=== PATIENT | female | born 1985 | race Caucasian/White ===

== ENCOUNTER → 2018-01-06 09:36 | Outpatient (CLI) | payer MEDICARE, MEDICAID, SELFPAY ==
--- NOTE | 2018-01-06 09:42 | DI.REPORT_ITS ---
SYMPTOM/DIAGNOSIS: WRIST PAIN, LEFT M25.532 LEFT WRIST: No fracture or dislocation is seen. The bones appear normally mineralized. The carpal alignment is normal. There are no visible degenerative changes. IMPRESSION: Negative left wrist.
== END ==
PROVIDERS: PCP Nurse Practitioner Family; Visit Provider Student in an Organized Health Care Education/Training Program
DX: M25.532 Pain in left wrist (principal)
CPT/HCPCS: 73110

== ENCOUNTER 2018-02-01 15:00 | Outpatient (RCR) | payer MEDICARE, MEDICAID, SELFPAY ==
--- NOTE | 2018-01-25 11:46 | IE_ITS ---
Date: January 25, 2018 Referring provider: Mona Honeycutt NP M.D. Diagnosis: continued wrist pain P.T. Diagnosis: difficulty grasping, difficulty manipulating objects with the left hand SUBJECTIVE: History of Present Illness: The patient describes herself as a disabled female due to a learning disability. 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 She has an old wrist injury that occurred when she was 12 or 13 yrs. of age, where she had sprained her wrist while playing basketball. It did heal, but always felt slightly weaker on the left side. Recently, she injured her wrist, this time at work. It was 2 to 3 weeks ago, and really cannot describes the actual incident, she just remembers washing dishes and suddenly getting a stabbing pain through the left wrist. Now, the wrist is always painful, particularly through the thumb side of her left hand and over the entire wrist both front and back. She will occasionally have the left hand fall asleep. This is progressively worsening instead of getting better. She has been utilizing a splint for about 2 weeks, now. Pain Rating: Currently 8/10 Prior Level of Function: Unrestricted. Current Level of Function: Limited use of the left hand. She is currently not lifting anything. She is having some difficulty negotiating even kitchen utensils with the left hand. Previous Treatment: N/A Social: She lives alone in [facility]. Comorbidities: Diabetes, hypertension and a learning disability. Medications: These were reviewed. You can observe her EMR for a full list. Quality of Life: __x__ Good Standardized Measures: DASH score: __33%__ OBJECTIVE: Posture: In standing, the patient demonstrates morbid obesity. She has a moderate forward head position and scapular protraction bilaterally. She holds the wrist and elbow in an anatomic position. Gait: Unremarkable. No evidence of any severe antalgia or ataxia. Palpation: She is very tender to palpation through the area of the carpal tunnel with deep Tinel. She states she gets a tingling sensation. She is also tender over the dorsal surface of the wrist. Mildly tender through the thenar eminence of the left palm. No tenderness over the lateral or medial epicondyles of the humerus. ROM: Cervical spine extension 75% of normal motion (painfree), cervical flexion 75% of normal motion (painfree), cervical rotation 75% of normal bilaterally (painfree), shoulder flexion 180 on the right (painfree); 160 on the left (mild pain), functional external rotation with hand behind head is unlimited bilaterally, functional internal rotation with hand behind back is able to reach a thumb position of T7 with the right; left back pocket with the left, shoulder extension 50 right; 25 left, elbow ROM 0 extension bilaterally (painfree) and 140 flexion bilaterally (painfree), wrist extension 80 on the right (painfree); 75 left (end range pain), writ flexion 70 right (painfree); 65 left (end range pain), radial and ulnar deviation WNL bilaterally. No significant amount of pain, only light tenderness on the left side. 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 Neuro: Sensation is intact to light touch throughout the UE dermatomes. Motor control appears intact throughout associated myotomes. The patient demonstrates appropriate proprioception and kinestatic awareness. Special Tests: 5# arm curl test, 15 repetitions in 30 seconds on the right; 0 repetitions in 30 seconds on the left, mainly due to pain. 3# shoulder flexion test at 90 of shoulder flexion, patient holds 3# weight on the right x22 seconds and 5 seconds through the left. Median nerve tension testing is mildly (+) on the left; (-) on the right. Ulnar nerve tension testing (-) bilaterally. Prayers and Phalens sign mildly (+) left; (-) right. Treatment: IE: 87681 x1 Patient Education: I.E. and assessment of functional mobility as well as training in a formal exercise program. The patient demonstrates verbal acknowledgement and technique demonstration. Direct treatment time: 45 minutes Total treatment time: 45 minutes ASSESSMENT: Patient is a 32-year-old female with a history of mild wrist pain that suddenly became exacerbated. She is referred for PT services with the diagnosis of exacerbated left wrist pain. 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 Presentation: Stable Evolving Decision-Making: Moderate complexity 33 % Disability based on DASH ____ Patient requires skilled PT intervention to remediate the above functional limitations to return to: __x__ Premorbid level of function Prognosis: __x__ Good As evidence suggests improvement of functional mobility with compliancy to a detailed HEP tailored to her diagnosis and follow through with P.T. intervention. G-Codes (fill in modifier after appropriate code): Patient's primary functional limitation is in the category of: __X__ Mobility - walking and moving around : [id number] (justified by her inability to perform any light remedial tasks requiring any weight to be lifted by the left UE) Goal is to return to premorbid level of function. Projected goal: __X__ Mobility - walking and moving around: [id number] STG: __2__ weeks. 1) patient independent with a HEP both verbally and with ideal technique demonstration LTG: __6__ weeks. 1) patient able to perform 15 repetitions on the left side with a 5# arm curl test 2) patient unlimited in her ability to work without restrictions PLAN: Patient to be seen 2x per week, for 6 weeks, adjusting frequency of visits per patient symptoms and response to treatment. Treatment to include: Manual therapy - [id number]: enhancing muscle extensibility and improving joint arthrokinematics Therapeutic exercise - 37583 - providing tactile cues, verbal education and advanced movement correctives for establishing muscle symmetry and improved stability and motor control through the shoulder girdle and left UE. Ultrasound (03788) and estim (35210) are available for pain modulation if necessary. The patient may be fitted with a customized orthotic splint for rest of the wrist in a 10 position of extension in order to increase patency through the carpal tunnel. She will be monitored for compliancy to her HEP, and her status will be updated accordingly. POC may be modified as symptoms dictate. Thank you for this referral. Please do not hesitate to contact me with any questions or concerns regarding this patient's plan of care. Please sign, date and return to our clinic with your approval.................... Mona Honeycutt NP
--- NOTE | 2018-01-28 15:11 | NT_ITS ---
NON TREATMENT NOTE: 01/28/18 Patient called in to cancel today's appointment
--- NOTE | 2018-02-01 15:42 | PTTR_ITS ---
DATE: 02/01/18 SUBJECTIVE: Pt reports that she experiences pain in the wrist almost all of the time. She states that the splint is not helping. OBJECTIVE: Manual therapy: ([id number]). Pt received stretching of the wrist into flexion and extension. Pt then received stretching to the carpal tunnel region. Pt received STM throughout the palmar aspect and the forearm flexor musculature. Pt received traction to the wrist as well as A/P mobilization. Pt then had a splint fabricated for her after her session. * X Ultrasound - (x 8 mins) - [id number]: 3mhz, 50% duty cycle, 1.0w/cm2 to the carpal tunnel region. Direct treatment time: 25 Total treatment time: 25
== END 2018-02-04 23:59 | disposition home or self-care (01) ==
LOC: PT 15:00
PROVIDERS: PCP Nurse Practitioner Family; Referring Provider Nurse Practitioner Family; Visit Provider Nurse Practitioner Family
DX: M25.532 Pain in left wrist (principal); M24.832 Other specific joint derangements of left wrist, not elsewhere classified; R29.898 Other symptoms and signs involving the musculoskeletal system; E66.8 Other obesity
CPT/HCPCS: 97035; 97140; 97162

== ENCOUNTER → 2018-02-16 13:18 | Outpatient (BNVA) | payer MEDICARE, MEDICAID, SELFPAY | PROVIDERS: PCP Nurse Practitioner Family; Referring Provider Nurse Practitioner Family; Visit Provider Surgery | DX: K52.9 Noninfective gastroenteritis and colitis, unspecified (principal) | CPT/HCPCS: 99202 ==

== ENCOUNTER 2018-02-22 09:10 | Outpatient (CLI) | payer MEDICARE, MEDICAID, SELFPAY ==
[2018-02-22 10:21] LABS: HGB 11.4 g/dL (12.0-15.5); Mean Corp. HGB Concentration 30.8 g/dL (32.0-36.0); Mean Corpuscular Hemoglobin 22.4 pg (27.0-33.0); Mean Corpuscular Volume 72.7 fL (80-95); Mean Platelet Volume 10.4 fL (8.0-11.0); Platelet Count 375 x1000/uL (130-400); RBC 5.09 m/cumm (4.00-5.20); RBC Distribution Width 19.8 % (11.7-14.6); White Blood Cell Count 8.21 k/cumm (4.4-10.8)
[2018-02-22 11:54] LABS: Iron 39 ug/dL (50-175); Total Iron Binding Capacity 421 ug/dL (250-450); Transferrin Sat 9 % (15-50)
[2018-02-22 12:05] LABS: Ferritin 15 ng/mL (8-388)
== END 2018-02-22 09:30 ==
PROVIDERS: PCP Nurse Practitioner Family; Visit Provider Nurse Practitioner Family
DX: K52.9 Noninfective gastroenteritis and colitis, unspecified (principal); D50.9 Iron deficiency anemia, unspecified
CPT/HCPCS: 36415; 85027; 82728; 83540; 83550

== ENCOUNTER 2018-02-24 09:22 | Outpatient (CLI) | payer MEDICARE, MEDICAID, SELFPAY | END 2018-02-24 09:42 | PROVIDERS: PCP Nurse Practitioner Family; Visit Provider Surgery | DX: K52.9 Noninfective gastroenteritis and colitis, unspecified (principal); Z01.818 Encounter for other preprocedural examination ==

== ENCOUNTER 2018-02-28 08:22 | Day surgery (SDC) | payer MEDICARE, MEDICAID, SELFPAY ==
--- NOTE | 2018-02-28 06:57 | W.COLOREPORT ---
Colonoscopy Report Date of procedure: 02/28/18 Pre-op diagnosis general: Chronic diarrhea Post-op diagnosis procedure note: same Procedure: Colonoscopy with biopsies Surgeon: Kera Weinstein Anesthesia proc note operative: MAC (Akash Rae, SUN/ KAZ Booker) Estimated blood loss (mL): 5 Pathology: other (multiple biopsies throughout the colon) Complications: None Disposition: same day Indications: Mrs. Carpenter is a pleasant 32 year old seen in the office to discuss a colonoscopy for chronic diarrhea. Risks, benefits and complications have been reviewed. Complications include but are not limited to bleeding, pain, perforation, missed small lesion/polyp, sore throat, aspiration and adverse reaction to the medications. Questions were entertained and answered to their satisfaction and they wished to proceed. No guarantees were given or implied. Prep: Miralax/Dulcolax Procedure Start Time: 10:15 Procedure End Time: 10:31 Retraction Time: 9 minutes Findings: Normal appearing colon Procedure Description: After informed consent was obtained the patient was taken to the procedure room and placed in a left decubitous position. Monitors were applied and a time out was done. The patients name, date of , procedure, allergies to medications and metal in their body was reviewed. The patient was then sedated. Once sedated and comfortable a rectal exam was done. External exam was normal. Internal exam revealed a normal sphincter tone and no palpable masses. The scope was then introduced and retrofelexed. No internal hemorrhoids were identified. The scope was then advanced to the cecum without difficulty. The TI and appendiceal orifice were identified. The prep was adequate. The scope was then slowly retracted over 9 minutes back into the rectum. Random biopsies were done throughout the colon to rule out microscopic colitis. The scope was removed and the patient was woken up and taken back to Same day surgery in stable condition. The patient tolerated the procedure well and there were no immediate complications. Follow up: The patient should follow up in 10 years unless they develop changes in bowel habits or other new gastrointestinal complaints. If biopsies are negative for microscopic colitis then would recommend having patient follow a FODMAP diet and if no improvement she should see gastroenterology at either [facility] or [facility]
--- NOTE | 2018-02-28 06:59 | PDOC.DSDIS_ITS ---
Discharge Plan Disposition Patient Disposition: HOME Condition: Good Discharge Details Reason For Visit: chronic diarrhea Attending Provider: Kera Weinstein Primary Care Provider: Mona Honeycutt Home Meds and New Rx's Prescriptions: Continue loperamide 2 MG tablet 4 mg PO QID PRNQty: 90 RF: 0 metformin 1,000 MG tablet 1,000 mg PO BID Qty: 180 RF: 3 pravastatin 40 MG tablet 40 mg PO HS Qty: 90 RF: 3 blood sugar diagnostic [Blood Glucose Test] 1 EACH strip 1 ea Miscellaneous BID Qty: 200 RF: 3 metoprolol tartrate 25 MG tablet 25 mg PO BID Qty: 180 RF: 3 lancets [Accu-Chek Multiclix Lancet] 1 EACH misc 1 ea Miscellaneous BID Qty: 200 RF: 3 blood-glucose meter [Accu-Chek Emely Plus Meter] 1 EACH misc 1 ea Miscellaneous BID Qty: 1 RF: 0 blood sugar diagnostic [Accu-Chek Emely Plus test strp] 1 EACH strip 1 ea Miscellaneous BID Qty: 200 RF: 3 triamcinolone acetonide 15 GM cream 1 film Topical 2-4 times daily PRN Qty: 1 RF: 1 pantoprazole 40 MG tablet,delayed release (DR/EC) 40 mg PO DAILY Qty: 90 RF: 3 diphenhydramine HCl 25 MG tablet 25 - 50 mg PO HS MDD 300 PRNQty: 30 RF: 1 ferrous sulfate 325 MG tablet 325 mg PO BID Qty: 120 RF: 0 naproxen sodium [Aleve] 220 MG capsule 220 mg PO BID Qty: 10 RF: 0 trazodone 50 MG tablet 50 mg PO HS Qty: 90 RF: 3 losartan 25 MG tablet 25 mg PO DAILY Qty: 90 RF: 3 loratadine 10 MG tablet 10 mg PO DAILY Qty: 90 RF: 3 aspirin [Aspirin Low-Strength] 81 MG tablet,chewable 81 mg PO HS RF: 0 glipizide 5 MG tablet 10 mg PO BID RF: 0 albuterol sulfate [Ventolin HFA] 90 mcg/actuation Hfa Aerosol Inhaler 2 puff INHALATION PRN PRNRF: 0 Discontinued polyethylene glycol 3350 17 gram powder in packet 255 g PO DAILY Qty: 15 RF: 0 bisacodyl [Dulcolax (bisacodyl)] 5 mg tablet,delayed release (DR/EC) 5 mg PO ONCE Qty: 4 RF: 0 Discharge Instructions Instructions: Colonoscopy (DC) Additional Instructions: Findings: Normal appearing Colonoscopy Follow up: with PCP New Medications: none Please call if you develop: fevers >101.5 Nausea or Vomiting Abdominal pain that is not transient 1. Because there will be medication in your system for the next 24 hours, you may feel a little sleepy. Your coordination will be affected. Therefore: a. Do not drive or operate dangerous equipment for 24 hours. b. Do not drink alcohol beverages for 24 hours (not even beer). c. Plan to go home and rest for the day. 2. Generally there are no restrictions on your activity after a day or so has gone by, but you may feel a bit fatigued for a few days. 3 After you arrive home you may have a light meal and return to a normal diet as you can tolerate it without feeling sick to your stomach. 4. After surgery, you may feel pain or discomfort. This should be only transient , but if it persists please contact your doctor. 5. If there are any questions regarding the findings of your procedure, please feel free to contact your doctor. 6. If you are unable to contact your doctor with a problem, contact the hospital at [phone]. 7. Continue all your regular medications unless directed otherwise. I understand the above instructions and have no questions. Signature of Patient or Responsible Adult Escort Date/Time Name of Responsible Adult Escort Signature of Nurse Date/Time Activity:: Activity as Tolerated Diet:: As Tolerated Discharge Orders Discharge Orders: Discharge Order (Routine); Ordered 02/28/18 Ordered By: Kera Weinstein
[2018-02-28 08:43] VITALS: BP 123/83; PULSE 76; RESP 18; TEMP 35.5; O2SAT 100
[2018-02-28] MEDS: Lactated Ringers 1,000 ML 80 ML IV (08:50)
--- NOTE | 2018-02-28 10:28 | BOWEL_PTH ---
PATIENT: Helene Carpenter LOC: [facility] U#:[id number] AGE/SX: 32/F ROOM: RE02/28/[address]: Kera Weinstein MD : [id number] BED: DIS: 02/28/2018 SPEC #: [id number] RECD: 02/28/18 13:00 STATUS: [facility] RE #: [id number] MARIPOSA: 02/28/18 10:[address]: Kera Weinstein DEPT: Surgical Specimen RECD BY: Flor Samuels ENTERED: 02/28/18 13:02 SP TYPE: Bowel OTHR DR: Mona Honeycutt APRN Tissues: 1 - BIOPSY BOWEL 2 - BIOPSY BOWEL 3 - BIOPSY BOWEL 4 - BIOPSY BOWEL Procedures: GROSS AND MICRO LEVEL 4 Comments: [id number]
[2018-02-28 11:13] VITALS: BP 106/67; PULSE 71; RESP 16; TEMP 36.6; O2SAT 100
== END 2018-02-28 11:37 | disposition home or self-care (01) ==
PROVIDERS: PCP Nurse Practitioner Family; Visit Provider Surgery
PROC: 0DJD8ZZ Inspection of Lower Intestinal Tract, Via Natural or Artificial Opening Endoscopic (ICD-10-PCS; CPT 45378; principal; 2018-02-28 10:00)
DX: K52.9 Noninfective gastroenteritis and colitis, unspecified (principal)
CPT/HCPCS: 45380; 81025; 88305

== ENCOUNTER → 2018-02-28 08:48 | Outpatient (BNVA) | payer MEDICARE, MEDICAID, SELFPAY | PROVIDERS: PCP Nurse Practitioner Family; Referring Provider Nurse Practitioner Family; Visit Provider Surgery | DX: R69 Illness, unspecified (principal) ==

== ENCOUNTER 2018-03-07 11:59 | Outpatient (CLI) | payer MEDICARE, MEDICAID, SELFPAY ==
[2018-03-09 13:07] LABS: IgA 235 mg/dL (85-499); Interpretation SEE COMMENTS; Tissue Transglutaminase IgA <1.2 U/mL (<4.0)
== END 2018-03-07 12:19 ==
PROVIDERS: PCP Nurse Practitioner Family; Visit Provider Nurse Practitioner Family
DX: K52.9 Noninfective gastroenteritis and colitis, unspecified (principal)
CPT/HCPCS: 36415; 82784; 83516

== ENCOUNTER 2018-03-25 16:11 | Emergency (ER) | payer MEDICARE, MEDICAID, SELFPAY ==
[2018-03-25 16:16] VITALS: BP 129/73; PULSE 96; RESP 16; TEMP 36.7; O2SAT 97
--- NOTE | 2018-03-25 16:28 | ED.GENADUL_ITS ---
Discharge Plan Disposition Patient Disposition: HOME Condition: Stable Discharge Details Chief Complaint: Orthopedic Clinical Impression: Left wrist sprain, Contusion of multiple sites Primary Care Provider: Mona Honeycutt ED Provider: Zhou Strauss Home Meds and New Rx's Prescriptions: No Action multivitamin with iron tablet 1 tab PO DAILY Qty: 90 RF: 3 loperamide 2 MG tablet 4 mg PO QID PRNQty: 90 RF: 0 metformin 1,000 MG tablet 1,000 mg PO BID Qty: 180 RF: 3 pravastatin 40 MG tablet 40 mg PO HS Qty: 90 RF: 3 blood sugar diagnostic [Blood Glucose Test] 1 EACH strip 1 ea Miscellaneous BID Qty: 200 RF: 3 metoprolol tartrate 25 MG tablet 25 mg PO BID Qty: 180 RF: 3 lancets [Accu-Chek Multiclix Lancet] 1 EACH misc 1 ea Miscellaneous BID Qty: 200 RF: 3 blood-glucose meter [Accu-Chek Emely Plus Meter] 1 EACH misc 1 ea Miscellaneous BID Qty: 1 RF: 0 blood sugar diagnostic [Accu-Chek Emely Plus test strp] 1 EACH strip 1 ea Miscellaneous BID Qty: 200 RF: 3 triamcinolone acetonide 15 GM cream 1 film Topical 2-4 times daily PRN Qty: 1 RF: 1 pantoprazole 40 MG tablet,delayed release (DR/EC) 40 mg PO DAILY Qty: 90 RF: 3 diphenhydramine HCl 25 MG tablet 25 - 50 mg PO HS MDD 300 PRNQty: 30 RF: 1 naproxen sodium [Aleve] 220 MG capsule 220 mg PO BID Qty: 10 RF: 0 trazodone 50 MG tablet 50 mg PO HS Qty: 90 RF: 3 losartan 25 MG tablet 25 mg PO DAILY Qty: 90 RF: 3 loratadine 10 MG tablet 10 mg PO DAILY Qty: 90 RF: 3 ferrous sulfate 325 mg (65 mg iron) tablet 325 mg PO BID Qty: 120 RF: 0 aspirin [Aspirin Low-Strength] 81 MG tablet,chewable 81 mg PO HS RF: 0 glipizide 5 MG tablet 10 mg PO BID RF: 0 albuterol sulfate [Ventolin HFA] 90 mcg/actuation Hfa Aerosol Inhaler 2 puff INHALATION PRN PRNRF: 0 Discharge Instructions Instructions: Contusion in Adults (ED), RICE Therapy (ED), Wrist Sprain (ED) Additional Instructions: Feel free to return to the emergency department for new or worsening symptoms otherwise rest the extremity over the weekend. She may start performing normal activity as tolerated by pain and discomfort. Please wear the wrist splint for the next 2 weeks at minimum. You may wear it longer if this provides comfort. If not seeing signs of improvement over the next week please call orthopedic office for arrangement of follow-up appointment in the next couple weeks. You may continue to use acetaminophen as needed for pain control Stand Alone Forms: Work Release Referrals: Donnie Oliver MD [ [facility] STAFF PHYSICIAN] - (As needed for reassessment if not improving) Discharge Data Discharge Date/Time-TO BE ENTERED AT DEPARTURE: 03/25/18 18:07 Medical Decision Making <Zhou Strauss NP - Last Filed: 03/31/18 23:12> Patient presenting to the emergency department for chief complaint of fall yesterday evening with left wrist, midshaft humerus, and shoulder pain. Physical exam shows specific tenderness to palpation of the distal radius and ulna otherwise midshaft humerus and shoulder are diffuse nonspecific pain. Concern for possible fracture given patient's size and report of fall. Plan to perform radiological imaging to rule out acute fracture. Pending results patient given acetaminophen. Review of radiological imaging shows no acute signs of fracture. Given the patient does have anatomical snuffbox tenderness patient was placed in a thumb spica splint and encouraged to wear the splint at minimum for the next 2 weeks. If not improving she was informed to follow-up with orthopedist for reassessment as needed. Otherwise I feel that patient has wrist sprain and multiple contusions. Patient encouraged to continue to use [id number] acetaminophen as needed for pain. After discussion of diagnosis and plan of care patient has no further needs, questions, or concerns and states clear understanding to return to the emergency department for any worsening symptoms. <OCTAVIANO Angulo - Last Filed: 03/25/18 17:58> Radiographic results are reviewed by myself. Radiology report of the left shoulder is significant for AP external rotation and internal rotational images demonstrated findings suggestive of anterior subluxation or dislocation of the glenohumeral joint. However, the glenohumeral joint appears normally located in AP as well as a scapular Y and axillary views. Relocation of the joint on the radiographic examination is suspected. No acute fracture X-ray left wrist normal with no acute X-ray of the left humerus reviewed by radiologist. They advised that there is a probable mock line artifact of the distal humerus metaphysis and advise clinical correlation. Exam is otherwise unremarkable. This does not correlate clinically. Discussed the findings of the x-rays with the patient. In particular, we discussed the concern for possible subluxation of the left shoulder. ЮЛИЯ Strauss had reported that she had good range of motion making dislocation highly unlikely. However, patient will be treated conservatively with sling. We will augment this to the splint that has already placed over the patient's left wrist. Work note will also be given to the patient. She will otherwise follow Anjel Strauss NP instructions. Advised that she contact orthopedics for follow up as he advised. [place] had already written for work note. HPI <Zhou Strauss NP - Last Filed: 03/31/18 23:12> General Mode of arrival: ambulatory . Date/Time Provider Initiated Documentation: 03/25/18 16:13 . Limitations to Documentation: no limitations . Information obtained by: patient . History of Present Illness 32 year old F presents to the emergency department with the chief complaint of fall/left arm pain, described as severe, with intensity rated at 9. Quality is described as aching and sharp, and is localized to the left and upper extremity. Patient started experiencing this day(s) (1) and it has been constant. No relieving factors improve symptom(s), No exacerbating factors reported . Patient notes no other symptoms.. Patient did receive the following treatments prior to arrival, other (Acetaminophen) Related Data Home Medications Medication Instructions Recorded Confirmed aspirin [Aspirin Low-Strength] 81 mg PO HS 02/26/17 03/25/18 loperamide 4 mg PO QID PRN #90 tab-cap 06/14/17 03/25/18 metformin 1,000 mg PO BID #180 tab-cap 08/05/17 03/25/18 pravastatin 40 mg PO HS #90 tab-cap 08/11/17 03/25/18 blood sugar diagnostic [Blood #200 strip 11/03/17 03/25/18 Glucose Test] metoprolol tartrate 25 mg PO BID #180 tab-cap 05/30/18 10/19/18 blood sugar diagnostic [Accu-Chek #200 strip 11/04/17 03/25/18 Emely Plus test strp] blood-glucose meter [Accu-Chek #1 ea 11/04/17 03/25/18 Emely Plus Meter] lancets [Accu-Chek Multiclix #200 ea 11/04/17 03/25/18 Lancet] triamcinolone acetonide 1 film TOPICAL 2-4 times daily PRN 11/19/17 03/25/18 #1 tube diphenhydramine HCl 25 - 50 mg PO HS PRN #30 tab-cap 11/29/17 03/25/18 MDD 300 pantoprazole 40 mg PO DAILY #90 tab-cap 11/29/17 03/25/18 naproxen sodium [Aleve] 220 mg PO BID #10 cap 12/23/17 03/25/18 trazodone 50 mg PO HS #90 tab-cap 01/05/18 03/25/18 loratadine 10 mg PO DAILY #90 tab-cap 01/06/18 03/25/18 losartan 25 mg PO DAILY #90 tab-cap 01/06/18 03/25/18 albuterol sulfate [Ventolin HFA] 2 puff INHALATION PRN PRN 02/24/18 03/25/18 glipizide 10 mg PO BID 02/24/18 03/25/18 ferrous sulfate 325 mg (65 mg 325 mg PO BID #120 tab-cap 03/02/18 03/25/18 iron) tablet multivitamin with iron tablet 1 tab PO DAILY #90 tab-cap 03/07/18 03/25/18 Previous Rx's Medication Instructions Recorded metformin 1,000 mg PO BID #180 tab-cap 08/05/17 pravastatin 40 mg PO HS #90 tab-cap 08/11/17 blood sugar diagnostic [Blood #200 strip 11/03/17 Glucose Test] metoprolol tartrate 25 mg PO BID #180 tab-cap 11/03/17 triamcinolone acetonide 1 film TOPICAL 2-4 times daily PRN 11/19/17 #1 tube pantoprazole 40 mg PO DAILY #90 tab-cap 11/29/17 naproxen sodium [Aleve] 220 mg PO BID #10 cap 12/23/17 trazodone 50 mg PO HS #90 tab-cap 01/05/18 loratadine 10 mg PO DAILY #90 tab-cap 01/06/18 losartan 25 mg PO DAILY #90 tab-cap 01/06/18 ferrous sulfate 325 mg (65 mg 325 mg PO BID #120 tab-cap 03/02/18 iron) tablet multivitamin with iron tablet 1 tab PO DAILY #90 tab-cap 03/07/18 Allergies Allergy/AdvReac Type Severity Reaction Status Date / Time niacin Allergy Unknown Severe Unverified 03/07/18 10:51 [From Niaspan Skin Rash Extended-Release] lisinopril AdvReac Intermediate Cough Unverified 03/07/18 10:51 ibuprofen AdvReac Upset Unverified 03/07/18 10:51 stomach General Stated Complaint: Orthopedic MELANIE: 4 Review of Systems <Zhou Strauss NP - Last Filed: 03/31/18 23:12> Constitutional Reports system reviewed and no additional complaints, except as docu Cardiovascular Reports system reviewed and no additional complaints, except as docu and Denies syncope Respiratory Reports system reviewed and no additional complaints, except as docu Musculoskeletal Reports as per HPI Neurologic Denies syncope and Denies sensory deficit Exam <Zhou Strauss NP - Last Filed: 03/31/18 23:12> Const General: not in acute distress and not diaphoretic Orientation: alert, awake and oriented x3 Resp Effort & Inspection: normal respiratory effort and able to speak in complete sentences Cardio Rate: regular rate Rhythm: regular rhythm Extrem Left upper extremity: shoulder/upper arm Details: tenderness Location: of the A- C joint, of the proximal humerus and of the mid-shaft humerus, axillary nerve sensory function normal and normal ROM; no ecchymosis, no crepitus, no deformity and no unsual warmth, elbow/forearm Details: normal to inspection and normal ROM; no tenderness and no swelling, wrist Details: tenderness Location: of the distal radius, of the distal ulna, of the anatomic snuffbox, of the dorsal wrist and of the volar wrist, abnormal ROM Details: pain with active ROM Details: with flexion and radial pulse present Details: 2+; no swelling, no unusual warmth, no abrasions and no ecchymosis and hand Details: normal to inspection, normal capillary refill, neuromotor exam normal, neurosensory exam normal and tendon exam normal; no tenderness Course <Zhou Strauss NP - Last Filed: 03/31/18 23:12> Vital Signs Temperature 36.7 C 03/25/18 16:16 Pulse 96 H 03/25/18 16:16 Respiratory Rate 16 03/25/18 16:16 Blood Pressure 129/73 03/25/18 16:16 Pulse Oximetry 97 03/25/18 16:16 Temperature 36.7 C 03/25/18 16:16 Temperature Source Skin 03/25/18 16:16 Pulse 96 H 03/25/18 16:16 Respiratory Rate 16 03/25/18 16:16 Respiratory Effort 03/25/18 16:19 Blood Pressure 129/73 03/25/18 16:16 Blood Pressure Position Sitting 03/25/18 16:16 Pulse Oximetry 97 03/25/18 16:16 Oxygen Delivery Method Room Air 03/25/18 16:16 Oxygen Flow Rate 0 03/25/18 16:16 Pain Level 9 03/25/18 16:16
--- NOTE | 2018-03-25 16:52 | DI.RAD_ITS ---
SYMPTOMS/DIAGNOSIS: MID SHAFT HUMERUS PAIN, WRIST PAIN S/P FALL LEFT SHOULDER: On the AP internal and external rotation images, there is a question of an anterior subluxation. This is not confirmed on the axillary and Y views. The findings could be positional or could be related to relocation during the examination. There is no evidence of fracture. The AC joint is intact. LEFT HUMERUS: No fracture is identified. The shoulder and elbow are unremarkable as visualized. IMPRESSION: Negative left humerus. LEFT WRIST: No fracture or dislocation is seen. IMPRESSION: Negative left wrist.
[2018-03-25] MEDS: Acetaminophen 325 MG TAB 650 MG PO (17:01)
--- NOTE | 2018-03-25 17:21 | DI.VRAD_ITS ---
EXAM: XR Left Humerus, 2 or More Views EXAM DATE/TIME: 03/25/2018 4:24 PM CLINICAL HISTORY: 32 years old, female; Pain; Upper arm; Left; Patient HX: Patient fell down hill yesterday, pain left humerus shoulder and wrist. No previous injury or surgery. TECHNIQUE: XR Left humerus 2 or more views. COMPARISON: No relevant prior studies available. FINDINGS: The longitudinal lucencies through the lateral and medial cortex of the distal humerus metaphysis seen on the AP examination is likely secondary to Mach line artifact. Correlate clinically with pain at the distal humerus metaphysis. No other bone or joint abnormality is identified. No displaced fracture is seen. IMPRESSION: Probable Mach line artifact at the distal humerus metaphysis. Correlate clinically with location of patient's pain. The examination is otherwise unremarkable. Dictated and Authenticated by: Abilio Morales MD. Ordering:VERONICA TOUSSAINT MD
--- NOTE | 2018-03-25 17:25 | DI.VRAD_ITS ---
EXAM: XR Left Shoulder Complete, 2 or More Views EXAM DATE/TIME: 03/25/2018 4:57 PM CLINICAL HISTORY: 32 years old, female; Pain; Shoulder; Left; Patient HX: Patient fell down hill yesterday, pain left humerus shoulder and wrist. No previous injury or surgery. TECHNIQUE: XR Left shoulder complete 2 or more views. COMPARISON: No relevant prior studies available. FINDINGS: AP external rotation and internal rotation images 1001 and 1002 demonstrate findings suggestive of anterior subluxation/dislocation of the glenohumeral joint. However, the glenohumeral joint appears normally located on AP radiograph 1003 as well as on scapula Y and axillary views. Relocation of the joint during the radiographic examination is suspected. Correlate with joint instability. No acute fracture is identified. IMPRESSION: No acute fracture. Other findings as described above. Dictated and Authenticated by: Abilio Morales MD. Ordering:VERONICA TOUSSAINT MD
--- NOTE | 2018-03-25 17:26 | DI.VRAD_ITS ---
EXAM: XR Left Wrist Complete, 3 or more Views EXAM DATE/TIME: 03/25/2018 4:57 PM CLINICAL HISTORY: 32 years old, female; Pain; Wrist; Left; Patient HX: Patient fell down hill yesterday, pain left humerus shoulder and wrist. No previous injury or surgery. TECHNIQUE: XR Left wrist 3 or more views. COMPARISON: CR LEFT WRIST COMPLETE 01/06/2018 9:36 AM FINDINGS: Bones/joints: Normal. Soft tissues: Normal. IMPRESSION: No acute findings. Dictated and Authenticated by: Abilio Morales MD. Ordering:VERONICA TOUSSAINT MD
[2018-03-25 18:04] VITALS: BP 138/80; PULSE 72; RESP 18; TEMP 36.8; O2SAT 98
== END 2018-03-25 18:07 | disposition home or self-care (01) ==
LOC: ER 18:25
PROVIDERS: Emergency Provider Nurse Practitioner Family; PCP Nurse Practitioner Family
DX: S63.502A Unspecified sprain of left wrist, initial encounter (principal); S40.022A Contusion of left upper arm, initial encounter; S40.012A Contusion of left shoulder, initial encounter; W17.81XA Fall down embankment (hill), initial encounter; E11.9 Type 2 diabetes mellitus without complications; Z79.84 Long term (current) use of oral hypoglycemic drugs
CPT/HCPCS: 29125; 99284; 73030; 73060; 73110; L3650

== ENCOUNTER 2018-06-03 09:04 | Outpatient (CLI) | payer MEDICARE, MEDICAID, SELFPAY ==
[2018-06-03 09:49] LABS: Abs Immature Grans 0.03 k/cumm (0.0-0.09); Absolute Basophil Count 0.03 k/cumm (0.0-0.2); Absolute Eosinophil Count 0.23 k/cumm (0.0-0.7); Absolute Lymphocyte Count 2.16 k/cumm (1.2-3.4); Absolute Monocyte Count 0.34 k/cumm (0.11-0.7); Absolute Neutrophil Count 8.08 k/cumm (1.2-6.7); Basophils % 0.3; Eosinophils % 2.1; HCT 40.7 % (36.0-46.0); HGB 12.9 g/dL (12.0-15.5); Immature Grans % 0.3; Lymphocytes % 19.9; Mean Corp. HGB Concentration 31.7 g/dL (32.0-36.0); Mean Corpuscular Hemoglobin 24.3 pg (27.0-33.0); Mean Corpuscular Volume 76.6 fL (80-95); Mean Platelet Volume 9.9 fL (8.0-11.0); Monocytes % 3.1; Neutrophils % 74.3; Platelet Count 376 x1000/uL (130-400); RBC 5.31 m/cumm (4.00-5.20); RBC Distribution Width 16.9 % (11.7-14.6); White Blood Cell Count 10.87 k/cumm (4.4-10.8)
[2018-06-03 10:17] LABS: Iron 36 ug/dL (50-175); Total Iron Binding Capacity 380 ug/dL (250-450); Transferrin Sat 9 % (15-50)
[2018-06-03 10:30] LABS: Ferritin 40 ng/mL (8-388)
== END 2018-06-03 09:24 ==
PROVIDERS: PCP Nurse Practitioner Family; Visit Provider Nurse Practitioner Family
DX: D50.9 Iron deficiency anemia, unspecified (principal); E11.69 Type 2 diabetes mellitus with other specified complication; E66.9 Obesity, unspecified
CPT/HCPCS: 36415; 82728; 83540; 83550; 85025

== ENCOUNTER 2018-08-01 16:27 | Outpatient (CLI) | payer MEDICARE, MEDICAID, SELFPAY ==
--- NOTE | 2018-08-01 13:00 | DI.RAD_ITS ---
SYMPTOMS/DIAGNOSIS: S/P FALL, PATELLA TENDER, ? FX, M25.562 LEFT KNEE: Comparison is made with [id number]. Four views were performed. There is no evidence of fracture or joint effusion. The patella appears intact. The joint spaces are well maintained. IMPRESSION: Negative left knee.
== END 2018-08-01 16:47 ==
PROVIDERS: PCP Nurse Practitioner Family; Visit Provider Nurse Practitioner Family
DX: M25.562 Pain in left knee (principal); W19.XXXA Unspecified fall, initial encounter
CPT/HCPCS: 73564

== ENCOUNTER 2018-09-08 08:18 | Outpatient (CLI) | payer MEDICARE, MEDICAID, SELFPAY ==
[2018-09-08 09:30] LABS: COMMENT (LAB VIEW ONLY) 150.32 mg/dL; Microalb ug/mg Crea 13.6 ug/mg Cr
[2018-09-08 09:40] LABS: ALT 44 U/L (12-78); AST 28 U/L (15-37); Albumin 3.2 g/dL (3.4-5.0); Alkaline Phosphatase 87 U/L (46-116); Anion Gap 9.5 mmol/L (3-11); BUN 14 mg/dL (7-18); Bilirubin, Total 0.3 mg/dL (0.2-1.0); CO2 27.5 mmol/L (21.0-32.0); CREATININE 0.62 mg/dL (0.55-1.02); Calcium 8.8 mg/dL (8.5-10.1); Chloride 102 mmol/L (98-107); Cholesterol 129 mg/dL (50-200); Glucose 88 mg/dL (70-100); HDL Cholesterol 41 mg/dL (40-60); LDL CHOLESTEROL 70 mg/dL (<100); Potassium 3.8 mmol/L (3.5-5.1); Sodium 139 mmol/L (136-145); Total Protein 6.8 g/dL (6.4-8.2); Triglyceride 165 mg/dL (30-150)
== END 2018-09-08 08:38 ==
PROVIDERS: PCP Nurse Practitioner Family; Visit Provider Nurse Practitioner Family
DX: E11.9 Type 2 diabetes mellitus without complications (principal); I10 Essential (primary) hypertension; E78.5 Hyperlipidemia, unspecified
CPT/HCPCS: 36415; 80053; 80061; 83721; 82043; 82570

== ENCOUNTER 2018-09-17 09:09 | Emergency (ER) | payer MEDICARE, MEDICAID, SELFPAY ==
[2018-09-17 09:12] VITALS: BP 165/100; PULSE 85; RESP 16; TEMP 36.7; O2SAT 97
[2018-09-17 09:18] VITALS: BP 146/85
--- NOTE | 2018-09-17 10:24 | W.ED.GENAD ---
Discharge Plan Disposition Patient Disposition: HOME Condition: Stable Discharge Details Chief Complaint: Orthopedic Clinical Impression: Pain in left shoulder Primary Care Provider: Mona Honeycutt ED Provider: Jerel Quinteros Home Meds and New Rx's Prescriptions: No Action multivitamin with iron tablet 1 tab PO DAILY Qty: 90 RF: 3 pravastatin 40 mg tablet 40 mg PO HS Qty: 90 RF: 3 lidocaine [LC-5] 5 % cream 1 applic TP .BID-QID PRN (Reason: pain) Qty: 45 RF: 0 loperamide 2 MG tablet 4 mg PO QID PRNQty: 90 RF: 0 Blood Glucose Test 1 EACH strip 1 ea Miscellaneous BID Qty: 200 RF: 3 metoprolol tartrate 25 MG tablet 25 mg PO BID Qty: 180 RF: 3 lancets [Accu-Chek Multiclix Lancet] 1 EACH misc 1 ea Miscellaneous BID Qty: 200 RF: 3 blood-glucose meter [Accu-Chek Emely Plus Meter] 1 EACH misc 1 ea Miscellaneous BID Qty: 1 RF: 0 Accu-Chek Emely Plus test strp 1 EACH strip 1 ea Miscellaneous BID Qty: 200 RF: 3 triamcinolone acetonide 15 GM cream 1 film Topical 2-4 times daily PRN Qty: 1 RF: 1 pantoprazole 40 MG tablet,delayed release (DR/EC) 40 mg PO DAILY Qty: 90 RF: 3 diphenhydramine HCl 25 MG tablet 25 - 50 mg PO HS MDD 300 PRNQty: 30 RF: 1 naproxen sodium [Aleve] 220 MG capsule 220 mg PO BID Qty: 10 RF: 0 trazodone 50 MG tablet 50 mg PO HS Qty: 90 RF: 3 losartan 25 MG tablet 25 mg PO DAILY Qty: 90 RF: 3 loratadine 10 MG tablet 10 mg PO DAILY Qty: 90 RF: 3 metformin 1,000 mg tablet 1,000 mg PO BID Qty: 180 RF: 3 aspirin [Aspirin Low-Strength] 81 MG tablet,chewable 81 mg PO HS RF: 0 glipizide 5 MG tablet 10 mg PO BID RF: 0 albuterol sulfate [Ventolin HFA] 90 mcg/actuation Hfa Aerosol Inhaler 2 puff INHALATION PRN PRNRF: 0 Discharge Instructions Instructions: Shoulder Pain (ED) Additional Instructions: 1. Drink plenty of fluids. 2. Continue all medications as prescribed. 3. Acetaminophen 1000mg every 4 hours (up to 5 time a day) and/or ibuprofen 600mg every 6 hours as needed for fever or pain. 4. Wear sling for comfort. Do frequent hanging arm rotations. 5. Ice sore areas frequently. Return to the Emergency Department (ED) if your condition worsens, does not improve as expected, or for ANY other concerns. Specifically, return if you have new or uncontrolled pain, worsening fever, difficulty breathing, vomiting, or are unable to drink fluids. Wear sling for comfort. Do frequent hanging arm rotations. Medical Decision Making 33-year-old woman with multiple medical problems including a history of remote left shoulder trauma. Presents for evaluation of atraumatic left shoulder pain. Cannot recall an inciting event other than she is actively lifting at work. Exam sent for anterior lateral soft tissue/deltoid tenderness with increased pain when adduction against resistance. Otherwise, no clinical evidence of other significant injury. X-ray nondiagnostic. Patient placed in a sling and discharged home with a plan for OTC analgesia, sling as needed, and outpatient follow-up as needed. Pt evaluated immediately prior to discharge with improved symptoms, normal vital signs, and tolerating PO. The patient feels appropriate for discharge home. Discussed clinical/diagnostic findings. Discharged with a clear plan for outpatient follow up. Given usual and customary return instructions prior to discharge. Medical Records Medical records reviewed: Yes I reviewed the patient's medical records. Imaging Data Radiologic Study: Attestation: I personally reviewed and interpreted this imaging study as follows: Imaging: X-Ray (Left shoulder) My impression: No acute fracture/dislocation. No evidence of significant soft tissue findings. Interpreted independently and contemporaneously by myself. Reviewed radiology report. Radiologist's impression: Same HPI 33-year-old with history of IBS, type II DM, GAMAL, GERD, and a previous left shoulder injury 1 year ago . Presents with new onset left shoulder pain since this morning. Denies recent trauma, fever/chills, palpitations, chest pain, dyspnea. Has noted no significant atypical left arm swelling or discoloration. Pain is worsened with adduction and improves with abduction. She has no significant pain with internal or external rotation or flexion/extension. General Date/Time Provider Initiated Documentation: 09/17/18 09:38. Related Data Home Medications Medication Instructions Recorded Confirmed aspirin [Aspirin Low-Strength] 81 mg PO HS 02/26/17 09/17/18 loperamide 4 mg PO QID PRN #90 tab-cap 06/14/17 09/17/18 Blood Glucose Test #200 strip 11/03/17 08/05/18 metoprolol tartrate 25 mg PO BID #180 tab-cap 11/03/17 09/17/18 Accu-Chek Emely Plus test strp #200 strip 11/04/17 08/05/18 blood-glucose meter [Accu-Chek #1 ea 11/04/17 08/05/18 Emely Plus Meter] lancets [Accu-Chek Multiclix #200 ea 11/04/17 08/05/18 Lancet] triamcinolone acetonide 1 film TOPICAL 2-4 times daily PRN 11/19/17 09/17/18 #1 tube diphenhydramine HCl 25 - 50 mg PO HS PRN #30 tab-cap 11/29/17 09/17/18 MDD 300 pantoprazole 40 mg PO DAILY #90 tab-cap 11/29/17 09/17/18 naproxen sodium [Aleve] 220 mg PO BID #10 cap 12/23/17 09/17/18 trazodone 50 mg PO HS #90 tab-cap 01/05/18 09/17/18 loratadine 10 mg PO DAILY #90 tab-cap 01/06/18 09/17/18 losartan 25 mg PO DAILY #90 tab-cap 01/06/18 09/17/18 albuterol sulfate [Ventolin HFA] 2 puff INHALATION PRN PRN 02/24/18 09/17/18 glipizide 10 mg PO BID 02/24/18 09/17/18 multivitamin with iron tablet 1 tab PO DAILY #90 tab-cap 03/07/18 09/17/18 metformin 1,000 mg tablet 1,000 mg PO BID #180 tab-cap 07/29/18 09/17/18 lidocaine 5 % topical cream 1 applic TP .BID-QID PRN #45 gm 08/01/18 09/17/18 pravastatin 40 mg tablet 40 mg PO HS #90 tab-cap 08/05/18 09/17/18 Previous Rx's Medication Instructions Recorded Blood Glucose Test #200 strip 11/03/17 metoprolol tartrate 25 mg PO BID #180 tab-cap 11/03/17 triamcinolone acetonide 1 film TOPICAL 2-4 times daily PRN 11/19/17 #1 tube pantoprazole 40 mg PO DAILY #90 tab-cap 11/29/17 naproxen sodium [Aleve] 220 mg PO BID #10 cap 12/23/17 trazodone 50 mg PO HS #90 tab-cap 01/05/18 loratadine 10 mg PO DAILY #90 tab-cap 01/06/18 losartan 25 mg PO DAILY #90 tab-cap 01/06/18 multivitamin with iron tablet 1 tab PO DAILY #90 tab-cap 03/07/18 metformin 1,000 mg tablet 1,000 mg PO BID #180 tab-cap 07/29/18 lidocaine 5 % topical cream 1 applic TP .BID-QID PRN #45 gm 08/01/18 pravastatin 40 mg tablet 40 mg PO HS #90 tab-cap 08/05/18 Allergies Allergy/AdvReac Type Severity Reaction Status Date / Time niacin Allergy Unknown Severe Unverified 09/17/18 09:16 [From [place] Skin Rash Extended-Release] lisinopril AdvReac Intermediate Cough Unverified 09/17/18 09:16 ibuprofen AdvReac Upset Unverified 09/17/18 09:16 stomach General Stated Complaint: Orthopedic MELANIE: 4 Review of Systems Review of Systems All systems are reviewed and are unremarkable except as noted in HPI and below: CONSTITUTIONAL: no fevers/chills, no weakness or change in appetite EYES: no change in vision HEENT: no throat pain or difficulty swallowing; no neck pain CARDIOVASCULAR: no chest pain, palpitations, leg swelling, or diaphoresis RESPIRATORY: no cough, dyspnea, wheezing GASTROINTESTINAL: no abdominal pain, melena, nausea/emesis GENITOURINARY: no dysuria, flank pain, MUSCULOSKELETAL: no pack pain, myalgias, lateral left shoulder pain worse with adduction. INTEGUMENTARY: no rash, no wounds NEUROLOGIC: no headache, focal weakness, difficulty with speech, numbness PSYCHIATRIC: no confusion, no anxiety HEME: no easy bruising or bleeding ALLERGIC: no urticaria PFSH Medical History Irritable bowel syndrome with diarrhea (Chronic) Type 2 diabetes mellitus without complication, without long-term current use of insulin (Chronic) Severe obstructive sleep apnea (Chronic 04/27/17) Learning disability (Chronic) LGSIL on Pap smear of cervix (Acute 09/04/16) Irritable bowel syndrome (Chronic 06/14/17) Gastroesophageal reflux disease without esophagitis (Chronic 09/04/16) Functional cyst of ovary (Inactive 11/24/16) Fatty liver (Chronic 09/08/16) Essential hypertension (Chronic 09/04/16) Dyslipidemia (Chronic 09/04/16) Chronic insomnia (Chronic 09/04/16) Unspecified chronic bronchitis (Chronic 09/04/16) Body mass index (BMI) of 45.0-49.9 in adult (Chronic 09/08/16) Anxiety disorder, unspecified (Chronic 07/07/17) Depression HLD (hyperlipidemia) HTN (hypertension) Insomnia T2DM (type 2 diabetes mellitus) Surgical History EGD (06/28/15) Left Knee Surgery (10/05/06) Right Knee Surgery (03/07/08) Family History Mother Diabetes Essential hypertension Mental disorder COPD (chronic obstructive pulmonary disease) Maternal Grandmother Diabetes Neoplasm Brother No problems noted. Brother No problems noted. 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 GENERAL: alert, active, no acute distress, well -hydrated, well-nourished HEENT: atraumatic/normocephalic, PERRLA, EOMI, conjunctiva clear, external ears/canals normal, nasal mucosa normal NECK: supple, full range of motion CARDIOVASCULAR: nl pulses, no edema PULMONARY: nl effort, no audible wheezing or stridor ABDOMEN: non-distended EXTREMITY: normal muscle tone, no deformity; left shoulder with anterior lateral tenderness and no significant soft tissue swelling. Humerus is palpable in the glenoid. Minimal discomfort with passive external and internal rotation. Minimal tenderness with flexion-extension. Increased pain with active abduction against resistance. Normal peripheral neurovascular exam. NUERO: normal mentation, moving all extremities, normal stance and gait, PSYCH: alert and oriented SKIN: no new rashes or lesions Course Vital Signs Temperature 98.1 F 09/17/18 09:12 Pulse 85 09/17/18 09:12 Respiratory Rate 16 09/17/18 09:12 Blood Pressure 165/100 H 09/17/18 09:12 Pulse Oximetry 97 09/17/18 09:12 Temperature 98.1 F 09/17/18 09:12 Temperature Source Skin 09/17/18 09:12 Pulse 85 09/17/18 09:12 Respiratory Rate 16 09/17/18 09:12 Respiratory Effort Non-Labored 09/17/18 09:14 Blood Pressure 146/85 H 09/17/18 09:18 Pulse Oximetry 97 09/17/18 09:12 Pain Level 10 09/17/18 09:17
--- NOTE | 2018-09-17 10:35 | DI.RAD_ITS ---
SYMPTOM/DIAGNOSIS: REMOTE TRAUMA, NEW SHOULDER PAIN LEFT SHOULDER: Five views were obtained. No bony or soft tissue abnormality is seen.
--- NOTE | 2018-09-17 11:05 | DI.VRAD_ITS ---
EXAM: XR Left Shoulder, Complete, 2 or More Views EXAM DATE/TIME: 09/17/2018 10:36 AM CLINICAL HISTORY: 33 years old, female; Pain; Shoulder; Left; Patient HX: Left shoulder pain from injury last year. fell down a hill. Patient states new onset pain yesterday, tingling in left fingers. Limited rom. TECHNIQUE: Imaging protocol: XR Left shoulder, complete 2 or more views. COMPARISON: CR XR shoulder LT complete 2+V 03/25/2018 4:34 PM FINDINGS: Bones/joints: Normal. There is no evidence of acute fracture.There is no evidence of malalignment or dislocation. Soft tissues: Normal. IMPRESSION: No acute findings. Dictated and Authenticated by: Ami Orr MD. Ordering:CINTHYA Beltrán MD
== END 2018-09-17 11:20 | disposition home or self-care (01) ==
PROVIDERS: Emergency Provider Emergency Medicine; PCP Nurse Practitioner Family
DX: M25.512 Pain in left shoulder (principal)
CPT/HCPCS: 99283; 73030; 99282; L3650

== ENCOUNTER 2018-12-03 16:46 | Emergency (ER) | payer MEDICARE, MEDICAID, SELFPAY ==
[2018-12-03 16:58] VITALS: BP 120/93; PULSE 88; RESP 18; TEMP 36.9; O2SAT 99
--- NOTE | 2018-12-03 17:06 | DI.RAD_ITS ---
SYMPTOM/DIAGNOSIS: PAIN S/P FALL RIGHT ANKLE: There is soft tissue swelling around the malleoli. No fracture or ankle mortise widening is seen. The talar dome appears intact. IMPRESSION: Soft tissue swelling.
--- NOTE | 2018-12-03 17:09 | ED.GENADUL_ITS ---
Discharge Plan Disposition Patient Disposition: HOME Condition: Stable Discharge Details Chief Complaint: Orthopedic Clinical Impression: Right ankle sprain Primary Care Provider: Mona Honeycutt ED Provider: Theodore Agudelo Home Meds and New Rx's Prescriptions: No Action multivitamin with iron tablet 1 tab PO DAILY Qty: 90 RF: 3 cyclobenzaprine 10 mg tablet 10 mg PO HS PRN (Reason: muscle spasm) Qty: 21 RF: 0 pravastatin 40 mg tablet 40 mg PO HS Qty: 90 RF: 3 lidocaine [LC-5] 5 % cream 1 applic TP .BID-QID PRN (Reason: pain) Qty: 45 RF: 0 Jardiance 25 mg tablet 25 mg PO DAILY AM Qty: 90 RF: 3 metoprolol tartrate 25 mg tablet 25 mg PO BID Qty: 180 RF: 3 pantoprazole 20 mg tablet,delayed release (DR/EC) 20 mg PO DAILY Qty: 90 RF: 0 Blood Glucose Test 1 EACH strip 1 ea Miscellaneous BID Qty: 200 RF: 3 blood-glucose meter [Accu-Chek Emely Plus Meter] 1 EACH misc 1 ea Miscellaneous BID Qty: 1 RF: 0 Accu-Chek Emely Plus test strp 1 EACH strip 1 ea Miscellaneous BID Qty: 200 RF: 3 triamcinolone acetonide 15 GM cream 1 film Topical 2-4 times daily PRN Qty: 1 RF: 1 diphenhydramine HCl 25 MG tablet 25 - 50 mg PO HS MDD 300 PRNQty: 30 RF: 1 trazodone 50 MG tablet 50 mg PO HS Qty: 90 RF: 3 losartan 25 MG tablet 25 mg PO DAILY Qty: 90 RF: 3 loratadine 10 MG tablet 10 mg PO DAILY Qty: 90 RF: 3 metformin 1,000 mg tablet 1,000 mg PO BID Qty: 180 RF: 3 lancets misc .ROUTE .MEDSUPPLY Qty: 100 RF: 3 loperamide 2 mg tablet 4 mg PO QID PRN (Reason: loose stool) Qty: 90 RF: 0 aspirin [Aspirin Low-Strength] 81 MG tablet,chewable 81 mg PO HS RF: 0 glipizide 5 MG tablet 10 mg PO BID RF: 0 albuterol sulfate [Ventolin HFA] 90 mcg/actuation Hfa Aerosol Inhaler 2 puff INHALATION PRN PRNRF: 0 Discharge Instructions Instructions: Ankle Sprain (ED) Additional Instructions: if pain continues in a week follow up with your primary care provider Medical Decision Making 33 yo female comes in with right ankle pain after she twisted on the last step earlier today, did not hit head or have loc. Has pain over medial malleolus with full rom though with pain, no palpable or visible deformities, 2+ dp/pt pulses with intact sensation. Full rom in plantar flexion so doubt achilles injury .Will xray to eval for fx xray negative for acute pathology, will tx as sprain and advised if still in pain in a week to see her pcp Differential Diagnosis sprain, fx, dislocation Imaging Data Radiologic Study: Attestation: I personally reviewed and interpreted this imaging study as follows: Imaging: X-Ray Radiologist's impression: IMPRESSION: Soft tissue swelling lateral malleolus. HPI General Mode of arrival: wheelchair . Date/Time Provider Initiated Documentation: 12/03/18 16:48 . Limitations to Documentation: no limitations . Information obtained by: patient . History of Present Illness 33 year old F presents to the emergency department with the chief complaint of right ankle pain, described as moderate, Quality is described as aching, and is localized to the right and lower extremity. Patient reports no radiation. Patient started experiencing this hour(s) (2) and it has been constant. Rest improves symptom(s), Movement worsens symptoms . Patient notes no other symptoms.. Related Data Home Medications Medication Instructions Recorded Confirmed aspirin [Aspirin Low-Strength] 81 mg PO HS 02/26/17 12/03/18 Blood Glucose Test #200 strip 11/03/17 12/03/18 Accu-Chek Emely Plus test strp #200 strip 11/04/17 12/03/18 blood-glucose meter [Accu-Chek #1 ea 11/04/17 12/03/18 Emely Plus Meter] triamcinolone acetonide 1 film TOPICAL 2-4 times daily PRN 11/19/17 12/03/18 #1 tube diphenhydramine HCl 25 - 50 mg PO HS PRN #30 tab-cap 11/29/17 12/03/18 MDD 300 trazodone 50 mg PO HS #90 tab-cap 01/05/18 12/03/18 loratadine 10 mg PO DAILY #90 tab-cap 01/06/18 12/03/18 losartan 25 mg PO DAILY #90 tab-cap 01/06/18 12/03/18 albuterol sulfate [Ventolin HFA] 2 puff INHALATION PRN PRN 02/24/18 12/03/18 glipizide 10 mg PO BID 02/24/18 12/03/18 multivitamin with iron tablet 1 tab PO DAILY #90 tab-cap 03/07/18 12/03/18 metformin 1,000 mg tablet 1,000 mg PO BID #180 tab-cap 07/29/18 12/03/18 lidocaine 5 % topical cream 1 applic TP .BID-QID PRN #45 gm 08/01/18 12/03/18 pravastatin 40 mg tablet 40 mg PO HS #90 tab-cap 08/05/18 12/03/18 cyclobenzaprine 10 mg tablet 10 mg PO HS PRN #21 tab 09/27/18 12/03/18 lancets #100 each 10/27/18 12/03/18 loperamide 2 mg tablet 4 mg PO QID PRN #90 tab-cap 10/27/18 12/03/18 empagliflozin 25 mg tablet 25 mg PO DAILY AM #90 tab-cap 11/14/18 12/03/18 metoprolol tartrate 25 mg tablet 25 mg PO BID #180 tab-cap 11/14/18 12/03/18 pantoprazole 20 mg tablet,delayed 20 mg PO DAILY #90 tab-cap 11/14/18 12/03/18 release Previous Rx's Medication Instructions Recorded Blood Glucose Test #200 strip 11/03/17 triamcinolone acetonide 1 film TOPICAL 2-4 times daily PRN 11/19/17 #1 tube trazodone 50 mg PO HS #90 tab-cap 01/05/18 loratadine 10 mg PO DAILY #90 tab-cap 01/06/18 losartan 25 mg PO DAILY #90 tab-cap 01/06/18 multivitamin with iron tablet 1 tab PO DAILY #90 tab-cap 03/07/18 metformin 1,000 mg tablet 1,000 mg PO BID #180 tab-cap 07/29/18 lidocaine 5 % topical cream 1 applic TP .BID-QID PRN #45 gm 08/01/18 pravastatin 40 mg tablet 40 mg PO HS #90 tab-cap 08/05/18 cyclobenzaprine 10 mg tablet 10 mg PO HS PRN #21 tab 09/27/18 lancets #100 each 10/27/18 loperamide 2 mg tablet 4 mg PO QID PRN #90 tab-cap 10/27/18 empagliflozin 25 mg tablet 25 mg PO DAILY AM #90 tab-cap 11/14/18 metoprolol tartrate 25 mg tablet 25 mg PO BID #180 tab-cap 11/14/18 pantoprazole 20 mg tablet,delayed 20 mg PO DAILY #90 tab-cap 11/14/18 release Allergies Allergy/AdvReac Type Severity Reaction Status Date / Time niacin Allergy Unknown Severe Verified 12/03/18 17:02 [From [place] Skin Rash Extended-Release] lisinopril AdvReac Intermediate Cough Verified 12/03/18 17:02 ibuprofen AdvReac Upset Verified 12/03/18 17:02 stomach General Stated Complaint: Orthopedic MELANIE: 4 Review of Systems Review of Systems All systems reviewed & are unremarkable except as noted in HPI and below Constitutional Denies chills, Denies fever(s) and Denies weakness Cardiovascular Denies chest pain and Denies dyspnea Respiratory Denies cough and Denies dyspnea Gastrointestinal Denies abdominal pain, Denies nausea and Denies vomiting Musculoskeletal Denies joint swelling Integumentary/Breasts Denies rash Neurologic Denies weakness [facility] Social History Smoking/Tobacco Use Status: Never Alcohol Intake: never Drug use: Never Substance use type: does not use Adopted: No Caregiver/Support person: No Foster care: No Household members: significant other Number of Children: 0 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 [employer] Pets and animals: Yes Pets and animals: cat(s) and other Details: rabbits Sexually active: Yes Current gender identity: female What type of physical activity do you participate in: walking Duration: 60-90 minutes/day Frequency: daily Seatbelt use: always Helmet use: No (n/a) 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 Do you feel safe at home: Yes Do you feel safe in your relationship?: Yes Exam Const General: no acute distress Orientation: alert HENMT Head: normal to inspection Ears: external ears normal General nose exam: external nose normal Mouth: moist mucous membranes Eyes General: appearance normal, both eyes and all related structures Neck Neck: normal visual inspection Resp Effort & Inspection: normal respiratory effort and able to speak in complete sentences Cardio Rate: regular rate Skin General skin exam: no rashes or lesions noted Neuro General: alert and oriented x3 Extrem General: normal to inspection Psych Mental Status: mental status grossly normal Course Vital Signs Temperature 36.9 C 12/03/18 16:58 Pulse 88 12/03/18 16:58 Respiratory Rate 18 12/03/18 16:58 Blood Pressure 120/93 H 12/03/18 16:58 Pulse Oximetry 99 12/03/18 16:58 Temperature 36.9 C 12/03/18 16:58 Temperature Source Temporal Artery Scan 12/03/18 16:58 Pulse 88 12/03/18 16:58 Respiratory Rate 18 12/03/18 16:58 Respiratory Effort Non-Labored 12/03/18 17:01 Blood Pressure 120/93 H 12/03/18 16:58 Blood Pressure Position Sitting 12/03/18 16:58 Pulse Oximetry 99 12/03/18 16:58 Oxygen Delivery Method Room Air 12/03/18 16:58 Oxygen Flow Rate 0 12/03/18 16:58 Pain Level 10 12/03/18 17:02
--- NOTE | 2018-12-03 17:39 | DI.VRAD_ITS ---
EXAM: XR Right Ankle EXAM DATE/TIME: 12/03/2018 5:07 PM CLINICAL HISTORY: 33 years old, female; Other: Pain S/P fall TECHNIQUE: Imaging protocol: XR Right ankle. Views: 3 or more views. COMPARISON: CR RIGHT ANKLE COMPLETE 07/30/2017 7:49 PM FINDINGS: Bones/joints: Bony alignment is anatomic without evidence for fracture or dislocation. Soft tissues: There is soft tissue swelling involving the lateral malleolus. IMPRESSION: Soft tissue swelling lateral malleolus. COMMENT: Preliminary interpretation is based on receipt of 3 image(s). A final report will be issued subsequently. Dictated and Authenticated by: Padma Levine MD. Ordering:JOSE M Jaimes MD
== END 2018-12-03 18:11 | disposition home or self-care (01) ==
PROVIDERS: Emergency Provider Emergency Medicine; PCP Nurse Practitioner Family
DX: S93.401A Sprain of unspecified ligament of right ankle, initial encounter (principal); X50.9XXA Other and unspecified overexertion or strenuous movements or postures, initial encounter
CPT/HCPCS: 29515; 99283; 73610; E0114; L1902

== ENCOUNTER 2018-12-30 05:51 | Emergency (ER) | payer MEDICARE, MEDICAID, SELFPAY ==
[2018-12-30 05:51] VITALS: BP 140/91; PULSE 121; RESP 22; TEMP 36.9; O2SAT 98
--- NOTE | 2018-12-30 06:04 | ED.GENADUL_ITS ---
Discharge Plan Disposition Patient Disposition: HOME Condition: Good Discharge Details Chief Complaint: Sorethroat Clinical Impression: Exudative tonsillitis Primary Care Provider: Mona Honeycutt ED Provider: Doc Jackson Vail Meds and New Rx's Prescriptions: Continued multivitamin with iron tablet 1 tab PO DAILY Qty: 90 RF: 3 cyclobenzaprine 10 mg tablet 10 mg PO HS PRN (Reason: muscle spasm) Qty: 21 RF: 0 pravastatin 40 mg tablet 40 mg PO HS Qty: 90 RF: 3 lidocaine [LC-5] 5 % cream 1 applic TP .BID-QID PRN (Reason: pain) Qty: 45 RF: 0 Jardiance 25 mg tablet 25 mg PO DAILY AM Qty: 90 RF: 3 metoprolol tartrate 25 mg tablet 25 mg PO BID Qty: 180 RF: 3 pantoprazole 20 mg tablet,delayed release (DR/EC) 20 mg PO DAILY Qty: 90 RF: 0 (DME) Blood Glucose Test 1 EACH strip 1 ea Miscellaneous BID Qty: 200 RF: 3 (DME) blood-glucose meter [Accu-Chek Emely Plus Meter] 1 EACH misc 1 ea Miscellaneous BID Qty: 1 RF: 0 (DME) Accu-Chek Emely Plus test strp 1 EACH strip 1 ea Miscellaneous BID Qty: 200 RF: 3 triamcinolone acetonide 15 GM cream 1 film Topical 2-4 times daily PRN Qty: 1 RF: 1 diphenhydramine HCl 25 MG tablet 25 - 50 mg PO HS MDD 300 PRNQty: 30 RF: 1 trazodone 50 MG tablet 50 mg PO HS Qty: 90 RF: 3 losartan 25 MG tablet 25 mg PO DAILY Qty: 90 RF: 3 loratadine 10 MG tablet 10 mg PO DAILY Qty: 90 RF: 3 metformin 1,000 mg tablet 1,000 mg PO BID Qty: 180 RF: 3 loperamide 2 mg tablet 4 mg PO QID PRN (Reason: loose stool) Qty: 90 RF: 0 (DME) lancets Misc See Dose Instructions .ROUTE .MEDSUPPLY Qty: 100 RF: 3 glipizide 10 mg tablet 10 mg PO BID Qty: 180 RF: 3 aspirin [Aspirin Low-Strength] 81 MG tablet,chewable 81 mg PO HS RF: 0 albuterol sulfate [Ventolin HFA] 90 mcg/actuation Hfa Aerosol Inhaler 2 puff INHALATION PRN PRNRF: 0 Discharge Instructions Instructions: Tonsillitis (ED) Additional Instructions: Please use acetaminophen and ibuprofen in alternating fashion for pain and fever. To salt water gargles and to use Cepacol lozenges for throat discomfort. Stay hydrated using popsicles, ice cream, fluids. Follow-up with primary care early next week. Return to the emergency department for increasing pain, inability to swallow, difficulty breathing, mental status changes, other concerns or problems over the weekend. Referrals: Mona Honeycutt NP [Primary Care Provider] - Medical Decision Making Patient presenting with 48-hour history of sore throat, fever. She has exudative tonsillitis with swollen anterior lymph nodes. She does not have unilateral swelling of the tonsil and no evidence of DOMESTIC VIOLENCE ADVOCATE at this time. Uvula is a little swollen. There is no stridor. She is handling secretions. Pulse ox is normal. Rapid strep is negative. IV is established and patient will be given Toradol, fluids, Decadron. CBC, BMP and Monospot sent. Patient's white count is markedly elevated with no atypical lymphocytes. Monospot is negative. BMP is okay. Sugar is a little high. With fever, exudative tonsillitis, large tender anterior lymph nodes we will go ahead and treat for strep despite negative rapid. Patient agrees to injection of Bicillin LA. She has received Toradol and Decadron. Will finish the fluids. Patient instructed to stay hydrated with popsicles, ice cream, fluids. Use salt water gargles and Cepacol lozenges for throat discomfort. Use ibuprofen and acetaminophen for pain. Return to ED inability to swallow, difficulty breathing, mental status changes, worsening pain. Follow-up with primary care early next week for reevaluation. Lab Data Lab results reviewed: Yes I reviewed the patient's lab results. HPI General Mode of arrival: EMS . Date/Time Provider Initiated Documentation: 12/30/18 05:54 . Limitations to Documentation: no limitations . Information obtained by: patient and RN notes reviewed . HPI Narrative: Patient presents to ED with complaint of sore throat and inability to swallow. Symptoms started 48 hours ago. She has had fever on and off. She is unable to swallow at this point because of pain. She had a little bit of difficulty breathing, she thinks because her tonsils feel so swollen to her. She has a little bit of a cough. She has a lot of nasal congestion. She has no rash, sue int aches, muscle aches. She has a slight headache. She had no nausea vomiting. She has not been around anyone ill. Related Data Home Medications Medication Instructions Recorded Confirmed aspirin [Aspirin Low-Strength] 81 mg PO HS 02/26/17 12/03/18 Blood Glucose Test #200 strip 11/03/17 12/03/18 Accu-Chek Emely Plus test strp #200 strip 11/04/17 12/03/18 blood-glucose meter [Accu-Chek #1 ea 11/04/17 12/03/18 Emely Plus Meter] triamcinolone acetonide 1 film TOPICAL 2-4 times daily PRN 11/19/17 12/03/18 #1 tube diphenhydramine HCl 25 - 50 mg PO HS PRN #30 tab-cap 11/29/17 12/03/18 MDD 300 trazodone 50 mg PO HS #90 tab-cap 01/05/18 12/03/18 loratadine 10 mg PO DAILY #90 tab-cap 01/06/18 12/03/18 losartan 25 mg PO DAILY #90 tab-cap 01/06/18 12/03/18 albuterol sulfate [Ventolin HFA] 2 puff INHALATION PRN PRN 02/24/18 12/03/18 multivitamin with iron 1 tab PO DAILY #90 tab-cap 03/07/18 12/03/18 metformin 1,000 mg tablet 1,000 mg PO BID #180 tab-cap 07/29/18 12/03/18 lidocaine 5 % topical cream 1 applic TP .BID-QID PRN #45 gm 08/01/18 12/03/18 pravastatin 40 mg tablet 40 mg PO HS #90 tab-cap 08/05/18 12/03/18 cyclobenzaprine 10 mg tablet 10 mg PO HS PRN #21 tab 09/27/18 12/03/18 loperamide 2 mg tablet 4 mg PO QID PRN #90 tab-cap 10/27/18 12/03/18 empagliflozin 25 mg tablet 25 mg PO DAILY AM #90 tab-cap 11/14/18 12/03/18 metoprolol tartrate 25 mg tablet 25 mg PO BID #180 tab-cap 11/14/18 12/03/18 pantoprazole 20 mg tablet,delayed 20 mg PO DAILY #90 tab-cap 11/14/18 12/03/18 release lancets #100 each 12/22/18 glipizide 10 mg tablet 10 mg PO BID #180 tab-cap 12/26/18 Previous Rx's Medication Instructions Recorded Blood Glucose Test #200 strip 11/03/17 triamcinolone acetonide 1 film TOPICAL 2-4 times daily PRN 11/19/17 #1 tube trazodone 50 mg PO HS #90 tab-cap 01/05/18 loratadine 10 mg PO DAILY #90 tab-cap 01/06/18 losartan 25 mg PO DAILY #90 tab-cap 01/06/18 multivitamin with iron 1 tab PO DAILY #90 tab-cap 03/07/18 metformin 1,000 mg tablet 1,000 mg PO BID #180 tab-cap 07/29/18 lidocaine 5 % topical cream 1 applic TP .BID-QID PRN #45 gm 08/01/18 pravastatin 40 mg tablet 40 mg PO HS #90 tab-cap 08/05/18 cyclobenzaprine 10 mg tablet 10 mg PO HS PRN #21 tab 09/27/18 loperamide 2 mg tablet 4 mg PO QID PRN #90 tab-cap 10/27/18 empagliflozin 25 mg tablet 25 mg PO DAILY AM #90 tab-cap 11/14/18 metoprolol tartrate 25 mg tablet 25 mg PO BID #180 tab-cap 11/14/18 pantoprazole 20 mg tablet,delayed 20 mg PO DAILY #90 tab-cap 11/14/18 release lancets #100 each 12/22/18 glipizide 10 mg tablet 10 mg PO BID #180 tab-cap 12/26/18 Allergies Allergy/AdvReac Type Severity Reaction Status Date / Time niacin Allergy Unknown Severe Verified 12/03/18 17:02 [From [place] Skin Rash Extended-Release] lisinopril AdvReac Intermediate Cough Verified 12/03/18 17:02 ibuprofen AdvReac Upset Verified 12/03/18 17:02 stomach General Stated Complaint: Sorethroat MELANIE: 3 Review of Systems Review of Systems 03/20 Review of Systems completed and is negative except as stated above in HPI (Systems reviewed: Const, Eyes, ENT, Resp, CV, GI, , MSK, Skin, Neuro) [facility] Medical History Anxiety disorder, unspecified (Chronic 07/07/17) Body mass index (BMI) of 45.0-49.9 in adult (Chronic 09/08/16) Chronic insomnia (Chronic 09/04/16) Depression Dyslipidemia (Chronic 09/04/16) Essential hypertension (Chronic 09/04/16) Fatty liver (Chronic 09/08/16) Functional cyst of ovary (Inactive 11/24/16) Gastroesophageal reflux disease without esophagitis (Chronic 09/04/16) HLD (hyperlipidemia) HTN (hypertension) Insomnia Irritable bowel syndrome with diarrhea (Chronic) Learning disability (Chronic) LGSIL on Pap smear of cervix (Acute 09/04/16) Severe obstructive sleep apnea (Chronic 04/27/17) Type 2 diabetes mellitus without complication, without long-term current use of insulin (Chronic) Unspecified chronic bronchitis (Chronic 09/04/16) Surgical History EGD (06/28/15) Left Knee Surgery (10/05/06) Right Knee Surgery (03/07/08) Social History Smoking/Tobacco Use Status: Never Alcohol Intake: never Drug use: Never Substance use type: does not use Adopted: No Caregiver/Support person: No Foster care: No Household members: significant other Number of Children: 0 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 Tachycardic and mildly hypertensive. O2 saturations normal. Const: Obese female in NAD. HEENT: NC/AT. Normal facial exam. TMs clear bilaterally. Bilateral tonsillar exudates with swelling. Uvula somewhat swollen. Voice a little muffled. Eyes: Normal conjunctiva and sclera. Neck: Supple. Trachea midline. Large tender anterior adenopathy. No posterior adenopathy per Lungs: Normal respiratory effort. Lungs are clear. Cor: RRR without murmur/gallop. Tachycardic. Good radial pulses. GI: Soft. NT/ND. No guarding or rebound. Neuro: A+O x 3. CN grossly in tact. Good strength and no focal deficit. Ext: No C/C/E. No deformity or tenderness. Skin: Warm and dry without rash. Course Vital Signs Temperature 98.4 F 12/30/18 05:51 Pulse 121 H 12/30/18 05:51 Respiratory Rate 22 12/30/18 05:51 Blood Pressure 140/91 H 12/30/18 05:51 Pulse Oximetry 98 12/30/18 05:51 Temperature 98.4 F 12/30/18 05:51 Temperature Source Temporal Artery Scan 12/30/18 05:51 Pulse 121 H 12/30/18 05:51 Respiratory Rate 22 12/30/18 05:51 Respiratory Effort 12/30/18 05:51 Blood Pressure 140/91 H 12/30/18 05:51 Blood Pressure Position Sitting 12/30/18 05:51 Pulse Oximetry 98 12/30/18 05:51 Oxygen Delivery Method Room Air 12/30/18 05:51 Oxygen Flow Rate 0 12/30/18 05:51 Lab/Test Results Lab/Test Results: POC Strep Test-SHANNAN(Rapid) Start: 12/30/18 05:57 Freq: .Rapid Strep Test Status: Active Protocol: Document 12/30/18 06:02 (Rec: 12/30/18 06:02 [id number]) Strep test-SHANNAN(Rapid)-POC POC-Strep test-SHANNAN (Rapid) Negative POC-Strep test-SHANNAN (Rapid) Negative
[2018-12-30 06:32] LABS: Abs Immature Grans 0.05 k/cumm (0.0-0.09); Absolute Basophil Count 0.03 k/cumm (0.0-0.2); Absolute Eosinophil Count 0.03 k/cumm (0.0-0.7); Absolute Lymphocyte Count 1.76 k/cumm (1.2-3.4); Absolute Monocyte Count 1.33 k/cumm (0.11-0.7); Absolute Neutrophil Count 14.08 k/cumm (1.2-6.7); Basophils % 0.2; Eosinophils % 0.2; HCT 41.2 % (36.0-46.0); HGB 13.4 g/dL (12.0-15.5); Immature Grans % 0.3; Lymphocytes % 10.2; Mean Corp. HGB Concentration 32.5 g/dL (32.0-36.0); Mean Corpuscular Hemoglobin 25.6 pg (27.0-33.0); Mean Corpuscular Volume 78.6 fL (80-95); Mean Platelet Volume 10.4 fL (8.0-11.0); Monocytes % 7.7; Neutrophils % 81.4; Platelet Count 319 x1000/uL (130-400); RBC 5.24 m/cumm (4.00-5.20); RBC Distribution Width 15.4 % (11.7-14.6)
[2018-12-30] MEDS: Normal Saline 1,000 ML 1000 ML IV (06:35)
[2018-12-30 06:39] LABS: Mono Screening Negative (Negative)
[2018-12-30] MEDS: Ketorolac 15 MG/ML VIAL IVP (06:40)
[2018-12-30] MEDS: Dexamethasone 10 MG/ML VIAL (06:43)
[2018-12-30 06:44] LABS: Anion Gap 14.9 mmol/L (3-11); BUN 9 mg/dL (7-18); CO2 24.1 mmol/L (21.0-32.0); Calcium 9.2 mg/dL (8.5-10.1); Chloride 99 mmol/L (98-107); Glucose 218 mg/dL (70-100); Potassium 3.5 mmol/L (3.5-5.1); Sodium 138 mmol/L (136-145)
[2018-12-30 07:38] VITALS: BP 139/85; PULSE 107; RESP 16; TEMP 36.6; O2SAT 97
== END 2018-12-30 07:37 | disposition home or self-care (01) ==
PROVIDERS: Emergency Provider Emergency Medicine; PCP Nurse Practitioner Family
DX: J03.00 Acute streptococcal tonsillitis, unspecified (principal); I10 Essential (primary) hypertension; E11.9 Type 2 diabetes mellitus without complications
CPT/HCPCS: 36415; 80048; 87880; 96361; 96372; 96374; 96375; 99284; 85025; 86308; 87081; 99285; J0561; J1100; J1885

== ENCOUNTER 2019-02-15 13:17 | Emergency (ER) | payer MEDICARE, MEDICAID, SELFPAY ==
[2019-02-15 13:19] VITALS: BP 124/54; PULSE 84; RESP 16; TEMP 36.5; O2SAT 97
--- NOTE | 2019-02-15 13:50 | ED.GENADUL_ITS ---
Discharge Plan Disposition Patient Disposition: HOME Condition: Good Discharge Details Chief Complaint: Orthopedic Clinical Impression: Tendinitis Primary Care Provider: Mona Honeycutt ED Provider: Jaylin Ely Home Meds and New Rx's Prescriptions: Continued multivitamin with iron tablet 1 tab PO DAILY Qty: 90 RF: 3 cyclobenzaprine 10 mg tablet 10 mg PO HS PRN (Reason: muscle spasm) Qty: 21 RF: 0 pravastatin 40 mg tablet 40 mg PO HS Qty: 90 RF: 3 lidocaine [LC-5] 5 % cream 1 applic TP .BID-QID PRN (Reason: pain) Qty: 45 RF: 0 Jardiance 25 mg tablet 25 mg PO DAILY AM Qty: 90 RF: 3 metoprolol tartrate 25 mg tablet 25 mg PO BID Qty: 180 RF: 3 losartan 25 mg tablet 25 mg PO DAILY Qty: 90 RF: 3 pantoprazole 20 mg tablet,delayed release (DR/EC) 20 mg PO DAILY Qty: 90 RF: 0 triamcinolone acetonide 0.1 % cream 1 applic Topical 2-4 times daily PRN Qty: 15 RF: 1 (DME) Blood Glucose Test 1 EACH strip 1 ea Miscellaneous BID Qty: 200 RF: 3 (DME) blood-glucose meter [Accu-Chek Emely Plus Meter] 1 EACH misc 1 ea Miscellaneous BID Qty: 1 RF: 0 (DME) Accu-Chek Emely Plus test strp 1 EACH strip 1 ea Miscellaneous BID Qty: 200 RF: 3 diphenhydramine HCl 25 MG tablet 25 - 50 mg PO HS MDD 300 PRNQty: 30 RF: 1 metformin 1,000 mg tablet 1,000 mg PO BID Qty: 180 RF: 3 loperamide 2 mg tablet 4 mg PO QID PRN (Reason: loose stool) Qty: 90 RF: 0 (DME) lancets Misc See Dose Instructions .ROUTE .MEDSUPPLY Qty: 100 RF: 3 glipizide 10 mg tablet 10 mg PO BID Qty: 180 RF: 3 trazodone 50 mg tablet 50 mg PO HS Qty: 90 RF: 3 loratadine 10 mg tablet 10 mg PO DAILY Qty: 90 RF: 3 aspirin [Aspirin Low-Strength] 81 MG tablet,chewable 81 mg PO HS RF: 0 albuterol sulfate [Ventolin HFA] 90 mcg/actuation Hfa Aerosol Inhaler 2 puff INHALATION PRN PRNRF: 0 Discharge Instructions Instructions: Tendinitis (ED) Additional Instructions: Rest. Activities as tolerated. Elevate injury to prevent swelling. Ice to the area of discomfort for 15 min. 3-5 times daily. Tylenol every 6-8 hours for soreness if needed over the counter for comfort. Followup with orthopedic doctor as discussed if not improving in one week. Return for any worsening or concerns sooner if needed. 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 Patient has history of left wrist tendinitis. Patient reports the last few days increasing wrist pain specifically flexion extension of the wrist. Patient had a previous splint which she was provided from physical therapy which is causing pain when she attempts to wear it. On exam patient does have tenderness through the wrist both radial and ulnar aspects. Pain with flexion extension. No pain with supination pronation. Patient has no specific fall injury or trauma or concern for fracture. Has had wrist x-rays in the past with no obvious or acute findings with similar presentation. Patient provided wrist splint which she consents to, rice encouraged. Orthopedic referral if not improving. Clinical impression is this patient is undergoing tendinitis which she is experienced in the past exacerbated by recent new job. Nothing to indicate clinical fracture today. HPI General Date/Time Provider Initiated Documentation: 02/15/19 13:47 . 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 Patient reports a history of tendinitis. This feels similar. Patient reports no fall, injury or trauma. Noted increased swelling and pain in the last few days. Specifically yesterday noted difficulty with flexion extension. Patient denies any fever, chills, nausea or vomiting. No other concerns or complaints at this time. Patient reports mild tingling in the hand with specific range of motion. No weakness with skiver blockers. Related Data Home Medications Medication Instructions Recorded Confirmed aspirin [Aspirin Low-Strength] 81 mg PO HS 02/26/17 02/15/19 Blood Glucose Test #200 strip 11/03/17 02/15/19 Accu-Chek Emely Plus test strp #200 strip 11/04/17 02/15/19 blood-glucose meter [Accu-Chek #1 ea 11/04/17 02/15/19 Emely Plus Meter] diphenhydramine HCl 25 - 50 mg PO HS PRN #30 tab-cap 11/29/17 02/15/19 MDD 300 albuterol sulfate [Ventolin HFA] 2 puff INHALATION PRN PRN 02/24/18 02/15/19 multivitamin with iron 1 tab PO DAILY #90 tab-cap 03/07/18 02/15/19 metformin 1,000 mg tablet 1,000 mg PO BID #180 tab-cap 07/29/18 02/15/19 lidocaine 5 % topical cream 1 applic TP .BID-QID PRN #45 gm 08/01/18 02/15/19 pravastatin 40 mg tablet 40 mg PO HS #90 tab-cap 08/05/18 02/15/19 cyclobenzaprine 10 mg tablet 10 mg PO HS PRN #21 tab 09/27/18 02/15/19 loperamide 2 mg tablet 4 mg PO QID PRN #90 tab-cap 10/27/18 02/15/19 empagliflozin 25 mg tablet 25 mg PO DAILY AM #90 tab-cap 11/14/18 02/15/19 metoprolol tartrate 25 mg tablet 25 mg PO BID #180 tab-cap 11/14/18 02/15/19 lancets #100 each 12/22/18 02/15/19 glipizide 10 mg tablet 10 mg PO BID #180 tab-cap 12/26/18 02/15/19 trazodone 50 mg tablet 50 mg PO HS #90 tab-cap 01/06/19 02/15/19 loratadine 10 mg tablet 10 mg PO DAILY #90 tab-cap 01/30/19 02/15/19 losartan 25 mg tablet 25 mg PO DAILY #90 tab-cap 02/10/19 02/15/19 pantoprazole 20 mg tablet,delayed 20 mg PO DAILY #90 tab-cap 02/10/19 02/15/19 release triamcinolone acetonide 0.1 % 1 applic TOPICAL 2-4 times daily 02/10/19 02/15/19 topical cream PRN #15 gm Previous Rx's Medication Instructions Recorded Blood Glucose Test #200 strip 11/03/17 multivitamin with iron 1 tab PO DAILY #90 tab-cap 03/07/18 metformin 1,000 mg tablet 1,000 mg PO BID #180 tab-cap 07/29/18 lidocaine 5 % topical cream 1 applic TP .BID-QID PRN #45 gm 08/01/18 pravastatin 40 mg tablet 40 mg PO HS #90 tab-cap 08/05/18 cyclobenzaprine 10 mg tablet 10 mg PO HS PRN #21 tab 09/27/18 loperamide 2 mg tablet 4 mg PO QID PRN #90 tab-cap 10/27/18 empagliflozin 25 mg tablet 25 mg PO DAILY AM #90 tab-cap 11/14/18 metoprolol tartrate 25 mg tablet 25 mg PO BID #180 tab-cap 11/14/18 lancets #100 each 12/22/18 glipizide 10 mg tablet 10 mg PO BID #180 tab-cap 12/26/18 trazodone 50 mg tablet 50 mg PO HS #90 tab-cap 01/06/19 loratadine 10 mg tablet 10 mg PO DAILY #90 tab-cap 01/30/19 losartan 25 mg tablet 25 mg PO DAILY #90 tab-cap 02/10/19 pantoprazole 20 mg tablet,delayed 20 mg PO DAILY #90 tab-cap 02/10/19 release triamcinolone acetonide 0.1 % 1 applic TOPICAL 2-4 times daily 02/10/19 topical cream PRN #15 gm Allergies Allergy/AdvReac Type Severity Reaction Status Date / Time niacin Allergy Unknown Severe Verified 02/15/19 13:23 [facility] lisinopril AdvReac Intermediate Cough Verified 02/15/19 13:23 ibuprofen AdvReac Upset Verified 02/15/19 13:23 stomach General Stated Complaint: Orthopedic MELANIE: 4 Review of Systems Review of Systems CONSTITUTIONAL: The patient denies fevers, chills. EYES: Denies vision changes, blurry vision, or eye pain. ENT: Denies hearing changes, tinnitus, vertigo, sore throat. CARDIAC: Denies chest pain, SOB. RESPIRATORY: Denies cough, sputum. Denies difficulty breathing. GASTROINTESTINAL: Denies abdominal pain, changes in bowel, vomiting or nausea. GENITOURINARY: Denies dysuria, or frequency of urination. MUSCULOSKELETAL: Wrist pain. no gait changes. NEUROLOGIC: Denies headaches, Denies focal weakness. Denies numbness. INTEGUMENT: Denies rashes. PSYCHIATRIC: Denies behavior changes. Denies anxiety or depression. ENDOCRINOLOGY: Denies fatigue. PSYCHIATRY: Denies depression, agitation or anxiety [facility] Medical History Anxiety disorder, unspecified (Chronic 07/07/17) Body mass index (BMI) of 45.0-49.9 in adult (Chronic 09/08/16) Chronic insomnia (Chronic 09/04/16) Depression Dyslipidemia (Chronic 09/04/16) Essential hypertension (Chronic 09/04/16) Fatty liver (Chronic 09/08/16) Functional cyst of ovary (Inactive 11/24/16) by 11/20/16 US, 4cm simple ROV cyst Gastroesophageal reflux disease without esophagitis (Chronic 09/04/16) HLD (hyperlipidemia) HTN (hypertension) Insomnia Irritable bowel syndrome with diarrhea (Chronic) 02/28/2018 colonoscopy with random biopsies: normal (metformin contributing to sx?); 03/07/2018: neg Celiac serology Learning disability (Chronic) On disability LGSIL on Pap smear of cervix (Acute 09/04/16) LSIL 2014, neg colpo. LSIL 11/2015, 07/2016; no HR HPV available Severe obstructive sleep apnea (Chronic 04/27/17) C-Pap Type 2 diabetes mellitus without complication, without long-term current use of insulin (Chronic) Dx ~21 y/o Unspecified chronic bronchitis (Chronic 09/04/16) Surgical History EGD (06/28/15) WITHIN NORMAL LIMITS Left Knee Surgery (10/05/06) Right Knee Surgery (03/07/08) Social History Smoking/Tobacco Use Status: Never Alcohol Intake: never Drug use: Never Substance use type: does not use Adopted: No Caregiver/Support person: No Foster care: No Household members: significant other Number of Children: 0 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 Well hydrated. Alert and alert. HENMT: Head nomocephalic, normal to inspection. Atraumatic. Hearing grossly normal. EYES: General normal appearance. Alignment normal. Eyelids normal. Conjunctiva normal. NECK: Normal visual inspection. FROM. Trachea midline. No Midline tenderness. CHEST: Normal insepection of the chest. RESP: Normal respiratory effort. Speaking full sentences. No cough. No audible wheezing. No retractions. CARDIO: No JVD. MUSCULOSKELETAL: Normal Gait. FROM of all extremities. Patient with pain with palpation of left wrist. Pain with flexion extension of wrist. No pain with supination pronation. Pulses intact. No obvious swelling noted of the wrist. No hand pain with palpation. No open wounds. No rashes. No pain with palpation proximal to the wrist. SKIN: Normal. Dry. No rashes. NEURO: Alert and awake. Speech clear. PSYCH: Normal affect. Cooperative. Course Vital Signs Temperature 36.5 C 02/15/19 13:19 Pulse 84 02/15/19 13:19 Respiratory Rate 16 02/15/19 13:19 Blood Pressure 124/54 L 02/15/19 13:19 Pulse Oximetry 97 02/15/19 13:19 Temperature 36.5 C 02/15/19 13:19 Temperature Source Skin 02/15/19 13:19 Pulse 84 02/15/19 13:19 Respiratory Rate 16 02/15/19 13:19 Blood Pressure 124/54 L 02/15/19 13:19 Blood Pressure Position Sitting 02/15/19 13:19 Pulse Oximetry 97 02/15/19 13:19 Oxygen Delivery Method Room Air 02/15/19 13:19 Oxygen Flow Rate 0 02/15/19 13:19
== END 2019-02-15 15:05 | disposition home or self-care (01) ==
PROVIDERS: Emergency Provider Physician Assistant; PCP Nurse Practitioner Family
DX: M67.833 Other specified disorders of tendon, right wrist (principal); I10 Essential (primary) hypertension; E11.9 Type 2 diabetes mellitus without complications; Z79.84 Long term (current) use of oral hypoglycemic drugs
CPT/HCPCS: 29125; 99283; L3908

== ENCOUNTER → 2019-02-28 13:19 | Outpatient (BNVA) | payer MEDICARE, MEDICAID, SELFPAY | PROVIDERS: PCP Nurse Practitioner Family; Referring Provider Nurse Practitioner Family; Visit Provider Student in an Organized Health Care Education/Training Program | DX: M75.22 Bicipital tendinitis, left shoulder (principal); S46.012A Strain of muscle(s) and tendon(s) of the rotator cuff of left shoulder, initial encounter; W17.81XA Fall down embankment (hill), initial encounter; M75.52 Bursitis of left shoulder; M75.42 Impingement syndrome of left shoulder; M25.312 Other instability, left shoulder | CPT/HCPCS: 99204; 99214 ==

== ENCOUNTER 2019-02-28 16:03 | Outpatient (REF) | payer MEDICARE, MEDICAID, SELFPAY ==
--- NOTE | 2019-02-28 15:50 | PAPFT_PTH ---
PATIENT: Helene Carpenter LOC: [facility] U#:[id number] AGE/SX: 33/F ROOM: RE02/28/[address]: Esteban Rubalcava MD : [id number] BED: DIS: 02/28/2019 SPEC #: [id number] RECD: 02/28/19 17:38 STATUS: HAMILTON REDavidson #: [id number] MARIPOSA: 02/28/19 15:[address]: Esteban Rubalcava DEPT: COUNT INCLUDES THE [facility] Cytology RECD BY: Flor Samuels ENTERED: 02/28/19 17:39 SP TYPE: PAPFT OTHR DR: Mona Honeycutt APRN Tissues: 1 - CX/ENDOCX FOR PAP SMEARS Procedures: PAP THIN PREP/[facility] Screening HPV DNA PROBE Comments: [id number] (CHLAMYDIA/GC)
[2019-03-01 15:39] LABS: Chlamydia Result Negative; GC Result Negative; Specimen Description SEE COMMENTS
== END 2019-02-28 16:23 ==
LOC: LBN 16:03
PROVIDERS: PCP Nurse Practitioner Family; Visit Provider Obstetrics & Gynecology
DX: Z12.4 Encounter for screening for malignant neoplasm of cervix (principal); Z11.51 Encounter for screening for human papillomavirus (HPV); Z11.3 Encounter for screening for infections with a predominantly sexual mode of transmission
CPT/HCPCS: 87491; 87591; 88142; 87624

== ENCOUNTER 2019-03-16 00:48 | Outpatient (CLI) | payer MEDICARE, MEDICAID, SELFPAY ==
--- NOTE | 2019-03-16 14:30 | DI.MRI_ITS ---
EXAM: MR UPPER JOINT LT WO CLINICAL HISTORY: Left shoulder pain, rotator cuff tear, instability, bursitis, tendinitis of. TECHNIQUE: Multiplanar multisequence MRI was performed. COMPARISON: No exams were available for comparison FINDINGS: MR of the shoulder was performed according to the usual protocol. No bony signal abnormality seen. Small quantity of free fluid in biceps tendon sheath which is a nonspecific finding. Unremarkable ap pearance of the biceps tendon and anchor. No evidence of a rotator cuff tear. Glenoid labrum grossl y unremarkable on this noncontrast study. IMPRESSION: No evidence of acute process.
== END 2019-03-16 01:08 ==
PROVIDERS: PCP Nurse Practitioner Family; Visit Provider Physician Assistant
DX: M25.512 Pain in left shoulder (principal); M75.42 Impingement syndrome of left shoulder; M75.52 Bursitis of left shoulder; M25.312 Other instability, left shoulder
CPT/HCPCS: 73221

== ENCOUNTER 2019-03-21 13:20 | Outpatient (CLI) | payer MEDICARE, MEDICAID, SELFPAY ==
--- NOTE | 2019-03-21 13:25 | DI.RAD_ITS ---
EXAM: XR SHOULDER LT COMPLETE 2+V CLINICAL HISTORY: F/U TECHNIQUE: Three views were obtained. COMPARISON: XR shoulder LT complete 2+V from 09/17/2018 FINDINGS: No bony or soft tissue abnormality seen. IMPRESSION:
== END 2019-03-21 13:40 ==
PROVIDERS: PCP Nurse Practitioner Family; Referring Provider Nurse Practitioner Family; Visit Provider Student in an Organized Health Care Education/Training Program
DX: M25.312 Other instability, left shoulder (principal); M75.52 Bursitis of left shoulder; M75.22 Bicipital tendinitis, left shoulder; S46.012A Strain of muscle(s) and tendon(s) of the rotator cuff of left shoulder, initial encounter; W17.81XA Fall down embankment (hill), initial encounter
CPT/HCPCS: 99214; 73030

== ENCOUNTER → 2019-04-25 13:44 | Outpatient (BNVA) | payer MEDICARE, MEDICAID, SELFPAY | PROVIDERS: PCP Nurse Practitioner Family; Referring Provider Nurse Practitioner Family; Visit Provider Student in an Organized Health Care Education/Training Program | DX: M25.312 Other instability, left shoulder (principal); M75.22 Bicipital tendinitis, left shoulder; M75.42 Impingement syndrome of left shoulder; M75.52 Bursitis of left shoulder; S46.012D Strain of muscle(s) and tendon(s) of the rotator cuff of left shoulder, subsequent encounter; X58.XXXD Exposure to other specified factors, subsequent encounter; E11.9 Type 2 diabetes mellitus without complications; I10 Essential (primary) hypertension | CPT/HCPCS: 99214 ==

== ENCOUNTER 2019-05-02 10:45 | Outpatient (CLI) | payer MEDICARE, MEDICAID, SELFPAY | END 2019-05-02 11:05 | PROVIDERS: PCP Nurse Practitioner Family; Visit Provider Student in an Organized Health Care Education/Training Program | DX: Z01.818 Encounter for other preprocedural examination (principal) ==

== ENCOUNTER 2019-05-12 17:16 | Observation (INO) | payer MEDICARE, MEDICAID, SELFPAY ==
[2019-05-12] VITALS (9 sets, daily range): BP systolic 109–141; BP diastolic 40–95; PULSE 81–101; RESP 17–34; TEMP 36.1–36.8; O2SAT 94–99
[2019-05-12] MEDS: Lactated Ringers 1,000 ML 100 ML IV ×2 (12:05→16:41)
[2019-05-12] MEDS: Bupivacaine 0.5% Pres-Free 30 ML VIAL (13:00)
[2019-05-12] MEDS: Bupivacaine LIPOSOME/PF 133 MG/10 ML VIAL IJ (13:00)
--- NOTE | 2019-05-12 13:03 | HOME_ITS ---
Home Ventilator Equipment Home care company [employer] Reason: Obstructive Sleep Apnea Make: Respironics Model: Dreamstation Mask type: Face mask Mask size: Small Mode: CPAP Settings: max/min 15/11 Oxygen bleed in (lpm): 0 Condition: Good Date last checked: 05/12/19 Year of last sleep study: Compliance Comments:
[2019-05-12] MEDS: ceFAZolin 3,000 MG in Normal Saline 100 ML 200 MG IVPB (14:20)
[2019-05-12] MEDS: EPINEPHrine 30 MG/30 ML VIAL (15:59)
--- NOTE | 2019-05-12 16:37 | PDOC.DSDIS_ITS ---
Discharge Plan Disposition Patient Disposition: HOME Condition: Stable Discharge Details Reason For Visit: LHB TENDINOP,BURSITIS,IMPINGEMENT Attending Provider: Derrick Salcedo Primary Care Provider: Mona Honeycutt Home Meds and New Rx's Prescriptions: New naproxen 250 mg tablet 250 - 500 mg PO BID PRN (Reason: pain, moderate) Qty: 60 RF: 0 aspirin 81 mg tablet,delayed release (DR/EC) 81 mg PO DAILY Qty: 30 RF: 0 ondansetron 4 mg tablet,disintegrating 4 mg PO Q6H PRN (Reason: nausea and vomiting) Qty: 5 RF: 0 oxycodone 5 mg tablet 5 - 10 mg PO Q4H PRN (Reason: pain, severe) Qty: 22 RF: 0 Continued meloxicam 15 mg tablet 15 mg PO DAILY Qty: 30 RF: 0 cyclobenzaprine 10 mg tablet 10 mg PO HS PRN (Reason: muscle spasm) Qty: 10 RF: 0 pravastatin 40 mg tablet 40 mg PO HS Qty: 90 RF: 3 lidocaine [LC-5] 5 % cream 1 applic TP .BID-QID PRN (Reason: pain) Qty: 45 RF: 0 Jardiance 25 mg tablet 25 mg PO DAILY AM Qty: 90 RF: 3 metoprolol tartrate 25 mg tablet 25 mg PO BID Qty: 180 RF: 3 prenat.vits,rafia,lhf-reap-qxdus Tablet 1 tab PO DAILY Qty: 90 RF: 3 (DME) Blood Glucose Test Strip 1 ea Miscellaneous BID Qty: 100 RF: 3 losartan 25 mg tablet 25 mg PO DAILY Qty: 90 RF: 3 triamcinolone acetonide 0.1 % cream 1 applic Topical 2-4 times daily PRN Qty: 15 RF: 1 fluticasone propionate 50 mcg/actuation spray,suspension 1 - 2 spray NS DAILY PRN (Reason: nasal congestion) Qty: 1 RF: 0 (DME) blood-glucose meter [Accu-Chek Emely Plus Meter] 1 EACH misc 1 ea Miscellaneous BID Qty: 1 RF: 0 diphenhydramine HCl 25 MG tablet 25 - 50 mg PO HS MDD 300 PRNQty: 30 RF: 1 metformin 1,000 mg tablet 1,000 mg PO BID Qty: 180 RF: 3 loperamide 2 mg tablet 4 mg PO QID PRN (Reason: loose stool) Qty: 90 RF: 0 (DME) lancets Misc See Dose Instructions .ROUTE .MEDSUPPLY Qty: 100 RF: 3 glipizide 10 mg tablet 10 mg PO BID Qty: 180 RF: 3 trazodone 50 mg tablet 50 mg PO HS Qty: 90 RF: 3 loratadine 10 mg tablet 10 mg PO DAILY Qty: 90 RF: 3 aspirin [Aspirin Low-Strength] 81 MG tablet,chewable 81 mg PO HS RF: 0 albuterol sulfate [Ventolin HFA] 90 mcg/actuation Hfa Aerosol Inhaler 2 puff INHALATION PRN PRNRF: 0 Discharge Instructions Additional Instructions: Surgery: Shoulder arthroscopy with extensive debridement, biceps tenotomy, and subacromial decompression Activity: Advance to full activities as tolerated over the next few weeks. May use arm for all activities of daily living. Start advancing range of motion right away. No restrictions on range of motion. Stop using sling as soon as comfortable. No sling required at home, at night, or out of the house. A physical therapy prescription will be provided separately. See attached shoulder stretches handout and start tomorrow. Prescriptions: Aspirin 81 mg take 1 daily to prevent a blood clot Naproxen 250 mg take 1-2 every 12 hours with a meal as needed for moderate pain Oxycodone 5 mg take 1-2 every 4-6 hours as needed for severe pain You may use [id number] Tylenol (acetaminophen) as needed for mild pain. These pain medications may be taken all at once or in different combinations as needed. Ondansetron (Zofran) 4 mg orally dissolving tablet as needed for nausea or vomiting. Also, recommend Colace (docusate) as a stool softener as surgery and pain medicine cause constipation. Dressings: Leave dressing in place for 2-3 days. May then remove and leave open to air or cover incisions with Band-Aids. Sutures will be removed in the office. May shower after 5 days. Follow-up: 10-14 days with an orthopedic physician senior office assistant. Follow-up in [address] Salcedo Please call the office during business hours with any questions or concerns. Let us know right away if you develop any redness, drainage, fevers, chest pain, or trouble breathing. Do not drink alcohol or drive for at least 24 hours after anesthesia. Referrals: Derrick Salcedo MD [ [facility] STAFF PHYSICIAN] - Discharge Orders Discharge Orders: Discharge Order (Routine); Ordered 05/12/19 Ordered By: Derrick Salcedo DS: Diagnosis Discharge Diagnosis (1) Instability of left shoulder joint: Status: Acute (2) Left rotator cuff tear: Status: Acute (3) Tendinitis of long head of biceps brachii of left shoulder: Status: Acute (4) Bursitis of left shoulder: Status: Acute (5) Impingement syndrome of left shoulder: Status: Acute
--- NOTE | 2019-05-12 16:46 | ROE_ITS ---
Date of service: 05/12/19 Time of Service: 16:37 Operative Note Operative Note PRE-OP DIAGNOSIS: Left: 1. Rotator cuff tear 2. LHB tendinopathy 3. Bursitis 4. Impingement POST-OP DIAGNOSIS: same PROCEDURE: Left: 1. Extensive debridement, CPT# 13494. This involved using arthroscopic hand instruments, power instruments, and radiofrequency instruments to debride areas of labral tearing, synovitis, and chondromalacia within the glenohumeral joint anteriorly and posteriorly as well as partial articular sided supraspinatus fraying superiorly. 2. Tenotomy of the long head of the biceps tendon, CPT# 67613. This involved releasing the long head of the biceps tendon from the superior labrum and allowing it to retract so that there was no tendon remnant intra-articularly. 3. Subacromial decompression with partial acromioplasty, CPT# 33436. This involved using arthroscopic power instruments and a radiofrequency wand to complete a bursectomy and remove bone spurs on the undersurface of the acromion. The assistant housekeeping manager was medically required in order to help assist in techniques above, which require positioning the arm, holding the arthroscope, and manipulating 2 to 4 instruments and sutures at the same time. This cannot be done without the help of an experienced assistant housekeeping manager. SURGEON: Derrick Salcedo VISUAL BASIC .NET DEVELOPER: Ishaan Markham ANESTHESIA: GETA and regional ESTIMATED BLOOD LOSS: 10 PATHOLOGY: none sent COMPLICATIONS: None Patient was transported to: PACU Patient's condition: stable Implants: None Indications: The patient was diagnosed with the above conditions and appropriately indicated for surgical intervention. Please see complete medical record for details. Findings: Exam under anesthesia: Nearly full symmetrical range of motion without any instability anterior or posterior. Negative sulcus sign. Glenohumeral joint: Mild glenohumeral chondromalacia largely centrally in the glenoid. Anterior, superior, and posterior labral fraying. Significant anterior and posterior synovitis. Long head of the biceps tendinopathy. 5% partial articular sided supraspinatus tendon avulsion. Subacromial space: Extensive, significant bursitis. Moderate subacromial bone spur. Inflamed supraspinatus and infraspinatus without significant bursal tearing. Procedure Description: The patient was taken to the operating room and transferred to the operating room table. General anesthesia was induced. While under anesthesia, bilateral shoulders were examined. The patient was positioned in the beachchair position. All bony prominences were well-padded. Preoperative antibiotics were administered. The shoulder was prepped and draped in the usual sterile fashion. The correct patient, procedure, and side of the procedure were all verified prior to incision. Starting through the posterior portal a standard complete diagnostic arthroscopy was performed of the glenohumeral joint including inspection of the long head of the biceps, anterior and superior labrum, subscapularis tendon, supraspinatus and infraspinatus tendons, and axillary recess. The glenoid and humeral head cartilage as well as the posterior labrum were inspected from an anterior viewing portal. Significant findings noted above. An attempt was made at an all arthroscopic loop and tach biceps tenodesis however the patient body habitus made this approach difficult and the distal biceps tendon had moderate injection throughout his course so the decision was made to proceed with tenotomy to avoid further soft tissue trauma, shoulder swelling, and bicipital groove pain. The decision had already been made with the patient to avoid an open biceps tenodesis procedure due to the significant obesity of her arm and shoulder. As a result the biceps tendon was tenotomized from the labrum using arthroscopic scissors. Starting through the posterior portal, the arthroscope was directed into the subacromial space. A lateral 50 yard line lateral portal was created. A combination of power instruments and a radiofrequency ablator were used to debride bursitis anteriorly, posteriorly, and laterally as well as expose and smooth bone spurring on the undersurface of the acromion. The coracoacromial ligament was released. The bursectomy was completed viewing laterally and working from posteriorly and the rotator cuff was thoroughly inspected with findings noted above. The shoulder was drained of arthroscopic fluid. All portal sites were copiously irrigated. These incisions were closed using 3-0 Monocryl in a buried fashion, covered with Mastisol, Steri-Strips, Xeroform, dry gauze, and ABDs. The dressings were covered and secured with Medipore tape. The operative extremity was placed into a sling for immobilization. The patient awoke from anesthesia without complication and was transferred to the recovery room in a stable condition.
== END 2019-05-12 18:20 | disposition home or self-care (01) ==
LOC: MS 17:53
PROVIDERS: Admitting Provider Student in an Organized Health Care Education/Training Program; PCP Nurse Practitioner Family; Visit Provider Student in an Organized Health Care Education/Training Program
PROC: 0RBK4ZZ Excision of Left Shoulder Joint, Percutaneous Endoscopic Approach (ICD-10-PCS; CPT 23430; 2019-05-12 14:00)
DX: M75.112 Incomplete rotator cuff tear or rupture of left shoulder, not specified as traumatic (principal); M25.312 Other instability, left shoulder; M75.22 Bicipital tendinitis, left shoulder; M75.52 Bursitis of left shoulder; M75.42 Impingement syndrome of left shoulder; M94.212 Chondromalacia, left shoulder; M65.812 Other synovitis and tenosynovitis, left shoulder; G89.18 Other acute postprocedural pain; E66.9 Obesity, unspecified; Z68.42 Body mass index [BMI] 45.0-49.9, adult; E11.9 Type 2 diabetes mellitus without complications; I10 Essential (primary) hypertension
CPT/HCPCS: 29823; 29826; 76942; J0690; J1100; J1885; J2370; J2405; L3670

== ENCOUNTER 2019-05-25 10:15 | Outpatient (CLI) | payer MEDICARE, MEDICAID, SELFPAY | END 2019-05-25 10:35 | PROVIDERS: PCP Nurse Practitioner Family | DX: S46.012D Strain of muscle(s) and tendon(s) of the rotator cuff of left shoulder, subsequent encounter (principal); X58.XXXD Exposure to other specified factors, subsequent encounter; M75.22 Bicipital tendinitis, left shoulder; M75.52 Bursitis of left shoulder ==

== ENCOUNTER → 2019-06-06 11:51 | Outpatient (BNVA) | payer MEDICARE, MEDICAID, SELFPAY | PROVIDERS: PCP Nurse Practitioner Family; Referring Provider Nurse Practitioner Family; Visit Provider Student in an Organized Health Care Education/Training Program | DX: Z47.89 Encounter for other orthopedic aftercare (principal); E11.9 Type 2 diabetes mellitus without complications; I10 Essential (primary) hypertension; Z79.84 Long term (current) use of oral hypoglycemic drugs ==

== ENCOUNTER 2019-11-07 05:27 | Outpatient (CLI) | payer MEDICARE, MEDICAID, SELFPAY ==
--- NOTE | 2019-11-07 14:00 | DIABASSESS_ITS ---
DESCRIPTION/ASSESSMENT: 35 year old female referred to global technical writer for Diabetes Education and Nutritional Counseling for HTN, Morbid Obesity and DM2. Helene reports that she lives with her BF and rely heavily on foods from food bank as both laid off. Diet recall indicates high amount of convenience foods such as [employer] hamburgers, fries, chips, ice cream, and regular soda. She has tried to lose weight in past but unable to. She weighs 284 lbs, 63 inches with BMI of 50. She reports pain in her knees and that she has SOB with walking. Her mother of complications from Dm at age 58. She monitors her blood sugars once daily, fasting and that tend to run 200-226 mg/dl. She understands that they are high but continues to eat foods in evening that drive the numbers up. reviewed risks of non compliance to her overall health. She appears to have difficulty understanding the importance and role she pays in maintaining blood sugars in acceptable range. She is compliant with taking her glipizide 10 mg BID, metformin 1000 mg BID and checking am fasting sugars but lacks coping and problem solving skills. Helene reports she wants to pursue weight loss surgery as says she feels helpless trying to lose weight and improve her BS. INTERVENTION: Provided education on DM including Hyper/hypoglycemia s/s with action plan for each scenario. Definition and types of CHO with examples, CHO counting, DASH diet materials, DM meal planning and label reading literature. Provided a blood sugar and food record chart and materials to reiterate CHO counting techniques. Reviewed desirable BG levels with patient with food choices and portion control. Encouraged her to check her sugar more often to get a better idea of which foods elevates her BS. Encouraged her to attend a Weight Loss Seminar at [facility] to learn more about procedures available. ACTION PLAN: Helene will follow up in 4 weeks, did not want to make appt. at this time, will call her next month Helene will reduce simple carbs and increase amount of lean protein and vegetables Helene will attend a weight loss information session at [facility] Individual DSME/T 1 units billed TIME IN: 1300 [id number]: No DM group education series being offered at this time.
== END 2019-11-07 05:47 ==
PROVIDERS: PCP Nurse Practitioner Family; Visit Provider Dietitian, Registered
DX: E11.9 Type 2 diabetes mellitus without complications (principal); I10 Essential (primary) hypertension; E66.01 Morbid (severe) obesity due to excess calories; Z79.84 Long term (current) use of oral hypoglycemic drugs; Z71.3 Dietary counseling and surveillance
CPT/HCPCS: G0108

== ENCOUNTER 2019-12-18 01:52 | Outpatient (CLI) | payer MEDICARE, MEDICAID, SELFPAY ==
--- NOTE | 2019-12-18 13:35 | NS.NUTBLAN_ITS ---
Helene returns for Medical Nutrition Therapy for weight loss and diabetes management. Wt= 290 lbs, up 6 lbs in last month, BMI 51. . Continues to take glipizide and metformin. Blood sugar readings mostly > 200 md/gl. Food recall indicates erratic meals, continued reliance on convenience and fast foods but has made some positive changes in the quantity she is eating. Helene reports frustration on lack of progress and continues to indicate that she wants weight loss surgery. She continues to smoke and lacks consistent exercise due to knee pain. Assessment: Helene is unable to make substantial changes in her diet to produce significant weight loss or adequately manage her diabetes. She is interested in pursuing weight loss surgery as she is frustrated about her health and wants to be more mobile. We talked about her making appt. with PCP to discuss. Plan: Helene will make appt with PCP to review diabetes management and discuss weight loss surgery. Helene will eliminate all fast food from her diet, not drink soda, stop smoking and will walk 20 min daily and follow a high protein diet with focus on non starchy vegeteables. Follow up in 4 weeks.
== END 2019-12-18 02:12 ==
PROVIDERS: PCP Nurse Practitioner Family; Visit Provider Dietitian, Registered
DX: E11.9 Type 2 diabetes mellitus without complications (principal); Z79.84 Long term (current) use of oral hypoglycemic drugs; Z71.3 Dietary counseling and surveillance
CPT/HCPCS: 97803

== ENCOUNTER 2020-01-07 14:24 | Emergency (ER) | payer MEDICARE, MEDICAID, SELFPAY ==
--- NOTE | 2020-01-07 14:26 | W.ED.GENAD ---
Discharge Plan Disposition Patient Disposition: HOME Condition: Good Discharge Details Chief Complaint: Orthopedic Clinical Impression: Acute pain of left shoulder Primary Care Provider: Mona Honeycutt ED Provider: Bernadette Rosenberg Home Meds and New Rx's Prescriptions: Continued albuterol sulfate 90 mcg/actuation HFA aerosol inhaler 1 - 2 puff IH Q4H PRN (Reason: shortness of breath or wheezing) Qty: 1 RF: 3 lidocaine [LC-5] 5 % cream 1 applic TP .BID-QID PRN (Reason: pain) Qty: 45 RF: 0 prenat.vits,rafia,fwp-azvn-jbsiq Tablet 1 tab PO DAILY Qty: 90 RF: 3 losartan 25 mg tablet 25 mg PO DAILY Qty: 90 RF: 3 triamcinolone acetonide 0.1 % cream 1 applic Topical 2-4 times daily PRN Qty: 15 RF: 1 fluticasone propionate 50 mcg/actuation spray,suspension 1 - 2 spray NS DAILY PRN (Reason: nasal congestion) Qty: 1 RF: 0 (DME) blood-glucose meter [Accu-Chek Emely Plus Meter] 1 EACH misc 1 ea Miscellaneous BID Qty: 1 RF: 0 diphenhydramine HCl 25 MG tablet 25 - 50 mg PO HS MDD 300 PRNQty: 30 RF: 1 loperamide 2 mg tablet 4 mg PO QID PRN (Reason: loose stool) Qty: 90 RF: 0 (DME) lancets Misc See Dose Instructions .ROUTE .MEDSUPPLY Qty: 100 RF: 3 glipizide 10 mg tablet 10 mg PO BID Qty: 180 RF: 3 trazodone 50 mg tablet 50 mg PO HS Qty: 90 RF: 3 loratadine 10 mg tablet 10 mg PO DAILY Qty: 90 RF: 3 Jardiance 25 mg tablet 25 mg PO DAILY AM Qty: 90 RF: 3 metformin 1,000 mg tablet 1,000 mg PO BID Qty: 180 RF: 3 metoprolol tartrate 25 mg tablet 25 mg PO BID Qty: 180 RF: 3 pravastatin 40 mg tablet 40 mg PO HS Qty: 90 RF: 3 (DME) blood sugar diagnostic [Blood Glucose Test] Strip See Rx Instructions .ROUTE .MEDSUPPLY Qty: 100 RF: 3 aspirin [Aspirin Low-Strength] 81 MG tablet,chewable 81 mg PO HS RF: 0 naproxen 250 mg tablet 250 - 500 mg PO BID PRN (Reason: pain, moderate) Qty: 60 RF: 0 oxycodone 5 mg tablet 5 - 10 mg PO Q4H PRN (Reason: pain, severe) Qty: 22 RF: 0 Discharge Instructions Instructions: Shoulder Pain (ED) Additional Instructions: Your imaging is reassuring with no acute bony abnormalities. Please encourage rest, ice and elevation. Tylenol and ibuprofen as needed for discomfort. I would like you to work on gentle range of motion to help prevent frozen shoulder. Referral is attached for physical therapy. You may continue with Tylenol and naproxen as needed for discomfort. If pain persists over the next 1 to 2 weeks, please follow-up with Dr. Salecdo. If you develop any new or worsening symptoms please seek care urgently once again. Stand Alone Forms: Physical Therapy Referral Referrals: Mona Honeycutt NP [Primary Care Provider] - Derrick Salcedo MD [ [facility]YSICIAN] - Medical Decision Making Patient is a pleasant 34-year-old bybm-uxjv-dnslobnl female presenting today with chief complaint of left shoulder pain. Patient reports that she underwent surgical intervention on said shoulder in May of last year. Had been doing quite well after that. States today she was playing with her nephew who is 6, when he accidentally pulled on her arm causing pain in the left shoulder. Pain does not radiate. Fairly diffuse pain in the left shoulder. States that this happened moments prior to arrival. She denies any numbness or tingling. Denies other injuries from the incident. She did not fall or strike the shoulder. States that she has not been able to move the shoulder since that time. On exam, patient appears to be resting comfortably. She is 2+ distal pulses. Normal neurovascular exam. No notable deformity. She indicates the entirety of the shoulder is area of pain but this is not readily reproducible on exam. She will not range the shoulder secondary to pain. Plan for imaging although we did discuss that bony pathology is quite unlikely given the mechanism. Patient is requesting a sling but at this point I am concerned that this may be setting her up for future problems with adhesive capsulitis. We will give her Tylenol, Toradol and Lidoderm patch and will reassess. XR reviewed by radiologist: FINDINGS: Five views were obtained. There is no evidence of a fracture or dislocation. CT findings with the patient. Will refer to physical therapy. Encouraged gentle range of motion. Discussed passive range of motion. Advised Tylenol or naproxen as needed for discomfort. Advised topical options. I did advise follow-up with with her orthopedic surgeon, Dr. Salcedo, if her pain persist in the next 1 days. She will return with any new or worsening symptoms. All the questions and concerns were addressed and she is in agreement this plan. [facility] General Mode of arrival: ambulatory. Date/Time Provider Initiated Documentation: 01/07/20 14:25. Limitations to Documentation: no limitations. Information obtained by: patient and RN notes reviewed. History of Present Illness 34 year old F presents to the emergency department with the chief complaint of left shoulder pain, described as severe and similar to prior episodes, with intensity rated at 10. Quality is described as aching, and is localized to the left and upper extremity. Patient reports no radiation. Patient started experiencing this minute(s) and it has been constant. Immobilization improves symptom(s), Movement worsens symptoms . Patient notes no other symptoms.. Patient did receive the following treatments prior to arrival, none Related Data Home Medications Medication Instructions Recorded Confirmed aspirin [Aspirin Low-Strength] 81 mg PO HS 02/26/17 01/07/20 blood-glucose meter [Accu-Chek #1 ea 11/04/17 09/28/19 Emely Plus Meter] diphenhydramine HCl 25 - 50 mg PO HS PRN #30 tab-cap 11/29/17 09/28/19 MDD 300 lidocaine 5 % topical cream 1 applic TP .BID-QID PRN #45 gm 08/01/18 09/28/19 loperamide 2 mg tablet 4 mg PO QID PRN #90 tab-cap 10/27/18 09/28/19 lancets #100 each 12/22/18 09/28/19 glipizide 10 mg tablet 10 mg PO BID #180 tab-cap 12/26/18 01/07/20 trazodone 50 mg tablet 50 mg PO HS #90 tab-cap 01/06/19 01/07/20 loratadine 10 mg tablet 10 mg PO DAILY #90 tab-cap 01/30/19 01/07/20 losartan 25 mg tablet 25 mg PO DAILY #90 tab-cap 02/10/19 01/07/20 triamcinolone acetonide 0.1 % 1 applic TOPICAL 2-4 times daily 02/10/19 09/28/19 topical cream PRN #15 gm prenat.vits,rafia,ivo-[id number]-qwndl 1 tab PO DAILY #90 tab-cap 02/15/19 01/07/20 fluticasone propionate 50 1 - 2 spray NS DAILY PRN #1 unit 03/24/19 09/28/19 mcg/actuation nasal spray,suspension naproxen 250 - 500 mg PO BID PRN #60 tab 05/12/19 09/28/19 oxycodone 5 - 10 mg PO Q4H PRN #22 tab 05/12/19 09/28/19 albuterol sulfate 90 mcg/actuation 1 - 2 puff IH Q4H PRN #1 device 08/16/19 09/28/19 aerosol inhaler empagliflozin 25 mg tablet 25 mg PO DAILY AM #90 tab-cap 09/06/19 09/28/19 metformin 1,000 mg tablet 1,000 mg PO BID #180 tab-cap 09/06/19 01/07/20 metoprolol tartrate 25 mg tablet 25 mg PO BID #180 tab-cap 09/06/19 01/07/20 pravastatin 40 mg tablet 40 mg PO HS #90 tab-cap 09/06/19 01/07/20 blood sugar diagnostic #100 each 10/05/19 Previous Rx's Medication Instructions Recorded lidocaine 5 % topical cream 1 applic TP .BID-QID PRN #45 gm 08/01/18 loperamide 2 mg tablet 4 mg PO QID PRN #90 tab-cap 10/27/18 lancets #100 each 12/22/18 glipizide 10 mg tablet 10 mg PO BID #180 tab-cap 12/26/18 trazodone 50 mg tablet 50 mg PO HS #90 tab-cap 01/06/19 loratadine 10 mg tablet 10 mg PO DAILY #90 tab-cap 01/30/19 losartan 25 mg tablet 25 mg PO DAILY #90 tab-cap 02/10/19 triamcinolone acetonide 0.1 % 1 applic TOPICAL 2-4 times daily 02/10/19 topical cream PRN #15 gm prenat.vits,rafia,[id number]-gjfhf 1 tab PO DAILY #90 tab-cap 02/15/19 fluticasone propionate 50 1 - 2 spray NS DAILY PRN #1 unit 03/24/19 mcg/actuation nasal spray,suspension naproxen 250 - 500 mg PO BID PRN #60 tab 05/12/19 oxycodone 5 - 10 mg PO Q4H PRN #22 tab 05/12/19 albuterol sulfate 90 mcg/actuation 1 - 2 puff IH Q4H PRN #1 device 08/16/19 aerosol inhaler empagliflozin 25 mg tablet 25 mg PO DAILY AM #90 tab-cap 09/06/19 metformin 1,000 mg tablet 1,000 mg PO BID #180 tab-cap 09/06/19 metoprolol tartrate 25 mg tablet 25 mg PO BID #180 tab-cap 09/06/19 pravastatin 40 mg tablet 40 mg PO HS #90 tab-cap 09/06/19 blood sugar diagnostic #100 each 10/05/19 Allergies Allergy/AdvReac Type Severity Reaction Status Date / Time niacin Allergy Unknown Severe Verified 01/07/20 14:29 [From [facility] Skin Rash Extended-Release] ibuprofen AdvReac Intermediate Upset Verified 01/07/20 14:29 stomach lisinopril AdvReac Intermediate Cough Verified 01/07/20 14:29 General MELANIE: 4 Review of Systems Constitutional Constitutional: Reports as per HPI, Denies chills, Denies fever(s), Denies headache(s) and Denies weakness ENT Ears, Nose, Mouth, and Throat: Denies headache(s) Cardiovascular Cardiovascular: Reports as per HPI Respiratory Respiratory: Reports as per HPI and Denies cough Musculoskeletal Musculoskeletal: Reports as per HPI and Denies tingling Integumentary/Breasts Skin/Breast: Reports as per HPI, Denies rash and Denies wounds Neurologic Neurologic: Reports as per HPI, Denies headache(s), Denies tingling, Denies paresthesias and Denies weakness [facility] Medical History Anxiety and depression (Chronic) Body mass index (BMI) of 45.0-49.9 in adult (Chronic 09/08/16) Chronic insomnia (Chronic 09/04/16) Dyslipidemia (Chronic 09/04/16) Essential hypertension (Chronic 09/04/16) Fatty liver (Chronic 09/08/16) Functional cyst of ovary (Inactive 11/24/16) by 11/20/16 US, 4cm simple ROV cyst Gastroesophageal reflux disease without esophagitis (Chronic 09/04/16) Insomnia Irritable bowel syndrome with diarrhea (Chronic) 02/28/2018 colonoscopy with random biopsies: normal (metformin contributing to sx?); 03/07/2018: neg Celiac serology Knowledge deficit about therapeutic diet (Acute) Learning disability (Chronic) On disability Left rotator cuff tear (Inactive ~09/2018) LGSIL on Pap smear of cervix (Acute 09/04/16) LSIL 2014, neg colpo. LSIL 11/2015, 07/2016; no HR HPV available Severe obstructive sleep apnea (Chronic 04/27/17) C-Pap Type 2 diabetes mellitus (Chronic) Dx ~21 y/o Unspecified chronic bronchitis (Chronic 09/04/16) Surgical History EGD (06/28/15) WITHIN NORMAL LIMITS Left Knee Surgery (10/05/06) Right Knee Surgery (03/07/08) Tendinitis of long head of biceps brachii of left shoulder (Acute ~09/2018) s/p biceps tenotomy 05/12/2019 Family History Mother Diabetes Type II Essential hypertension Mental disorder Bipolar d/o COPD (chronic obstructive pulmonary disease) Maternal Grandmother Diabetes Neoplasm Breast Brother No problems noted. Brother No problems noted. 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 [employer] Pets and animals: Yes Pets and animals: cat(s) and other Details: rabbits Sexually active: Yes Current gender identity: female What type of physical activity do you participate in: walking Duration: 60-90 minutes/day Frequency: daily Seatbelt use: always Helmet use: No (n/a) Drive intox or ride w/intox vibratory pile driver: No Do you feel safe at home: Yes Do you feel safe in your relationship?: Yes Exam Const General: cooperative, healthy appearing, comfortable, no acute distress, well developed and well groomed Nutritional Appearance: well nourished and obese Orientation: alert and awake Resp Effort & Inspection: normal respiratory effort, able to speak in complete sentences and no respiratory distress Cardio Rate: regular rate Rhythm: regular rhythm Skin General skin exam: no rashes or lesions noted Lesions: no lesions Rashes: no rashes Trauma: no lacerations or abrasions Neuro General: patient alert and patient awake Cognition: normal cognition Speech: speech normal Gait: normal gait Motor: muscle tone normal throughout Sensory Exam: no sensory deficits noted Extrem Left upper extremity: normal to inspection, normal capillary refill, no joint enlargement, shoulder/upper arm Details: inspection abnormal, tenderness (diffuse) and axillary nerve sensory function normal; no swelling, ROM limited (patient will not range shoulder secondary to pain), no abrasions, no lacerations, no ecchymosis, no crepitus, no deformity and no unsual warmth, elbow/forearm Details: normal to inspection, normal ROM and distal pulses intact; no tenderness and no swelling and hand Details: normal to inspection, normal capillary refill, neuromotor exam normal, neurosensory exam normal, vascular exam Details: radial pulse present and normal capillary refill and normal ROM of fingers; no tenderness; ROM limited Psych Appearance: grossly normal and well kempt Mental Status: mental status grossly normal Speech and Movement: speech and movement normal
[2020-01-07 14:27] VITALS: BP 138/86; PULSE 105; RESP 20; TEMP 36.4; O2SAT 99
[2020-01-07] MEDS: Acetaminophen 500 MG TAB 1000 MG PO (14:52)
[2020-01-07] MEDS: Ketorolac 30 MG/ML VIAL IM (14:53)
[2020-01-07] MEDS: Lidocaine 5% Patch 1 PATCH TP (14:54)
--- NOTE | 2020-01-07 14:54 | NUR.NOTE ---
holding cell phone with both hands, texting. awaiting xray
--- NOTE | 2020-01-07 15:14 | DI.RAD_ITS ---
EXAM: XR SHOULDER LT COMPLETE 2+V CLINICAL HISTORY: shoulder pulled by child TECHNIQUE: COMPARISON: No exams were available for comparison FINDINGS: Five views were obtained. There is no evidence of a fracture or dislocation. IMPRESSION:
[2020-01-07 15:37] VITALS: BP 121/79; PULSE 88; RESP 16; O2SAT 98
== END 2020-01-07 15:35 | disposition home or self-care (01) ==
PROVIDERS: Emergency Provider Physician Assistant; PCP Nurse Practitioner Family
DX: M25.512 Pain in left shoulder (principal); W50.2XXA Accidental twist by another person, initial encounter; I10 Essential (primary) hypertension; E11.9 Type 2 diabetes mellitus without complications; Z79.84 Long term (current) use of oral hypoglycemic drugs
CPT/HCPCS: 96372; 99284; 73030; J1885

== ENCOUNTER 2020-01-16 04:59 | Outpatient (CLI) | payer MEDICARE, MEDICAID, SELFPAY ==
--- NOTE | 2020-01-16 13:00 | NS.NUTBLAN_ITS ---
Helene returns for Medical Nutrition Therapy for obesity and diabetes management. Wt: 288 lbs, down 2 lbs in last 4 weeks. BMI 51. Helene reports walking daily for 10-15 minutes and reducing intake of juice, ice cream and fast food. She has been eating more protein rich foods and non starchy vegetables and reports her blood sugars are wnl. She checks BS twice daily, fasting sugars reported as < 120 mg/dl, post prandial blood sugars < 150 mg/dl. She continues to take glipizide and metformin. Helene has attended a virtual webinar with [facility] for bariatric surgery and is pursuing medical clearance for this procedure. She has shown interest and been able to implement several life style changes but continues to be unable to lose significant weight. Structural Steel Engineer encouraged her to follow up with [facility] and to continue to walk daily 15-20 min and to continue meal plan provided that focuses on home made meals, lean protein, complex carbs and non starchy vegetables. Plan: follow up visit 02/27/20 @ 3pm.
== END 2020-01-16 05:19 ==
PROVIDERS: PCP Nurse Practitioner Family; Visit Provider Dietitian, Registered
DX: E11.9 Type 2 diabetes mellitus without complications (principal); E66.9 Obesity, unspecified; Z79.84 Long term (current) use of oral hypoglycemic drugs; Z71.3 Dietary counseling and surveillance
CPT/HCPCS: 97803

== ENCOUNTER 2020-02-23 14:22 | Outpatient (REF) | payer MEDICARE, MEDICAID, SELFPAY ==
[2020-02-23 22:52] LABS: COMMENT (LAB VIEW ONLY) 54.48 mg/dL; Microalb ug/mg Crea 24.2 ug/mg Cr
== END 2020-02-23 14:42 ==
LOC: LBN 14:22
PROVIDERS: PCP Nurse Practitioner Family; Visit Provider Nurse Practitioner Family
DX: E11.9 Type 2 diabetes mellitus without complications (principal); I10 Essential (primary) hypertension; E78.5 Hyperlipidemia, unspecified
CPT/HCPCS: 82043; 82570

== ENCOUNTER 2020-02-26 01:44 | Outpatient (CLI) | payer MEDICARE, MEDICAID, SELFPAY ==
[2020-02-26 10:28] LABS: COMMENT (LAB VIEW ONLY) 71.11 mg/dL; Microalb ug/mg Crea 13.6 ug/mg Cr
[2020-02-26 10:53] LABS: ALT 46 U/L (14-59); AST 25 U/L (15-37); Albumin 3.6 g/dL (3.4-5.0); Alkaline Phosphatase 90 U/L (46-116); BUN 12 mg/dL (7-18); Bilirubin, Total 0.4 mg/dL (0.2-1.0); CREATININE 0.71 mg/dL (0.55-1.02); Calcium 9.1 mg/dL (8.5-10.1); Calculated LDL 68 mg/dL (<100); Chloride 103 mmol/L (98-107); Cholesterol 127 mg/dL (<200); Glucose 109 mg/dL (74-106); HDL Cholesterol 43 mg/dL (40-60); Sodium 138 mmol/L (136-145); Triglyceride 80 mg/dL (<150)
--- NOTE | 2020-02-27 14:19 | DIABASSESS_ITS ---
Date of service: 02/27/20 Time of Service: 14:19 Diabetes Note NOTE: Helene returns for Medical Nutrition Therapy for weight and diabetes management. She had blood works at PCP last week and her A1C is now 5.9%, much improved from 6 months ago (6.2%). Helene reports she has stopped drinking soda, and limits convenience foods. She primarily is eating lean protein and vegetables and has started to walk daily 10-15 minutes. Her glipizide has been reduced to 5 mg at night. I encouraged her to continue to work on life style changes to improve her health. Improvement of A1C supports her diet recall and diet changes in the last 3 months. Wt: 287 lbs, 63 inches, BMI 51.5. Helene h as made several positive life style changes but continues to be unable to lose weight. We discussed importance of staying on track despite lack of weight loss. We also discussed diet s/p gastric bypass and Helene is aware that she will life long need to take supplements and eat small portions. Time Spent in Nutritional Counseling and Treatment: 30 min spent face to face
== END 2020-02-26 02:04 ==
PROVIDERS: PCP Nurse Practitioner Family; Visit Provider Nurse Practitioner Family
DX: E11.65 Type 2 diabetes mellitus with hyperglycemia (principal); E78.5 Hyperlipidemia, unspecified
CPT/HCPCS: 36415; 80053; 80061; 82043; 82570

== ENCOUNTER 2020-03-05 14:22 | Outpatient (REF) | payer MEDICARE, MEDICAID, SELFPAY ==
--- NOTE | 2020-03-05 14:00 | PAPFT_PTH ---
PATIENT: Helene Carpenter LOC: [facility] U#:[id number] AGE/SX: 34/F ROOM: RE03/05/[address]: Nelli Agudelo NP : 1985 BED: DIS: 03/05/2020 SPEC #: [id number] RECD: 03/05/20 18:09 STATUS: [place] REQ #: [id number] MARIPOSA: 03/05/20 14:[address]: Nelli Agudelo NP DEPT: [facility] Cytology RECD BY: Flor Samuels ENTERED: 03/05/20 18:09 SP TYPE: PAPFT OTHR DR: Mona Honeycutt, ROMEL Tissues: 1 - CX/ENDOCX FOR PAP SMEARS Procedures: PAP THIN PREP/UVM Screening HPV DNA PROBE Comments: [id number]
== END 2020-03-05 14:42 ==
LOC: LBN 14:22
PROVIDERS: PCP Nurse Practitioner Family; Visit Provider Nurse Practitioner Women's Health
DX: Z12.4 Encounter for screening for malignant neoplasm of cervix (principal); Z87.42 Personal history of other diseases of the female genital tract; Z11.51 Encounter for screening for human papillomavirus (HPV)
CPT/HCPCS: 88142; 87624

== ENCOUNTER → 2020-03-19 09:19 | Outpatient (BNVA) | payer MEDICARE, MEDICAID, SELFPAY | PROVIDERS: PCP Nurse Practitioner Family; Referring Provider Nurse Practitioner Family; Visit Provider Student in an Organized Health Care Education/Training Program | DX: M75.22 Bicipital tendinitis, left shoulder (principal); M75.52 Bursitis of left shoulder; M75.42 Impingement syndrome of left shoulder; G56.02 Carpal tunnel syndrome, left upper limb; E11.9 Type 2 diabetes mellitus without complications; Z79.84 Long term (current) use of oral hypoglycemic drugs | CPT/HCPCS: 99214 ==

== ENCOUNTER 2020-03-28 08:13 | Emergency (ER) | payer MEDICARE, MEDICAID, SELFPAY ==
[2020-03-28 08:18] VITALS: BP 138/78; PULSE 76; RESP 20; TEMP 36.7
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
[2020-03-28] MEDS: Acetaminophen 325 MG TAB 650 MG PO (09:01)
[2020-03-28 09:56] VITALS: BP 125/70; PULSE 72; RESP 20; TEMP 36.7; O2SAT 98
[2020-03-28 10:05] VITALS: BP 125/70; PULSE 72; RESP 20; TEMP 36.7; O2SAT 98
== END 2020-03-28 10:09 | disposition home or self-care (01) ==
PROVIDERS: Emergency Provider Physician Assistant; PCP Nurse Practitioner Family
DX: S93.491A Sprain of other ligament of right ankle, initial encounter (principal); X50.9XXA Other and unspecified overexertion or strenuous movements or postures, initial encounter; I10 Essential (primary) hypertension; E11.9 Type 2 diabetes mellitus without complications; Z79.84 Long term (current) use of oral hypoglycemic drugs
CPT/HCPCS: 29515; 80053; 99283; 73610; 83735; 84484; 85025; 85610; 85730; L4361

== ENCOUNTER → 2020-05-08 09:22 | Outpatient (BNVA) | payer MEDICARE, MEDICAID, SELFPAY | PROVIDERS: PCP Nurse Practitioner Family; Referring Provider Nurse Practitioner Family; Visit Provider Nurse Practitioner Adult Health | DX: R20.2 Paresthesia of skin (principal); E11.9 Type 2 diabetes mellitus without complications; I10 Essential (primary) hypertension | CPT/HCPCS: 95886; 95909; 99203; 99214 ==

== ENCOUNTER → 2020-05-21 09:22 | Outpatient (BNVA) | payer MEDICARE, MEDICAID, SELFPAY | PROVIDERS: PCP Nurse Practitioner Family; Visit Provider Student in an Organized Health Care Education/Training Program | DX: M75.22 Bicipital tendinitis, left shoulder (principal); M75.52 Bursitis of left shoulder; R20.0 Anesthesia of skin | CPT/HCPCS: 99213 ==

== ENCOUNTER 2020-10-08 02:02 | Outpatient (CLI) | payer MEDICARE, MEDICAID, SELFPAY ==
[2020-10-09 15:29] LABS: COVID-19 RT-PCR UVMMC Result Presumptive Positive (Negative)
== END 2020-10-08 02:03 | disposition home or self-care (01) ==
LOC: LBO 02:02
PROVIDERS: PCP Nurse Practitioner Family; Visit Provider Nurse Practitioner Family
DX: Z20.822 Contact with and (suspected) exposure to COVID-19 (principal)
CPT/HCPCS: U0003; U0005

== ENCOUNTER 2021-01-28 14:48 | Emergency (ER) | payer MEDICARE, MEDICAID, SELFPAY ==
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
[2021-01-28 14:52] VITALS: BP 134/74; PULSE 86; RESP 18; TEMP 36.9; O2SAT 100
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
[2021-01-28 15:13] LABS: Abs Immature Grans 0.01 10^3/uL (0.0-0.06); Absolute Basophil Count 0.03 10^3/uL (0.0-0.2); Absolute Eosinophil Count 0.03 10^3/uL (0.0-0.7); Absolute Neutrophil Count 4.78 10^3/uL (1.2-6.7); Basophils % 0.4; Eosinophils % 0.4; HGB 13.9 g/dL (11.2-15.7); Immature Grans % 0.1; Lymphocytes % 29.5; MCH 27.2 pg (27.0-33.0); MCHC 32.3 % (32.0-36.0); MCV 84.1 fL (80-95); MPV 11.3 fL (8.0-11.0); Monocytes % 5.4; Neutrophils % 64.2; Nucleated RBC 0 %; Platelet Count 268 10^3/uL (130-400); RBC 5.11 10^6/uL (3.93-5.22); RDW-SD 39.7 fL; WBC 7.45 10^3/uL (4.4-10.8)
[2021-01-28] MEDS: MORPHine 10 MG/ML VIAL 2 MG IVP (15:13)
[2021-01-28 15:25] LABS: ALT 23 U/L (14-59); AST 19 U/L (15-37); Albumin 3.8 g/dL (3.4-5.0); Alkaline Phosphatase 79 U/L (46-116); BUN 13 mg/dL (7-18); Bilirubin, Total 0.4 mg/dL (0.2-1.0); CREATININE 0.7 mg/dL (0.55-1.02); Calcium 9.6 mg/dL (8.5-10.1); Chloride 105 mmol/L (98-107); Glucose 165 mg/dL (74-106); Potassium 3.9 mmol/L (3.5-5.1); Sodium 141 mmol/L (136-145)
[2021-01-28 15:35] LABS: HCG Qual (Serum) Negative
--- NOTE | 2021-01-28 15:45 | NUR.NOTE ---
Abrasions to the Right and Left lower leg just proximal to the knee cleaned and dressed with bacitracin applied. Nursing Note:
[2021-01-28] MEDS: Normal Saline Flush 10 ML SYR IVP (16:26)
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
[2021-01-28] MEDS: Omnipaque 350 MG/ML 100 ML BTL 125 ML IJ (18:44)
== END 2021-01-28 18:00 | disposition home or self-care (01) ==
PROVIDERS: Emergency Provider Emergency Medicine; PCP Nurse Practitioner Family
DX: S80.212A Abrasion, left knee, initial encounter (principal); S80.211A Abrasion, right knee, initial encounter; M54.2 Cervicalgia; S20.219A Contusion of unspecified front wall of thorax, initial encounter; V19.88XA Pedal cyclist (driver) (passenger) injured in other specified transport accidents, initial encounter
CPT/HCPCS: 36415; 73562; 74177; 80053; 96374; 99285; 70450; 71260; 72125; 84703; 85025; 99284; J2270; J3490

== ENCOUNTER 2021-02-24 10:38 | Outpatient (REF) | payer MEDICARE, MEDICAID, SELFPAY ==
--- NOTE | 2021-02-24 10:20 | PAPFT_PTH ---
PATIENT: Helene Carpenter LOC: [facility] U#:[id number] AGE/SX: 35/F ROOM: RE02/24/[address]: Zahra Lyons DO : 1985 BED: DIS: 02/24/2021 SPEC #: [id number] RECD: 02/24/21 12:49 STATUS: [place] REQ #: [id number] MARIPOSA: 02/24/21 10:[address]: Zahra Lyons DEPT: [facility] Cytology RECD BY: Flor Samuels ENTERED: 02/24/21 12:50 SP TYPE: PAPFT OTHR DR: Mona Honeycutt APRN Tissues: 1 - CX/ENDOCX FOR PAP SMEARS Procedures: PAP THIN PREP/[facility] Screening HPV DNA PROBE Comments: [id number]
== END 2021-02-24 10:39 | disposition home or self-care (01) ==
LOC: LBN 10:38
PROVIDERS: PCP Nurse Practitioner Family; Referring Provider Obstetrics & Gynecology; Visit Provider Obstetrics & Gynecology
DX: Z12.4 Encounter for screening for malignant neoplasm of cervix (principal); Z01.419 Encounter for gynecological examination (general) (routine) without abnormal findings; Z11.51 Encounter for screening for human papillomavirus (HPV)
CPT/HCPCS: 88142; 87624

== ENCOUNTER 2021-03-28 01:14 | Outpatient (CLI) | payer MEDICARE, MEDICAID, SELFPAY ==
--- NOTE | 2021-03-28 08:00 | DI.US_ITS ---
Exam(s) US PELVIS TRANSVAGINAL EXAM: US PELVIS TRANSVAGINAL CLINICAL HISTORY: f/u incidental B/L ovarian cysts,N83.201,N83.202. TECHNIQUE: Transabdominal pelvic ultrasound was performed using standard protocol. The patient elec tessa to forego the transvaginal portion of the examination. COMPARISON: US PELVIS TRANSVAG from 01/04/[address] CHEST/ABD/PEL W from 01/28/2021 FINDINGS: KIDNEYS: Kidneys are symmetric in size. No evidence of renal calculi. No evidence of hydronephrosis. No renal mass or cyst identified. UTERUS: Position: Anteverted. Size: 6.9 long by 3.4 AP by 5.5 transverse cm Endometrium: 0.4 cm. Normal for patient's menstrual status. Myometrium: Unremarkable. Cervix: Unremarkable. OVARIES: Right: 5.4 x 7.3 x 3.8 cm Cyst or mass: 6 x 4.3 x 4.5 cm simple anechoic cyst. Left: 5 x 2.2 x 1.2 cm Cyst or mass: None. DOPPLER: Color: Symmetric and uniform flow to both ovaries. No hyperemia. Duplex: Normal ovarian arterial waveforms visualized. CUL-DE-SAC: Free fluid: Small amount of free fluid adjacent to the left ovary. This is likely physiologic. Other: None. IMPRESSION: 1. Normal sonographic appearance of the kidneys. 2. Normal-appearing uterus with endometrial stripe within normal limits. 3. 6 cm simple right ovarian cyst. Follow-up is recommended. A repeat pelvic ultrasound in 6-8 week s should be obtained. DATA REPOSITORY:
== END 2021-03-28 01:34 ==
PROVIDERS: PCP Nurse Practitioner Family; Visit Provider Nurse Practitioner Family
DX: N83.201 Unspecified ovarian cyst, right side (principal); N83.202 Unspecified ovarian cyst, left side
CPT/HCPCS: 76830; 76856

== ENCOUNTER 2021-05-05 18:52 | Emergency (ER) | payer MEDICARE, MEDICAID, SELFPAY ==
--- NOTE | 2021-05-05 19:00 | DI.RAD_ITS ---
Exam(s) XR WRIST LT COMPLETE EXAM: XR WRIST LT COMPLETE CLINICAL HISTORY: TALIA. TECHNIQUE: 2D digital imaging was performed of the left wrist. Three images were obtained. PA, obl ique and lateral views were obtained. COMPARISON: CR XR wrist LT comp navicular from 03/25/2018 FINDINGS: BONES: No acute fracture is present. No bony destructive lesion is seen. JOINTS: The carpal bones are normally aligned. SOFT TISSUE: Normal. IMPRESSION: Unremarkable radiographs of the left wrist. DATA REPOSITORY: RADIATION DOSE DELIVERED:
--- NOTE | 2021-05-05 19:05 | ED.GENADUL_ITS ---
Discharge Plan Disposition Patient Disposition: HOME Condition: Good Discharge Details Clinical Impression: Left wrist sprain Primary Care Provider: Mona Honeycutt ED Provider: Bernadette Rosenberg Home Meds and New Rx's Prescriptions: Continued albuterol sulfate 90 mcg/actuation HFA aerosol inhaler 1 - 2 puff IH Q4H PRN (Reason: shortness of breath or wheezing) Qty: 1 RF: 3 Vitron-C 65 mg iron- 125 mg tablet,delayed release (DR/EC) 1 tab PO DAILY RF: 0 calcium citrate PO RF: 0 metformin 500 mg tablet 1,000 mg PO BID Qty: 360 RF: 3 triamcinolone acetonide 0.1 % cream 1 applic Topical 2-4 times daily PRN Qty: 15 RF: 1 fluticasone propionate 50 mcg/actuation spray,suspension 1 - 2 spray NS DAILY PRN (Reason: nasal congestion) Qty: 1 RF: 0 (DME) blood-glucose meter [Accu-Chek Emely Plus Meter] 1 EACH misc 1 ea Miscellaneous BID Qty: 1 RF: 0 diphenhydramine HCl 25 MG tablet 25 - 50 mg PO HS MDD 300 PRNQty: 30 RF: 1 (DME) lancets Misc See Dose Instructions .ROUTE .MEDSUPPLY Qty: 100 RF: 3 acetaminophen 650 mg/20.3 mL solution 650 mg PO Q4H PRNRF: 0 cyanocobalamin (vitamin B-12) [Vitamin B-12] 500 mcg tablet 500 mcg PO DAILY RF: 0 pravastatin 40 mg tablet 40 mg PO HS Qty: 90 RF: 3 cholecalciferol (vitamin D3) [Vitamin D3] 50 mcg (2,000 unit) capsule 50 mcg PO DAILY RF: 0 (DME) OneTouch Ultra Test Strip See Rx Instructions .ROUTE .MEDSUPPLY Qty: 100 RF: 3 loratadine 10 mg tablet 10 mg PO DAILY Qty: 90 RF: 3 Discharge Instructions Instructions: Wrist Sprain (ED) Additional Instructions: X-ray is reassuring. No evidence of fracture. Please encourage rest, ice, elevation. Tylenol and ibuprofen as needed for discomfort. You may use your splint if needed for support and discomfort. Please follow-up with primary care in 2 weeks for reevaluation. If you develop any new or worsening symptoms please seek care urgently once again. Referrals: Mona Honeycutt NP [Primary Care Provider] - Discharge Data Discharge Date/Time-TO BE ENTERED AT DEPARTURE: 05/05/21 20:12 Medical Decision Making Patient is a pleasant [id number] 36-year-old female presents today with chief complaint of left wrist pain. She reports that prior to arrival she was sitting on a couch, went to lean back against the wall and realized that the wall was not there. Fell on outstretched left hand. Denies other injuries from the incident. Reports that since then she has been having pain over the left distal ulna and radius. Denies any numbness or tingling. On exam, patient appears nontoxic. No gross abnormality noted with exam of the left wrist. She does have discomfort with forced flexion and forced extension but otherwise her exam is unremarkable with no swelling, deformity noted. No pain of the anatomical snuffbox. Sensation is intact, 2+ distal pulses intact capillary refill. Full range of motion of the elbow no pain with palpation of the forearm. We will give Tylenol for discomfort and obtain x-ray to evaluate for any potential bony abnormality. FINDINGS: Bones/joints: Normal. Soft tissues: Normal. IMPRESSION: 1. No acute findings. 2. No interval change since previous study 03/25/2018. Discussed findings with the patient. Advised contusion. Encouraged RICE. She has splint at home she will use to help with discomfort. Advised f/u with PCP in 2 weeks for reevaluation. Return precautions discussed. All of her questions and concerns were addressed, she is in agreement with this plan. HPI General Mode of arrival: ambulatory . Date/Time Provider Initiated Documentation: 05/05/21 19:04 . Limitations to Documentation: no limitations . Information obtained by: patient and RN notes reviewed . History of Present Illness 36 year old F presents to the emergency department with the chief complaint of left wrist pain, described as moderate, with intensity rated at 8. Quality is described as aching, and is localized to the left and upper ex tremity. Patient reports no radiation. Patient started experiencing this minute(s) and it has been constant. Immobilization improves symptom(s), Patient notes no other symptoms.. Patient did receive the following treatments prior to arrival, none Related Data Home Medications Medication Instructions Recorded Confirmed blood-glucose meter [Accu-Chek #1 ea 11/04/17 04/04/21 Emely Plus Meter] diphenhydramine HCl 25 - 50 mg PO HS PRN #30 tab-cap 11/29/17 05/05/21 MDD 300 lancets #100 each 12/22/18 04/04/21 triamcinolone acetonide 0.1 % 1 applic TOPICAL 2-4 times daily 02/10/19 05/05/21 topical cream PRN #15 gm fluticasone propionate 50 1 - 2 spray NS DAILY PRN #1 unit 03/24/19 05/05/21 mcg/actuation nasal spray,suspension albuterol sulfate 90 mcg/actuation 1 - 2 puff IH Q4H PRN #1 device 08/16/19 05/05/21 aerosol inhaler acetaminophen 650 mg/20.3 mL oral 650 mg PO Q4H PRN 08/05/20 05/05/21 solution calcium citrate [Citracal] PO 08/16/20 04/04/21 iron,carbonyl 65 mg-vitamin C 125 1 tab PO DAILY 08/16/20 05/05/21 mg tablet,delayed release cyanocobalamin (vitamin B-12) 500 500 mcg PO DAILY 08/20/20 05/05/21 mcg tablet pravastatin 40 mg tablet 40 mg PO HS #90 tab-cap 09/10/20 05/05/21 metformin 500 mg tablet 1,000 mg PO BID #360 tab 09/16/20 05/05/21 cholecalciferol (vitamin D3) 50 50 mcg PO DAILY 11/18/20 05/05/21 mcg (2,000 unit) capsule blood sugar diagnostic #100 ea 01/06/21 04/04/21 loratadine 10 mg tablet 10 mg PO DAILY #90 tab-cap 02/22/21 05/05/21 Previous Rx's Medication Instructions Recorded lancets #100 each 12/22/18 triamcinolone acetonide 0.1 % 1 applic TOPICAL 2-4 times daily 02/10/19 topical cream PRN #15 gm fluticasone propionate 50 1 - 2 spray NS DAILY PRN #1 unit 03/24/19 mcg/actuation nasal spray,suspension albuterol sulfate 90 mcg/actuation 1 - 2 puff IH Q4H PRN #1 device 08/16/19 aerosol inhaler pravastatin 40 mg tablet 40 mg PO HS #90 tab-cap 09/10/20 metformin 500 mg tablet 1,000 mg PO BID #360 tab 09/16/20 blood sugar diagnostic #100 ea 01/06/21 loratadine 10 mg tablet 10 mg PO DAILY #90 tab-cap 02/22/21 Allergies Allergy/AdvReac Type Severity Reaction Status Date / Time niacin Allergy Unknown Severe Verified 05/05/21 19:32 [From Niaspan Skin Rash Extended-Release] ibuprofen AdvReac Intermediate Upset Verified 05/05/21 19:32 stomach lisinopril AdvReac Intermediate Cough Verified 05/05/21 19:32 General MELANIE: 3 Review of Systems Constitutional Constitutional: Reports as per HPI, Denies chills, Denies fever(s) and Denies weakness Musculoskeletal Musculoskeletal: Reports as per HPI and Denies tingling Integumentary/Breasts Skin/Breast: Reports as per HPI, Denies rash and Denies wounds Neurologic Neurologic: Reports as per HPI, Denies tingling, Denies paresthesias and Denies weakness [facility] Active Problem List Ovarian cyst (Acute) Abrasion of both knees (Acute) Muscle contusion (Acute) Thoracic outlet syndrome (Acute) Obesity (Chronic) Knowledge deficit about therapeutic diet (Acute) History of abnormal cervical Pap smear (Acute) Tendinitis of long head of biceps brachii of left shoulder (Acute ~09/2018) Instability of left shoulder joint (Acute ~09/2018) Bursitis of left shoulder (Acute ~09/2018) Impingement syndrome of left shoulder (Acute ~09/2018) Anxiety and depression (Chronic) Type 2 diabetes mellitus (Chronic) Irritable bowel syndrome with diarrhea (Chronic) Severe obstructive sleep apnea (Chronic 04/27/17) Learning disability (Chronic) Gastroesophageal reflux disease without esophagitis (Chronic 09/04/16) Fatty liver (Chronic 09/08/16) Essential hypertension (Chronic 09/04/16) Dyslipidemia (Chronic 09/04/16) Chronic insomnia (Chronic 09/04/16) Unspecified chronic bronchitis (Chronic 09/04/16) Medical History Insomnia Left rotator cuff tear (~09/2018) LGSIL on Pap smear of cervix (09/04/16) LSIL 2015, neg colpo. LSIL 11/2015, 07/2016; no HR HPV available. 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 Daniel Left Knee Surgery (10/05/06) Right Knee Surgery (03/07/08) Family History Mother Diabetes Type II Essential hypertension Mental disorder Bipolar d/o COPD (chronic obstructive pulmonary disease) Maternal Grandmother Diabetes Neoplasm Breast Brother No problems noted. Brother No problems noted. Maternal Uncle Mental disorder Bipolar d/o Social History Smoking/Tobacco Use Status: Never Smoking risk assessment performed?: Yes Alcohol Intake: never Drug use: Never Substance use type: does not use Counseling given: No Adopted: No Caregiver/Support person: No Foster care: No Household members: significant other Number of Children: 0 Communication Needs: Corrective Lenses current occupation: [employer] Pets and animals: Yes Pets and animals: cat(s) and other Details: rabbits Sexually active: Yes Current gender identity: female What type of physical activity do you participate in: walking Duration: 60-90 minutes/day Frequency: daily Seatbelt use: always Helmet use: No (n/a) 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 Do you feel safe at home: Yes Do you feel safe in your relationship?: Yes Exam Const General: cooperative, healthy appearing, comfortable, no acute distress, well developed and well groomed Nutritional Appearance: average body habitus and well nourished Orientation: alert and awake Resp Effort & Inspection: normal respiratory effort, able to speak in complete sentences and no respiratory distress Cardio Rate: regular rate Rhythm: regular rhythm Skin General skin exam: no rashes or lesions noted Lesions: no lesions Rashes: no rashes Trauma: no lacerations or abrasions Neuro General: patient alert and patient awake Cognition: normal cognition Speech: speech normal Gait: normal gait Motor: muscle tone normal throughout Sensory Exam: no sensory deficits noted Extrem Hand/finger images: 1. Area of discomfort. No notable deformity. 2+ distal pulses. Full range of motion. She does have some discomfort with forced flexion and forced extension. No pain on palpation of the hand. No pain with axial thumb loading or palpation over the anatomical snuffbox. Full range of motion of the elbow. Pain to palpation over the distal radius and ulna. Psych Appearance: grossly normal and well kempt Mental Status: mental status grossly normal Speech and Movement: speech and movement normal
[2021-05-05 19:29] VITALS: BP 116/77; PULSE 89; RESP 18; TEMP 36.5; O2SAT 100
[2021-05-05] MEDS: Acetaminophen 325 MG TAB 650 MG PO (19:37)
--- NOTE | 2021-05-05 19:49 | DI.VRAD_ITS ---
PROCEDURE INFORMATION: Exam: XR Left Wrist Exam date and time: 05/05/2021 7:09 PM Age: 36 years old Clinical indication: Injury or trauma; Fall; Blunt trauma (contusions or hematomas); Wrist; Left; Injury date: 05/05/21; Injury details: [place] TECHNIQUE: Imaging protocol: XR Left wrist. Views: 3 or more views. COMPARISON: CR XR wrist LT comp navicular 03/25/2018 4:34 PM FINDINGS: Bones/joints: Normal. Soft tissues: Normal. IMPRESSION: 1. No acute findings. 2. No interval change since previous study 03/25/2018. Dictated and Authenticated by: José Miguel Villatoro MD. Ordering:ARIANE Fleming MD
== END 2021-05-05 20:12 | disposition home or self-care (01) ==
PROVIDERS: Emergency Provider Physician Assistant; PCP Nurse Practitioner Family
DX: S63.592A Other specified sprain of left wrist, initial encounter (principal); W08.XXXA Fall from other furniture, initial encounter
CPT/HCPCS: 99283; 73110

== ENCOUNTER 2021-05-13 12:24 | Emergency (ER) | payer MEDICARE, MEDICAID, SELFPAY ==
[2021-05-13 12:27] VITALS: BP 132/74; PULSE 95; RESP 18; TEMP 36.8; O2SAT 100
--- NOTE | 2021-05-13 12:35 | W.ED.GENAD ---
Discharge Plan Disposition Patient Disposition: HOME Condition: Stable Discharge Details Clinical Impression: Head injury Primary Care Provider: Mona Honeycutt ED Provider: Pako Yang Home Meds and New Rx's Prescriptions: Continued albuterol sulfate 90 mcg/actuation HFA aerosol inhaler 1 - 2 puff IH Q4H PRN (Reason: shortness of breath or wheezing) Qty: 1 RF: 3 Vitron-C 65 mg iron- 125 mg tablet,delayed release (DR/EC) 1 tab PO DAILY RF: 0 calcium citrate PO RF: 0 metformin 500 mg tablet 1,000 mg PO BID Qty: 360 RF: 3 triamcinolone acetonide 0.1 % cream 1 applic Topical 2-4 times daily PRN Qty: 15 RF: 1 fluticasone propionate 50 mcg/actuation spray,suspension 1 - 2 spray NS DAILY PRN (Reason: nasal congestion) Qty: 1 RF: 0 (DME) blood-glucose meter [Accu-Chek Emely Plus Meter] 1 EACH misc 1 ea Miscellaneous BID Qty: 1 RF: 0 diphenhydramine HCl 25 MG tablet 25 - 50 mg PO HS MDD 300 PRNQty: 30 RF: 1 (DME) lancets Misc See Dose Instructions .ROUTE .MEDSUPPLY Qty: 100 RF: 3 acetaminophen 650 mg/20.3 mL solution 650 mg PO Q4H PRNRF: 0 cyanocobalamin (vitamin B-12) [Vitamin B-12] 500 mcg tablet 500 mcg PO DAILY RF: 0 pravastatin 40 mg tablet 40 mg PO HS Qty: 90 RF: 3 cholecalciferol (vitamin D3) [Vitamin D3] 50 mcg (2,000 unit) capsule 50 mcg PO DAILY RF: 0 (DME) OneTouch Ultra Test Strip See Rx Instructions .ROUTE .MEDSUPPLY Qty: 100 RF: 3 loratadine 10 mg tablet 10 mg PO DAILY Qty: 90 RF: 3 Discharge Instructions Instructions: Head Injury (ED) Additional Instructions: CT imaging is unremarkable. [id number] Tylenol as directed for discomfort. Cool and/or warm compresses every 2 hours for 20 minutes. Please watch for new or worsening symptoms and return to the ER for any concerns. Otherwise, I recommend reaching out your primary care provider tomorrow to make them aware of your visit need for outpatient reevaluation. As we discussed, if you continue to have symptoms then outpatient referral to neurology may be necessary Stand Alone Forms: Work Release Medical Decision Making 36-year-old female presents status post head injury. Unknown brief LOC. Clinically she appears well, neurologically intact. Will provide ice pack, give a single dose of p.o. Tylenol, and obtain CT imaging of the brain. Can does not require any imaging. Patient reports minimal improvement with her symptoms after the Tylenol and ice. CT imaging unremarkable per radiology Discussed work-up with patient. She is relieved and has no additional questions or concerns. She is comfortable discharge at this time. Strict discharge and return precautions provided. This documentation was generated using [employer] system, please disregard any oddities of phrase or misspellings. Medical Records Medical records reviewed: Yes I reviewed the patient's medical records. Imaging Data Radiologic Study: Attestation: I personally reviewed and interpreted this imaging study as follows: Imaging: CT Scan Radiologist's impression: Exam(s) CT HEAD WO EXAM: CT HEAD WO CLINICAL HISTORY: fall, head injury. TECHNIQUE: Imaging Protocol: Axial computed tomography images with coronal and sagittal reformatted images were created and reviewed COMPARISON: CT CT HEAD CERVICAL SPINE WO from 01/28/2021 FINDINGS: Ventricles and Extra axial spaces: Normal in size and morphology for the patient's age. Hemorrhage: None. Cerebral parenchyma: Normal. Midline shift: None. Brainstem/Cerebellum: Normal. Calvarium: Normal. Visualized Paranasal sinuses/Mastoids: Clear. Soft Tissues: Unremarkable. IMPRESSION: 1. No acute intracranial process. 2. Results of this exam have been verbally communicated with provider. HPI General Mode of arrival: ambulatory. Date/Time Provider Initiated Documentation: 05/13/21 12:30. Limitations to Documentation: no limitations. Information obtained by: patient. HPI Narrative: This is a 36-year-old with a past medical history that includes insomnia, hypertension, presenting to the ER for evaluation of a head injury. Patient states that she was at work just prior to arrival, had a mechanical fall, struck her forehead on the ground. Unsure if there was a brief LOC. Reports severe headache, diffuse, has not taken any medication for her symptoms. Patient reports that she is [id number] and also noticed a small bruise to her left hand but does not have any pain there and has full range of motion. Denies any other injury, visual changes, neck pain, chest pain, shortness of breath abdominal pain, nausea vomiting, numbness, tingling, weakness. Patient had no symptoms prior to the fall. No meds taken before arrival Related Data Home Medications Medication Instructions Recorded Confirmed blood-glucose meter [Accu-Chek #1 ea 11/04/17 04/04/21 Emely Plus Meter] diphenhydramine HCl 25 - 50 mg PO HS PRN #30 tab-cap 11/29/17 05/13/21 MDD 300 lancets #100 each 12/22/18 04/04/21 triamcinolone acetonide 0.1 % 1 applic TOPICAL 2-4 times daily 02/10/19 05/13/21 topical cream PRN #15 gm fluticasone propionate 50 1 - 2 spray NS DAILY PRN #1 unit 03/24/19 05/13/21 mcg/actuation nasal spray,suspension albuterol sulfate 90 mcg/actuation 1 - 2 puff IH Q4H PRN #1 device 08/16/19 05/13/21 aerosol inhaler acetaminophen 650 mg/20.3 mL oral 650 mg PO Q4H PRN 08/05/20 05/13/21 solution calcium citrate [Citracal] PO 08/16/20 04/04/21 iron,carbonyl 65 mg-vitamin C 125 1 tab PO DAILY 08/16/20 05/13/21 mg tablet,delayed release cyanocobalamin (vitamin B-12) 500 500 mcg PO DAILY 08/20/20 05/13/21 mcg tablet pravastatin 40 mg tablet 40 mg PO HS #90 tab-cap 09/10/20 05/13/21 metformin 500 mg tablet 1,000 mg PO BID #360 tab 09/16/20 05/13/21 cholecalciferol (vitamin D3) 50 50 mcg PO DAILY 11/18/20 05/13/21 mcg (2,000 unit) capsule blood sugar diagnostic #100 ea 01/06/21 04/04/21 loratadine 10 mg tablet 10 mg PO DAILY #90 tab-cap 02/22/21 05/13/21 Previous Rx's Medication Instructions Recorded lancets #100 each 12/22/18 triamcinolone acetonide 0.1 % 1 applic TOPICAL 2-4 times daily 02/10/19 topical cream PRN #15 gm fluticasone propionate 50 1 - 2 spray NS DAILY PRN #1 unit 03/24/19 mcg/actuation nasal spray,suspension albuterol sulfate 90 mcg/actuation 1 - 2 puff IH Q4H PRN #1 device 08/16/19 aerosol inhaler pravastatin 40 mg tablet 40 mg PO HS #90 tab-cap 09/10/20 metformin 500 mg tablet 1,000 mg PO BID #360 tab 09/16/20 blood sugar diagnostic #100 ea 01/06/21 loratadine 10 mg tablet 10 mg PO DAILY #90 tab-cap 02/22/21 Allergies Allergy/AdvReac Type Severity Reaction Status Date / Time niacin Allergy Unknown Severe Verified 05/13/21 12:30 [From Niaspan Skin Rash Extended-Release] ibuprofen AdvReac Intermediate Upset Verified 05/13/21 12:30 stomach lisinopril AdvReac Intermediate Cough Verified 05/13/21 12:30 General Stated Complaint: HeadInjury MELANIE: 3 Review of Systems Constitutional Constitutional: Reports headache(s) Eyes Eyes: Denies change in vision ENT Ears, Nose, Mouth, and Throat: Reports headache(s) and Denies neck pain Cardiovascular Cardiovascular: Denies chest pain and Denies dyspnea Respiratory Respiratory: Denies dyspnea Gastrointestinal Gastrointestinal: Denies abdominal pain, Denies nausea and Denies vomiting Musculoskeletal Musculoskeletal: Denies neck pain, Denies numbness, Denies stiffness and Denies tingling Integumentary/Breasts Skin/Breast: Denies rash Neurologic Neurologic: Reports headache(s), Denies numbness and Denies tingling [facility] Active Problem List Left wrist sprain (Acute) Ovarian cyst (Acute) Abrasion of both knees (Acute) Muscle contusion (Acute) Thoracic outlet syndrome (Acute) Obesity (Chronic) Knowledge deficit about therapeutic diet (Acute) History of abnormal cervical Pap smear (Acute) Tendinitis of long head of biceps brachii of left shoulder (Acute ~09/2018) Instability of left shoulder joint (Acute ~09/2018) Bursitis of left shoulder (Acute ~09/2018) Impingement syndrome of left shoulder (Acute ~09/2018) Anxiety and depression (Chronic) Type 2 diabetes mellitus (Chronic) Irritable bowel syndrome with diarrhea (Chronic) Severe obstructive sleep apnea (Chronic 04/27/17) Learning disability (Chronic) Gastroesophageal reflux disease without esophagitis (Chronic 09/04/16) Fatty liver (Chronic 09/08/16) Essential hypertension (Chronic 09/04/16) Dyslipidemia (Chronic 09/04/16) Chronic insomnia (Chronic 09/04/16) Unspecified chronic bronchitis (Chronic 09/04/16) Medical History Insomnia Left rotator cuff tear (~09/2018) LGSIL on Pap smear of cervix (09/04/16) LSIL 2014, neg colpo. LSIL 11/2015, 07/2016; no HR HPV available. 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 Daniel Left Knee Surgery (10/05/06) Right Knee Surgery (03/07/08) Family History Mother Diabetes Type II Essential hypertension Mental disorder Bipolar d/o COPD (chronic obstructive pulmonary disease) Maternal Grandmother Diabetes Neoplasm Breast Brother No problems noted. Brother No problems noted. Maternal Uncle Mental disorder Bipolar d/o Social History Smoking/Tobacco Use Status: Never Smoking risk assessment performed?: Yes Alcohol Intake: never Drug use: Never Substance use type: does not use Counseling given: No Adopted: No Caregiver/Support person: No Foster care: No Household members: significant other Number of Children: 0 Communication Needs: Corrective Lenses current occupation: [employer] Pets and animals: Yes Pets and animals: cat(s) and other Details: rabbits Sexually active: Yes Current gender identity: female What type of physical activity do you participate in: walking Duration: 60-90 minutes/day Frequency: daily Seatbelt use: always Helmet use: No (n/a) Drive intox 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 Tenderness to palpation. There is no swelling, erythema, ecchymosis. Skin is intact. No crepitus Ears: external ears normal, TM's normal bilaterally and EAC's normal Face and sinus: normal facial exam Mouth: moist mucous membranes Eyes General: appearance normal, both eyes and all related structures Alignment and Position: alignment normal Periorbital: periorbital findings normal Eyelids: eyelids normal Conjunctivae: conjunctivae normal Sclera: sclerae normal Cornea: corneas normal Pupils: PERRL EOM: EOM intact bilaterally Direct ophthalmoscopy: normal light reflex Neck Neck: normal visual inspection, full ROM, trachea midline, supple and nontender Resp Effort & Inspection: normal respiratory effort and able to speak in complete sentences Skin General skin exam: no rashes or lesions noted Neuro General: patient alert, patient awake, patient oriented x3, moves all extremities and no focal motor deficits Cranial Nerves: CN's II-XI intact bilaterally Cognition: normal cognition Speech: speech normal Gait: normal gait Motor: muscle tone normal throughout Sensory Exam: no sensory deficits noted Extrem General: full ROM and capillary refill normal Hand/finger images: 1. Ecchymosis. Skin is intact. No swelling or tenderness. No deformity. Neuro, vascular, tendon intact. Normal capillary refill and radial pulse Psych Appearance: grossly normal Mental Status: mental status grossly normal Course Vital Signs Vital signs: Vital Signs Temperature 36.8 C 05/13/21 12:27 Pulse 95 H 05/13/21 12:27 Respiratory Rate 18 05/13/21 12:27 Blood Pressure 132/74 05/13/21 12:27 Pulse Oximetry 100 05/13/21 12:27 Temperature 36.8 C 05/13/21 12:27 Temperature Source Temporal Artery Scan 05/13/21 12:27 Pulse 95 H 05/13/21 12:27 Respiratory Rate 18 05/13/21 12:27 Respiratory Effort Non-Labored 05/13/21 12:31 Respiratory Depth Normal 05/13/21 12:31 Respiratory Pattern Normal 05/13/21 12:31 Blood Pressure 132/74 05/13/21 12:27 Blood Pressure Position Sitting 05/13/21 12:27 Pulse Oximetry 100 05/13/21 12:27 Oxygen Delivery Method Room Air 05/13/21 12:27 Oxygen Flow Rate 0 05/13/21 12:27 Pain Level 10 05/13/21 12:27
[2021-05-13] MEDS: Acetaminophen 500 MG TAB 1000 MG PO (13:14)
--- NOTE | 2021-05-13 13:30 | DI.CT_ITS ---
Exam(s) CT HEAD WO EXAM: CT HEAD WO CLINICAL HISTORY: fall, head injury. TECHNIQUE: Imaging Protocol: Axial computed tomography images with coronal and sagittal reformatted images were created and reviewed COMPARISON: CT CT HEAD CERVICAL SPINE WO from 01/28/2021 FINDINGS: Ventricles and Extra axial spaces: Normal in size and morphology for the patient's age. Hemorrhage: None. Cerebral parenchyma: Normal. Midline shift: None. Brainstem/Cerebellum: Normal. Calvarium: Normal. Visualized Paranasal sinuses/Mastoids: Clear. Soft Tissues: Unremarkable. IMPRESSION: 1. No acute intracranial process. 2. Results of this exam have been verbally communicated with provider. RADIATION DOSE DELIVERED: 749.45mGy.cm Total DLP DATA REPOSITORY: All CT scans at this facility are submitted to the National Radiology Data Registry (NRDR) Dose Index Registry (DIR) with the [employer] (A[employer]). RADIATION OPTIMIZATION: All CT scans at this facility use at least one of these dose optimization te chniques: automated exposure control; mA and/or kV adjustment per patient size (includes targeted exa ms where dose is matched to clinical indication); or iterative reconstruction.
[2021-05-13 14:07] VITALS: BP 104/78; PULSE 75; RESP 14; TEMP 36.3; O2SAT 100
[2021-05-13 14:17] VITALS: BP 104/78; PULSE 75; RESP 14; TEMP 36.3; O2SAT 100
== END 2021-05-13 14:15 | disposition home or self-care (01) ==
PROVIDERS: Emergency Provider Physician Assistant; PCP Nurse Practitioner Family
DX: S09.8XXA Other specified injuries of head, initial encounter (principal); G44.319 Acute post-traumatic headache, not intractable; W19.XXXA Unspecified fall, initial encounter; Y99.0 Civilian activity done for income or pay
CPT/HCPCS: 99284; 70450

== ENCOUNTER 2021-05-15 02:12 | Outpatient (CLI) | payer MEDICARE, MEDICAID, SELFPAY ==
--- NOTE | 2021-05-15 09:00 | DI.US_ITS ---
Exam(s) US PELVIS EXAM: US PELVIS CLINICAL HISTORY: 6-8 wk f/u simple R ovarian cyst,n83.201,n83.202 TECHNIQUE: Ultrasound of the pelvis was performed using transabdominal method using the urinary blad justo is an acoustic window. Transvaginal study not performed COMPARISON: US US PELVIS TRANSVAGINAL from 03/28/2021 FINDINGS: UTERUS: Anteverted Measures 8.5 cm length x 3.5 cm AP x 3.4 cm wide. There are no uterine fibroids. Endometrial thickness measures 6.3 mm. There is no fluid in the endometrial canal. CERVIX: There are no obvious nabothian cysts. RIGHT OVARY: Measures 7.7 x 3.7 x 4.0 cm Previously described prominent cysts in the right ovary is again noted. On today's study this measur es 5.8 x 5.7 x 3.5 cm, similar in size. Remains anechoic without septations therein. No additional right adnexal findings and no free fluid. LEFT OVARY: Measures 2.8 x 3.2 x 1.9 cm No significant cysts nor masses evident in the left ovary. CUL-DE-SAC: No free fluid evident. IMPRESSION: 1. Normal appearing uterus and age-appropriate endometrium. 2. The prominent unilocular cyst in the right ovary has not decreased in size. Recommend appropriate ultrasound follow-up. Opposite-left ovary appears unremarkable. 3. No free fluid evident in the adnexal regions and cul-de-sac. DATA REPOSITORY:
== END 2021-05-15 02:32 ==
PROVIDERS: PCP Nurse Practitioner Family; Visit Provider Nurse Practitioner Family
DX: N83.291 Other ovarian cyst, right side (principal)
CPT/HCPCS: 76856

== ENCOUNTER 2021-07-09 13:24 | Outpatient (REF) | payer MEDICARE, MEDICAID, SELFPAY ==
[2021-07-09 21:48] LABS: COMMENT (LAB VIEW ONLY) 214.84 mg/dL; Microalb ug/mg Crea 12.4 ug/mg Cr
== END 2021-07-09 13:25 | disposition home or self-care (01) ==
LOC: LBN 13:24
PROVIDERS: PCP Nurse Practitioner Family; Visit Provider Nurse Practitioner Family
DX: E11.65 Type 2 diabetes mellitus with hyperglycemia (principal)
CPT/HCPCS: 82043; 82570

== ENCOUNTER 2021-08-04 02:58 | Outpatient (CLI) | payer MEDICARE, MEDICAID, SELFPAY ==
[2021-08-04 10:15] LABS: HGB 13.9 g/dL (11.2-15.7); MCHC 31.6 % (32.0-36.0); MCV 85.4 fL (80-95); MPV 10.6 fL (8.0-11.0); Platelet Count 271 10^3/uL (130-400); RBC 5.15 10^6/uL (3.93-5.22); RDW-SD 40.7 fL; WBC 5.97 10^3/uL (4.4-10.8)
[2021-08-04 11:44] LABS: Iron 69 ug/dL (50-170)
[2021-08-04 12:07] LABS: Vitamin D 25 Total 38.4 ng/mL (30-100)
[2021-08-04 12:08] LABS: ALT 24 U/L (14-59); AST 17 U/L (15-37); Albumin 3.5 g/dL (3.4-5.0); Alkaline Phosphatase 88 U/L (46-116); Anion Gap 3.9 mmol/L (3-11); BUN 9 mg/dL (7-18); Bilirubin, Total 0.3 mg/dL (0.2-1.0); CO2 31.1 mmol/L (21.0-32.0); CREATININE 0.7 mg/dL (0.55-1.02); Calcium 8.8 mg/dL (8.5-10.1); Chloride 103 mmol/L (98-107); Folate > 20.0 ng/mL (8.6-20.0); Glucose 95 mg/dL (74-106); Potassium 4.4 mmol/L (3.5-5.1); Sodium 138 mmol/L (136-145); Total Protein 6.5 g/dL (6.4-8.2); Vitamin B12 863 pg/mL (193-986)
[2021-08-04 18:27] LABS: Ferritin 60 ng/mL (10-291)
[2021-08-05 11:11] LABS: Parathyroid Hormone,Intact 31 pg/mL (19-88)
[2021-08-07 19:48] LABS: Thiamine (Vitamin B1), WB 164 nmol/L (70-180)
== END 2021-08-04 02:59 | disposition home or self-care (01) ==
LOC: LBO 02:58
PROVIDERS: PCP Nurse Practitioner Family; Visit Provider Nurse Practitioner Family
DX: K91.2 Postsurgical malabsorption, not elsewhere classified (principal); Z98.84 Bariatric surgery status
CPT/HCPCS: 36415; 80053; 82306; 85027; 82607; 82728; 82746; 83540; 83970; 84425

== ENCOUNTER 2021-09-22 02:53 | Outpatient (CLI) | payer MEDICARE, MEDICAID, SELFPAY ==
[2021-09-22 14:02] LABS: HCG Quant, Pregnancy < 1 mIU/mL (1-3); TSH (W/Ref FT4) 2.07 uIU/mL (0.36-3.74)
== END 2021-09-22 02:54 | disposition home or self-care (01) ==
LOC: LBO 02:54
PROVIDERS: PCP Nurse Practitioner Family; Visit Provider Nurse Practitioner Women's Health
DX: N92.6 Irregular menstruation, unspecified (principal)
CPT/HCPCS: 36415; 84443; 84702

== ENCOUNTER 2021-10-07 00:59 | Outpatient (CLI) | payer MEDICARE, MEDICAID, SELFPAY ==
--- NOTE | 2021-10-07 07:45 | DI.US_ITS ---
Exam(s) US PELVIS TRANSVAGINAL EXAM: US PELVIS TRANSVAGINAL CLINICAL HISTORY: 6 month f/u R ovarian cyst,n83.202,n83.201 TECHNIQUE: Ultrasound of the pelvis was performed both transabdominal and transvaginal. COMPARISON: US US PELVIS from 05/15/2021 FINDINGS: UTERUS: Anteverted/nongravid. Measures 8 cm length x 3.6 cm AP x 4.7 cm wide. There are no uterine fibroids. Endometrial thickness measures 7 mm. The endometrial cavity appears mildly bicornuate. There is no fluid in the endometrial canal. CERVIX: There are no obvious nabothian cysts. RIGHT OVARY: Measures 3 x 2 x 2 cm Contains a large exophytic simple cyst measuring 5.7 x 5 x 3.1 cm. It also contains a hemorrhagic cyst measuring 0.6 by 1.4 x 1.8 cm. LEFT OVARY: Measures 2.8 x 2 x 2 cm cm No significant cysts nor masses evident in the left ovary. CUL-DE-SAC: No free fluid evident. IMPRESSION: 1. There is a 5.7 x 5.0 cm partially exophytic unilocular cyst in the right adnexa which appears to b e region the from the right ovary. Follow-up recommended. 2. No abnormal findings in the opposite-left ovary. 3. Partially bicornuate uterus. DATA REPOSITORY:
== END 2021-10-07 01:19 ==
PROVIDERS: PCP Nurse Practitioner Family; Visit Provider Nurse Practitioner Family
DX: N83.291 Other ovarian cyst, right side (principal); N85.8 Other specified noninflammatory disorders of uterus
CPT/HCPCS: 76830; 76856

== ENCOUNTER 2021-10-21 18:49 | Emergency (ER) | payer MEDICARE, MEDICAID, SELFPAY ==
[2021-10-21 18:51] VITALS: BP 135/92; PULSE 106; RESP 20; TEMP 38.7; O2SAT 100
--- NOTE | 2021-10-21 18:57 | W.ED.GENAD ---
Discharge Plan Disposition Patient Disposition: HOME Condition: Stable Discharge Details Clinical Impression: Influenza A Primary Care Provider: Mona [place] ED Provider: Zoe Jorge Home Meds and New Rx's Prescriptions: Continued albuterol sulfate 90 mcg/actuation HFA aerosol inhaler 1 - 2 puff IH Q4H PRN (Reason: shortness of breath or wheezing) Qty: 1 3RF Rx Instructions: Dispense brand of albuterol inhaler covered by patient's insurance Vitron-C 65 mg iron- 125 mg tablet,delayed release (DR/EC) 1 tab PO DAILY metformin 500 mg tablet 1,000 mg PO BID Qty: 360 3RF triamcinolone acetonide 0.1 % cream 1 applic Topical 2-4 times daily PRN Qty: 15 1RF Rx Instructions: Apply thin film to affected area 2-4 times daily PRN until resolution (DME) blood-glucose meter [Accu-Chek Emely Plus Meter] 1 EACH misc 1 ea Miscellaneous BID Qty: 1 Rx Instructions: to check blood glucose, E11.69 to maintain HGB A1C less than 7 (DME) lancets Misc See Dose Instructions .ROUTE .MEDSUPPLY Qty: 100 3RF Dose Instruction: As directed to check daily morning fasting blood glucose Rx Instructions: As directed to check daily morning fasting blood glucose. No insulin. cyanocobalamin (vitamin B-12) [Vitamin B-12] 500 mcg tablet 500 mcg PO DAILY Rx Instructions: note dated 08/19/20 [facility] [place] OneTouch Ultra Test Strip See Rx Instructions .ROUTE .MEDSUPPLY Qty: 100 3RF Rx Instructions: test once daily. loratadine 10 mg tablet 10 mg PO DAILY Qty: 90 3RF multivitamin with iron-mineral Tablet 2 tab PO DAILY Rx Instructions: note dated 08/11/21 [facility] [place] calcium [id number] vit D 400 U tablet 2 tab PO Rx Instructions: note dated 08/11/21 [facility] [place] acetaminophen 500 mg Tablet 1,000 mg PO PRN PRN Discharge Instructions Instructions: H1N1 Influenza (ED) Additional Instructions: You are positive for influenza A virus. Your COVID test today is negative. Your chest x-ray shows no evidence of pneumonia. Drink plenty of fluids and get plenty of rest. Take tylenol as needed and directed for pain or fever. Follow-up with your primary care doctor in 1 week. Return to the emergency department with any worsening or new concerning symptoms. Stand Alone Forms: Work Release Discharge Data Discharge Date/Time-TO BE ENTERED AT DEPARTURE: 10/21/21 20:59 Discharge Physician: Zoe Jorge Medical Decision Making 36-year-old female with a history of former obesity status post gastric bypass, diabetes, learning disability, hypertension, hyperlipidemia, anxiety, depression, GERD, migraine presents with a few days of intermittent fever, nasal congestion, rhinorrhea, cough, chest pain with coughing and ear pain. Temp on arrival 101.7. Heart rate low 100s. Oxygen saturation 100% on room air. Normal ENT exam. Lungs clear bilaterally. Abdomen soft and nontender. No meningeal signs. Differential diagnosis includes influenza, COVID, viral syndrome, pneumonia. Do not feel indication for lab work or IV fluids or medication at this time. Was given a dose of oral Tylenol for her fever and referred for chest x-ray which was unremarkable. She is influenza A positive. COVID and RSV negative. Patient is requesting to go home. Patient advised to push fluids, take Tylenol as needed and directed for fever or pain, continue [id number] cough and cold medication. Usual and customary return precautions given prior to discharge. Medical Records Medical records reviewed: Yes I reviewed the patient's medical records. Lab Data Lab results reviewed: Yes I reviewed the patient's lab results. Labs: Laboratory Tests Range/Units 10/21/21 19:12 COVID-19 Source Nasopharynx SARS-CoV-2 (PCR) (Negative) Negative Influenza Type A (PCR) (Negative) Positive A Influenza Type B (PCR) (Negative) Negative RSV (PCR) (Negative) Negative HPI General Mode of arrival: ambulatory. Date/Time Provider Initiated Documentation: 10/21/21 19:04. Limitations to Documentation: no limitations. Information obtained by: patient. HPI Narrative: Patient is a 36-year-old female with a history of anxiety, depression, GERD, hypertension, hyperlipidemia, diabetes, former obesity with history of gastric bypass presents for fever, chills, body aches, runny nose, nasal congestion, ear pain, cough and chest pain that occurs with coughing for the past few days. She states she cannot take ibuprofen due to upset stomach with history of her gastric bypass. She last took Tylenol earlier this morning. She denies any shortness of breath, abdominal pain, vomiting or diarrhea. Related Data Home Medications Medication Instructions Recorded Confirmed blood-glucose meter (Accu-Chek #1 ea 11/04/17 09/16/21 Emely Plus Meter) lancets #100 ea 12/22/18 09/16/21 triamcinolone acetonide 0.1 % 1 applic topical 2-4 times daily 02/10/19 09/16/21 topical cream PRN #15 grams albuterol sulfate 90 mcg/actuation 1 - 2 puff inhalation Q4H PRN 08/16/19 09/16/21 aerosol inhaler shortness of breath or wheezing #1 device iron,carbonyl 65 mg-vitamin C 125 1 tab PO DAILY 08/16/20 10/21/21 mg tablet,delayed release (Vitron-C) cyanocobalamin (vitamin B-12) 500 500 mcg PO DAILY 08/20/20 10/21/21 mcg tablet (Vitamin B-12) metformin 500 mg tablet 1,000 mg PO BID #360 tabs 09/16/20 10/21/21 blood sugar diagnostic (OneTouch #100 ea 01/06/21 09/16/21 Ultra Test strips) loratadine 10 mg tablet 10 mg PO DAILY #90 tab-caps 02/22/21 10/21/21 calcium [id number] vit D 400 U 2 tab PO 08/11/21 09/16/21 multivitamin with iron-mineral 2 tab PO DAILY 08/11/21 10/21/21 acetaminophen 500 mg tablet 1,000 mg PO PRN PRN 10/21/21 10/21/21 Previous Rx's Medication Instructions Recorded lancets #100 ea 12/22/18 triamcinolone acetonide 0.1 % 1 applic topical 2-4 times daily 02/10/19 topical cream PRN #15 grams albuterol sulfate 90 mcg/actuation 1 - 2 puff inhalation Q4H PRN 08/16/19 aerosol inhaler shortness of breath or wheezing #1 device metformin 500 mg tablet 1,000 mg PO BID #360 tabs 09/16/20 blood sugar diagnostic (OneTouch #100 ea 01/06/21 Ultra Test strips) loratadine 10 mg tablet 10 mg PO DAILY #90 tab-caps 02/22/21 Allergies Allergy/AdvReac Type Severity Reaction Status Date / Time niacin Allergy Unknown Severe Verified 10/21/21 18:56 [From N[place]toan Skin Rash Extended-Release] ibuprofen AdvReac Intermediate Upset Verified 10/21/21 18:56 stomach lisinopril AdvReac Intermediate Cough Verified 10/21/21 18:56 General Stated Complaint: Fever MELANIE: 3 Review of Systems All systems reviewed & are unremarkable except as noted in HPI and below Constitutional Constitutional: Reports body ache(s), Reports chills, Denies excessive sweating, Denies fatigue, Reports fever(s), Denies weakness and Denies weight loss Eyes Eyes: Reports system reviewed and no additional complaints, except as documented and Denies blurry vision ENT Ears, Nose, Mouth, and Throat: Denies vertigo, Denies dizziness, Reports otalgia, Reports nasal congestion, Reports nasal discharge, Denies sore throat and Denies throat swelling Cardiovascular Cardiovascular: Denies chest pain, Denies syncope, Denies rapid heart rate and Denies dyspnea Respiratory Respiratory: Denies chest congestion, Denies cough, Denies pain on inspiration and Denies dyspnea Gastrointestinal Gastrointestinal: Denies abdominal pain, Denies diarrhea and Denies vomiting Genitourinary Genitourinary: Denies hematuria, Denies dysuria and Denies flank pain Musculoskeletal Musculoskeletal: Denies back pain and Denies joint swelling Integumentary/Breasts Skin/Breast: Denies lesions and Denies rash Neurologic Neurologic: Denies behavioral changes, Denies confusion, Denies vertigo, Denies dizziness, Denies syncope, Denies localized weakness and Denies weakness Psychiatric Psychiatric: Denies behavioral changes, Denies confusion and Denies depression Endocrine Endocrine: Denies excessive sweating and Denies fatigue Hematologic/Lymphatic Hematologic/Lymphatic: Denies easy bruising and Denies lymphadenopathy Allergic/Immunologic Allergic/Immunologic: Denies throat swelling PFSH All Active Problems (Updated 10/21/21 @ 20:22 by Zoe Jorge DO) Influenza A (Acute) Hemorrhagic cyst of right ovary (Acute) Left wrist sprain (Acute) Head injury (Acute) Ovarian cyst (Acute) Right; 05/2021 US: stable; repeat 6 months & if still stable at that point, surveillance is completed Abrasion of both knees (Acute) Muscle contusion (Acute) Thoracic outlet syndrome (Acute) Obesity (Chronic) Knowledge deficit about therapeutic diet (Acute) History of abnormal cervical Pap smear (Acute) Tendinitis of long head of biceps brachii of left shoulder (Acute ~09/2018) s/p biceps tenotomy 05/12/2019 Instability of left shoulder joint (Acute ~09/2018) Bursitis of left shoulder (Acute ~09/2018) Impingement syndrome of left shoulder (Acute ~09/2018) Anxiety and depression (Chronic) Type 2 diabetes mellitus (Chronic) Dx ~21 y/o Irritable bowel syndrome with diarrhea (Chronic) 02/28/2018 colonoscopy with random biopsies: normal (metformin contributing to sx?); 03/07/2018: neg Celiac serology Severe obstructive sleep apnea (Chronic 04/27/17) C-Pap Learning disability (Chronic) On disability Gastroesophageal reflux disease without esophagitis (Chronic 09/04/16) Fatty liver (Chronic 09/08/16) Essential hypertension (Chronic 09/04/16) Dyslipidemia (Chronic 09/04/16) Chronic insomnia (Chronic 09/04/16) Unspecified chronic bronchitis (Chronic 09/04/16) Medical History Insomnia Left rotator cuff tear (~09/2018) LGSIL on Pap smear of cervix (09/04/16) LSIL 2014, neg colpo. LSIL 11/2015, 07/2016; no HR HPV available. 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 Daniel Left Knee Surgery (10/05/06) Right Knee Surgery (03/07/08) Family History Mother Diabetes Type II Essential hypertension Mental disorder Bipolar d/o COPD (chronic obstructive pulmonary disease) Maternal Grandmother Diabetes Neoplasm Breast Brother No problems noted. Brother No problems noted. Maternal Uncle Mental disorder Bipolar d/o Social History Smoking/Tobacco Use Status: Never Smoking risk assessment performed?: Yes Alcohol Intake: never Drug use: Never Substance use type: does not use Counseling given: No Adopted: No Caregiver/Support person: No Foster care: No Household members: significant other Number of Children: 0 Communication Needs: Corrective Lenses current occupation: [employer] Pets and animals: Yes Pets and animals: cat(s) and other Details: rabbits Sexually active: Yes Current gender identity: female What type of physical activity do you participate in: walking Duration: 60-90 minutes/day Frequency: daily Seatbelt use: always Helmet use: No (n/a) Drive intox 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 Do you feel safe at home: Yes Do you feel safe in your relationship?: Yes Exam Const General: cooperative and healthy appearing Orientation: alert, awake and oriented x3 HENMT Head: normal to inspection Ears: hearing grossly normal bilaterally, external ears normal and TM's normal bilaterally General nose exam: external nose normal Face and sinus: normal facial exam Mouth: oral mucosae normal Teeth and gingiva: dentition normal Throat: posterior oropharynx normal Eyes General: appearance normal, both eyes and all related structures Eyelids: eyelids normal Pupils: PERRL EOM: EOM intact bilaterally Neck Neck: normal visual inspection Lymphatic: no lymphadenopathy noted Chest Chest: normal inspection of the chest Resp Effort & Inspection: normal respiratory effort and able to speak in complete sentences Auscultation: clear to auscultation bilaterally Cardio Rate: tachycardic Rhythm: regular rhythm Back/Spine/Pelvis Back: no CVA tenderness Skin General skin exam: no rashes or lesions noted Neuro General: patient alert, patient awake, moves all extremities and no meningeal signs Cognition: normal cognition Speech: speech normal Gait: normal gait Motor: muscle tone normal throughout Sensory Exam: no sensory deficits noted Extrem General: normal to inspection, full ROM and capillary refill normal Psych Appearance: grossly normal Mental Status: mental status grossly normal Speech and Movement: speech and movement normal Affect: normal affect Thought Process: normal Course Vital Signs Vital signs: Vital Signs Temperature 101.7 F H 10/21/21 18:51 Pulse 106 H 10/21/21 18:51 Respiratory Rate 20 10/21/21 18:51 Blood Pressure 135/92 H 10/21/21 18:51 Pulse Oximetry 100 10/21/21 18:51 Temperature 101.7 F H 10/21/21 18:51 Temperature Source Tympanic 10/21/21 18:51 Pulse 106 H 10/21/21 18:51 Respiratory Rate 20 10/21/21 18:51 Blood Pressure 135/92 H 10/21/21 18:51 Blood Pressure Position Sitting 10/21/21 18:51 Pulse Oximetry 100 10/21/21 18:51 Oxygen Delivery Method Room Air 10/21/21 18:51 Oxygen Flow Rate 0 10/21/21 18:51 Pain Level 5 10/21/21 18:51
--- NOTE | 2021-10-21 19:00 | DI.RAD_ITS ---
Exam(s) XR CHEST 2V PA LATERAL EXAM: XR CHEST 2V PA LATERAL CLINICAL HISTORY: cough, fever, r/o pneumonia. TECHNIQUE: 2D digital imaging was performed. COMPARISON: CR XR shoulder LT complete 2+V from 03/25/2018 FINDINGS: 2 views: Heart size is normal. The mediastinum is not widened. There are mild increased bilateral parahilar markings. No air bronchograms. No pleural effusions. No pneumothorax. IMPRESSION: Mild increased bilateral parahilar markings. No pleural effusions. DATA REPOSITORY: RADIATION DOSE DELIVERED:
[2021-10-21] MEDS: Acetaminophen 500 MG TAB 1000 MG PO (19:13)
--- NOTE | 2021-10-21 19:51 | DI.VRAD_ITS ---
PROCEDURE INFORMATION: Exam: XR Chest Exam date and time: 10/21/2021 7:20 PM Age: 36 years old Clinical indication: Cough and fever; Patient HX: Fever, cough, R/O pneumonia TECHNIQUE: Imaging protocol: XR of the chest. Views: 2 views. Total images: 0 COMPARISON: CT CHEST/ABD/PEL W 01/28/2021 4:33 PM FINDINGS: Lungs: Question mild peribronchial thickening and perihilar stranding suggesting possible bronchitis. Normal pulmonary expansion. Pulmonary vasculature grossly normal. No gross pulmonary infiltrates. Pleural spaces: No pleural effusion. No pneumothorax. Heart/Mediastinum: Heart size normal. No tracheal/mediastinal shift. Bones/joints: No acute osseous abnormalities are identified. IMPRESSION: Question mild changes of bronchitis. No gross pulmonary infiltrates. Dictated and Authenticated by: Lele Berman MD. Ordering:LILIBETH Enriquez MD
[2021-10-21 20:10] LABS: COVID-19 PCR Negative (Negative); Influenza A PCR Positive (Negative); Influenza B PCR Negative (Negative); RSV PCR Negative (Negative)
[2021-10-21 20:11] VITALS: TEMP 37.9
--- NOTE | 2021-10-21 20:11 | NUR.NOTE ---
pt states that she would like to go home. she refused a work note. she states that she has to go to workNursing Note:
[2021-10-21 20:17] LABS: Source Nasopharynx
== END 2021-10-21 20:59 | disposition home or self-care (01) ==
PROVIDERS: Emergency Provider Physician Assistant; PCP Nurse Practitioner Family
DX: J10.1 Influenza due to other identified influenza virus with other respiratory manifestations (principal); R05.1 Acute cough; R50.9 Fever, unspecified
CPT/HCPCS: 81025; 87637; 99283; 71046

== ENCOUNTER → 2021-12-01 02:23 | Outpatient (CLI) | payer MEDICARE, MEDICAID, SELFPAY | PROVIDERS: PCP Nurse Practitioner Family; Visit Provider Nurse Practitioner Family ==

== ENCOUNTER 2022-10-02 16:46 | Emergency (ER) | payer MEDICARE, MEDICAID, SELFPAY ==
[2022-10-02] VITALS (15 sets, daily range): BP systolic 112–125; BP diastolic 64–93; PULSE 69–84; RESP 13–25; TEMP 36.3; O2SAT 97–100
--- NOTE | 2022-10-02 16:45 | RT.EKG_ITS ---
APPROVED REPORT Exam: Resting ECG Reason for Exam: chest pain Patient Location: E HR:68 bpm ECG Measurements Heart Rate 68 AXIS NM 149 P 44 QRSd 87 QRS 18 QT 373 T 22 QTc 397 Conclusion Sinus rhythm...normal P axis, V-rate 60- 99 normal sinus rhythm, normal axis, normal intervals, non ischemic
--- NOTE | 2022-10-02 16:45 | DI.RAD_ITS ---
Exam(s) XR CHEST 2V PA LATERAL EXAM: XR CHEST 2V PA LATERAL CLINICAL HISTORY: chest pain TECHNIQUE: 2D digital imaging was performed of the chest. Images were obtained. PA and lateral v iews were obtained. COMPARISON: CR,XR XR CHEST 2V PA LATERAL from 10/21/2021 FINDINGS: MEDIASTINUM: Normal. HEART: Normal. PULMONARY VASCULATURE: Normal. LUNGS: Clear. PLEURAL SPACE: No pleural effusion or pneumothorax. BONE:Within normal limits for the patient's age. OTHER FINDINGS:Normal. IMPRESSION: No acute pulmonary findings. DATA REPOSITORY: RADIATION DOSE DELIVERED:
--- NOTE | 2022-10-02 17:07 | W.ED.GENAD ---
Discharge Plan Disposition Patient Disposition: Home Discharge Details Chief Complaint: Chest Pain Clinical Impression: Chest pain Primary Care Provider: Mona Honeycutt ED Provider: Shiraz Gan Home Meds and New Rx's Prescriptions: No Action albuterol sulfate 90 mcg/actuation HFA aerosol inhaler 1 - 2 puff IH Q4H PRN (Reason: shortness of breath or wheezing) Qty: 1 3RF Rx Instructions: Dispense brand of albuterol inhaler covered by patient's insurance Vitron-C 65 mg iron- 125 mg tablet,delayed release (DR/EC) 1 tab PO DAILY metformin 500 mg tablet 1,000 mg PO BID Qty: 360 3RF triamcinolone acetonide 0.1 % cream 1 applic Topical 2-4 times daily PRN Qty: 15 1RF Rx Instructions: Apply thin film to affected area 2-4 times daily PRN until resolution (DME) blood-glucose meter [Accu-Chek Emely Plus Meter] 1 EACH misc 1 ea Miscellaneous BID Qty: 1 Rx Instructions: to check blood glucose, E11.69 to maintain HGB A1C less than 7 (DME) lancets Misc See Dose Instructions .ROUTE .MEDSUPPLY Qty: 100 3RF Dose Instruction: As directed to check daily morning fasting blood glucose Rx Instructions: As directed to check daily morning fasting blood glucose. No insulin. cyanocobalamin (vitamin B-12) [Vitamin B-12] 500 mcg tablet 500 mcg PO DAILY Rx Instructions: note dated 08/19/20 [facility] [place] OneTouch Ultra Test Strip See Rx Instructions .ROUTE .MEDSUPPLY Qty: 100 3RF Rx Instructions: test once daily. multivitamin with iron-mineral Tablet 2 tab PO DAILY Rx Instructions: note dated 08/11/21 [facility] [place] calcium [id number] vit D 400 U tablet 2 tab PO Rx Instructions: note dated 08/11/21 [facility] [place] loratadine 10 mg tablet 10 mg PO DAILY Qty: 90 3RF acetaminophen 500 mg Tablet 1,000 mg PO PRN PRN Discharge Instructions Instructions: Chest Pain (ED) Additional Instructions: Please follow-up with your primary care physician Stand Alone Forms: Work Release Medical Decision Making 37-year-old female low risk heart score, PERC negative, presents with pleuritic anterior chest pain nonexertional over the last several hours, worse with deep breath and with palpation. Afebrile nontoxic nonhypoxic nontachycardic. No thromboembolic disease history no coronary disease history, no exogenous estrogen. Given nature of discomfort consider costochondritis versus pleurisy versus less likely pneumothorax versus less likely ACS or PE. EKG nonischemic normal sinus rhythm. Will provide analgesia anxiolysis, will assess basic labs troponin, chest x-ray. Disposition pending reassessment of symptoms and results 19: 56 patient resting comfortably no acute distress. Hemodynamically stable. Labs and imaging unremarkable. Consider costochondritis versus pleurisy. Home care instructions and return precautions given HPI General Date/Time Provider Initiated Documentation: 10/02/22 16:52. HPI Narrative: 37-year-old female presents with nonexertional anterior chest pain sharp in nature over the last several hours intermittent in nature anterior nonradiating, worse with deep breath. Also worse with palpation. denies history of coronary artery disease or thromboembolic disease. No leg swelling or pain. No recent travel. No exogenous estrogen use. Related Data Home Medications Medication Instructions Recorded Confirmed blood-glucose meter (Accu-Chek #1 ea 11/04/17 09/16/21 Emely Plus Meter) lancets #100 ea 12/22/18 09/16/21 triamcinolone acetonide 0.1 % 1 applic topical 2-4 times daily 02/10/19 09/16/21 topical cream PRN #15 grams albuterol sulfate 90 mcg/actuation 1 - 2 puff inhalation Q4H PRN 08/16/19 09/16/21 aerosol inhaler shortness of breath or wheezing #1 device iron,carbonyl 65 mg-vitamin C 125 1 tab PO DAILY 08/16/20 10/21/21 mg tablet,delayed release (Vitron-C) cyanocobalamin (vitamin B-12) 500 500 mcg PO DAILY 08/20/20 10/21/21 mcg tablet (Vitamin B-12) metformin 500 mg tablet 1,000 mg PO BID #360 tabs 09/16/20 10/21/21 blood sugar diagnostic (OneTouch #100 ea 01/06/21 09/16/21 Ultra Test strips) calcium [id number] vit D 400 U 2 tab PO 08/11/21 09/16/21 multivitamin with iron-mineral 2 tab PO DAILY 08/11/21 10/21/21 acetaminophen 500 mg tablet 1,000 mg PO PRN PRN 10/21/21 10/21/21 loratadine 10 mg tablet 10 mg PO DAILY #90 tab-caps 03/11/22 Previous Rx's Medication Instructions Recorded lancets #100 ea 12/22/18 triamcinolone acetonide 0.1 % 1 applic topical 2-4 times daily 02/10/19 topical cream PRN #15 grams albuterol sulfate 90 mcg/actuation 1 - 2 puff inhalation Q4H PRN 08/16/19 aerosol inhaler shortness of breath or wheezing #1 device metformin 500 mg tablet 1,000 mg PO BID #360 tabs 09/16/20 blood sugar diagnostic (OneTouch #100 ea 01/06/21 Ultra Test strips) loratadine 10 mg tablet 10 mg PO DAILY #90 tab-caps 03/11/22 Allergies Allergy/AdvReac Type Severity Reaction Status Date / Time niacin Allergy Unknown Severe Verified 10/21/21 18:56 [From Niaspan Skin Rash Extended-Release] ibuprofen AdvReac Intermediate Upset Verified 10/21/21 18:56 stomach lisinopril AdvReac Intermediate Cough Verified 10/21/21 18:56 General Stated Complaint: Chest Pain MELANIE: 3 Review of Systems Narrative: Review of Systems Constitutional: negative Eyes: negative ENT: negative Cardiovascular: Chest pain Respiratory: negative Gastrointestinal: negative : negative Musculoskeletal: negative Skin: negative Neurologic: negative Psych: negative PFSH All Active Problems (Updated 10/02/22 @ 19:58 by Shiraz Gan MD) Chest pain (Acute) Hemorrhagic cyst of right ovary (Acute) Left wrist sprain (Acute) Head injury (Acute) Ovarian cyst (Acute) Right; 05/2021 US: stable; repeat 6 months & if still stable at that point, surveillance is completed Abrasion of both knees (Acute) Muscle contusion (Acute) Thoracic outlet syndrome (Acute) Obesity (Chronic) Knowledge deficit about therapeutic diet (Acute) History of abnormal cervical Pap smear (Acute) Tendinitis of long head of biceps brachii of left shoulder (Acute ~09/2018) s/p biceps tenotomy 05/12/2019 Instability of left shoulder joint (Acute ~09/2018) Bursitis of left shoulder (Acute ~09/2018) Impingement syndrome of left shoulder (Acute ~09/2018) Anxiety and depression (Chronic) Type 2 diabetes mellitus (Chronic) Dx ~21 y/o Irritable bowel syndrome with diarrhea (Chronic) 02/28/2018 colonoscopy with random biopsies: normal (metformin contributing to sx?); 03/07/2018: neg Celiac serology Severe obstructive sleep apnea (Chronic 04/27/17) C-Pap Learning disability (Chronic) On disability Gastroesophageal reflux disease without esophagitis (Chronic 09/04/16) Fatty liver (Chronic 09/08/16) Essential hypertension (Chronic 09/04/16) Dyslipidemia (Chronic 09/04/16) Chronic insomnia (Chronic 09/04/16) Unspecified chronic bronchitis (Chronic 09/04/16) Medical History Insomnia Left rotator cuff tear (~09/2018) LGSIL on Pap smear of cervix (09/04/16) LSIL 2014, neg colpo. LSIL 11/2015, 07/2016; no HR HPV available. 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 Daniel Left Knee Surgery (10/05/06) Right Knee Surgery (03/07/08) Family History Mother Diabetes Type II Essential hypertension Mental disorder Bipolar d/o COPD (chronic obstructive pulmonary disease) Maternal Grandmother Diabetes Neoplasm Breast Brother No problems noted. Brother No problems noted. Maternal Uncle Mental disorder Bipolar d/o Social History Smoking/Tobacco Use Status: Never Smoking risk assessment performed?: Yes Alcohol Intake: never Drug use: Never Substance use type: does not use Counseling given: No Adopted: No Caregiver/Support person: No Foster care: No Household members: significant other Number of Children: 0 Communication Needs: Corrective Lenses current occupation: [employer] Pets and animals: Yes Pets and animals: cat(s) and other Details: rabbits Sexually active: Yes Current gender identity: female What type of physical activity do you participate in: walking Duration: 60-90 minutes/day Frequency: daily Seatbelt use: always Helmet use: No (n/a) 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 Do you feel safe at home: Yes Do you feel safe in your relationship?: Yes Exam Narrative Exam Narrative: Physical Examination General: alert, awake, cooperative, resting comfortably, no acute distress HEENT: normocephalic, atraumatic; PERRL, EOM intact, conjunctiva normal; no nasal discharge; moist mucous membranes, oral and pharyngeal mucosa normal, tolerating secretions Neck: supple, trachea midline; full ROM Chest: normal to inspection Respiratory: normal respiratory effort, speaking in full sentences, clear to auscultation, no wheezing, rales or rhonchi Cardiac: regular rate, regular rhythm, S1S2 intact, no murmurs rubs or gallops GI: abdomen soft, non-tender, non-distended; no palpable mass or hepatosplenomegaly Skin: no lesions, rashes or trauma appreciated Neuro: AAOx3, normal speech, moving all extremities Extremities: No peripheral edema Psych: Appropriate mood and affect Course Vital Signs Vital signs: Vital Signs Temperature 36.3 C L 10/02/22 16:48 Pulse 74 10/02/22 16:48 Respiratory Rate 14 10/02/22 16:48 Blood Pressure 125/85 10/02/22 16:48 Pulse Oximetry 100 10/02/22 16:48 Temperature 36.3 C L 10/02/22 16:48 Temperature Source Oral 10/02/22 16:48 Pulse 74 10/02/22 16:48 Respiratory Rate 14 10/02/22 16:48 Blood Pressure 125/85 10/02/22 16:48 Blood Pressure Position Sitting 10/02/22 16:48 Pulse Oximetry 100 10/02/22 16:48 Oxygen Delivery Method Room Air 10/02/22 16:48 Oxygen Flow Rate 0 10/02/22 16:48 Pain Level 10 10/02/22 16:48
[2022-10-02 17:17] LABS: Bilirubin Negative (Negative); Blood Moderate (Negative); Clarity Clear (Clear); Glucose 500 mg/dL (Negative); Ketones Negative (Negative); Leukocyte Esterase Negative (Negative); Nitrite Negative (Negative); Specific Gravity >= 1.030 (1.005-1.025)
[2022-10-02 17:22] LABS: Abs Immature Grans 0.01 10^3/uL (0.0-0.06); Absolute Basophil Count 0.05 10^3/uL (0.0-0.2); Absolute Eosinophil Count 0.05 10^3/uL (0.0-0.7); Absolute Lymphocyte Count 2.34 10^3/uL (1.2-3.4); Absolute Monocyte Count 0.41 10^3/uL (0.1-0.8); Absolute Neutrophil Count 3.48 10^3/uL (1.2-6.7); Basophils % 0.8; Eosinophils % 0.8; HCT 44.5 % (36.0-46.0); HGB 14.4 g/dL (11.2-15.7); Immature Grans % 0.2; Lymphocytes % 36.9; MCHC 32.4 % (32.0-36.0); MCV 84 fL (80-95); MPV 10.1 fL (8.0-11.0); Monocytes % 6.5; Neutrophils % 54.8; Platelet Count 273 10^3/uL (130-400); RBC 5.33 10^6/uL (3.93-5.22); RDW 12.6 % (11.7-14.6); WBC 6.34 10^3/uL (4.4-10.8)
[2022-10-02] MEDS: ACETAMINOPHEN 1,000 MG/100 ML BTL 400 MG IVPB (17:27)
[2022-10-02] MEDS: LORazepam 2 MG/ML VIAL 0.5 MG IVP (17:28)
[2022-10-02 17:35] LABS: RBC 0-2 HPF (0-2); WBC 0-2 HPF (0-5)
[2022-10-02 17:36] LABS: Bacteria Rare HPF (Negative); C & S Indicated? No; Casts Negative LPF (Negative); Crystals Negative HPF (Negative); Epithelial Cells Few HPF (Negative); Mucus Moderate (Negative)
[2022-10-02 17:43] LABS: ALT 21 U/L (14-59); AST 17 U/L (15-37); Albumin 3.5 g/dL (3.4-5.0); Alkaline Phosphatase 126 U/L (46-116); Anion Gap 3.5 mmol/L (3-11); BUN 16 mg/dL (7-18); Bilirubin, Total 0.2 mg/dL (0.2-1.0); CO2 30.5 mmol/L (21.0-32.0); CREATININE 0.8 mg/dL (0.55-1.02); Calcium 8.8 mg/dL (8.5-10.1); Chloride 102 mmol/L (98-107); Estimated GFR 98.48 (mL/min/1.73m2); Glucose 178 mg/dL (74-106); Potassium 3.9 mmol/L (3.5-5.1); Sodium 136 mmol/L (136-145); Total Protein 7.2 g/dL (6.4-8.2); Troponin I < 50 ng/L (<or=60)
--- NOTE | 2022-10-02 18:29 | DI.VRAD_ITS ---
PROCEDURE INFORMATION: Exam: XR Chest Exam date and time: 10/02/2022 5:34 PM Age: 37 years old Clinical indication: Other: Pain TECHNIQUE: Imaging protocol: Radiologic exam of the chest. Views: 2 views. COMPARISON: CR XR CHEST 2V PA LATERAL 10/21/2021 7:20 PM FINDINGS: Lungs: Unremarkable. No consolidation. Pleural spaces: Unremarkable. No pleural effusion. No pneumothorax. Heart/Mediastinum: Unremarkable. No cardiomegaly. Bones/joints: Unremarkable. IMPRESSION: No acute findings. Dictated and Authenticated by: Arvin Garcia MD. Ordering:P.JUSTICE Weldon MD
== END 2022-10-02 20:30 | disposition home or self-care (01) ==
PROVIDERS: Emergency Provider Emergency Medicine; PCP Nurse Practitioner Family
DX: R07.81 Pleurodynia (principal)
CPT/HCPCS: 80053; 81025; 93005; 96365; 96375; 99284; 71046; 81003; 81015; 84484; 85025; 93010; J0131; J2060

== ENCOUNTER 2023-01-13 02:38 | Outpatient (CLI) | payer MEDICARE, MEDICAID, SELFPAY ==
[2023-01-13 10:16] LABS: COMMENT (LAB VIEW ONLY) 34.34 mg/dL; Microalb ug/mg Crea 8.7 ug/mg Cr
[2023-01-13 10:36] LABS: Calculated LDL 82 mg/dL (<100); Cholesterol 161 mg/dL (<200); Ferritin 65 ng/mL (8-252); Folate 12.6 ng/mL (8.6-20.0); HDL Cholesterol 60 mg/dL (40-60); Triglyceride 95 mg/dL (<150); Vitamin B12 372 pg/mL (193-986)
[2023-01-13 10:44] LABS: Iron 108 ug/dL (50-170); Total Iron Binding Capacity 310 ug/dL (250-450); Transferrin Sat 35 % (15-50)
[2023-01-16 09:29] LABS: Vitamin E, Serum 7.2 mg/L (5.5 - 17.0)
[2023-01-16 10:50] LABS: Vitamin K1 0.15 ng/mL (0.10-2.20)
[2023-01-18 11:18] LABS: Thiamine (Vitamin B1), WB 120 nmol/L (70-180)
[2023-01-20 10:42] LABS: Biotin (Vitamin B7), Serum 833.5 pg/mL
[2023-01-21 11:30] LABS: Ascorbic Acid (Vit C), Plasma 0.2 mg/dL (0.4 - 2.0)
== END 2023-01-13 02:39 | disposition home or self-care (01) ==
LOC: LBO 02:38
PROVIDERS: Absent Provider Nurse Practitioner Family; PCP Nurse Practitioner Family; Referring Provider Nurse Practitioner Family; Visit Provider Nurse Practitioner Family
DX: E55.9 Vitamin D deficiency, unspecified (principal); E78.5 Hyperlipidemia, unspecified; E11.65 Type 2 diabetes mellitus with hyperglycemia; Z98.84 Bariatric surgery status; E11.9 Type 2 diabetes mellitus without complications
CPT/HCPCS: 36415; 80061; 82306; 84591; 82043; 82180; 82570; 82607; 82728; 82746; 83540; 83550; 84425; 84446; 84597

== ENCOUNTER 2023-03-06 08:18 | Emergency (ER) | payer MEDICARE, MEDICAID, SELFPAY ==
--- NOTE | 2023-03-06 08:30 | DI.RAD_ITS ---
Exam(s) XR ANKLE RT COMPLETE EXAM: XR ANKLE RT COMPLETE CLINICAL HISTORY: Injury. TECHNIQUE: 2D digital imaging was performed. COMPARISON: CR XR ANKLE RT COMPLETE from 03/28/2020 FINDINGS: 3 views No evidence of fracture or widening of the ankle mortise. Talar dome unremarkable. Bone density nor mal. No osseous lesions. No degenerative changes. No osseous tarsal coalition. IMPRESSION: No significant osseous findings in the ankle. DATA REPOSITORY: RADIATION DOSE DELIVERED:
[2023-03-06 08:35] VITALS: BP 131/106; PULSE 94; RESP 16; TEMP 36.9; O2SAT 99
--- NOTE | 2023-03-06 08:39 | W.ED.GENAD ---
Discharge Plan Disposition Patient Disposition: Home Condition: Stable Discharge Details Clinical Impression: Mild sprain of right ankle Primary Care Provider: Mona Honeycutt ED Provider: Shyanne Lew Home Meds and New Rx's Prescriptions: Continued Vitron-C 65 mg iron- 125 mg tablet,delayed release (DR/EC) 1 tab PO DAILY triamcinolone acetonide 0.1 % cream 1 applic Topical 2-4 times daily PRN Qty: 15 1RF Rx Instructions: Apply thin film to affected area 2-4 times daily PRN until resolution celecoxib [Celebrex] 100 mg capsule 100 mg PO BID Qty: 30 0RF (DME) Wrist Brace Misc See Rx Instructions .Route Qty: 1 0RF Rx Instructions: As directed albuterol sulfate 90 mcg/actuation HFA aerosol inhaler 1 - 2 puff IH Q4H PRN (Reason: shortness of breath or wheezing) Qty: 8.5 0RF Rx Instructions: Dispense brand of albuterol inhaler covered by patient's insurance metformin 500 mg tablet 1,000 mg PO BID Qty: 120 0RF [place] [place] blood-glucose meter [Accu-Chek Emely Plus Meter] 1 EACH misc 1 ea Miscellaneous BID Qty: 1 Rx Instructions: to check blood glucose, E11.69 to maintain HGB A1C less than 7 ([facility] [place] [facility] See Dose Instructions .ROUTE .MEDSUPPLY Qty: 100 3RF Dose Instruction: As directed to check daily morning fasting blood glucose Rx Instructions: As directed to check daily morning fasting blood glucose. No insulin. cyanocobalamin (vitamin B-12) [Vitamin B-12] 500 mcg tablet 500 mcg PO DAILY Rx Instructions: note dated 08/19/20 [facility] [place] [place] OneTouch Ultra Test Strip See Rx Instructions .ROUTE .MEDSUPPLY Qty: 100 3RF Rx Instructions: test once daily. multivitamin with iron-mineral Tablet 2 tab PO DAILY Rx Instructions: note dated 08/11/21 [facility] [place] calcium [id number] vit D 400 U tablet 2 tab PO Rx Instructions: note dated 08/11/21 [facility] [place] loratadine 10 mg tablet 10 mg PO DAILY Qty: 90 3RF trazodone 50 mg tablet See Rx Instructions PO QHS PRN (Reason: sleep) Qty: 30 0RF Rx Instructions: 1-2 orally every day at bedtime PRN; ascorbic acid (vitamin C) 125 mg tablet,chewable 125 mg PO DAILY Qty: 90 3RF acetaminophen 500 mg Tablet 1,000 mg PO PRN PRN Discharge Instructions Instructions: Ankle Sprain (ED) Additional Instructions: No evidence of fracture on Xray. Wear the ankle splint as needed for comfort, rest, ice, compression, elevation. Stand Alone Forms: Work Release Referrals: Mona Honeycutt NP [Primary Care Provider] - Return if symptoms worsen Discharge Data Discharge Date/Time-TO BE ENTERED AT DEPARTURE: 03/06/23 10:26 Medical Decision Making 37 year old male presents to the ED with chief complaint of right ankle pain after a inversion type injury and fall which occured prior to arrival. Patient fell to the ground, has some superficial abrasions to her left anterior addison and right knuckles. She is complaining of Right lateral maleolus tenderness. No obvious deformity, distal CMS intact. Did not take any medications prior to arrival, reports that Tylenol and Ibuprofen do not work for her. PMhx includes Type 2 DM, Dyslipidemia, Fatty liver, learning disability, HTN, IBS, Anxiety. XR ordered, ice pack. Walking boot ordered. Crutches given. This text was generated using Compass dictation system, please disregard any oddities of phrase or misspellings. Imaging Data Radiologic Study: Imaging: X-Ray Radiologist's impression: Imaging protocol: Radiologic exam of the right ankle. Views: 3 or more views. COMPARISON: CR XR ANKLE RT COMPLETE 03/28/2020 8:55 AM FINDINGS: Bones/joints: There is no evidence of acute fracture in any of the visualized osseous structures.. There is no evidence of malalignment or dislocation of any visualized joint. Old avulsion fracture off the medial malleolus Soft tissues: Normal. IMPRESSION: 1. There is no evidence of acute fracture in any of the visualized osseous structures.. 2. There is no evidence of malalignment or dislocation of any visualized joint. Thank you for allowing us to participate in the care of your patient. Dictated and Authenticated by: Ami Orr MD [facility] General Mode of arrival: ambulatory. Date/Time Provider Initiated Documentation: 03/06/23 08:37. Limitations to Documentation: no limitations. Information obtained by: patient, RN notes reviewed and old records reviewed. HPI Narrative: 37 year old male presents to the ED with chief complaint of right ankle pain after a inversion type injury and fall which occured prior to arrival. Patient fell to the ground, has some superficial abrasions to her left anterior addison and right knuckles. She is complaining of Right lateral maleolus tenderness. No obvious deformity, distal CMS intact. Did not take any medications prior to arrival, reports that Tylenol and Ibuprofen do not work for her. PMhx includes Type 2 DM, Dyslipidemia, Fatty liver, learning disability, HTN, IBS, Anxiety. Related Data Home Medications Medication Instructions Recorded Confirmed blood-glucose meter (Accu-Chek #1 ea 11/04/17 11/04/22 Emely Plus Meter) lancets #100 ea 12/22/18 11/04/22 triamcinolone acetonide 0.1 % 1 applic topical 2-4 times daily 02/10/19 03/06/23 topical cream PRN #15 grams iron,carbonyl 65 mg-vitamin C 125 1 tab PO DAILY 08/16/20 03/06/23 mg tablet,delayed release (Vitron-C) cyanocobalamin (vitamin B-12) 500 500 mcg PO DAILY 08/20/20 03/06/23 mcg tablet (Vitamin B-12) blood sugar diagnostic (OneTouch #100 ea 01/06/21 11/04/22 Ultra Test strips) calcium [id number] vit D 400 U 2 tab PO 08/11/21 11/04/22 multivitamin with iron-mineral 2 tab PO DAILY 08/11/21 03/06/23 acetaminophen 500 mg tablet 1,000 mg PO PRN PRN 10/21/21 03/06/23 loratadine 10 mg tablet 10 mg PO DAILY #90 tab-caps 03/11/22 03/06/23 albuterol sulfate 90 mcg/actuation 1 - 2 puff inhalation Q4H PRN 10/16/22 03/06/23 aerosol inhaler shortness of breath or wheezing #8.5 grams arm brace (Wrist Brace) #1 ea 10/16/22 11/04/22 celecoxib 100 mg capsule (Celebrex) 100 mg PO BID #30 caps 10/16/22 03/06/23 metformin 500 mg tablet 1,000 mg PO BID #120 tabs 10/16/22 03/06/23 trazodone 50 mg tablet See Rx Instructions PO QHS PRN 12/16/22 03/06/23 sleep #30 tabs ascorbic acid (vitamin C) 125 mg 125 mg PO DAILY vitamin C 01/21/23 03/06/23 chewable tablet deficiency #90 tabs Previous Rx's Medication Instructions Recorded lancets #100 ea 12/22/18 triamcinolone acetonide 0.1 % 1 applic topical 2-4 times daily 02/10/19 topical cream PRN #15 grams blood sugar diagnostic (OneTouch #100 ea 01/06/21 Ultra Test strips) loratadine 10 mg tablet 10 mg PO DAILY #90 tab-caps 03/11/22 albuterol sulfate 90 mcg/actuation 1 - 2 puff inhalation Q4H PRN 10/16/22 aerosol inhaler shortness of breath or wheezing #8.5 grams arm brace (Wrist Brace) #1 ea 10/16/22 celecoxib 100 mg capsule (Celebrex) 100 mg PO BID #30 caps 10/16/22 metformin 500 mg tablet 1,000 mg PO BID #120 tabs 10/16/22 trazodone 50 mg tablet See Rx Instructions PO QHS PRN 12/16/22 sleep #30 tabs ascorbic acid (vitamin C) 125 mg 125 mg PO DAILY vitamin C 01/21/23 chewable tablet deficiency #90 tabs Allergies Allergy/AdvReac Type Severity Reaction Status Date / Time niacin Allergy Unknown Severe Verified 03/06/23 08:41 [From Niaspan Skin Rash Extended-Release] ibuprofen AdvReac Intermediate Upset Verified 03/06/23 08:41 stomach lisinopril AdvReac Intermediate Cough Verified 03/06/23 08:41 General Stated Complaint: Orthopedic MELANIE: 4 Review of Systems All systems reviewed & are unremarkable except as noted in HPI and below Musculoskeletal Musculoskeletal: Reports as per HPI and Reports arthralgias PFSH All Active Problems (Updated 03/06/23 @ 09:57 by Shyanne Lew NP) Mild sprain of right ankle (Acute) Vitamin C deficiency (Acute) History of bariatric surgery (Acute) Hemorrhagic cyst of right ovary (Acute) Left wrist sprain (Acute) Ovarian cyst (Acute) Right; 05/2021 US: stable; repeat 6 months & if still stable at that point, surveillance is completed Thoracic outlet syndrome (Acute) Obesity (Chronic) Knowledge deficit about therapeutic diet (Acute) History of abnormal cervical Pap smear (Acute) Tendinitis of long head of biceps brachii of left shoulder (Acute ~09/2018) s/p biceps tenotomy 05/12/2019 Instability of left shoulder joint (Acute ~09/2018) Bursitis of left shoulder (Acute ~09/2018) Impingement syndrome of left shoulder (Acute ~09/2018) Anxiety and depression (Chronic) Type 2 diabetes mellitus (Chronic) Dx ~21 y/o Irritable bowel syndrome with diarrhea (Chronic) 02/28/2018 colonoscopy with random biopsies: normal (metformin contributing to sx?); 03/07/2018: neg Celiac serology Severe obstructive sleep apnea (Chronic 04/27/17) C-Pap Learning disability (Chronic) On disability Gastroesophageal reflux disease without esophagitis (Chronic 09/04/16) Fatty liver (Chronic 09/08/16) 10/2022 labs: FIB4 score = 0.48 (cirrhosis less likely) Essential hypertension (Chronic 09/04/16) Dyslipidemia (Chronic 09/04/16) Unspecified chronic bronchitis (Chronic 09/04/16) Medical History Insomnia Left rotator cuff tear (~09/2018) LGSIL on Pap smear of cervix (09/04/16) LSIL 2014, neg colpo. LSIL 11/2015, 07/2016; no HR HPV available. 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 Daniel Left Knee Surgery (10/05/06) Right Knee Surgery (03/07/08) Family History Mother Diabetes Type II Essential hypertension Mental disorder Bipolar d/o COPD (chronic obstructive pulmonary disease) Maternal Grandmother Diabetes Neoplasm Breast Brother No problems noted. Brother No problems noted. Maternal Uncle Mental disorder Bipolar d/o Social History Smoking/Tobacco Use Status: Never Smoking risk assessment performed?: Yes Alcohol Intake: never Drug use: Never Substance use type: does not use Counseling given: No Adopted: No Caregiver/Support person: No Foster care: No Household members: significant other Housing: apartment Number of Children: 0 Communication Needs: Corrective Lenses current occupation: [employer] Pets and animals: Yes Pets and animals: cat(s) and other Details: rabbits Sexually active: Yes Current gender identity: female What type of physical activity do you participate in: walking Duration: 60-90 minutes/day Frequency: daily Seatbelt use: always Helmet use: No (n/a) 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 Do you feel safe at home: Yes Do you feel safe in your relationship?: Yes Exam Const General: cooperative and well developed Nutritional Appearance: average body habitus Orientation: alert, awake and oriented x3 Extrem General: normal to inspection Right lower extremity: ankle Details: normal to inspection and tenderness Location: of the lateral malleolus Course Vital Signs Vital signs: Vital Signs Temperature 36.9 C 03/06/23 08:35 Pulse 94 H 03/06/23 08:35 Respiratory Rate 16 03/06/23 08:35 Blood Pressure 131/106 H 03/06/23 08:35 Pulse Oximetry 99 03/06/23 08:35 Temperature 36.9 C 03/06/23 08:35 Temperature Source Tympanic 03/06/23 08:35 Pulse 94 H 03/06/23 08:35 Respiratory Rate 16 03/06/23 08:35 Blood Pressure 131/106 H 03/06/23 08:35 Pulse Oximetry 99 03/06/23 08:35 Oxygen Delivery Method Room Air 03/06/23 08:35 Oxygen Flow Rate 0 03/06/23 08:35
--- NOTE | 2023-03-06 09:41 | DI.VRAD_ITS ---
PROCEDURE INFORMATION: Exam: XR Right Ankle Exam date and time: 03/06/2023 9:32 AM Age: 37 years old Clinical indication: Injury or trauma; Other: Rolled ankle; Sprain or strain; Right TECHNIQUE: Imaging protocol: Radiologic exam of the right ankle. Views: 3 or more views. COMPARISON: CR XR ANKLE RT COMPLETE 03/28/2020 8:55 AM FINDINGS: Bones/joints: There is no evidence of acute fracture in any of the visualized osseous structures.. There is no evidence of malalignment or dislocation of any visualized joint. Old avulsion fracture off the medial malleolus Soft tissues: Normal. IMPRESSION: 1. There is no evidence of acute fracture in any of the visualized osseous structures.. 2. There is no evidence of malalignment or dislocation of any visualized joint. Dictated and Authenticated by: Ami Orr MD. Ordering:ALETHA Kimble MD
--- NOTE | 2023-03-08 14:14 | NUR.NOTE ---
Nursing Note: PT called for a more detailed work note for employer.
--- NOTE | 2023-03-10 09:26 | NUR.NOTE ---
Work note emailed via fax machine at patient request. Email: [email or web address] Nursing Note:
--- NOTE | 2023-03-11 12:24 | NUR.NOTE ---
Accessed pt chart to print provider note for [facility] for billing purposes. Nursing Note:
== END 2023-03-06 10:26 | disposition home or self-care (01) ==
PROVIDERS: Emergency Provider Registered Nurse Emergency; PCP Nurse Practitioner Family
DX: S93.401A Sprain of unspecified ligament of right ankle, initial encounter (principal); W01.0XXA Fall on same level from slipping, tripping and stumbling without subsequent striking against object, initial encounter
CPT/HCPCS: 99283; 73610

== ENCOUNTER 2023-05-20 21:48 | Outpatient (REF) | payer MEDICARE, MEDICAID, SELFPAY ==
[2023-05-20 21:06] LABS: Source Nasal/Nares
[2023-05-20 22:00] LABS: COVID-19 PCR Negative (Negative)
== END 2023-05-20 21:49 | disposition home or self-care (01) ==
LOC: LBN 21:48
PROVIDERS: PCP Nurse Practitioner Family; Visit Provider Physician Assistant Medical
DX: R05.8 Other specified cough (principal); Z20.822 Contact with and (suspected) exposure to COVID-19
CPT/HCPCS: 87635

== ENCOUNTER 2023-09-20 09:13 | Emergency (ER) | payer MEDICARE, MEDICAID, SELFPAY ==
[2023-09-20] VITALS (55 sets, daily range): BP systolic 105–154; BP diastolic 61–104; PULSE 80–105; RESP 12–14; TEMP 36.6–37; O2SAT 97–100
--- NOTE | 2023-09-20 09:15 | DI.CT_ITS ---
Exam(s) CT ABDOMEN PELVIS CTA EXAM: CT ABDOMEN PELVIS CTA CLINICAL HISTORY: had tummy tuck, significant bleeding from site. TECHNIQUE: Imaging Protocol: Axial CT angiography was performed with multi-slice acquisition and m ulti-planar and/or 3D reconstructions. CONTRAST MATERIAL: Intravenous: Omnipaque 350 Contrast volume:86mL Oral: No COMPARISON: CT ABD PELVIS WITH CONTRAST from 11/20/2016 FINDINGS: ABDOMEN AND PELVIS: Abdomen: Celiac axis/mesenteric arteries: No evidence of occlusion or significant stenosis. Renal Arteries: No evidence of occlusion or significant stenosis. Aorta: No evidence of occlusion or significant stenosis. No aneurysm or dissection. Pelvis: Iliac Arteries: No evidence of occlusion or significant stenosis. Common Femoral Arteries: No evidence of occlusion or significant stenosis. ABDOMEN: Lung bases: Unremarkable. Liver: The dome of the liver was not included on the examination. No measurable mass. Portal, Superior Mesenteric, and Splenic Veins: Unremarkable. Gallbladder and Biliary Tract: No radiodense calculus or dilation. Pancreas: Normal density, no abnormal calcifications or inflammatory process. Spleen: Normal. Adrenals: No masses seen. Kidneys: Normal size, contour and axis. No radiodense stones or obstructive uropathy. No masses seen. Bowel: No obstruction or bowel wall thickening. There findings of prior bowel surgery. No evidence o f appendicitis. Peritoneal Cavity: No ascites, collection or mesenteric inflammatory response. No free air. Lymph Nodes: Mildly enlarged lymph nodes are seen in the inguinal regions bilaterally which are likel y reactive. Bones: Within normal limits for the patient's age. Soft Tissues: There is edema seen in the soft tissues of the anterior abdominal wall. There are josue ral fluid collection seen in the anterior abdominal wall. The largest is in the midline inferior and to the left of the umbilicus and measures 4.8 x 3.3 x 7.1 cm. There is an elongated fluid collectio n in the lateral left anterior abdominal wall measuring 8 x 2 x 3.6 cm. Smaller fluid collections ar e also present. There is no evidence of active bleeding at this time. PELVIS: Bladder: Symmetric distention, no gross wall thickening. Reproductive Organs: Bilateral ovarian cysts are present. The largest is on the right and measures 4 .9 x 3.5 cm. The largest on the left measures 2.0 x 1.7 cm. Lymph Nodes: Within normal limits. Bones: Within normal limits. IMPRESSION: 1. Anterior abdominal wall fluid collections without evidence of active bleeding. Differential consi derations include abscess is, hematomas or seromas. 2. No intra-abdominal or pelvic abnormality. 3. Bilateral ovarian cysts. 4. No evidence of abdominal aortic dissection or aneurysm. RADIATION DOSE DELIVERED: 663.46mGy.cm Total DLP DATA REPOSITORY: All CT scans at this facility are submitted to the National Radiology Data Registry (NRDR) Dose Index Registry (DIR) with the [employer] (ACR). RADIATION OPTIMIZATION: All CT scans at this facility use at least one of these dose optimization te chniques: automated exposure control; mA and/or kV adjustment per patient size (includes targeted exa ms where dose is matched to clinical indication); or iterative reconstruction.
[2023-09-20 09:37] LABS: Lactate 1.1 mmol/L (0.6-1.4)
[2023-09-20 09:38] LABS: Abs Immature Grans 0.02 10^3/uL (0.0-0.06); Absolute Basophil Count 0.03 10^3/uL (0.0-0.2); Absolute Lymphocyte Count 1.21 10^3/uL (1.2-3.4); Absolute Monocyte Count 0.45 10^3/uL (0.1-0.8); Absolute Neutrophil Count 4.44 10^3/uL (1.2-6.7); Basophils % 0.5; Eosinophils % 1.6; HGB 12.1 g/dL (11.2-15.7); Immature Grans % 0.3; Lymphocytes % 19.4; MCH 26.7 pg (27.0-33.0); MCHC 31.8 % (32.0-36.0); MCV 84 fL (80-95); MPV 9.4 fL (8.0-11.0); Monocytes % 7.2; Platelet Count 487 10^3/uL (130-400); RBC 4.54 10^6/uL (3.93-5.22); RDW 12.1 % (11.7-14.6); RDW-SD 36.7 fL; WBC 6.25 10^3/uL (4.4-10.8)
[2023-09-20] MEDS: Omnipaque 350 MG/ML 100 ML BTL IJ (09:46)
[2023-09-20] MEDS: Normal Saline - Diluent 50 ML VIAL IJ (09:46)
[2023-09-20] MEDS: Normal Saline Flush 10 ML SYR IVP ×2 (09:48→11:47)
[2023-09-20 09:52] LABS: PTT Activated 26.9 sec (23.6-32.8)
[2023-09-20 09:56] LABS: ALT 22 U/L (14-59); AST 19 U/L (15-37); Albumin 2.9 g/dL (3.4-5.0); Alkaline Phosphatase 172 U/L (46-116); Anion Gap 7.4 mmol/L (3-11); BUN 11 mg/dL (7-18); Bilirubin, Direct 0.1 mg/dL (0.0-0.2); Bilirubin, Total 0.4 mg/dL (0.2-1.0); CO2 30.6 mmol/L (21.0-32.0); CREATININE 0.6 mg/dL (0.55-1.02); Calcium 8.7 mg/dL (8.5-10.1); Chloride 103 mmol/L (98-107); Estimated GFR 119.23 (mL/min/1.73m2); Glucose 234 mg/dL (74-106); Lipase 59 U/L (16-77); Potassium 3.4 mmol/L (3.5-5.1); Sodium 141 mmol/L (136-145)
--- NOTE | 2023-09-20 10:13 | ED.GENADUL_ITS ---
Discharge Plan Disposition Patient Disposition: Transfer-Acute Inpatient Care Specific Acute Inpt Facility: [facility] Condition: Stable Discharge Details Clinical Impression: Acute bleeding, Hematoma of abdominal wall Primary Care Provider: Mona Honeycutt ED Provider: Ryan Haq Home Meds and New Rx's Prescriptions: No Action Vitron-C 65 mg iron- 125 mg tablet,delayed release (DR/EC) 1 tab PO DAILY triamcinolone acetonide 0.1 % cream 1 applic Topical 2-4 times daily PRN Qty: 15 1RF Rx Instructions: Apply thin film to affected area 2-4 times daily PRN until resolution celecoxib [Celebrex] 100 mg capsule 100 mg PO BID Qty: 30 0RF (DME) Wrist Brace Misc See Rx Instructions .Route Qty: 1 0RF Rx Instructions: As directed albuterol sulfate 90 mcg/actuation HFA aerosol inhaler 1 - 2 puff IH Q4H PRN (Reason: shortness of breath or wheezing) Qty: 8.5 0RF Rx Instructions: Dispense brand of albuterol inhaler covered by patient's insurance metformin 500 mg tablet 1,000 mg PO BID Qty: 120 0RF loratadine 10 mg tablet 10 mg PO DAILY Qty: 90 3RF (DME) OneTouch Ultra Test Strip See Rx Instructions .ROUTE .MEDSUPPLY Qty: 100 3RF Rx Instructions: test once daily. (DME) blood-glucose meter [Accu-Chek Emely Plus Meter] 1 EACH misc 1 ea Miscellaneous BID Qty: 1 Rx Instructions: to check blood glucose, E11.69 to maintain HGB A1C less than 7 (DME) lancets Misc See Dose Instructions .ROUTE .MEDSUPPLY Qty: 100 3RF Dose Instruction: As directed to check daily morning fasting blood glucose Rx Instructions: As directed to check daily morning fasting blood glucose. No insulin. cyanocobalamin (vitamin B-12) [Vitamin B-12] 500 mcg tablet 500 mcg PO DAILY Rx Instructions: note dated 08/19/20 [facility] multivitamin with iron-mineral Tablet 2 tab PO DAILY Rx Instructions: note dated 08/11/21 [facility] calcium -202 vit D 400 U tablet 2 tab PO Rx Instructions: note dated 08/11/21 [facility] trazodone 50 mg tablet See Rx Instructions PO QHS PRN (Reason: sleep) Qty: 30 0RF Rx Instructions: 1-2 orally every day at bedtime PRN; ascorbic acid (vitamin C) 125 mg tablet,chewable 125 mg PO DAILY Qty: 90 3RF acetaminophen 500 mg Tablet 1,000 mg PO PRN PRN Discharge Data Discharge Date/Time-TO BE ENTERED AT DEPARTURE: 09/20/23 13:23 HPI General Date/Time Provider Initiated Documentation: 09/20/23 09:16 . HPI Narrative: 38 year-old female presents to ED today by EMS with a chief complaint of active bleeding from abdominal surgical site of liposuction performed at [facility] on 09/02/23 with onset this morning when she was changing her dressing. Quality described as still having baseline pain along her surgical scar, no radiation to abdominal rigidity/ecchymosis, dizziness, near syncope, chest pain, bright red blood. Severity is described as 9/10. Palliating factors include direct pressure applied and immobilization has slowed the oozing. Provoking factors include nothing specific. Events leading up to the incident/Associated Symptoms: Patient has not had any complications up until this point. Patient not anticoagulated. Related Data Home Medications Medication Instructions Recorded Confirmed blood-glucose meter (Accu-Chek #1 ea 11/04/17 11/04/22 Emely Plus Meter) lancets #100 ea 12/22/18 11/04/22 triamcinolone acetonide 0.1 % 1 applic topical 2-4 times daily 02/10/19 03/06/23 topical cream PRN #15 grams iron,carbonyl 65 mg-vitamin C 125 1 tab PO DAILY 08/16/20 03/06/23 mg tablet,delayed release (Vitron-C) cyanocobalamin (vitamin B-12) 500 500 mcg PO DAILY 08/20/20 03/06/23 mcg tablet (Vitamin B-12) calcium [id number] vit D 400 U 2 tab PO 08/11/21 11/04/22 multivitamin with iron-mineral 2 tab PO DAILY 08/11/21 03/06/23 acetaminophen 500 mg tablet 1,000 mg PO PRN PRN 10/21/21 03/06/23 albuterol sulfate 90 mcg/actuation 1 - 2 puff inhalation Q4H PRN 10/16/22 03/06/23 aerosol inhaler shortness of breath or wheezing #8.5 grams arm brace (Wrist Brace) #1 ea 10/16/22 11/04/22 celecoxib 100 mg capsule (Celebrex) 100 mg PO BID #30 caps 10/16/22 03/06/23 metformin 500 mg tablet 1,000 mg (2 x 500 mg) PO BID #120 10/16/22 03/06/23 tabs trazodone 50 mg tablet See Rx Instructions PO QHS PRN 12/16/22 03/06/23 sleep #30 tabs ascorbic acid (vitamin C) 125 mg 125 mg PO DAILY vitamin C 01/21/23 03/06/23 chewable tablet deficiency #90 tabs blood sugar diagnostic (OneTouch #100 ea 04/13/23 Ultra Test strips) loratadine 10 mg tablet 10 mg PO DAILY #90 tab-caps 04/13/23 04/13/23 Previous Rx's Medication Instructions Recorded lancets #100 ea 12/22/18 triamcinolone acetonide 0.1 % 1 applic topical 2-4 times daily 02/10/19 topical cream PRN #15 grams albuterol sulfate 90 mcg/actuation 1 - 2 puff inhalation Q4H PRN 10/16/22 aerosol inhaler shortness of breath or wheezing #8.5 grams arm brace (Wrist Brace) #1 ea 10/16/22 celecoxib 100 mg capsule (Celebrex) 100 mg PO BID #30 caps 10/16/22 metformin 500 mg tablet 1,000 mg (2 x 500 mg) PO BID #120 10/16/22 tabs trazodone 50 mg tablet See Rx Instructions PO QHS PRN 12/16/22 sleep #30 tabs ascorbic acid (vitamin C) 125 mg 125 mg PO DAILY vitamin C 01/21/23 chewable tablet deficiency #90 tabs blood sugar diagnostic (OneTouch #100 ea 04/13/23 Ultra Test strips) loratadine 10 mg tablet 10 mg PO DAILY #90 tab-caps 04/13/23 Allergies Allergy/AdvReac Type Severity Reaction Status Date / Time niacin Allergy Unknown Severe Verified 04/13/23 12:59 [From Niaspan Skin Rash Extended-Release] ibuprofen AdvReac Intermediate Upset Verified 04/13/23 12:59 stomach lisinopril AdvReac Intermediate Cough Verified 04/13/23 12:59 General Stated Complaint: Abd Prob MELANIE: 3 Review of Systems All systems reviewed & are unremarkable except as noted in HPI and below Exam Narrative Exam Narrative: GENERAL APPEARANCE: Well-nourished, non-toxic, awake and alert, atraumatic, no acute distress. SKIN: Warm, pink, dry, intact, without rashes/lesions/ulcerations. HEAD: Normocephalic, atraumatic, normal hair distribution for gender/age. EYES: Pupils PERRLA, EOMs intact without nystagmus, normal conjunctiva, no exudates on lids/lashes. ENT: Nares patent, no circumoral cyanosis, no facial swelling NECK: Supple, trachea midline, painless cervical ROM. LUNGS/CHEST: Lungs CTA bilaterally- no rhonchi/rales/wheezes diffusely, non- labored respirations, normal A/P diameter, symmetrical expansion, no chest wall deformity HEART (CV/PV): Regular rate and rhythm without murmur, no peripheral edema, no JVD. ABDOMEN: Soft, non-distended, no guarding, well healed surgical scar across entire lower abdomen, some dehiscense at L ischial crest with oozing of blood at this area, no large fluctuant or rigid swelling along surgical site MSK: Normal ROM, no swelling/deformity to bilateral UEs or LEs, moving all extremities without weakness, no cyanosis, spine midline without tenderness, normal curvature. NEURO: Mental Status AAOx4 - alert to person, place, time, events No facial droop, no forehead involvement. Motor: No focal weakness - strength 5/5 in bilateral UEs and LEs, proximal and distal, symmetric. Sensory: sensation intact to light touch globally. Gait normal: patient ambulated without ataxia into ED room. PSYCH: euthymic, cooperative, pleasant, appropriate speech Course Vital Signs Vital signs: Vital Signs Temperature 36.6 C 09/20/23 09:35 Pulse 105 H 09/20/23 09:35 Pulse Oximetry 99 09/20/23 09:35 Temperature 36.6 C 09/20/23 09:35 Temperature Source Oral 09/20/23 09:35 Pulse 105 H 09/20/23 09:35 Blood Pressure Position Sitting 09/20/23 09:35 Pulse Oximetry 99 09/20/23 09:35 Oxygen Delivery Method Room Air 09/20/23 09:35 Oxygen Flow Rate 0 09/20/23 09:35 Pain Level 9 09/20/23 09:41 Lab/Test Results Lab/Test Results: Laboratory Tests Range/Units 09/20/23 09:29 WBC (4.4-10.8) 10^3/uL 6.25 RBC (3.93-5.22) 10^6/uL 4.54 Hgb (11.2-15.7) g/dL 12.1 Hct (36.0-46.0) % 38.0 MCV (80-95) fL 84 MCH (27.0-33.0) pg 26.7 L MCHC (32.0-36.0) % 31.8 L RDW (11.7-14.6) % 12.1 Plt Count (130-400) 10^3/uL 487 H MPV (8.0-11.0) fL 9.4 Immature Gran % 0.3 Neutrophils % 71.0 Lymphocytes % 19.4 Monocytes % 7.2 Eosinophils % 1.6 Basophils % 0.5 Nucleated RBC % (0.0-0.3) % 0.0 Absolute Neutrophils (1.2-6.7) 10^3/uL 4.44 Absolute Lymphocytes (1.2-3.4) 10^3/uL 1.21 Absolute Monocytes (0.1-0.8) 10^3/uL 0.45 Absolute Eosinophils (0.0-0.7) 10^3/uL 0.10 Absolute Basophils (0.0-0.2) 10^3/uL 0.03 PT (9.1-11.1) sec 10.0 INR (0.9-1.1) 1.0 APTT (23.6-32.8) sec 26.9 VBG Lactate (0.6-1.4) mmol/L 1.1 Sodium (136-145) mmol/L 141 Potassium (3.5-5.1) mmol/L 3.4 L Chloride (98-107) mmol/L 103 Carbon Dioxide (21.0-32.0) mmol/L 30.6 Anion Gap (3-11) mmol/L 7.4 BUN (7-18) mg/dL 11 Creatinine (0.55-1.02) mg/dL 0.6 Est GFR (CKD-EPI 2020) (mL/min/1.73m2) 119.23 Glucose (74-106) mg/dL 234 H Calcium (8.5-10.1) mg/dL 8.7 Total Bilirubin (0.2-1.0) mg/dL 0.4 Conjugated Bilirubin (0.0-0.2) mg/dL 0.1 AST (15-37) U/L 19 ALT (14-59) U/L 22 Alkaline Phosphatase (46-116) U/L 172 H Total Protein (6.4-8.2) g/dL 7.0 Albumin (3.4-5.0) g/dL 2.9 L Lipase (16-77) U/L 59 Crossmatch See Detail Medical Decision Making This dictation utilizes [id number] dictation software and may contain unedited grammatical errors. 38 y/o F presents to ED today with a chief complaint of bleeding at left hip at surgical site from a liposuction performed at [facility] on 09/01. Patient was changing her dressing today when the area started bleeding, she is unsure if she stood up too quickly and caused some sutures to rip. The bleeding does not appear to be arterial, well-controlled with direct pressure by EMS. Patient is not anticoagulated, denies active dizziness or near syncope. Patients' medical history: History of bariatric surgery, history of hemorrhagic cysts of ovaries, T2DM, hypertension, dyslipidemia, chronic bronchitis. Family and social history: Lives at home with boyfriend. Pertinent exam findings / vital signs include well-healed surgical scar across the entire lower abdomen, there is some dehiscence at the left hip about 0.75 cm that is actively oozing blood, no large fluctuant masses or ecchymosis or rigidity to abdomen. Differential / pathologies of concern include hematoma, hemorrhage, intra- abdominal bleeding. Diagnostic studies of: -CBC, BMP, lactate, lipase, liver panel, PT/PTT, type and screen, crossmatch, CTA of the abdomen and pelvis with contrast. -CBC shows initial HgB of 12.1, repeat q1hr shows a drop to 11.0- significant, starting transfusion -BMP benign -Lactate neg -Lipase WNL -LFTs mild bump in Alk Phos, low albumin -PT/PTT WNL -Type & Screen O POS -CTA shows hematomas of multiple areas of L anterior abdominal wall, no active extravasation, discussed with Gen. Surg. Dr Prieto, agrees Interventions of: -1 unit RBCs, [facility] Consult for transfer- no capacity at [facility] and their surgery was at [facility]. ED Course/Assessment/Plan: 38-year-old female with history of bariatric surgery had a liposuction at [facility] on 09/01, went to change her dressing this morning and experienced significant pain along the entire surgical site which is somewhat baseline but she did have profuse bleeding from the site that she could not get to stop, she did soak through EMS bandages but bleeding was well-controlled with direct pressure and immobilization here in the department. Her initial hemoglobin was 12.1 and a 1 hour recheck without fluid bolus showed a drop to 11.0. CTA shows hematomas in multiple areas along her left anterior abdominal wall, with any movement she does bleed significantly. I did initiate transfusion with 1 unit of packed red blood cells, otherwise her laboratory workup is fairly benign. I spoke with Dr. Anderson of [facility] plastics who would like the patient transferred ED to ED to evaluate the patient. I spoke with the ED Dr. Bee, who accepted for transfer. Findings not consistent with hemorrhage or extravasation, we do question a possible abnormality of a small pseudoaneurysm but this is unlikely in the setting of the patient's large hematomas that are likely the source of the patient's bleeding. Disposition of Hematoma of Abdominal Wall, Acute Bleeding. Patient verbalized understanding of the plan and return to ED criteria and engaged in shared decision making. Medical Records Medical records reviewed: Yes I reviewed the patient's medical records. Imaging Data Radiologic Study: Attestation: I personally reviewed and interpreted this imaging study as follows: Imaging: CT Scan Radiologist's impression: EXAM: CT ABDOMEN PELVIS CTA CLINICAL HISTORY: had tummy tuck, significant bleeding from site. TECHNIQUE: Imaging Protocol: Axial CT angiography was performed with multi- slice acquisition and multi-planar and/or 3D reconstructions. CONTRAST MATERIAL: Intravenous: Omnipaque 350 Contrast volume:86mL Oral: No COMPARISON: CT ABD PELVIS WITH CONTRAST from 11/20/2016 FINDINGS: ABDOMEN AND PELVIS: Abdomen: Celiac axis/mesenteric arteries: No evidence of occlusion or significant stenosis. Renal Arteries: No evidence of occlusion or significant stenosis. Aorta: No evidence of occlusion or significant stenosis. No aneurysm or dissection. Pelvis: Iliac Arteries: No evidence of occlusion or significant stenosis. Common Femoral Arteries: No evidence of occlusion or significant stenosis. ABDOMEN: Lung bases: Unremarkable. Liver: The dome of the liver was not included on the examination. No measurable mass. Portal, Superior Mesenteric, and Splenic Veins: Unremarkable. Gallbladder and Biliary Tract: No radiodense calculus or dilation. Pancreas: Normal density, no abnormal calcifications or inflammatory process. Spleen: Normal. Adrenals: No masses seen. Kidneys: Normal size, contour and axis. No radiodense stones or obstructive uropathy. No masses seen. Bowel: No obstruction or bowel wall thickening. There findings of prior bowel surgery. No evidence of appendicitis. Peritoneal Cavity: No ascites, collection or mesenteric inflammatory response. No free air. Lymph Nodes: Mildly enlarged lymph nodes are seen in the inguinal regions bilaterally which are likely reactive. Bones: Within normal limits for the patient's age. Soft Tissues: There is edema seen in the soft tissues of the anterior abdominal wall. There are several fluid collection seen in the anterior abdominal wall. The largest is in the midline inferior and to the left of the umbilicus and measures 4.8 x 3.3 x 7.1 cm. There is an elongated fluid collection in the lateral left anterior abdominal wall measuring 8 x 2 x 3.6 cm. Smaller fluid collections are also present. There is no evidence of active bleeding at this time. PELVIS: Bladder: Symmetric distention, no gross wall thickening. Reproductive Organs: Bilateral ovarian cysts are present. The largest is on the right and measures 4.9 x 3.5 cm. The largest on the left measures 2.0 x 1.7 cm. Lymph Nodes: Within normal limits. Bones: Within normal limits. IMPRESSION: 1. Anterior abdominal wall fluid collections without evidence of active bleeding. Differential considerations include abscess is, hematomas or seromas. 2. No intra-abdominal or pelvic abnormality. 3. Bilateral ovarian cysts. 4. No evidence of abdominal aortic dissection or aneurysm. Lab Data Lab results reviewed: Yes I reviewed the patient's lab results. Labs: Laboratory Tests Range/Units 09/20/23 09/20/23 09:29 10:20 WBC (4.4-10.8) 10^3/uL 6.25 RBC (3.93-5.22) 10^6/uL 4.54 Hgb (11.2-15.7) g/dL 12.1 11.0 L Hct (36.0-46.0) % 38.0 34.7 L MCV (80-95) fL 84 MCH (27.0-33.0) pg 26.7 L MCHC (32.0-36.0) % 31.8 L RDW (11.7-14.6) % 12.1 Plt Count (130-400) 10^3/uL 487 H MPV (8.0-11.0) fL 9.4 Immature Gran % 0.3 Neutrophils % 71.0 Lymphocytes % 19.4 Monocytes % 7.2 Eosinophils % 1.6 Basophils % 0.5 Nucleated RBC % (0.0-0.3) % 0.0 Absolute Neutrophils (1.2-6.7) 10^3/uL 4.44 Absolute Lymphocytes (1.2-3.4) 10^3/uL 1.21 Absolute Monocytes (0.1-0.8) 10^3/uL 0.45 Absolute Eosinophils (0.0-0.7) 10^3/uL 0.10 Absolute Basophils (0.0-0.2) 10^3/uL 0.03 PT (9.1-11.1) sec 10.0 INR (0.9-1.1) 1.0 APTT (23.6-32.8) sec 26.9 VBG Lactate (0.6-1.4) mmol/L 1.1 Sodium (136-145) mmol/L 141 Potassium (3.5-5.1) mmol/L 3.4 L Chloride (98-107) mmol/L 103 Carbon Dioxide (21.0-32.0) mmol/L 30.6 Anion Gap (3-11) mmol/L 7.4 BUN (7-18) mg/dL 11 Creatinine (0.55-1.02) mg/dL 0.6 Est GFR (CKD-EPI 2020) (mL/min/1.73m2) 119.23 Glucose (74-106) mg/dL 234 H Calcium (8.5-10.1) mg/dL 8.7 Total Bilirubin (0.2-1.0) mg/dL 0.4 Conjugated Bilirubin (0.0-0.2) mg/dL 0.1 AST (15-37) U/L 19 ALT (14-59) U/L 22 Alkaline Phosphatase (46-116) U/L 172 H Total Protein (6.4-8.2) g/dL 7.0 Albumin (3.4-5.0) g/dL 2.9 L Lipase (16-77) U/L 59 Patient ABO/Rh O Positive Antibody Screen NEGATIVE Crossmatch See Detail Quality:SDOH Health Related Social Needs: No Data to Display Critical Care Time Critical Care Time Critical Care Time: Yes Total Critical Care Time: 30 Attestation: I spent 30 minutes of critical care time in the room with this patient addressing her bleeding, assessing control of her bleeding as well as hemodynamically monitoring the patient for her active postoperative bleeding. She remained normotensive throughout. She was immediately sent to emergent CT scan as soon as IV access had been established and labs were drawn. PFSH All Active Problems (Updated 09/20/23 @ 11:53 by OCTAVIANO Petty) Hematoma of abdominal wall (Acute) Acute bleeding (Acute) Pannus, abdominal (Acute) Right ankle sprain (Acute) Vitamin C deficiency (Acute) History of bariatric surgery (Acute) Hemorrhagic cyst of right ovary (Acute) Left wrist sprain (Acute) Ovarian cyst (Acute) Right; 05/2021 US: stable; repeat 6 months & if still stable at that point, surveillance is completed Thoracic outlet syndrome (Acute) Obesity (Chronic) Knowledge deficit about therapeutic diet (Acute) History of abnormal cervical Pap smear (Acute) Tendinitis of long head of biceps brachii of left shoulder (Acute ~09/2018) s/p biceps tenotomy 05/12/2019 Instability of left shoulder joint (Acute ~09/2018) Bursitis of left shoulder (Acute ~09/2018) Impingement syndrome of left shoulder (Acute ~09/2018) Anxiety and depression (Chronic) Type 2 diabetes mellitus (Chronic) Dx ~21 y/o Irritable bowel syndrome with diarrhea (Chronic) 02/28/2018 colonoscopy with random biopsies: normal (metformin contributing to sx?); 03/07/2018: neg Celiac serology Severe obstructive sleep apnea (Chronic 04/27/17) C-Pap Learning disability (Chronic) On disability Gastroesophageal reflux disease without esophagitis (Chronic 09/04/16) Fatty liver (Chronic 09/08/16) 10/2022 labs: FIB4 score = 0.48 (cirrhosis less likely) Essential hypertension (Chronic 09/04/16) Dyslipidemia (Chronic 09/04/16) Unspecified chronic bronchitis (Chronic 09/04/16) Medical History Insomnia Left rotator cuff tear (~09/2018) LGSIL on Pap smear of cervix (09/04/16) LSIL 2014, neg colpo. LSIL 11/2015, 07/2016; no HR HPV available. 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 Daniel Left Knee Surgery (10/05/06) Right Knee Surgery (03/07/08) Family History Mother Diabetes Type II Essential hypertension Mental disorder Bipolar d/o COPD (chronic obstructive pulmonary disease) Maternal Grandmother Diabetes Neoplasm Breast Brother No problems noted. Brother No problems noted. Maternal Uncle Mental disorder Bipolar d/o Social History Smoking/Tobacco Use Status: Never Smoking risk assessment performed?: Yes Alcohol Intake: never Drug use: Never Substance use type: does not use Counseling given: No Adopted: No Caregiver/Support person: No Foster care: No Household members: significant other Housing: apartment Number of Children: 0 Communication Needs: Corrective Lenses current occupation: [employer] Pets and animals: Yes Pets and animals: cat(s) and other Details: rabbits Sexually active: Yes Current gender identity: female What type of physical activity do you participate in: walking Duration: 60-90 minutes/day Frequency: daily Seatbelt use: always Helmet use: No (n/a) Drive intox 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
[2023-09-20 10:28] LABS: HCT 34.7 % (36.0-46.0)
[2023-09-20] MEDS: MORPHine 4 MG/ML SYR IVP (11:46)
[2023-09-20] MEDS: Ondansetron 4 MG/2 ML VIAL IVP (11:46)
[2023-09-20 13:16] LABS: HCT 37.2 % (36.0-46.0); HGB 12.1 g/dL (11.2-15.7)
== END 2023-09-20 13:23 | disposition short-term general hospital (02) ==
PROVIDERS: Emergency Provider Physician Assistant; PCP Nurse Practitioner Family
DX: T81.31XA Disruption of external operation (surgical) wound, not elsewhere classified, initial encounter (principal); K91.870 Postprocedural hematoma of a digestive system organ or structure following a digestive system procedure; E11.9 Type 2 diabetes mellitus without complications; Z79.84 Long term (current) use of oral hypoglycemic drugs; Z98.84 Bariatric surgery status
CPT/HCPCS: 36415; 36430; 80048; 80076; 83690; 86850; 86900; 86901; 86920; 96374; 96375; 99285; 74174; 83605; 85014; 85018; 85025; 85610; 85730; J2270; J2405; J3490; P9016

== ENCOUNTER 2024-04-14 11:54 | Emergency (ER) | payer SELFPAY ==
[2024-04-14 12:08] VITALS: BP 134/91; PULSE 82; RESP 18; O2SAT 100
--- NOTE | 2024-04-14 12:13 | W.ED.GENAD ---
Discharge Plan Disposition Patient Disposition: Home Condition: Good Discharge Details Clinical Impression: Right ankle sprain Primary Care Provider: Mona Honeycutt ED Provider: Jelly Blair Home Meds and New Rx's Prescriptions: Continued Vitron-C 65 mg iron- 125 mg tablet,delayed release (DR/EC) 1 tab PO DAILY (DME) Wrist Brace Misc See Rx Instructions .Route Qty: 1 0RF Rx Instructions: As directed albuterol sulfate 90 mcg/actuation HFA aerosol inhaler 1 - 2 puff IH Q4H PRN (Reason: shortness of breath or wheezing) Qty: 8.5 0RF Rx Instructions: Dispense brand of albuterol inhaler covered by patient's insurance metformin 500 mg tablet 1,000 mg PO BID Qty: 120 0RF loratadine 10 mg tablet 10 mg PO DAILY Qty: 90 3RF (DME) OneTouch Ultra Test Strip See Rx Instructions .ROUTE .MEDSUPPLY Qty: 100 3RF Rx Instructions: test once daily. (DME) blood-glucose meter [Accu-Chek Emely Plus Meter] 1 EACH misc 1 ea Miscellaneous BID Qty: 1 Rx Instructions: to check blood glucose, E11.69 to maintain HGB A1C less than 7 (DME) lancets Misc See Dose Instructions .ROUTE .MEDSUPPLY Qty: 100 3RF Dose Instruction: As directed to check daily morning fasting blood glucose Rx Instructions: As directed to check daily morning fasting blood glucose. No insulin. cyanocobalamin (vitamin B-12) [Vitamin B-12] 500 mcg tablet 500 mcg PO DAILY Rx Instructions: note dated 08/19/20 [facility] multivitamin with iron-mineral Tablet 2 tab PO DAILY Rx Instructions: note dated 08/11/21 [facility] calcium [id number] vit D 400 U tablet 2 tab PO DAILY Rx Instructions: note dated 08/11/21 [facility] ascorbic acid (vitamin C) 125 mg tablet,chewable 125 mg PO DAILY Qty: 90 3RF Discharge Instructions Instructions: Ankle Sprain ED Additional Instructions: Your x-ray is reassuring, no sign of fracture at this time. You have a sprain of the ankle. I recommend that you use the lace up ankle stabilizer until pain has resolved. Do gentle mobilization exercises to help increase strength. Ice for 15-20 minutes at a time every hour to two, elevate above heart level, and use Tylenol 650 mg every 6 hours as needed for discomfort Follow-up with your primary care provider if this is not feeling significantly better in the next 3 to 4 weeks, physical therapy may be helpful Referrals: [facility] [Provider Group] HPI General Date/Time Provider Initiated Documentation: 04/14/24 12:03. HPI Narrative: Helene is a 38-year-old female who presents to the emergency department today for evaluation of right ankle pain. She reports that last night she was walking alongside the road when she tripped over something and twisted her ankle. She thinks that she may have felt a snap or a pop at that time. She reports some mild tingling to her toes. She has been able to weight-bear on it, but says that has been very painful to the lateral aspect of ankle. She denies other injuries. She has not taken any medications for today. She did sprain it last year, no history of fracture. Physical exam remarkable for tenderness to palpation of lateral malleolus and decreased flexion due to discomfort. Sensation is intact to distal foot. Pulses intact. Brisk cap refill. No obvious deformity, ecchymosis, or skin tears/lesions. No tenderness to palpation of addison or knee. DDx includes but is not limited to: Fracture, sprain, other soft tissue injury. No red flags concerning for neurovascular compromise. On the emergency department Helene received Tylenol. I independently interpreted the following test: Right ankle x-ray; no obvious fracture or dislocation noted. This was confirmed by radiology Workup today reassuring, likely sprain. Recommend use of ankle stabilizer, ice, elevation. Follow-up as needed with PCP; may benefit from PT. Related Data Home Medications ?Medication ?Instructions ?Recorded ?Confirmed blood-glucose meter (Accu-Chek #1 ea 11/04/17 04/14/24 Emely Plus Meter) lancets #100 ea 12/22/18 04/14/24 iron,carbonyl 65 mg-vitamin C 125 1 tab PO DAILY 08/16/20 04/14/24 mg tablet,delayed release (Vitron-C) cyanocobalamin (vitamin B-12) 500 500 mcg PO DAILY 08/20/20 04/14/24 mcg tablet (Vitamin B-12) calcium [id number] vit D 400 U 2 tab PO DAILY 08/11/21 04/14/24 multivitamin with iron-mineral 2 tab PO DAILY 08/11/21 04/14/24 albuterol sulfate 90 mcg/actuation 1 - 2 puff inhalation Q4H PRN 10/16/22 04/14/24 aerosol inhaler shortness of breath or wheezing #8.5 grams arm brace (Wrist Brace) #1 ea 10/16/22 04/14/24 metformin 500 mg tablet 1,000 mg (2 x 500 mg) PO BID #120 10/16/22 04/14/24 tabs ascorbic acid (vitamin C) 125 mg 125 mg PO DAILY vitamin C 01/21/23 04/14/24 chewable tablet deficiency #90 tabs blood sugar diagnostic (OneTouch #100 ea 04/13/23 04/14/24 Ultra Test strips) loratadine 10 mg tablet 10 mg PO DAILY #90 tab-caps 04/13/23 04/14/24 Previous Rx's ?Medication ?Instructions ?Recorded lancets #100 ea 12/22/18 albuterol sulfate 90 mcg/actuation 1 - 2 puff inhalation Q4H PRN 10/16/22 aerosol inhaler shortness of breath or wheezing #8.5 grams arm brace (Wrist Brace) #1 ea 10/16/22 metformin 500 mg tablet 1,000 mg (2 x 500 mg) PO BID #120 10/16/22 tabs ascorbic acid (vitamin C) 125 mg 125 mg PO DAILY vitamin C 01/21/23 chewable tablet deficiency #90 tabs blood sugar diagnostic (OneTouch #100 ea 04/13/23 Ultra Test strips) loratadine 10 mg tablet 10 mg PO DAILY #90 tab-caps 04/13/23 Allergies Allergy/AdvReac Type Severity Reaction Status Date / Time niacin (From Niaspan Allergy Unknown Severe Verified 04/14/24 12:13 Extended-Release) Skin Rash ibuprofen AdvReac Intermediate Upset Verified 04/14/24 12:13 stomach lisinopril AdvReac Intermediate Cough Verified 04/14/24 12:13 General Stated Complaint: Orthopedic MELANIE: 4 Review of Systems Narrative: see HPI Exam Const General: cooperative, healthy appearing, comfortable, no acute distress, well developed and well groomed Nutritional Appearance: average body habitus Orientation: alert and oriented x3 Extrem Right lower extremity: lower leg (No point tenderness) and ankle Details: tenderness Location: of the lateral malleolus and abnormal ROM (Limited due to discomfort); no swelling, no unusual warmth, no abrasions, no lacerations, no ecchymosis, no crepitus and no penetrating wound Course Vital Signs Vital signs: Vital Signs Pulse 82 04/14/24 12:08 Respiratory Rate 18 04/14/24 12:08 Blood Pressure 134/91 H 04/14/24 12:08 Pulse Oximetry 100 04/14/24 12:08 Pulse 82 04/14/24 12:08 Respiratory Rate 18 04/14/24 12:08 Respiratory Effort Normal 04/14/24 12:11 Blood Pressure 134/91 H 04/14/24 12:08 Pulse Oximetry 100 04/14/24 12:08 Pain Level 10 04/14/24 12:08 Medical Decision Making Quality:SDOH Health Related Social Needs: No Data to Display PFSH All Active Problems (Updated 04/14/24 @ 12:17 by Jelly Ashby) Pannus, abdominal (Acute) Right ankle sprain (Acute) Vitamin C deficiency (Acute) History of bariatric surgery (Acute) Hemorrhagic cyst of right ovary (Acute) Left wrist sprain (Acute) Ovarian cyst (Acute) Right; 05/2021 US: stable; repeat 6 months & if still stable at that point, surveillance is completed Thoracic outlet syndrome (Acute) Obesity (Chronic) Knowledge deficit about therapeutic diet (Acute) History of abnormal cervical Pap smear (Acute) Tendinitis of long head of biceps brachii of left shoulder (Acute ~09/2018) s/p biceps tenotomy 05/12/2019 Instability of left shoulder joint (Acute ~09/2018) Bursitis of left shoulder (Acute ~09/2018) Impingement syndrome of left shoulder (Acute ~09/2018) Anxiety and depression (Chronic) Type 2 diabetes mellitus (Chronic) Dx ~21 y/o Irritable bowel syndrome with diarrhea (Chronic) 02/28/2018 colonoscopy with random biopsies: normal (metformin contributing to sx?); 03/07/2018: neg Celiac serology Severe obstructive sleep apnea (Chronic 04/27/17) C-Pap Learning disability (Chronic) On disability Gastroesophageal reflux disease without esophagitis (Chronic 09/04/16) Fatty liver (Chronic 09/08/16) 10/2022 labs: FIB4 score = 0.48 (cirrhosis less likely) Essential hypertension (Chronic 09/04/16) Dyslipidemia (Chronic 09/04/16) Unspecified chronic bronchitis (Chronic 09/04/16) Medical History Insomnia Left rotator cuff tear (~09/2018) LGSIL on Pap smear of cervix (09/04/16) LSIL 2014, neg colpo. LSIL 11/2015, 07/2016; no HR HPV available. 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 Daniel Left Knee Surgery (10/05/06) Right Knee Surgery (03/07/08) Family History Mother Diabetes Type II Essential hypertension Mental disorder Bipolar d/o COPD (chronic obstructive pulmonary disease) Maternal Grandmother Diabetes Neoplasm Breast Brother No problems noted. Brother No problems noted. Maternal Uncle Mental disorder Bipolar d/o Social History Smoking/Tobacco Use Status: Never Smoking risk assessment performed?: Yes Alcohol Intake: never Drug use: Never Substance use type: does not use Counseling given: No Adopted: No Caregiver/Support person: No Foster care: No Household members: significant other Housing: apartment Number of Children: 0 Communication Needs: Corrective Lenses current occupation: [employer] Pets and animals: Yes Pets and animals: cat(s) and other Details: rabbits Sexually active: Yes Current gender identity: female What type of physical activity do you participate in: walking Duration: 60-90 minutes/day Frequency: daily Seatbelt use: always Helmet use: No (n/a) Drive intox or ride w/intox truck driver: No Do you feel safe at home: Yes Do you feel safe in your relationship?: Yes
--- OUTSIDE RECORDS SUMMARY | 2024-04-14 12:25 | XMS_ITS | Encounter Summary ---
Author Organization [facility] [place] [address] Care Team Providers Care Wastewater Project Manager Name Role Phone None Primary Care Provider Unavailabl e Encounter Details Date Type Department Care Team (Late st Contact Info) Description 09/20/2023 5:25 PM EDT Ancillary Procedure Radiology Library at [facility] [place] [id number] Social History Tobacco Use Types Packs/Day Years Used Date Smoking Tobacco: Never Smokeless Tobacco: Never Alcohol Use Standard Drinks/Week Comments Not Currently 0 (1 standard drink = 0.6 oz pur e alcohol) [facility] Inpatient Questions Answer Date Recorded Does Anyone Try to Keep You From Having Contact with Others or Doing Things Outside Your Home? no 09/02/2023 Feels Threatened by Someone no 08/06 Feels Unsafe at Home or Work/School no 09/02/2023 Physical Signs of Abuse Present no 09/02/2023 Sex and Gender Information Value Date Recorded Sex Assigned at Not on file Gender Identity Not on file Sexual Orientation Not on file documented as of this encounter Plan of Treatment Not on file documented as of this encounter Procedures Procedure Name Priority Date/Time Associated Diagnosis Comments REQUEST FOR 2ND READ CT ABDOMEN AND PELVIS STAT 09/20/2023 5:23 PM EDT documented in this encounter Results * Request For 2nd Read CT Abdomen & Pelvis (09/20/2023 5:23 PM EDT) Anatomical Region Laterality Modality Abdomen, Pelvis SO Impressions 09/20/2023 8:27 PM EDT 1. ??Multiple collections in the anterior abdominal wall may reflect postoperative seromas versus hematomas either sterile or infected. No contrast extravasation/active hemorrhage. 2. ??No acute intra-abdominal process. Preliminary report signed by: Rajeev Cruz MD at 09/20/2023 8:12 PM I have personally reviewed the image(s) and the resident's interpretation and agree with the findings, Dann Bach MD at 09/20/2023 8:27 PM Thank you for letting us participate in the care of this patient. ??If you are a health care provider and have any questions regarding this report, please contact the number below. ??For patients who have questions please contact the health transitional care liaison that requested your imaging first. ? Narrative 09/20/2023 8:27 PM EDT EXAMINATION: REQUEST FOR 2ND READ CT ABDOMEN AND PELVIS CLINICAL HISTORY: ? Post op hematoma/seroma; Sending Institution [facility]; Date of exam [id number]; I believe a reinterpretation of this exam may alter care of Patient. Yes TECHNIQUE: CTA of abdomen and pelvis 09/20/[address] [facility] was submitted for interpretation the same date. The outside imaging interpretation is available for review at time of this second interpretation. COMPARISON: None FINDINGS: VASCULAR FINDINGS Abdominal aorta: No aneurysm or stenosis. Celiac: Widely patent. SMA: Widely patent. Right renal artery: Widely patent. Left renal artery: Widely patent. FREDDIE: Widely patent. Right: Common iliac artery: Widely patent. External iliac artery: Widely patent. Internal iliac artery: Widely patent. Common femoral artery: Widely patent. Superficial femoral artery: The visualized aspects are widely patent. Profundus femoral artery: The visualized aspects are widely patent. Left: Common iliac artery: Widely patent. External iliac artery: Widely patent. Internal iliac artery: Widely patent. Common femoral artery: Widely patent. Superficial femoral artery: The visualized aspects are widely patent. Profundus femoral artery: The visualized aspects are widely patent. NON-VASCULAR FINDINGS Lower chest: No significant findings. Liver: Normal size. No focal lesion. Bile ducts: Nondilated. Gallbladder: No calcified gallstones. Pancreas: Normal attenuation without ductal dilatation. Spleen: Normal size. Kidneys/adrenals: No hydronephrosis, nephrolithiasis or focal lesion. Urinary Bladder: No abnormal wall contour. Lymph Nodes: No lymphadenopathy. Bowel: Status post Zandra-en-Y gastric bypass. No dilatation of the efferent or afferent limbs. No bowel dilatation or wall thickening. Mild stool burden in the colon. Normal appendix. Peritoneum and mesentery: No ascites, free air, or loculated fluid collection. No mesenteric inflammation. Reproductive structures: Normal contour of the uterus. 4.7 cm probable functional cyst in the right ovary. Normal left ovary containing small follicles. Abdominal wall: Multiple near fluid attenuating collections in the abdominal wall, the largest of which is just left of midline and measures 3.6 x 4 x 8.5 cm. Another fluid collection in the adjacent left ventral abdomen measures at least 9 x 2.4 x 5.5 cm on axial image 63 coronal image 29. Small right-sided collection measuring 5.1 x 2 x 2.3 cm on axial image 58 coronal image 25. Additional smaller pockets of fluid more laterally in the subcutaneous fat of the abdominal wall. Accompanying subcutaneous edema in the ventral abdominal wall, left flank and left gluteal region. Osseous structures: No suspicious osseous lesion. Procedure Note Dann Bach MD - 09/20/2023 EXAMINATION: REQUEST FOR 2ND READ CT ABDOMEN AND PELVIS CLINICAL HISTORY: ? Post op hematoma/seroma; Sending Institution [facility];Date of exam [id number]; I believe a reinterpretation of this exam may alter careof Patient. Yes TECHNIQUE: CTA of abdomen and pelvis 09/20/2023 obtained at [facility] was submitted for interpretation the same date. The outsideimaging interpretation is available for review at time of this secondinterpretation. COMPARISON: None FINDINGS: VASCULAR FINDINGS Abdominal aorta: No aneurysm or stenosis. Celiac: Widely patent. SMA: Widely patent. Right renal artery: Widely patent. Left renal artery: Widely patent. FREDDIE: Widely patent. Right: Common iliac artery: Widely patent. External iliac artery: Widely patent. Internal iliac artery: Widely patent. Common femoral artery: Widely patent. Superficial femoral artery: The visualized aspects are widely patent. Profundus femoral artery: The visualized aspects are widely patent. Left: Common iliac artery: Widely patent. External iliac artery: Widely patent. Internal iliac artery: Widely patent. Common femoral artery: Widely patent. Superficial femoral artery: The visualized aspects are widely patent. Profundus femoral artery: The visualized aspects are widely patent. NON-VASCULAR FINDINGS Lower chest: No significant findings. Liver: Normal size. No focal lesion. Bile ducts: Nondilated. Gallbladder: No calcified gallstones. Pancreas: Normal attenuation without ductal dilatation. Spleen: Normal size. Kidneys/adrenals: No hydronephrosis, nephrolithiasis or focal lesion. Urinary Bladder: No abnormal wall contour. Lymph Nodes: No lymphadenopathy. Bowel: Status post Zandra-en-Y gastric bypass. No dilatation of the efferentor afferent limbs. No bowel dilatation or wall thickening. Mild stool burdenin the colon. Normal appendix. Peritoneum and mesentery: No ascites, free air, or loculated fluidcollection. No mesenteric inflammation. Reproductive structures: Normal contour of the uterus. 4.7 cm probable functional cyst in the right ovary. Normal left ovary containing small follicles. Abdominal wall: Multiple near fluid attenuating collections in theabdominal wall, the largest of which is just left of midline and measures 3.6 x 4 x 8.5cm. Another fluid collection in the adjacent left ventral abdomen measures atleast 9 x 2.4 x 5.5 cm on axial image 63 coronal image 29. Small right-sided collection measuring 5.1 x 2 x 2.3 cm on axial image 58 coronal image25. Additional smaller pockets of fluid more laterally in the subcutaneous fatof the abdominal wall. Accompanying subcutaneous edema in the ventralabdominal wall, left flank and left gluteal region. Osseous structures: No suspicious osseous lesion. IMPRESSION 1. Multiple collections in the anterior abdominal wall may reflect postoperative seromas versus hematomas either sterile or infected. Nocontrast extravasation/active hemorrhage. 2. No acute intra-abdominal process. Preliminary report signed by: Rajeev Cruz MD at 09/20/2023 8:12 PM I have personally reviewed the image(s) and the resident's interpretationand agree with the findings, Dann Bach MD at 09/20/2023 8:27 PM Thank you for letting us participate in the care of this patient. If youare a health care provider and have any questions regarding this report,please contact the number below. For patients who have questions please contactthe health transitional care liaison that requested your imaging first. Sarita Avelar APRN IMG OUTSIDE INTER PRETATION ORDERABLES documented in this encounter Visit Diagnoses Not on filedocumented in this encounter Care Teams Wastewater Project Manager Relationship Specialty Start Date End Date None None PCP - General 08/30/23 documented as of this encounter
--- OUTSIDE RECORDS SUMMARY | 2024-04-14 12:25 | XMS_ITS | Encounter Summary ---
Author Organization [facility] [place] [address] Care Team Providers Care Binder Cutter Hand Name Role Phone None Primary Care Provider Unavailabl e Reason for Visit * Reason Comments Follow Up Surgery Encounter Details Date Type Department Care Team (Late st Contact Info) Description 09/22/2023 11:40 AM EDT Office [place] [address] Laura Valle APRN [facility] [place] [address] Surgery follow-up Social History Tobacco Use Types Packs/Day Years Used Date Smoking Tobacco: Never Smokeless Tobacco: Never Alcohol Use Standard Drinks/Week Comments Not Currently 0 (1 standard drink = 0.6 oz pur e alcohol) [facility] Inpatient Questions Answer Date Recorded Does Anyone [...] on file documented as of this encounter Patient Instructions * Patient Instructions* Laura Valle APRN - 09/22/2023 11:40 AM EDT Follow up: 1 week. To IR today, drain placement if further collection visualized. Daily dressing changes with Nugauze wick and cover dressing. documented in this encounter Progress Notes * Laura Valle APRN - 09/22/2023 11:40 AM EDT Plastic Surgery Follow Up Note Provider: Laura Valle APRN Reason for visit: F/U status post procedure; wound check Date of surgery: 09/02/23 Procedure(s): panniculectomy (Foote) Complications: seroma HPI: Pt reports doing well other than her left side. She had an episode of bleeding and was seen atan outside hospital and then transferred here. Two collections seen on CT scan. IR drain set up forlater today. Examination: Patient is alert, conversant, comfortable, ambulating Incision: intact with exception of left most lateral aspect. Probed and approximately 20 ml of serosanguinous fluid drained. Irrigated with 30 ml of saline. No surrounding erythema. No purulence. Impression: Helene Carpenter is a 38 y.o. female who was seen today for follow-up after the above procedure. Please see the operative note for details. Post op seromas seen on CT scan. Lateral one drained in clinic today. To IR for evaluation, possible drain placement. Plan: Follow up: 1 week. To IR today, drain placement if further collection visualized. Daily dressing changes with Nugauze wick and cover dressing. Patient examined by Dr. Foote. He agrees with this plan. documented in this encounter Plan of Treatment Not on file documented as of this encounter Visit Diagnoses Diagnosis Surgery follow-up Follow-up examination, following unspecified surgery documented in this encounter Care Teams Binder Cutter Hand Relationship Specialty Start Date End Date None None PCP - General 08/30/23 documented as of this encounter
--- OUTSIDE RECORDS SUMMARY | 2024-04-14 12:25 | XMS_ITS | Encounter Summary ---
Author Organization [facility] [place] [address] Care Team Providers Care Steel Grinder Name Role Phone None Primary Care Provider Noelabl e Encounter Details Date Type Department Care Team (Latest Contact Info) Description 09/23/2023 Travel Social History Tobacco Use Types Packs/Day Years Used Date Smoking Tobacco: Never Smokeless Tobacco: Never Alcohol Use Standard Drinks/Week Comments Not Currently 0 (1 standard drink = 0.6 oz pur e alcohol) [facility] Inpatient Questions Answer Date Recorded Does Anyone [...] documented as of this encounter Visit Diagnoses Not on filedocumented in this encounter Care Teams Steel Grinder Relationship Specialty Start Date End Date None None PCP - General 08/30/23 documented as of this encounter
--- OUTSIDE RECORDS SUMMARY | 2024-04-14 12:25 | XMS_ITS | Encounter Summary ---
Author Organization [facility] [place] [address] Care Team Providers Care Upper Leather Sorter Name Role Phone None Primary Care Provider Noelabl e Encounter Details Date Type Department Care Team (Latest Contact Info) Description 09/30/2023 Travel Social History Tobacco Use Types Packs/Day [...] on filedocumented in this encounter Care Teams Upper Leather Sorter Relationship Specialty Start Date End Date None None PCP - General 08/30/23 documented as of this encounter
--- OUTSIDE RECORDS SUMMARY | 2024-04-14 12:25 | XMS_ITS | Encounter Summary ---
Author Organization [facility] [place] [address] Care Team Providers Care Branch Office Manager Name Role Phone None Primary Care Provider Noelabl e Encounter Details Date Type Department Care Team (Latest Contact Info) Description 09/20/2023 Travel Social History Tobacco Use Types Packs/Day [...] on filedocumented in this encounter Care Teams Branch Office Manager Relationship Specialty Start Date End Date None None PCP - General 08/30/23 documented as of this encounter
--- OUTSIDE RECORDS SUMMARY | 2024-04-14 12:25 | XMS_ITS | Encounter Summary ---
Author Organization [facility] [place] [address] Care Team Providers Care Menswear Salesperson Name Role Phone None Primary Care Provider Noelabl e Encounter Details Date Type Department Care Team (Latest Contact Info) Description 09/10/2023 Travel Social History Tobacco Use Types Packs/Day [...] on filedocumented in this encounter Care Teams Menswear Salesperson Relationship Specialty Start Date End Date None None PCP - General 08/30/23 documented as of this encounter
--- OUTSIDE RECORDS SUMMARY | 2024-04-14 12:25 | XMS_ITS | Encounter Summary ---
Author Organization [facility] [place] [address] Care Team Providers Care Wax Machine Operator Name Role Phone None Primary Care Provider Unavailabl e Encounter Details Date Type Department Care Team (Late st Contact Info) Description 09/23/2023 [place] [address] Huber Boo MD [facility] [place] [address] Social History Tobacco Use Types Packs/Day Years Used Date Smoking Tobacco: Never Smokeless Tobacco: Never Alcohol Use Standard Drinks/Week Comments Not Currently 0 (1 standard drink = 0.6 oz pur e alcohol) [facility] Inpatient Questions Answer Date Recorded Does [...] on filedocumented in this encounter Care Teams Wax Machine Operator Relationship Specialty Start Date End Date None None PCP - General 08/30/23 documented as of this encounter
--- OUTSIDE RECORDS SUMMARY | 2024-04-14 12:25 | XMS_ITS | Encounter Summary ---
Author Organization [facility] [place] [address] Care Team Providers Care Hot Kettle Tender Name Role Phone None Primary Care Provider Drew e Encounter Details Date Type Department Care Team (Latest Contact Info) Description 10/14/2023 9:20 AM EDT TH Visit (TeleHealth) Plastic Surgery at [facility] [place] [address] Carline Moreno APRN Encounter for postoperative wound check Social History Tobacco Use Types Packs/Day Years Used Date Smoking Tobacco: Never Smokeless Tobacco: Never Alcohol Use Standard Drinks/Week Comments Not Currently 0 (1 standard drink = 0.6 oz pur e alcohol) [facility] Inpatient Questions Answer Date Recorded Does Anyone [...] on file documented as of this encounter Progress Notes * Carline Moreno APRN - 10/14/2023 9:20 AM EDT Plastic Surgery Follow Up Note Provider: Carline Moreno APRN. Reason for visit: wound check Date of surgery: 09/02/23 Procedure(s): Panniculectomy (Foote) Complications: seroma HPI: Patient returns to clinic for follow up. She has no open area and is feeling well. Examination: limited by telehealth Patient is alert, conversant, comfortable, ambulating Impression: Helene Carpenter is a 38 y.o. female who was seen today for follow up. She is healing wells/p the above procedure. 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 A work note was written today. Plan: Follow up 3-6 months post-op 2. Return to work note to [email or web address] Carline Moreno APRN documented in this encounter Plan of Treatment Not on file documented as of this encounter Visit Diagnoses Diagnosis Encounter for postoperative wound check Other specified aftercare following surgery documented in this encounter Care Teams Hot Kettle Tender Relationship Specialty Start Date End Date None None PCP - General 08/30/23 documented as of this encounter
--- OUTSIDE RECORDS SUMMARY | 2024-04-14 12:25 | XMS_ITS | Encounter Summary ---
Author Organization [facility] [place] [address] Care Team Providers Care Forensic Manager Name Role Phone None Primary Care Provider Noelabl e Encounter Details Date Type Department Care Team (Latest Contact Info) Description 09/21/2023 Travel Social History Tobacco Use Types Packs/Day [...] on filedocumented in this encounter Care Teams Forensic Manager Relationship Specialty Start Date End Date None None PCP - General 08/30/23 documented as of this encounter
--- OUTSIDE RECORDS SUMMARY | 2024-04-14 12:25 | XMS_ITS | Encounter Summary ---
Author Organization [facility] Address [facility] [place] [address] Care Team Providers Care Hair Cutter Name Role Phone None Primary Care Provider Unavailabl e Encounter Details Date Type Department Care Team (Late st Contact Info) Description 09/20/2023 Orders Only Plastic Surgery at [facility] [place] [address] Austin Anderson MD [facility] [place] [address] S/P panniculectomy Social History Tobacco Use Types Packs/Day Years Used Date Smoking Tobacco: Never Smokeless Tobacco: Never Alcohol Use Standard Drinks/Week Comments Not Currently 0 (1 standard drink = 0.6 oz pur e alcohol) [facility] Inpatient Questions Answer Date Recorded Does [...] as of this encounter Plan of Treatment Scheduled Orders Name Type Priority Associated Diagnoses Orde r Schedule Body Fluid Culture, Aerobic & Anaerobic Abdominal Fluid Microbiology Routine S/P panniculectomy Expected: 09/22/2023, Expires: 03/23/2024 documented as of this encounter Visit Diagnoses Diagnosis S/P panniculectomy documented in this encounter Care Teams Hair Cutter Relationship Specialty Start Date End Date None None PCP - General 08/30/23 documented as of this encounter
--- OUTSIDE RECORDS SUMMARY | 2024-04-14 12:25 | XMS_ITS | Encounter Summary ---
Author Organization [facility] [place] [address] Care Team Providers Care Strategy Analyst Name Role Phone None Primary Care Provider Unavailabl e Reason for Referral * Diagnostic Test (Routine) - Authorized Specialty Diagnoses / Procedures Referred By Alex t Referred To Contact Radiology Diagnoses S/P panniculectomy Procedures IR Drain Check/Change/Remove Emilio Msua MD [facility] [place] [address] [place] [address] Referral ID Status Reason Start Date Expiration Date Visits Requested Visits Authorized [id number] Authorized Specialty Service Requested 09/22/2023 03/23/2025 1 1 * Diagnostic Test (STAT) - Closed Specialty Diagnoses / Procedures [facility] Referred To Contact Radiology Diagnoses S/P panniculectomy Procedures IR All Drainage Procedures Austin Anderson MD [facility] [place] [address] [place] [address] Referral ID Status Reason Start Date Expiration Date V isits Requested Visits Authorized [id number] Closed Specialty Service Requested 09/20/2023 03/21/2025 1 1 Reason for Visit * Diagnostic Test (STAT) - Closed Specialty Diagnoses / Procedures Referred By Contac t Referred To Contact Radiology Diagnoses S/P panniculectomy Procedures IR All Drainage Procedures Austin Anderson MD [facility] [place] [address] [facility] [place] [address] Referral ID Status Reason Start Date Expiration Date V isits Requested Visits Authorized [id number] Closed Specialty Service Requested 09/20/2023 03/21/2025 1 1 Encounter Details Date Type Department Care Team (Latest Contact Info) Description 09/22/2023 12:03 PM EDT - 09/22/2023 11:59 PM EDT Hospital [place] [address] Huber Foote MD [facility] [place] [address] S/P panniculectomy Discharge Disposition: Home Social History Tobacco Use Types Packs/Day Years Used Date Smoking Tobacco: Never Smokeless Tobacco: Never Alcohol Use Standard Drinks/Week Comments Not Currently 0 (1 standard drink = 0.6 oz pur e alcohol) [facility] Inpatient Questions Answer Date Recorded Does Anyone [...] on file documented as of this encounter Last Filed Vital Signs Vital Sign Reading Time Taken Comments Blood Pressure 124/92 09/22/2023 2:30 PM EDT Pulse 82 09/22/2023 2:10 PM EDT Temperature 36.7 ??C (98 ??F) 09/22/2023 2:15 PM EDT Respiratory Rate 18 09/22/2023 2:15 PM EDT Oxygen Saturation 100% 09/22/2023 2:30 PM EDT Inhaled Oxygen Concentration - - Weight - - Height - - Body Mass Index - - documented in this encounter Discharge Instructions * Discharge Instructions* Tarun Gonsalez RN - 09/22/2023 1:49 PM EDT INTERVENTIONAL RADIOLOGY DRAIN CARE INSTRUCTIONS Drains help to keep fluid from collecting by removing the extra blood and fluid from under the skinor from an abscess within the body. A drain is temporary. It stays in place until the drainage has slowed down or stopped. Your Provider will decide when each drain should be removed. This is usuallyafter each drain has 30cc or less in 24 hours for 2-3 days in a row. You will then be scheduled for what is called a Sinogram to check and see if the fluid collection has gotten smaller. How do I care for the drains at home? Pin your drain/s to your clothing by using a safety pin through the plastic loop on the top of the bulb. If the drain is not attached to your clothing, it may pull out from under your skin. Also, a drain usually feels more comfortable when it???s attached. To care for the drain at home, you will have to empty the drain, ???strip?? the drain tubing, and change the dressing if applicable. * See the following information on instructions on how to do this. You will go home with a dressing over the insertion site. Usually, Visiting Nurses are set up to show you how to change the dressing and care for the drain. They may teach a family member if they arewilling. The dressing needs to only be change once a week provided there is no leakage around the tube. What problems may I have with my drain? The bulb is not compressed- The bulb may not be squeezed tightly enough, the plug may not be closedsecurely, or the tube has slipped out a bit and is leaking. Follow the instructions on how to emptythe drain. If the bulb remains expanded, then notify your doctor or nurse during business hours. No drainage or sudden decrease in amount of drainage- This may be due to a plug in the drain. Please notify your doctor or nurse during business hours. The tube accidentally falls out- If this happens, place a dry gauze dressing over the drain site and notify your doctor or nurse during business hours. Increased redness, swelling, or heat around the tube insertion site- This may be a sign of infection. Take your temperature: if it is higher than 101F or 38.8C, call your doctor or nurse immediately.Otherwise, notify your doctor or nurse during business hours and keep the dressing clean and dry. How to Empty Your Drain and flush drain Note: Wash your hands thoroughly before emptying your drain(s). Unpin the drain from your clothing. 1. Turn the white stopcock so it is not parallel (in line) with the tubing. 2. Unscrew the tubing with the bulb attached from stopcock. Make sure you keep everything clean. 3. Attach the syringe with sterile saline to the stopcock. 4. Inject saline per MD order, 3-5 cc's. Forward flush only, do not aspirate back. 5. Re-attach the tubing with the bulb to the stopcock. 6. Invert the bulb and pull open the plug. 7. Have the plastic measuring cup from the hospital ready to collect and measure the drainage. Please measure the output at the same time every 24 hours and record the amount. 8. Turn the drain upside down and squeeze the contents of the bulb into the measuring cup. Be sure to empty the bulb as completely as possible. Flush the contents in the toilet. 9. Use the drain output log chart to record the amount of drainage twice a day or any time the bulbis full. Record the total for 24 hours for each drain you have. 10. If you have more than one drain, remember to record the drainage from each drain separately. 11. To prevent infection, do not let the stopper or top of the bottle touch the measuring cup or any other surface. Use one hand to squeeze all of the air from the drain. With the drain still squeezed, use your other hand to replace the top. This creates the suction necessary to remove the fluids from your body. Pin the drain back on your clothing to avoid pulling it out accidently. Wash your hands again. Remember to wash your hands before and after the procedure to reduce the risk of infection. Flushing the Drain: Your doctor may want the drain to be flushed once or twice daily to keep the fluid from plugging the drain. Flush the drain with 3-5 cc daily with the syringes supplied to you. FORWARD FLUSH ONLY, DO NOT ASPIRATE BACK. When to call the Interventional Radiology Department: Please call with any questions or concerns. If it is during regular office hours, please call [phone]. If it is after regular office hours, or on weekends or holidays, please call [phone] and ask to speak to the Gleason Operator transactional paralegal for Interventional Radiology. XX You have received medication during your procedure to help lessen anxiety and keep you comfortable. These medications affect judgement and reaction time. We recommend that you do not drive, operate equipment, sign any important documents, or smoke unattended for 24 hours following your procedure. Because of the sedation, be careful on stairs, as you may be unsteady on your feet. You may resume your regular diet as tolerated. IV site -- slight redness, or tenderness is normal, you can use a warm compress. If tenderness and redness increases or foul drainage occurs, please contact your M. D. Revised 03/23/19 Drainage Record NAME: Date of Surgery: Date: Time: If more than one drain, which one: Drainage Amount (per drain) Total Amount (per drain; in 24 hours) documented in this encounter Medications at Time of Discharge Medication Sig Dispensed Refills Start Date End Date calcium citrate/vitamin D3 (CALCIUM CITRATE + D ORAL) 2 tablets. 08/11/2021 multivit with iron,minerals (MULTIVITAMIN WITH IRON-MINERAL ORAL) 2 tablets. 08/11/2021 albuteroL 90 mcg/actuation HFA Aerosol Inhaler Q4H 08/16/2019 triamcinolone (Kenalog) 0.1 % Cream 2-4 times daily PRN 02/10/2019 nystatin (Mycostatin) CreamIndications:Inter marcel Apply topically 2 times daily. 30 g 1 06/28/2023 nystatin (Mycostatin) CreamIndications:Inter marcel Apply topically 2 times daily. 30 g 1 02/13/2022 Calcium Citrate-Vitamin D3 250 mg-5 mcg (200 unit) Tablet Take 2 tablets by mouth. cyanocobalamin, vitamin B-12, 500 mcg Tablet Take 500 mcg by mouth daily. acetaminophen (Tylenol) 650 mg/20.3 mL Solution Take 20.3 mLs by mouth every 4 hours as needed. 08/01/2020 loratadine (Claritin) 10 mg Tablet Take 10 mg by mouth daily. 06/01/2020 metFORMIN (GLUCOPHAGE) 1,000 mg Tablet Take 1,000 mg by mouth 2 times daily. 06/05/2020 ergocalciferoL, vitamin D2, (vitamin D) 50,000 unit capsuleIndications:Vit mix D deficiency Take 1 capsule by mouth once a week for 12 doses. 4 capsule 2 09/07/2023 11/24/2023 HYDROcodone-acetaminop hen (Montclair) 5-325 mg tablet Take 1 tablet by mouth every 6 hours as needed for Pain. 8 tablet 09/02/2023 09/30/2023 documented as of this encounter Progress Notes * Tarun Gonsalez RN - 09/22/2023 2:20 PM EDT ANGIO NURSING DATABASE Name: Helene Carpenter Date of : 1985 AGE: 38 y.o. Address: [address] [place] [id number] Phone: [phone] (home) Mobile: Telephone Information: Referring Provider: Austin Anderson REASON FOR VISIT: Order Questions Answers Where will study be performed? [facility] Radiology [120] Is the patient on anticoagulant / antiplatelet therapy ? No Reason for exam and clinical history: panniculectomy c/b anterior fluid collection (likely seroma) Clinical information / roman questions for radiologist: Please leave the IR guided drain in after placing it! Do not remove. We will plan to remove it in plastic surgery clinic. Thanks! Is the patient ? Unknown Planned procedure: Anterior abdominal drainage catheter placement Labs to be performed day of procedure: No labs Sedation: Moderate (Conscious sedation) Prophylactic antibiotic : None Contrast: No contrast Additional medications for procedure: Lidocaine Planned access site: Abdomen Position: Supine Consent: Pending Medications to discontinue (and days held): None Case Urgency:: F- Elective OUT-patient intervention within 3 days Allergies Allergen Reactions Ibuprofen Lisinopril Niacin Hives and Rash Skin turns red and hot Pertinent PMH: Patient Active Problem List Diagnosis Code Morbid obesity E66.01 GAMAL on CPAP G47.33 Diabetes mellitus E11.9 Hypertension I10 Hypercholesterolemia E78.00 Abdominal pannus E65 S/P panniculectomy Z98.890 Unspecified chronic bronchitis J42 Thoracic outlet syndrome G54.0 Tendinitis of long head of biceps brachii of left shoulder M75.22 Muscle contusion T14.8XXA Left wrist sprain S63.502A Learning disability F81.9 Knowledge deficit about therapeutic diet Z78.9 Irritable bowel syndrome with diarrhea K58.0 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 Onto table supine. All appropriate monitors, O2, safety strap in place. Meds per protocol. Laboratory Results: Lab Results Component Value Date CREATININE 0.44 (L) 09/20/2023 Lab Results Component Value Date K 3.5 09/20/2023 Lab Results Component Value Date PLATELET 458 (H) 09/20/2023 documented in this encounter H&P Notes * Rell Hackett PA - 09/22/2023 1:06 PM EDT Interventional Radiology Interval H&P: Procedure: Drainage of anterior abdomen Update to H&P: The patient's history and physical exam have been reviewed and completed. There has been NO interval change from that of the pre-procedural note done within the last 30 days. Thereis NO change in the procedural plan. Meds: Current medications reviewed. No medications held. Labs: No new relevant labs. Physical Exam: General: Awake, alert, oriented Cardiovascular: Regular, Normal Pulmonary: Breath sounds clear to auscultation The planned procedure (and sedation plan if appropriate), its benefits and risks, and alternatives were discussed with the patient. The patient consented to the procedure. The indications for the procedure are still present. Pre-sedation Assessment: Sedation Plan: moderate (conscious sedation) ASA: 3: Patient with severe systemic disease Mallampati: II: tonsillar pillars are blocked by the tongue Confirm NPO status: Yes History of anesthetic complications: No Current medications reviewed: Yes Allergies reviewed: Yes Source Note - LagunaTere PA - 09/20/2023 4:10 PM EDT Images from the original note were not included. Interventional Radiology Focused Pre-procedure H&P: PCP: None Referring Provider: Ryan Haq Planned procedure: Anterior abdominal drainage catheter placement Procedure indication: Panniculectomy, post surgical fluid collection IR workflow: Procedure request received through Interventional Radiology eDH order queue. There are no answered order specific questions. History of Present Illness: Per chart review, Helene Carpenter is a 38 y.o. female with PMH of recent panniculectomy (09/02/23) with CTAP demonstrating anterior abdominal fluid collection who presents toInterventional Radiology to undergo US guided drainage catheter placement. Cultures have been ordered. Presented to an OSH with concern for bleeding after removing her bandages earlier today. Hgb dropped from 12 to 11 while she was at the OSH for which she was given a transfusion. She received a CT A/P which revealed an anterior abdominal wall fluid collection. Reportedly, the OSH radiologist did not note the presence of any active extravasation. The patient has otherwise been hemodynamically stable with HRs in the 90s and SBPs in the 130-140. Patient has largely been asymptomatic but reportedlydoes not do great with the sight of blood so subjectively feels a little dizzy. Recommended that she be transferred to the [facility] ED as soon as possible for further evaluation. ED provider reports that patient is stable at present. Decision was made by ED provider to discharge the patient and schedule drain placement on an outpatient basis. Remainder of patient's medical and surgical history, allergies, medications, and social/family history obtained below as previously outlined in patient's medical record. IR History: None listed Anticoagulation/Antiplatelet: None listed Labs: Lab Results Component Value Date HGB 12.1 09/03/2023 HCT 36.1 09/03/2023 WBC 6.4 09/02/2023 PLATELET 270 09/02/2023 BUN 11 09/02/2023 CREATININE 0.53 (L) 09/02/2023 ALBUMIN 4.2 09/02/2023 BILITOT 0.5 09/02/2023 AST 15 09/02/2023 ALT 15 09/02/2023 ALKPHOS 127 (H) 09/02/2023 Allergies: Ibuprofen, Lisinopril, and Niacin Imaging: CTAP 09/20/23 Assessment: 38 y.o. female with anterior abdominal wall collection presenting to Interventional Radiology for drain placement. Plan or recommendation formulated in discussion with and directed by Interventional Radiology attending physician Dr. Soto. Plan Planned procedure: Anterior abdominal drainage catheter placement Labs to be performed day of procedure: No labs Sedation: Moderate (Conscious sedation) Prophylactic antibiotic : None Contrast: No contrast Additional medications for procedure: Lidocaine Planned access site: Abdomen Position: Supine Consent: Pending Medications to discontinue (and days held): None Cytopathology presence needed: No Case Urgency:: F- Elective OUT-patient intervention within 3 days Medications: No current facility-administered medications on file prior to encounter. Current Outpatient Medications on File Prior to Encounter Medication Sig Dispense Refill ergocalciferoL, vitamin D2, (vitamin D) 50,000 unit capsule Take 1 capsule by mouth once a week for12 doses. 4 capsule 2 HYDROcodone-acetaminophen ([place]) 5-325 mg tablet Take 1 tablet by mouth every 6 hours as needed for Pain. 8 tablet 0 calcium citrate/vitamin D3 (CALCIUM CITRATE + D ORAL) 2 tablets. multivit with iron,minerals (MULTIVITAMIN WITH IRON-MINERAL ORAL) 2 tablets. albuteroL 90 mcg/actuation HFA Aerosol Inhaler Q4H triamcinolone (Kenalog) 0.1 % Cream 2-4 times daily PRN nystatin (Mycostatin) Cream Apply topically 2 times daily. 30 g 1 nystatin (Mycostatin) Cream Apply topically 2 times daily. 30 g 1 Calcium Citrate-Vitamin D3 250 mg-5 mcg (200 unit) Tablet Take 2 tablets by mouth. cyanocobalamin, vitamin B-12, 500 mcg Tablet Take 500 mcg by mouth daily. acetaminophen (Tylenol) 650 mg/20.3 mL Solution Take 20.3 mLs by mouth every 4 hours as needed. loratadine (Claritin) 10 mg Tablet Take 10 mg by mouth daily. metFORMIN (GLUCOPHAGE) 1,000 mg Tablet Take 1,000 mg by mouth 2 times daily. 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 Past Surgical History: Procedure Laterality Date PRO EXCISE EXCESS SKIN TISSUE, ABDOMEN N/A 09/02/2023 PANNICULECTOMY (WRVU 17.11) performed by Huber Foote MD at [facility] MAIN OR PRO LAP GASTRIC BYPASS/PIA-EN-Y N/A 07/30/2020 @LAPAROSCOPIC GASTROPLASTY W/ PIA-EN-Y CONSTRUCTION (WRVU 29.4) performed by Carlos Chavez MD at [facility] MAIN OR PRO UPPER GI ENDOSCOPY, DIAGNOSTIC N/A 07/30/2020 EGD, UPPER GI ENDOSCOPY performed by Carlos Chavez MD at [facility] MAIN OR Social History and Habits: Social History Tobacco Use Smoking status: Never Smokeless tobacco: Never Vaping Use Vaping Use: Never used Substance Use Topics Alcohol use: Not Currently Drug use: Not Currently Significant Family History: No family history on file. Pertinent ROS: as per HPI Physical Exam: Pending (to be performed in IR the day of procedure) ASA: Pending (to be assessed in IR the day of procedure) Mallampati class: Pending (to be assessed in IR the day of procedure) 09/20/2023 Tere Bhandari PA-C documented in this encounter Plan of Treatment Scheduled Orders Name Type Priority Associated Diagnoses Orde r Schedule IR Drain Check/Change/Remove Imaging Routine S/P panniculectomy Expected: 10/06/2023, Expires: 04/06/2024 documented as of this encounter Procedures Procedure Name Priority Date/Time Associated Diagnosis Comments IR ALL DRAINAGE PROCEDURES STAT 09/22/2023 2:23 PM EDT S/P panniculectomy ANAEROBIC CULTURE Routine 09/22/2023 2:0 7 PM EDT HC BODY FLUID CULTURE Routine 09/22/2023 2:07 PM EDT BODY FLUID CULTURE, AEROBIC Routine 09/22/2023 2:07 PM EDT POCT GLUCOSE Routine 09/22/2023 1:16 PM EDT documented in this encounter Results * IR All Drainage Procedures (09/22/2023 2:23 PM EDT) Anatomical Region Laterality Modality X-Ray Angiograph y Narrative 09/22/2023 2:19 PM EDT Preoperative Diagnosis: Post panniculectomy with anterior fluid collections. Postoperative Diagnosis: ?? Same, old hematoma with or without infection. Procedure Performed: Ultrasound and fluoroscopic guided drain placement x 2. Operators: Emilio Musa MD, Attending Estimated Blood Loss: Negligible. Cefazolin/ cefuroxime was not ordered for antimicrobial prophylaxis as it is not indicated or strongly backed by the medical literature. Anesthesia: 1. Conscious sedation with titrated Fentanyl and Versed during continuous hemodynamic monitoring including pulse oximetry, heart rate and blood pressure was provided by an independent qualified trained Nurse. ?? I was present during the intraservice time as documented by the IR Nurse. ?? Please see nursing notes for exact medication dosages. 2. 1% lidocaine, local. The patient was informed of the risks, benefits, and alternatives to the procedure and gave written consent, which was then placed in the chart. Appropriate time-out was performed prior to the procedure. Additional DVT prophylaxis was not provided due to the short nature of the procedure, the lack of general anesthesia, and is not strongly backed by the medical literature for this patient population undergoing this type of minimally invasive image guided procedure. Description of Procedure: ??All elements of maximal sterile barrier technique were met including cap, mask, sterile gown, sterile gloves, large sterile sheet, hand hygiene and 2% chlorhexidine for cutaneous antisepsis. The midline and left lower quadrant abdomen was prepped and draped in the usual sterile fashion. ??Local anesthetic was administered. ??Using US guidance, an 18-gauge needle was advanced into the fluid collection in the mid abdomen below the umbilicus. ??Content appeared to be old dark blood.. ?The remainder of the procedure was performed with fluoroscopic guidance. A stiff wire was then advanced through the needle into the fluid collection. ??The needle was removed over the wire. ??The tract was dilated over the wire and a 10 Egyptian drain was advanced over the wire into the fluid collection. ?? The drain was sutured into place and attached to bulb suction. Using US guidance, an 18-gauge needle was advanced into the fluid collection in the left lateral abdominal wall. ??Content appeared to be cloudy, possibly infected old blood.. ??An aspirate was obtained and sent for gram stain and culture. ??The remainder of the procedure was performed with fluoroscopic guidance. ??A stiff wire was then advanced through the needle into the fluid collection. ??The needle was removed over the wire. ?? The tract was dilated over the wire and a 10 Egyptian drain was advanced over the wire into the fluid collection. ?? The drain was sutured into place and attached to bulb suction. The patient tolerated the procedure well. Impression: Uneventful ultrasound and fluoroscopic guided drain placement x 2 as above. ??The midline largest collection appeared to be old blood. ??The more lateral left sided fluid collection appeared to be cloudy, more purulent mix of infectious material and old blood. ??A sample was sent for Gram stain and culture. I, the attending Interventional Radiologist performed the entire procedure. Huber Foote MD IMG IR ORDERABLES * (ABNORMAL) Anaerobic Culture (09/22/2023 2:07 PM EDT) Anaerobic Culture Few Finegoldia magna(A) [facility] Organism Finegoldia magna(A) [facility] Abdominal Fluid 09/22/2023 2 :07 PM EDT 09/22/2023 2:52 PM EDT Comment:panniculectomy c/b a nterior fluid collection (likely seroma) Narrative Resulting Agency Comment Spec In Lab Emilio Musa MD MICROBIOLOGY - GENER AL ORDERABLES Performing Organization Address City/[facility]/ZIP Co de Phone Number [facility] [place] [address] * (ABNORMAL) Body Fluid Culture, Aerobic (09/22/2023 2:07 PM EDT) Body Fluid Culture No aerobic growth.(A) [facility] Gram Stain Cytocentrifuge Gram Stain performed Neutrophils seen Few Gram Positive Cocci seen (A) [facility] Organism Gram Positive Cocci(A) [facility] Abdominal Fluid 09/22/2023 2 :07 PM EDT 09/22/2023 2:52 PM EDT Comment:panniculectomy c/b a nterior fluid collection (likely seroma) Narrative Resulting Agency Comment Spec In Lab Emilio Musa MD MICROBIOLOGY - GENER AL ORDERABLES Performing Organization Address City/[facility]/ZIP Co de Phone Number [facility] [place] [address] * POCT Glucose (09/22/2023 1:16 PM EDT) Glucose, POC 167 65 - 199 mg/dL [facility] Comment: Supplemental ranges: <140 mg/dL before meals <180 mg/dL all other times of the day Blood 09/22/2023 1:16 PM EDT 09/22/2023 1:16 PM EDT Huber Foote MD POINT OF CARE TEST O RDERABLES [facility] [place] [address] documented in this encounter Visit Diagnoses Diagnosis S/P panniculectomy documented in this encounter Administered Medications Inactive Administered Medications - up to 3 most recent administrations Medication Order MAR Action Action Date Dose Rate Site fentaNYL (pf) (50 mcg/mL) multi-dose injection 25-50 mcg 25-50 mcg, Intravenous, EVERY 3 MIN PRN, Starting on Wed09/22/23 at 1317, Until Wed09/22/23 at 1438, Pain, per unit protocol, For use in Interventional Radiology (IR) only for procedural sedation with direct provider supervision and verbal order. - Start dose: 50 mcg (reduce dose to 25 mcg if history of sedation sensitivity). - Titration dose: 25-50 mcg IV, (based on patient response) every 3 minutes PRN to maintain procedural pain less than 2 per Pain Scale. Maximum dose: 50 mcg/dose, 250 mcg/hour, Angio/IR (Intra-Procedure), Routine Given 09/22/2023 1:57 PM EDT 25 mcg Given 09/22/2023 1:46 PM EDT 50 mcg Given 09/22/2023 1:38 PM EDT 50 mcg lidocaine (Xylocaine) 1% (10 mg/mL) injection 10 mg 10 mg, Subcutaneous, ONCE, 1 dose, On Wed09/22/23 at 1345, For use in Interventional Radiology (IR) only for procedure with direct provider supervision and verbal order., Angio/IR (Intra-Procedure), Routine Given 09/22/2023 1:59 PM EDT 10 mg midazolam (pf) (Versed) (1 mg/mL) multi-dose injection 0.5-1 mg 0.5-1 mg, Intravenous, EVERY 3 MIN PRN, Starting on Wed09/22/23 at 1317, Until Wed09/22/23 at 1438, Sedation, For use in Interventional Radiology (IR) only for procedural sedation with direct provider supervision and verbal order. - Start dose: 1 mg (Reduce dose to 0.5 mg if history of sedation sensitivity). - Titration dose: 0.5 mg - 1 mg (based on patient response) every 3 minutes PRN to obtain RASS score of -3. Maximum dose: 1 mg/dose, 5 mg/hour., Angio/IR (Intra-Procedure), Routine Given 09/22/2023 1:57 PM EDT 0.5 mg Given 09/22/2023 1:46 PM EDT 1 mg Given 09/22/2023 1:38 PM EDT 1 mg documented in this encounter Care Teams Strategy Analyst Relationship Specialty Start Date End Date None None PCP - General 08/30/23 documented as of this encounter
--- OUTSIDE RECORDS SUMMARY | 2024-04-14 12:25 | XMS_ITS | Encounter Summary ---
Author Organization [facility] [place] [address] Care Team Providers Care Acting Manager Name Role Phone None Primary Care Provider Unavailabl e Reason for Referral * Diagnostic Test (STAT) - Closed Specialty Diagnoses / Procedures Referred By Alex new Referred To Contact Radiology Diagnoses S/P panniculectomy Procedures IR All Drainage Procedures Austin Anderson MD [facility] [place] [address] [facility] [place] [address] Referral ID Status Reason Start Date Expiration Date V isits Requested Visits Authorized [id number] Closed Specialty Service Requested 09/20/2023 03/21/2025 1 1 Reason for Visit * Reason Comments Post-op Problem Bleeding/Bruising Encounter Details Date Type Department Care Team (Late st Contact Info) Description 09/20/2023 2:34 PM EDT - 09/20/2023 8:32 PM EDT Emergency [place] [address] Chest pain, unspecified type; Prolonged QT interval; S/P panniculectomy Discharge Disposition: Home Social History Tobacco Use Types Packs/Day Years Used Date Smoking Tobacco: Never Smokeless Tobacco: Never Alcohol Use Standard Drinks/Week Comments Not Currently 0 (1 standard drink = 0.6 oz pur e alcohol) [facility] Inpatient Questions Answer Date Recorded Does Anyone [...] Sign Reading Time Taken Comments Blood Pressure 138/91 09/20/2023 2:45 PM EDT Pulse 97 09/20/2023 2:45 PM EDT Temperature 36.8 ??C (98.2 ??F) 09/20/2023 2:45 PM ED T Respiratory Rate 18 09/20/2023 2:45 PM EDT Oxygen Saturation 98% 09/20/2023 2:45 PM EDT Inhaled Oxygen Concentration - - Weight 75.8 kg (167 lb) 09/20/2023 2:45 PM EDT Height 160 cm (5' 3) 09/20/2023 2:45 PM EDT Body Mass Index 29.58 09/20/2023 2:45 PM EDT documented in this encounter Discharge Instructions * Discharge Instructions* Sarita Avelar APRN - 09/20/2023 5:59 PM EDT You were seen in the emergency department for post op bleeding. Plastic surgery recommends draininga fluid collection on outpatient basis on Wednesday. Interventional radiology will reach out to [facility]. Do not have anything to eat or drink after midnight on Wednesday night. Return to the emergency department immediately for worsening symptoms including fevers, chest pain,shortness of breath, dizziness, increased pain or drainage. documented in this encounter Medications at Time [...] 4 capsule 2 09/07/2023 11/24/2023 HYDROcodone-acetaminop hen ([place]) 5-325 mg tablet Take 1 tablet by mouth every 6 hours as needed for Pain. 8 tablet 09/02/2023 09/30/2023 documented as of this encounter H&P Notes * Tere Bhandari PA - 09/20/2023 4:10 PM EDT Images [...] Recommended that she be transferred to the [facility] ED as soon as possible for further [...] week for12 doses. 4 capsule 2 HYDROcodone-acetaminophen ([place]) 5-325 mg tablet Take 1 tablet by [...] 17.11) performed by Huber Foote MD at [facility] MAIN OR PRO LAP GASTRIC BYPASS/PIA-EN-Y N/A 07/30/2020 @LAPAROSCOPIC GASTROPLASTY W/ PIA-EN-Y CONSTRUCTION (WRVU 29.4) performed by Carlos Chavez MD at [facility] MAIN OR PRO UPPER GI ENDOSCOPY, DIAGNOSTIC N/A 07/30/2020 EGD, UPPER GI ENDOSCOPY performed by Carlos Chavez MD at [facility] MAIN OR Social History and Habits: Social [...] Tere Bhandari PA-C documented in this encounter ED Notes * Dc Graves RN - 09/20/2023 8:25 PM EDT Discharged in improved / stable condition. Cannula removed, procedure tolerated, and completeness checked. AVS given. Encouraged to ask questions and seek clarifications. Reviewed doctor's advise with the the pt. Reiterated follow-up to ED if symptoms persist or worsen. Left ED ambulatory, unaccompanied. Friend will be picking her up. * Dc Graves RN - 09/20/2023 7:59 PM EDT Patient given sandwich and gingerale, resting on stretcher. No current needs. * Sarita Avelar APRN - 09/20/2023 3:02 PM EDT ED Provider Note HPI: Helene Carpenter is a 38 y.o. female with past medical history of type 2 diabetes, morbid obesity, dyslipidemia, anxiety, s/p panniculectomy on 09/01 who presents to the Emergency Department with bleeding from surgical site on left lower abdomen and increasing pain. She had been healing well after her surgery until this morning when she noted dark red blood from incision site. She had episode of dizziness when she woke up. She was seen at [facility] this morning and found to have a hemoglobin drop from 12-11 while she was in the ED she refused a blood transfusion. CT abdomen pelvis revealed anterior abdominal wall fluid collection. She was transferred to [facility] for plastic surgery. She denies recent fevers, bright red blood per rectum, nausea, or vomiting. She is not anticoagulated. ROS as per HPI Vitals: ED Triage Vitals [09/20/23 1445] BP: (!) 138/91 Heart Rate: 97 Resp: 18 Temp: 36.8 ??C (98.2 ??F) Temp src: Oral SpO2: 98 % O2 Device: RA O2 Flow Rate (L/min): n/a Physical Exam Vitals and nursing note reviewed. Constitutional: General: She is not in acute distress. Appearance: Normal appearance. HENT: Mouth/Throat: Mouth: Mucous membranes are moist. Pharynx: Oropharynx is clear. Cardiovascular: Rate and Rhythm: Normal rate and regular rhythm. Heart sounds: No murmur heard. No friction rub. No gallop. Pulmonary: Effort: Pulmonary effort is normal. No respiratory distress. Breath sounds: No wheezing or rales. Abdominal: General: Abdomen is flat. Bowel sounds are normal. Tenderness: There is no abdominal tenderness. Comments: Bilateral lower quadrant tenderness proximal to incision Bruising around left lateral aspect of incision Serosanguineous drainage from left lateral side of the incision Musculoskeletal: General: No swelling. Normal range of motion. Cervical back: Normal range of motion and neck supple. Skin: General: Skin is warm and dry. Neurological: General: No focal deficit present. Mental Status: She is alert and oriented to person, place, and time. Psychiatric: Mood and Affect: Mood normal. Behavior: Behavior normal. ED Course: I have reviewed labs and imaging, images and available reports, and they are significant for: No orders to display Procedures Assessment and Plan: 38 y.o. female with episode of dizziness this morning and increased serosanguineous drainage from left lateral panniculectomy incision site. She was seen at [facility] where she had blood transfusion for hemoglobin that had dropped from 12-11. She was accepted as transfer by plastic surgery. She is hemody namically stable. Currently denies dizziness. Tender near incision site bilaterally. She is afebrile, no purulent drainage from wound site and has no other evidence of infection. She declines pain medication in the ED. Patient was seen by plastics, they independently reviewed CT abdomen pelvis and feel she has a seroma that can be drained on an outpatient basis. They will schedule her with IR on Wednesday. Patient is in agreement with plan and verbalizes understanding of return precautions including fevers, vomiting, worsening pain or drainage. Pending CBC and second read of abdomen pelvis at time of signout. Patient signed out to Austin Evans APRN. Sarita Avelar APRN 09/20/23 180 * Alejandro Bee MD - 09/20/2023 11:36 AM EDT 38 y.o. s/p liposuction on 09/01 with large hematomas and drop in Hgb; transfused at [facility] ED for acute drop in h/h. Plastics aware. will see in the ED. Alejandro Bee MD 09/20/23 1137 documented in this encounter Miscellaneous Notes * Consult Note - Austin Anderson MD - 09/20/2023 2:54 PM EDT Images from the original note were not included. Plastic Surgery Service Consult Note Date of Consultation: 09/20/2023 Place of Service: ED28/ED-28 Surgery Attending: Dr. Foote Reason for Consult: We are seeing Helene Carpenter at the request of No att. providers found from the ED service for the evaluation of ab. History of Present Illness: Helene Carpenter ( ) is a 38 y.o. female with s/o panniculectomy (09/02/23, Dr. Foote) who presented to an OSH earlier today due to concerns for bleeding upon bandage removal. Her hgb at the OSH was 12 upon arrival. Upon re-check, her hgb was 11 so she was transfused a unit. During this episode, she remained stable with HRs in the 90s and SBPs in the 130-140s. She was transferred to [facility] for further management. While here, her vitals have remained stable and she has been asymptomatic with the exception of some mild/moderate ry-incisional discomfort. She denies any chest pain, shortness of breath, nausea vomiting, fevers, or chills. Tobacco: reports that she has never smoked. She has never used smokeless tobacco. Review of Systems: Positive as above and otherwise negative. Past Medical History: No past medical history on file. Patient Active Problem List Diagnosis Code Morbid [...] shoulder M75.52 Anxiety and depression F41.9, F32.A Past Surgical History: Past Surgical History: Procedure Laterality Date PRO EXCISE EXCESS SKIN TISSUE, ABDOMEN N/A 09/02/2023 PANNICULECTOMY (WRVU 17.11) performed by Huber Foote MD at [facility] MAIN OR PRO LAP GASTRIC BYPASS/PIA-EN-Y N/A 07/30/2020 @LAPAROSCOPIC GASTROPLASTY W/ PIA-EN-Y CONSTRUCTION (WRVU 29.4) performed by Carlos Chavez MD at [facility] MAIN OR PRO UPPER GI ENDOSCOPY, DIAGNOSTIC N/A 07/30/2020 EGD, UPPER GI ENDOSCOPY performed by Carlos Chavez MD at [facility] MAIN OR Home Meds: No current facility-administered medications on file prior to encounter. Current Outpatient Medications on File Prior to Encounter Medication Sig Dispense Refill ergocalciferoL, vitamin D2, (vitamin D) 50,000 unit capsule Take 1 capsule by mouth once a week for12 doses. 4 capsule 2 HYDROcodone-acetaminophen ([place]) 5-325 mg tablet Take 1 tablet by [...] 1,000 mg by mouth 2 times daily. Allergies: Allergies Allergen Reactions Ibuprofen Lisinopril Niacin Hives and Rash Skin turns red and hot Family History: No family history on file. Social History: Social History Socioeconomic History Marital status: Single Spouse name: Not on file Number of children: Not on file Years of education: Not on file Highest education level: Not on file Occupational History Not on file Tobacco Use Smoking status: Never Smokeless tobacco: Never Vaping Use Vaping Use: Never used Substance and Sexual Activity Alcohol use: Not Currently Drug use: Not Currently Sexual activity: Not on file Other Topics Concern Not on file Social History Narrative Not on file Social Determinants of Health Financial Resource Strain: Not on file Food Insecurity: Not on file Transportation Needs: Not on file Physical Activity: Not on file Intimate Partner Violence: Not At Risk (09/02/2023) DH IPV Inpatient Questions Prevent Contact with Others: no Feels Threatened by Someone: no Feels Unsafe at Home: no Physical Signs of Abuse Present: no Housing Stability: Not on file Vitals: Last value Temperature Temp: 36.8 ??C (98.2 ??F) Heart Rate Heart Rate: 97 Blood Pressure BP: (!) 138/91 Respiratory Rate Resp: 18 SpO2 SpO2: 98 % Physical Exam: General: laying in bed in no acute distress. Neuro: Awake, alert, responds to questions appropriately, CN II-XII grossly intact, moving all fourextremities spontaneously. CV: RRR. Pulm: Normal effort. Skin: warm, dry. Abdomen: incision overall intact with some mild ry-incisional bruising along left lateral portionof incision, no ecchymosis or bruising in either flank, abdomen is soft and compressible with mild tenderness to palpation, no areas firmness/induration, no erythema or purulence. The left drain siteexpresses scant serous fluid on deep palpation and appears clear and straw-colored in nature Lab: No results for input(s): WBC, HGB, PLATELET in the last 168 hours. No results for input(s): PT, PTT, INR in the last 168 hours. No results for input(s): NA, K, CL, CO2, BUN, CREATININE, GLUCOSE in the last 168 hours. No results for input(s): HA1C in the last 7068 hours. Imaging/Studies: CT abdomen/pelvis 09/20/23: IMPRESSION 1. Multiple collections in the anterior abdominal wall may reflect postoperative seromas versus hematomas either sterile or infected. No contrast extravasation/active hemorrhage. 2. No acute intra-abdominal process. Assessment: Helene Carpenter ( ) is a 38 y.o. female s/p panniculectomy (09/02/23, Dr. Foote) now presenting to the ED with an anterior abdominal wall fluid collection. DDx includes seroma vs. Hematoma. More likely seroma given mild/moderate TTP, soft/compressible nature, and clear/straw col ored fluid expressed from left lateral drain site on deep palpation. No dependent ecchymosis observed in either lateral flank. Patient otherwise afebrile, mildly hypertensive, HR 90s, satting well onRA. Recommendations: - Local wound care (ABD pads/aquacel/mepilex prn) - Outpatient IR guided drain placement, requested for 09/22/23 in the AM. - PRS wound check when patient presents for IR-guided drain placement 09/22/23 - Strict return precautions (I.e. if drainage increases, pain increases, fevers/chills, dizziness/lightheadedness, etc.) - Request formal 2nd read for CT A/P - OK to d/c from PRS stand-point pending formal 2nd read from radiology The patient was discussed with attending, Dr. Foote, who agrees with the above assessment and plan. Austin Anderson MD 09/20/2023 Thank you for this consult. Please do not hesitate to page [phone] if you have any questions or concerns. Associated attestation - Huber Foote MD - 09/30/2023 2:50 PM EDT I have reviewed plans and agree with above. * ED Triage - Lila Gold RN - 09/20/2023 2:42 PM EDT Pt BIBA as hospital transfer after experiencing bleeding from liposuction site. Pt is alert and oriented and speaking in full sentences. Reports 6/10 pain no complaints of dizziness or light headedness. Pt states she received a transfusion at the outside hospital. Skin is pink warm and dry, VSS, NAD. HPI (Adult) Stated Reason for Visit: bleeding from liposuction site, Liposuction on 09/01 History Obtained From: patient, EMS documented in this encounter Plan of Treatment Not on file documented as of this encounter Procedures Procedure Name Priority Date/Time Associated Diagnosis Comments ANAEROBIC CULTURE STAT 09/20/2023 7:2 5 PM EDT BODY FLUID CULTURE, AEROBIC STAT 09/20/2023 7:25 PM EDT HC BODY FLUID CULTURE STAT 09/20/2023 7:21 PM EDT HEMOGRAM STAT 09/20/2023 5:43 PM EDT DIFFERENTIAL, AUTOMATED STAT 09/20/2023 5:43 PM EDT GOLD TUBE HOLD STAT 09/20/2023 5:43 PM EDT BLUE TUBE HOLD STAT 09/20/2023 5:43 PM EDT CBC (WITH DIFF) STAT 09/20/2023 5:42 PM EDT BASIC METABOLIC PANEL STAT 09/20/2023 5:42 PM EDT REQUEST FOR 2ND READ CT ABDOMEN AND [...] dilated over the wire and a 10 Malagasy drain was advanced over the wire into [...] dilated over the wire and a 10 Malagasy drain was advanced over the wire into [...] Huber Foote MD IMG IR ORDERABLES * Anaerobic Culture (09/20/2023 7:25 PM EDT) Anaerobic Culture No anaerobic organisms isolated [facility] Abdominal Fluid 09/20/2023 7 :25 PM EDT 09/20/2023 7:57 PM EDT Narrative Resulting Agency Comment Spec In Lab Austin Anderson MD MICROBIOLOGY - GENER AL ORDERABLES Performing Organization Address City/[facility]/ZIP Co de Phone Number [facility] [place] [address] * (ABNORMAL) Body Fluid Culture, Aerobic (09/20/2023 7:25 PM EDT) Body Fluid Culture Few Staphylococcus aureus, MRSA(A) [facility] Gram Stain No Neutrophils seen. No microorganisms seen. (A) [facility] Organism Staphylococcus aureus, MRSA(A) [facility] Abdominal Fluid 09/20/2023 7 :25 PM EDT 09/20/2023 7:57 PM EDT Narrative Resulting Agency Comment Spec In Lab Organism Antibiotic Method Susceptibility Methicillin Resistant Staphylococcus aureus Clindamycin VITEK 2 METHOD Sensitive Methicillin Resistant Staphylococcus aureus Erythromycin VITEK 2 METHOD Resistant Methicillin Resistant Staphylococcus aureus Gentamicin VITEK 2 METHOD Sensitive Comment:Gentamicin i s not appropriate for [place]-therapy. Methicillin Resistant Staphylococcus aureus Linezolid VITEK 2 METHOD Sensitive Methicillin Resistant Staphylococcus aureus Oxacillin VITEK 2 METHOD Resistant Comment:MRSA, Note Nafcillin Resistance Methicillin Resistant Staphylococcus aureus Trimethoprim/Sulfa VITEK 2 METHOD Resistant Methicillin Resistant Staphylococcus aureus Tetracycline VITEK 2 METHOD Resistant Methicillin Resistant Staphylococcus aureus Vancomycin VITEK 2 METHOD 1: Sensitive Austin Anderson MD MICROBIOLOGY - GENER AL ORDERABLES Performing Organization Address City/[facility]/ZIP Co de Phone Number [facility] [place] [address] * Gold Tube HOLD (09/20/2023 5:43 PM EDT) Gold Hold Sample in lab. [facility] Blood Venous Draw / Unknown 09/20/2023 5:43 PM EDT 09/20/2023 5:55 PM EDT Sarita Avelar APRN CHEMISTRY ORDERAB LES Performing Organization Address City/[facility]/ZIP Co de Phone Number [facility] [place] [address] * Blue Tube HOLD (09/20/2023 5:43 PM EDT) [facility] Blue Hold Sample in lab. [facility] Blood Venous Draw / Unknown 09/20/2023 5:43 PM EDT 09/20/2023 5:55 PM EDT Sarita A Rosio URENA HEMATOLOGY ORDERA BLES Performing Organization Address [facility] Co de Phone Number [facility] [place] [address] * Differential, Automated (09/20/2023 5:43 PM EDT) [facility] Neutrophil % 70.3 % [facility] Neutrophil Absolute 5.04 1.70 - 6.10 x10(3)/[facility] Lymph % 21.3 % [facility] Lymphocytes Abs 1.5 0.9 - 3.2 x10(3)/[facility] Monocyte % 6.7 % [facility] Monocyte Abs 0.5 0.3 - 0.9 x10(3)/[facility] Eos % 0.8 % [facility] Eosinophils Abs 0.1 0.0 - 0.4 x10(3)/[facility] Basophil % 0.6 % [facility] Baso Absolute 0.0 0.0 - 0.1 x10(3)/[facility] Immature Gran % 0.30 % [facility] Comment: Immature granulocytes(IG's)percentage and absolute count will include metamyelocytes, myelocytes, and promyelocytes. Blood smears from CBCs yielding IG's will be scanned manually for concordance. If this scan disagrees with the automated IG or if promyelocytes are noted, a manual differential will be performed. Immature Gran Absolute 0.02 0.00 - 0.04 x10(3)/mcL [facility] Blood 09/20/2023 5:43 PM EDT 09/20/2023 5:54 PM EDT Narrative Resulting Agency Comment Spec In Lab Sarita A Rosio [facility]RENA HEMATOLOG[facility] ORDERA BLES [facility] [place] [address] * (ABNORMAL) Hemogram (09/20/2023 5:43 PM EDT) White Blood Cell 7.2 4.0 - 9.5 x10(3)/mc L [facility] Red Blood Cell 4.42 4.00 - 5.21 x10(6)/mc L [facility] Hemoglobin 12.2 11.7 - 15.5 g/dL [facility] Hematocrit 36.0 35.7 - 45.8 % [facility] Mean Cell Volume 81.4(L) 82.6 - 94.4 fL [facility] Mean Cell Hemoglobin 27.6 27.1 - 32.0 pg [facility] Mean Cell Hemoglobin Concentration 33.9 31.7 - 35.0 g/dL [facility] Platelet 458(H) 145 - 357 x10(3)/ L [facility] RDW Standard Deviation 36.2(L) 37.0 - 46.0 [facility] RDW coefficient of variation 12.2 11.5 - 14.1 % [facility] Mean Platelet Volume 9.6 7.6 - 12.9 [facility] NRBC% auto 0.0 % [facility] NRBC Absolute 0.000 0.000 - 0.000 x10(3)/ L [facility] Blood 09/20/2023 5:43 PM EDT 09/20/2023 5:54 PM EDT Narrative Resulting Agency Comment Spec In Lab Sarita Avelar ROMEL HEMATOLOGY ORDERA LIATS [facility] [place] [address] * (ABNORMAL) Basic Metabolic Panel (non-fasting) (09/20/2023 5:42 PM EDT) Glucose 176 65 - 199 mg/dL [facility] Comment:Diabetes: >=200 mg/d L plus symptoms Blood Urea Nitrogen 10 8 - 18 mg/dL [facility] Creatinine 0.44(L) 0.70 - 1.20 mg/dL [facility] Sodium 139 135 - 145 mmol/L [facility] Potassium 3.5 3.5 - 5.0 mmol/L [facility] Comment: Please note: ??Patients with WBC >100,000 may have falsely elevated Potassium levels. ??For accurate Potassium quantification in these patients send serum separator tube (gold top) for subsequent determinations. ??Contact the Clinical Chemistry Laboratory if there are any questions. Chloride 103 98 - 107 mmol/L [facility] Carbon Dioxide 28 22 - 31 mmol/L [facility] Anion Gap 8 5 - 15 mmol/L [facility] Calcium 9.0 8.5 - 10.5 mg/dL [facility] Est Glomerular Filtration Rate 128 >=60 mL/min/1. 73 m?? [facility] Comment: This patient's estimated GFR was calculated using the 2020 CKD-EPI equation. The estimated GFR can vary from the measured GFR by up to 30% in the absence of rapidly changing kidney function. Assessment of the estimated GFR is not appropriate when creatinine concentrations are rapidly changing. For clinical situations in which a more precise estimate of GFR is necessary, consider alternative methods of GFR estimation such as a 24-hour urine creatinine clearance. Assignment of CKD stage 1-5 for patients with an eGFR near the transition point between stages may be based on clinical assessment of muscle mass and symptoms in addition to eGFR. Blood 09/20/2023 5:42 PM EDT 09/20/2023 5:54 PM EDT Narrative Resulting Agency Comment Spec In Lab Sarita Avelar BED LASTER CHEMISTRY ORDERAB LES [facility] [place] [address] * Request For 2nd Read CT Abdomen [...] who have questions please contact the health director day care center that requested your imaging first. ? Narrative 09/20/2023 8:27 PM EDT EXAMINATION: REQUEST FOR 2ND READ CT ABDOMEN AND PELVIS CLINICAL HISTORY: ? Post op hematoma/seroma; Sending Institution [facility]; Date of exam [id number]; I believe a reinterpretation of this exam may alter care of Patient. Yes TECHNIQUE: CTA of abdomen and pelvis 09/20/2023 obtained at [facility] was submitted for interpretation the same [...] Lymph Nodes: No lymphadenopathy. Bowel: Status post Pia-en-Y gastric bypass. No dilatation of the efferent [...] HISTORY: ? Post op hematoma/seroma; Sending Institution [facility];Date of exam [id number]; I believe a reinterpretation of this exam may alter careof Patient. Yes TECHNIQUE: CTA of abdomen and pelvis 09/20/2023 obtained at [facility] was submitted for interpretation the same [...] Lymph Nodes: No lymphadenopathy. Bowel: Status post Pia-en-Y gastric bypass. No dilatation of the efferentor [...] patients who have questions please contactthe health director day care center that requested your imaging first. Sarita Avelar APRN IMG OUTSIDE INTER PRETATION ORDERABLES documented in this encounter Visit Diagnoses Diagnosis Chest pain, unspecified type Prolonged QT interval Nonspecific abnormal electrocardiogram (ECG) (EKG) S/P panniculectomy S/P panniculectomy documented in this encounter Administered Medications Inactive Administered Medications - up to 3 most recent administrations Medication Order MAR Action Action Date Dose Rate Site acetaminophen (Tylenol) tablet 650 mg 650 mg, Oral, ONCE, 1 dose, On 09/20/23 at 1850, Maximum dose of acetaminophen is 4,000 mg from all sources in 24 hours. When ordered for pain, acetaminophen should be given even when other ordered pain medications are indicated., STAT Given 09/20/2023 7:03 PM EDT 650 mg documented in this encounter Active and Recently Administered Medications Times are shown in EDT. Scheduled Medication Order 09/18/2023 09/19/2023 09/20/2023 acetaminophen (Tylenol) tablet 650 mg (COMPLETED) 650 mg, Oral, ONCE, 1 dose, On 09/20/23 at 1850, Maximum dose of acetaminophen is 4,000 mg from all sources in 24 hours. When ordered for pain, acetaminophen should be given even when other ordered pain medications are indicated., STAT 190 (Given - Provid er: Lila Gold RN) documented in this encounter Care Teams Acting Manager Relationship Specialty Start Date End Date None None PCP - General 08/30/23 documented as of this encounter
--- OUTSIDE RECORDS SUMMARY | 2024-04-14 12:25 | XMS_ITS | Encounter Summary ---
Author Organization [facility] [place] [address] Care Team Providers Care Bill Checker Name Role Phone None Primary Care Provider Unavailabl e Encounter Details Date Type Department Care Team (Late st Contact Info) Description 09/20/2023 11:20 AM EDT Ancillary Procedure Radiology Library at [facility] [place] [address] Huber Foote MD [facility] [place] [address] Social History Tobacco Use Types Packs/Day Years [...] Procedure Name Priority Date/Time Associated Diagnosis Comments FILM LIBRARY STORAGE ONLY CT ABDOMEN AND PELVIS Routine 09/20/2023 11:19 AM EDT documented in this encounter Results * Film Library- Storage Only CT Abdomen & Pelvis (09/20/2023 11:19 AM EDT) Narrative [facility] - 09/20/2023 11:19 AM EDT This exam is auto-finalizing. It's purpose is for storage only. Huber Foote MD IMG FILM LIBRARY ORD ERABLES [place], [place] documented in this encounter Visit Diagnoses Not on filedocumented in this encounter Care Teams Bill Checker Relationship Specialty Start Date End Date None None PCP - General 08/30/23 documented as of this encounter
--- OUTSIDE RECORDS SUMMARY | 2024-04-14 12:25 | XMS_ITS | Clinical Summary ---
Author Organization [facility] Address [facility] [place] [address] Care Team Providers Care Student Name Role Phone None Primary Care Provider Unavailabl e Allergies Active Allergy Reactions Criticality Noted Date Comments Ibuprofen 06/20/2020 Lisinopril 06/20/2020 Niacin Hives,Rash 12/02/2019 Skin turns red and hot Medications Medication Sig Dispensed Refills Start Date End Date Status loratadine (Claritin) 10 mg Tablet Take 10 mg by mouth daily. 06/01/2020 Active metFORMIN (GLUCOPHAGE) 1,000 mg Tablet Take 1,000 mg by mouth 2 times daily. 06/05/2020 Active acetaminophen (Tylenol) 650 mg/20.3 mL Solution Take 20.3 mLs by mouth every 4 hours as needed. 08/01/2020 Active Calcium Citrate-Vitamin D3 250 mg-5 mcg (200 unit) Tablet Take 2 tablets by mouth. Active cyanocobalamin, vitamin B-12, 500 mcg Tablet Take 500 mcg by mouth daily. Active nystatin (Mycostatin) CreamIndications:Inte rtrigo Apply topically 2 times daily. 30 g 1 02/13/2022 Active calcium citrate/vitamin D3 (CALCIUM CITRATE + D ORAL) 2 tablets. 08/11/2021 Active multivit with iron,minerals (MULTIVITAMIN WITH IRON-MINERAL ORAL) 2 tablets. 08/11/2021 Active albuteroL 90 mcg/actuation HFA Aerosol Inhaler Q4H 08/16/2019 Active triamcinolone (Kenalog) 0.1 % Cream 2-4 times daily PRN 02/10/2019 Active nystatin (Mycostatin) CreamIndications:Inte rtrigo Apply topically 2 times daily. 30 g 1 06/28/2023 Active Active Problems Problem Noted Date Diagnosed Date Thoracic outlet syndrome 09/10/2023 Tendinitis of long head of biceps brachii of lef t shoulder 09/10/2023 Muscle contusion 09/10/2023 Left wrist sprain 09/10/2023 Learning disability 09/10/2023 Knowledge deficit about therapeutic diet 024 Irritable bowel syndrome with diarrhea Instability of left shoulder joint 09/10/2023 Insomnia 09/10/2023 Injury of head 09/10/2023 Impingement syndrome of left shoulder 09/10/2023 Ovarian cyst 09/10/2023 History of abnormal cervical Pap smear Hemorrhagic cyst of right ovary 09/10/2023 Chest pain 09/10/2023 Bursitis of left shoulder 09/10/2023 Anxiety and depression 09/10/2023 S/P panniculectomy 09/02/2023 Abdominal pannus 07/20/2023 Hypertension 08/19/2020 Hypercholesterolemia 08/19/2020 Morbid obesity 06/23/2020 GAMAL on CPAP 06/23/2020 Diabetes mellitus 06/23/2020 Fatty liver 09/08/2016 Unspecified chronic bronchitis 09/04/2016 Chronic insomnia 09/04/2016 Gastroesophageal reflux disease without esophagi tis 09/04/2016 Dyslipidemia 09/04/2016 Social History Tobacco Use Types Packs/Day Years Used Date Smoking Tobacco: Never Smokeless Tobacco: Never Tobacco Cessation:Counseling Given: Not Answered Alcohol Use Standard Drinks/Week Comments Not Currently [...] on file Sexual Orientation Not on file Last Filed Vital Signs Vital Sign Reading [...] Mass Index 29.58 09/20/2023 2:45 PM EDT Plan of Treatment Health Maintenance Due Date Last Done Comments Pneumococcal Vaccine: At-Ris k 5-64yrs (1 of 2 - PCV) 1993 DM Opthalmology Exam 1997 DM Urine Microalbumin yearly 1997 HIV screen 2005 Hepatitis C Screening 2005 Hepatitis B vaccine (0-59 yrs) (1) 2006 Tetanus/Diphtheria/Pertussis Vaccines (1 - Tdap) 2006 HPV test 2017 PAP Smear 2017 DM Hemoglobin A1c 09/18/2020 06/20/2020 Covid-19 Vaccine (2 - 2022-2 4 season) 2024 09/30/2020 Influenza (Flu) vaccine (1 o f 1 - Influenza standard series) 02/06/2024 DM Creatinine yearly 09/19/2024 09/20/2023, 09/02/2023, 11/18/2020, Additional history exists Lipid Screening 06/20/2025 06/20/2020 Procedures Procedure Name Priority Date/Time Associated Diagnosis Comments BASIC METABOLIC PANEL STAT 09/20/2023 5:42 PM EDT LIPID PANEL (REFLEX DIRECT LDL) Routine 06/20/2020 4:37 PM EST Morbid obesity HC HEMOGLOBIN A1C Routine 06/20/2020 4:3 7 PM EST Morbid obesity from Last 3 Months or Most Recently Relevant to Health Maintenance Results * (ABNORMAL) Basic Metabolic Panel (non-fasting) (09/20/2023 5:42 PM EDT) Glucose 176 65 - 199 mg/dL [facility] Comment:Diabetes: >=200 mg/d L plus symptoms Blood Urea Nitrogen 10 8 - 18 mg/dL [facility] Creatinine 0.44(L) 0.70 - 1.20 mg/dL [facility] Sodium 139 135 - 145 mmol/L [facility] Potassium 3.5 3.5 - 5.0 mmol/L [facility] Comment: Please note: ??Patients with WBC >100,000 may have falsely elevated Potassium levels. ??For accurate Potassium quantification in these patients send serum separator tube (gold top) for subsequent determinations. ??Contact the Clinical Chemistry Laboratory if there are any questions. Chloride 103 98 - 107 mmol/L [facility] Carbon Dioxide 28 22 - 31 mmol/L [facility] Anion Gap 8 5 - 15 mmol/L [facility] Calcium 9.0 8.5 - 10.5 mg/dL [facility] Est Glomerular Filtration Rate 128 >=60 mL/min/1. 73 m?? [facility] Comment: This patient's estimated GFR was [...] Agency Comment Spec In Lab Sarita Avelar APRN CHEMISTRY ORDERAB LES [facility] [place] [address] * (ABNORMAL) Hemoglobin A1c (06/20/2020 4:37 PM EST) Hemoglobin A1c 6.4(H) 4.3 - 5.6 % [facility] Comment: Reference Range: 4.3 - 5.6% 5.7 - 6.4% - Increased Risk of Developing Diabetes Mellitus >= 6.5% - Consistent with diagnosis of Diabetes Mellitus In the absence of hyperglycemia (i.e. plasma glucose > 200 mg/dL) or classic symptoms of hyperglycemia a repeat measurement of HbA1c should be performed on a separate sample to confirm the diagnosis. Diagnosis and Classification of Diabetes Mellitus, Diabetes Care 2013; 36: Suppl. 1, S67-74 Estimated Average Glucose 138 mg/dL [facility] Comment: eAG equivalents for HbA1c percentages: HbA1c(%) ?eAG(mg/dL) 6.0 ?126 6.5 ?140 7.0 ?154 7.5 ?169 8.0 ?183 8.5 ?197 9.0 ?212 9.5 ?226 10.0 ? 240 Limitations: The eAG calculation has not been validated on women, individuals below 18 years old and above 70 years old, and individuals with hemoglobinopathies. Additional resources are available on the ADA website. Graham POLO, Rudy J, Billy R, et al. ??Translating the A1C assay into estimated average glucose values. ??Diabetes Care 2008:31(8):9857-5568. Blood specimen (specimen) 06/20/2020 4:37 PM EST 06/20/2020 4:53 PM EST Narrative Resulting Agency Comment Spec In Lab Carlos Chavez MD CHEMISTRY ORDERABLES [facility] [place] [address] * Lipid Panel (Reflex Direct LDL) (06/20/2020 4:37 PM EST) Cholesterol, Total 142 mg/dL Demarco CASEY [facility] Comment: Lower Risk: <200 mg/dL Average Risk: 200-239 mg/dL Higher Risk: >ct=474 mg/dL Triglyceride 147 mg/dL [facility] Comment: Average Risk/Lower Risk: <150 mg/dL Borderline High Risk: 150-199 mg/dL High Risk: 200-499 mg/dL Very High Risk: >yf=114 mg/dL HDL Cholesterol 49 mg/dL [facility] Comment: Males: ?? Higher Risk: <40 mg/dL Females: ?? HIgher Risk: <50 mg/dL LDL Cholesterol 64 mg/dL [facility] Comment: Lowest Risk: <100 mg/dL Lower Risk: 100-129 mg/dL Borderline High Risk: 130-159 mg/dL High Risk: 160-189 mg/dL Very High Risk: >xs=883 mg/dL Cholesterol/HDL Ratio 2.[address] [facility] Lipid Interpretation See Note [facility] Comment: Lipid management should be guided by a patient? s ASCVD risk, goals and preferences. ACC/AHA Guidelines recommend high intensity statin if clinical ASCVD or LDL greater than or equal to 190 mg/dL. http://Cloud TheoryurTinderBox.com/PPK-AAW-Fngmddvyu Adults aged 40-75 with LDL 70-189 mg/dL should have their 10 year ASCVD risk estimated with the ACC/AHA ASCVD risk slip cover estimator http://tools.acc.org/UFQXS-Bjqu-Nxpomxgxl/ Statin should be discussed if risk greater than or equal to 7.5% in non-diabetics. With diabetes, moderate intensity statin is recommended if risk less than 7.5%, high intensity if risk greater than or equal to 7.5%. Annual lipid monitoring on statins is not necessary. Evaluate secondary causes of Triglycerides greater than 500 mg/dL or LDL greater than 190 mg/dL: See table 6 of ACC/AHA Guideline. Lifestyle modification is a critical component of ASCVD risk reduction. Blood specimen (specimen) 06/20/2020 4:37 PM EST 06/20/2020 4:53 PM EST Narrative Resulting Agency Comment Spec In Lab Carlos Chavez MD CHEMISTRY ORDERABLES [facility] [place] [address] from Last 3 Months or Most Recently Relevant to Health Maintenance Advance Directives * Attempt Cardiopulmonary Resuscitation - Inpatient (Latest Code Status on File) Date Activated Date Inactivated Comments 09/22/2023 12:51 PM 09/23/2023 4:34 AM Question Answer Comments Code Status decision made by: Patient * Attempt Cardiopulmonary Resuscitation - Inpatient Date Activated Date Inactivated Comments 09/02/2023 12:48 PM 09/03/2023 1:44 PM Question Answer Comments Code Status decision made by: Patient * Attempt Cardiopulmonary Resuscitation - Inpatient Date Activated Date Inactivated Comments 07/30/2020 1:50 PM 08/01/2020 5:19 PM Question Answer Comments Code Status decision made by: Patient Care Teams Student Relationship Specialty Start Date End Date None None PCP - General 08/30/23
--- OUTSIDE RECORDS SUMMARY | 2024-04-14 12:25 | XMS_ITS | Encounter Summary ---
Author Organization [facility] Address [facility] [place] [address] Care Team Providers Care Production Shift Supervisor Name Role Phone None Primary Care Provider Unavailabl e Encounter Details Date Type Department Care Team (Late st Contact Info) Description 09/20/2023 Notes Only Plastic Surgery at [facility] [place] [address] Austin Anderson MD [facility] [place] [address] Social History Tobacco Use Types Packs/Day Years Used Date Smoking Tobacco: Never Smokeless Tobacco: Never Alcohol Use Standard Drinks/Week Comments Not Currently 0 (1 standard drink = 0.6 oz pur e alcohol) [facility] Inpatient Questions Answer Date Recorded Does [...] as of this encounter Progress Notes * Austin Anderson MD - 09/20/2023 12:22 PM EDT Transfer center consult. 38F s/p panniculectomy (09/02/23, Dr. Foote). Presented to an OSH with concern for bleeding after removing her bandages earlier today. Hgb dropped from 12 to 11 while she was at the OSH for which she was given a transfusion. She received a CT A/P which revealed an anterior abdominal wall fluid collection c/w likely old hematoma. Reportedly, the OSH radiologist did not note the presence of any active extravasation. The patient has otherwise been hemodynamically stable withHRs in the 90s and SBPs in the 130-140. Patient has largely been asymptomatic but reportedly does not do great with the sight of blood so subjectively feels a little dizzy. Recommended that she be transferred to the [facility] as soon as possible for further evaluation. documented in this encounter Plan of Treatment Not on file documented as of this encounter Visit Diagnoses Not on filedocumented in this encounter Care Teams Production Shift Supervisor Relationship Specialty Start Date End Date None None PCP - General 08/30/23 documented as of this encounter
--- OUTSIDE RECORDS SUMMARY | 2024-04-14 12:25 | XMS_ITS | Encounter Summary ---
Author Organization [facility] [place] [address] Care Team Providers Care Model Photographers' Name Role Phone None Primary Care Provider Unavailabl e Reason for Visit * Reason Comments Follow Up Surgery Encounter Details Date Type Department Care Team (Late st Contact Info) Description 09/30/2023 10:20 AM EDT Office Visit [place] [address] Laura Valle COMMUNITY HEALTH CONSULTANT [facility] [place] [address] Surgery follow-up Social History Tobacco Use Types Packs/Day Years Used Date Smoking Tobacco: Never Smokeless Tobacco: Never Alcohol Use Standard Drinks/Week Comments Not Currently 0 (1 standard drink = 0.6 oz pur e alcohol) [facility] Inpatient Questions Answer Date Recorded Does [...] * Patient Instructions* Laura Valle APRN - 09/30/2023 10:20 AM EDT Follow up in 1-2 weeks, TH OK Daily dressing changes with Nugauze wick and cover dressing. Disability paperwork given to Dr. Foote's scribe. May return to work with limitations until October 13: limit bending and twisting, do not lift, push orpull more than 10 pounds. documented in this encounter Progress Notes * Laura Valle APRN - 09/30/2023 10:20 AM EDT Plastic Surgery Follow Up Note Provider: Laura Valle APRN Reason for visit: wound check Date of surgery: 09/02/23 Procedure(s): panniculectomy (Qamar) Complications: seroma HPI: Patient returns to clinic for follow up. A drain was placed by IR on 09/22/2023. The patient reports that she is okay. She is hoping to have her drains removed today and wishes to be able to return to work tomorrow. She is slightly tearful stating that she cannot miss work any longer. She needsto pay rent. She reports that she completed the course of antibiotics. She last emptied her drains yesterday morning. Drain record stops 3 days ago. At that time it had been 36 hours since last emptied. Output was 20ml and 30 ml. Examination: Patient is alert, conversant, comfortable, ambulating Incision: intact with exception of left most lateral aspect. Open area: 1.5 x 0.2 x 0.8 cm deep with no tunneling or undermining No surrounding erythema No purulence IR drains in place with serous drainage. Medial drain has 20 cc's, 5 cc's in lateral. Drains removed today. Impression: Helene Carpenter is a 38 y.o. female who was seen today for follow up. Healing. Plan: Follow up in 1-2 weeks, TH OK Daily dressing changes with Nugauze wick and cover dressing. Disability paperwork given to Dr. Foote's scribe. May return to work with limitations until October 13: limit bending and twisting, do not lift, push orpull more than 10 pounds. I, Lianna Brewster, have performed the documentation for this encounter in the presence of and acting as a scribe for Laura Valle APRN. I performed the services which were documented by the scribe, and I agree with the accuracy of the documentation in this encounter. LAURA VALLE APRN documented in this encounter Plan of Treatment Not on file documented as of this encounter Visit Diagnoses Diagnosis Surgery follow-up Follow-up examination, following unspecified surgery documented in this encounter Care Teams Model Photographers' Relationship Specialty Start Date End Date None None PCP - General 08/30/23 documented as of this encounter
--- OUTSIDE RECORDS SUMMARY | 2024-04-14 12:26 | XMS_ITS | Encounter Summary ---
Author Organization [facility] [place] [address] Care Team Providers Care Community Mental Health Worker Name Role Phone None Primary Care Provider Noelabl e Encounter Details Date Type Department Care Team (Latest Contact Info) Description 09/06/2023 Travel Social History Tobacco Use Types Packs/Day [...] on filedocumented in this encounter Care Teams Community Mental Health Worker Relationship Specialty Start Date End Date None None PCP - General 08/30/23 documented as of this encounter
--- OUTSIDE RECORDS SUMMARY | 2024-04-14 12:26 | XMS_ITS | Encounter Summary ---
Author Organization [facility] [place] [address] Care Team Providers Care Diet Aid Name Role Phone None Primary Care Provider Noelabl e Encounter Details Date Type Department Care Team (Latest Contact Info) Description 09/08/2023 Travel Social History Tobacco Use Types Packs/Day [...] on filedocumented in this encounter Care Teams Diet Aid Relationship Specialty Start Date End Date None None PCP - General 08/30/23 documented as of this encounter
--- OUTSIDE RECORDS SUMMARY | 2024-04-14 12:26 | XMS_ITS | Encounter Summary ---
Author Organization [facility] [place] [address] Care Team Providers Care Neurology Hospitalist Name Role Phone Mona Honeycutt APRN Primary Care Provider [phone] Encounter Details Date Type Department Care Team (Late st Contact Info) Description 08/08/2020 Telephone [place] [address] Cherise Xiong APRN [facility] [place] [address] Social History Tobacco Use Types Packs/Day Years Used Date Smoking Tobacco: Never Smokeless Tobacco: Never Sex and Gender Information Value Date Recorded Sex Assigned at Not on file Gender Identity Not on file Sexual Orientation Not on file documented as of this encounter Miscellaneous Notes * Telephone Encounter - Cherise Xiong APRN - 08/08/2020 11:16 AM EST Called patient with Hetal Marx RD. Helene was informed that Ursodiol is ready for mixing picker tender. She will start the medication as scheduled next week. Helene is tolerating foods/fluids, still using protein drinks including Gatorade 0 with protein. No vomiting. No additional episodes of face redness. Feeling well. Looking forward to advancing to stage III diet. Patient denies further questions/concerns. She was encouraged to call if questions arise. documented in this encounter Plan of Treatment Not on file documented as of this encounter Visit Diagnoses Not on filedocumented in this encounter Care Teams Neurology Hospitalist Relationship Specialty Start Date End Date Mona Honeycutt, INTERACTIVE GRAPHIC DESIGNER PCP - General Family Medicine 01/25/20 08/29/23 documented as of this encounter
--- OUTSIDE RECORDS SUMMARY | 2024-04-14 12:26 | XMS_ITS | Encounter Summary ---
Author Organization [facility] [place] [address] Care Team Providers Care Spanish Lecturer Name Role Phone None Primary Care Provider Unavailabl e Reason for Visit * Reason Comments Follow Up Surgery S/p panniculectomy Encounter Details Date Type Department Care Team (Latest Contact Info) Description 09/10/2023 11:00 AM EDT Clinical [place] [address] Surgery follow-up Social History Tobacco Use Types Packs/Day Years Used Date Smoking Tobacco: Never Smokeless Tobacco: Never Alcohol Use Standard Drinks/Week Comments Not Currently 0 (1 standard drink = 0.6 oz pur e alcohol) [facility] Inpatient Questions Answer Date Recorded [...] this encounter Patient Instructions * Patient Instructions* Margarita Groves RN - 09/10/2023 11:00 AM EDT Signs of Infection : A temperature over 100.4 F or 38 C. Redness at the incision line that is beginning to spread away from the incision after the first 48 hours. Yellow pus-like or foul smelling drainage larger than a dime size from the incision or drain sites. Increased pain / discomfort that is not relieved by your pain medicine such as extra strength tylenol, or NSAIDS For any of these symptoms please call our nurse's line at [phone] M - F 8 - 5 For after hours, and on weekends; Call [phone] and ask for our plastic surgeon petroleum production engineer Your drains have removed your drain(s) have a compression dressing. You may remove the dressing in 24 hours and shower. After showering, you may cover the drain site(s) with a band aid,or guaze if still draining a largeamount of fluid. The drain site is typically closed in approximately three days. Please call the clinic with any questions or concerns @ [phone] Wednesday through Wednesday from 8-5. On weekends, nights, or holidays, call the Main Hospital number @ [phone] and ask for the Plastic Surgeon petroleum production engineer. Activity restrictions until 6 weeks post-op: do not lift/push/pull > 5 pounds, no running or bouncing, no push-ups or plank position. Wear compression binder or garment around the clock until six weeks after surgery. Six weeks after surgery all restrictions lifted. documented in this encounter Progress Notes * Margarita Groves RN - 09/10/2023 11:00 AM EDT Reason for Visit: Postoperative Evaluation s/p panniculectomy 09/02/[address] Foote (a total of 1.575kg was resected) POD # 8 Helene is here for an incision check and drain removal. Subjective: Helene states she has moderate discomfort with right drain. She states she has had good relief from extra strength tylenol and Buhler. Objective: Bruising: mild bilaterally Swelling: mild bilaterally Sutures absorbable, incision well approximated. Drains meet criteria for removal today. Each drain has been less than 30 mls of serous drainage fortwo days in a row Binder in use Assessment: No signs of delayed healing,erythema,or fluid collection.Incisions CDI. Plan: We reviewed post op instructions including: Activity restrictions : Provided in AVS We reviewed signs and symptoms of infection, spitting sutures, parameters for normal post op swelling and bruising. We reviewed low sugar and increase protein in the diet. We reviewed communication through [facility] portal, and correct phone numbers to call for concerns on AVS, Helene expressed understanding of instructions,and agrees with the plan of care. Follow up in 3 months or sooner with Dr. Foote . documented in this encounter Plan of Treatment Not on file documented as of this encounter Visit Diagnoses Diagnosis Surgery follow-up Follow-up examination, following unspecified surgery documented in this encounter Care Teams Spanish Lecturer Relationship Specialty Start Date End Date None None PCP - General 08/30/23 documented as of this encounter
--- OUTSIDE RECORDS SUMMARY | 2024-04-14 12:26 | XMS_ITS | Encounter Summary ---
Author Organization [facility] [place] [address] Care Team Providers Care Research Geneticist Name Role Phone Mona Honeycutt APRN Primary Care Provider [phone] Reason for Visit * Reason Comments Medication Refill Encounter Details Date Type Department Care Team (Late st Contact Info) Description 12/04/2020 Refill [place] [address] Emily Jurado PA [facility] [place] [address] Social History Tobacco Use Types Packs/Day Years [...] on filedocumented in this encounter Care Teams Research Geneticist Relationship Specialty Start Date End Date Mona Honeycutt APRN PCP - General Family Medicine 01/25/20 08/29/23 documented as of this encounter
--- OUTSIDE RECORDS SUMMARY | 2024-04-14 12:26 | XMS_ITS | Encounter Summary ---
Author Organization [facility] [place] [address] Care Team Providers Care Personal Injury Litigation Paralegal Name Role Phone Mona Honeycutt APRN Primary Care Provider [phone] Encounter Details Date Type Department Care Team (Latest Contact Info) Description 02/13/2022 1:00 PM EDT TH Visit (TeleHealth) [place] [address] Cherise Xiong APRN [facility] [place] [address] Mariana Al, CHANELL [facility] [place] [address] S/P gastric bypass; Post-resection malabsorption; Intertrigo Social History Tobacco Use Types Packs/Day Years Used Date Smoking Tobacco: Never Smokeless Tobacco: Never Sex and Gender Information Value Date Recorded Sex Assigned at Not on file Gender Identity Not on file Sexual Orientation Not on file documented as of this encounter Patient Instructions * Patient Instructions* Cherise Xiong APRN - 02/13/2022 1:00 PM EDT BSP support dba Genevieve [phone] and Carissa [phone] Dietitians: [phone] Surgeons/ nurse practitioners: [phone] Nurse line: [phone] Dear Helene, Please see your electronic medical record note from today for details we discussed at your visit. Below is some additional general information that you may find helpful. Testing: It would be helpful if you can have your lab work drawn a couple days before your visit rubio [facility] facility so the results are available at the time of your follow up visit. If you have labwork done by your primary primary care md before that date, please have a copy sent to the Bariatric Surgery Program. Please call/send my message if you have not heard from us within 2 weeks of having labs work done. Here's the link to [facility] Lab hours and locations: [email or web address] Next visit: Follow up visits are done at 4 months and 12 months after surgery and yearly thereafter. Some patients are evaluated on a more frequent basis. Please call [phone] if you do not receive an appointment by 3-4 weeks prior to the expected visit. Vitamins/Nutrition/Activity Recommendations: Please see your visit note for personalized recommendations General Vitamin recommendations: Multivitamins with minerals twice daily- needs to be an under 50 multivitamin that contains iron. Vitamin B12 500 mcg by mouth once daily Calcium citrate 500-600 mg with Vitamin D 400 units twice daily (600 mg in AM and 600 mg in PM- 2 pills twice a day) (or 1 chewable twice a day) Iron supplement: as specified in today's visit Vitamin D: as specified in today's visit General Nutrition recommendations: 1,000-1,200 calories per day (300 calories per meal, 100 calories per snack, 1-2 snacks per day) 60 grams of protein per day (20 grams per meal) 48-64 oz of non-caloric and hydrating fluids per day (6-8, 8 oz cups) Do not drink with meals- pushes food through more quickly, can cause upset stomach Activity: Aim for 30 minutes of exercise daily, 5 days a week of both cardio and strength training exercises. Skinfold care: Cleanse area with soap and water. Blow dry area on low setting with hair boiler. Avoid excessive heat and/or sweating as friction and moisture can exacerbate disease. Try OTC Dove clinical strength anti perspirant to affected areas nightly or an absorbent powder such as Gold Corral and Desinex Apply cotton strips (such as strips from old sheets) or larger size cotton underwear folded beneathskin folds to act as a wick. Do not apply anant cloth toweling which can cause further irritation Try combination of over the counter hydrocortisone cream with over the counter antifungal cream such as lotrimin twice a day for 2 weeks. If your symptoms do not improve you may require prescription of anti-fungal cream/powder. Follow up with PCP if symptoms worsen/fail to improve with above strategies. Constipation: Increase fiber, fluids and fitness. Yerba Prima is a fiber supplement that comes in capsule form. Additionally, consider trying 1 capful daily of miralax daily (preferably at night) with a goal of at least 1 BM per day. You can increase the dose as needed every 2-3 days (by adding on 1 capful either morning or night) without safety concerns, noting that individual tolerance becomes limited by loose stools and bloating with doses higher than 2 capfuls twice daily. Please call if you do not have a BM after 3 days. On days with loose stools, we recommend reducing miralax to 1/2 capful daily but continue to take miralax every day Nausea: Common causes for nausea post bariatric surgery are: Eating too fast, eating too much, drinking with meals, or not chewing well enough. Be sure to eat slowly and chew food well. Take at least30 minutes or more to eat a meal. Call if symptoms worsen, fail to improve, or if you have difficulty keeping food or fluid down. Alcohol: is not recommended for at least 6-12 months after surgery. Alcohol is absorbed much fasterand stays in your system much longer post bariatric surgery and as a result there is an increase risk of alcohol misuse/abuse after bariatric surgery. It should be used sparingly, no more than one drink per occasion, no more than 2 drinks a week. Alcohol is toxic to the liver, a source of empty calories, it can cause ulcers, vitamin and mineral deficiencies, as well as impair digestion and absorption of nutrients. Call or follow up with your therapist or primary care provider if you are struggling or think your alcohol intake is a problem. control for women of child bearing age: is recommended for at least 18-24 months after surgery. f non-prescribed drugs and treet drugs is unsafe Anti-inflammatory medications such as Ibuprofen (Advil), Aleve (Naproxen), Excedrin, Deana-[place] should be used sparingly after gastric bypass, since they increase the risk of ulcer and bleeding. A bone mineral density scan (DEXA) is recommended every 2 years after bariatric surgery. Please schedule this study through your primary care providers office. Hair Loss: is associated with rapid weight loss and is seen approximately 3 to 6 months after surgery and can last 3 to 6 months. It is almost always temporary. Eating a healthy diet with 60 grams ofprotein per day and taking your multivitamin with minerals will help. Sleep Apnea: If you have a history of sleep apnea and have a CPAP/BiPAP, please be sure to follow up with the sleep center to confirm your pressures and determine if continued use of CPAP/BiPAP is recommended. Potential lifetime risks of gastric bypass include risk of ulcer, which is increased with alcohol and antiinflammatory medications and internal hernia (less than 5%), which may be increased with higher than predicted weight loss Potential lifetime risks of sleeve gastrectomy include developed heartburn or severe reflux Call us: If you have concerns. If you have unexplained abdominal pain. if you see blood in your stool or vomit blood If you have prolonged vomiting Post Surgery Support Group: Our post surgery support group meets at [facility] on the first Wednesday of every month from 1:00 PM-2:00 PM. You can attend online or in person. Use the following link to attend online: [email or web address] Nutrition and Activity apps- Baritastic, My Fitness Pal, Lose It, My Plate Internet resources: www.Jive Software www.[employer]i [employer] www.bariatriceating.com www.Momentum Dynamics CorpnessPal.TRData/blog [facility] facebook page: https://www.facebook.com/[facility] Books & Magazines: - Recipes for Life After Weight Loss Surgery by Elayne Genao - Shrink Yourself by Dr Collins Fuller - Eating Well - www.[place] [employer].TRData - Cooking Light- www.cookingTudou.TRData Anxiety: The Happiness Trap by Guillermo Mccall The Mindfulness and acceptance workbook for anxiety By Lele Avelar. Mindful eating: What are you Hungry For? By Ismael Carmichael The Mindful Diet by Carleen Melton and the [facility] group. Emotional eating: End Emotional Eating by Hilda Davis Calming the Emotional Storm Maryanpollo Dee documented in this encounter Progress Notes * Mariana Al, RD - 02/13/2022 1:00 PM EDT Images from the original note were not included. [place] [address] BARIATRIC SURGERY VIRTUAL NOTE 1. Reason/purpose for phone call: BSP follow up visit 2. The patient voiced an understanding of the reason and intent of the televisit and provided verbal consent to discuss clinical issues by telehealth. Additionally, the patient acknowledged that the telehealth consultation is a billable encounter, and that the patient or their medical insurance carrier could be billed. 3. Summary of conversation, decision making, and plan: see below encounter note for details. Time Attestation: I spent a total of 30 minutes associated with this encounter, including chart review, the patient encounter, and documentation. Encounter Type: follow up SUBJECTIVE: Topics Discussed/Patient Concerns: ? Pt states she is interested in skin removal, further discussion with Cherise Xiong APRN. ? Advised pt to aim for 60-80g of protein/day- eat protein at all meals and snacks, eat protein first ?? Try eggs, cottage cheese, urdu yogurt, Fairlife protein drinks, and protein bars ? Advised pt to aim for 48-64 oz hydrating fluids/day ?? Pt states she is practicing stopping eating when she is full, states she is not snacking ?? Pt states she is exercising 7 days/wk ?? 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 Lives w her boyfriend. 3 cats and 5 fish. ?? Social support:??boyfriend??(Huseyin), friends, coworkers ?? Hobbies:??likes to go to hotels and swim, water garcia. Watching wrestling WWE and Netflix -Super Natural ?? Vision at 2 years post-op:??improve health issues. To be able to walk better. To see her niece graduate from high school. ?Goal weight: under 200# ?? OBJECTIVE: ?? Date of Surgery: 07/30/20 Type of Surgery:??laparoscopic giorgio en y gastric bypass ?? Weight History: Date Weight (lbs) HT BMI Comments?? Age 34 290# ? Highest Weight 01/07/20 290# ? Initial program weight 06/20/20 274# 63 48.5 1st pre-op visit 07/30/20 ??n/a EWL % ?? Surgery ??08/19/20 235#?29% 41.6?? 1 month post-op ??11/18/2020 ??191# ??62% 33.8?? 4 months post-op 08/11/21 148# 95% 26.2 1 year post-op (per pt) 02/13/22 154# 90% 27.3 18 mo post-op (per pt) [place] Body Weight (based on BMI of 25):??141# 30-70% Excess Weight Loss:??181-234#; 50% Excess Weight Loss:??208# ?? Vitamin/Mineral Supplements (reported by patient): Supplement Type Brand/Form Dosage/Amount Frequency Comments Multivitamin Flintstones 2 pill daily ?? Calcium Citracal 2 pills Twice daily Takes 4 in evening on days she takes iron in AM, advised pt totake 2 pills, twice daily Vitamin B12?pill 500 mcg daily ??every morning Iron Vitron C 1 pill MWF ?? Vitamin D3 ? none ?? Food Allergies/Intolerances: ice cream ?? Tracking Intake:??baritastic ?? 24-Hour??Intake: using Fairlife drinks, Premier protein drinks Breakfast nutrigrain bar AM Snack Lunch lunchable turkey, cheese, crackers PM Snack Dinner cheesesteak wrap w/ pickles HS Snack Protein/ grams per day: ??40g Hydrating fluids- oz/ day: ??advised pt to aim for 3-4 x 16 oz fluids Soda: ??none ETOH: ??1-2x/month Caffeine: coffee (w/ splenda, SF or reg syrup) Sweets: ??avoids, cannot tolerate ice cream Meals per day: ??3 ? Feels full/satisfied after eating:??yes ?? Feels hungry [x]??never ?[]??sometimes ?[]??most of the time ?[]?always ?? Drinks with meals:?? no ?? Practices portion control:??yes ?? Has had dumping syndrome: none ?? In the past month, pt has vomited/regurgitated: none ?? Constipation/Diarrhea:??pt reports some diarrhea, ? r/t coffee intake ?? Exercise:?? 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 Her excess weight loss is at 90%. Pt is tolerating the diet but is below protein and fluid goals. We discussed the importance of meeting protein goals, eating protein at all meals and snacks, and eating protein first. Advised pt to increase protein at breakfast. Advised pt to aim for 48-64 oz hydrating fluid. Reviewed supplements, pt is taking supplements as recommended, advised pt to take calcium citrate 2 pills, twice daily, discussed getting pill container to bring calcium to work with her. Pt exercises regularly. NUTRITION INTERVENTION & MONITORING: ?? Provided support/encouragement and reinforced importance of meeting nutritional goals. ?? Aim for 60-80g of protein/day- eat protein at all meals and snacks, eat protein first ?? Use Fairlife protein drinks, Premier Protein, protein bars, Chilean yogurt, egg, and cottage cheese for breakfast options ?? Aim for 48-64 oz hydrating fluid/day ?? Reviewed vitamin and mineral supplement recommendations. Multivitamins with minerals twice daily- needs to be an under 50 multivitamin that contains iron. Vitamin B12 500 mcg by mouth once daily Calcium citrate 500-600 mg with Vitamin D 400 units twice daily (2 pills twice a day) (or 1 chewable twice a day) Iron- Lizethn - [facility], Take Iron as prescribed. Take iron supplement every other day or Wednesday/Wednesday/Wednesday. Take miralax 1 cap a day on the day you take your iron supplement to minimize risk of constipation. Space iron 2 hours from calcium supplementation Do not take iron with caffeine, fiber, thyroid medications or dairy products ?? Evaluation by nurse practitioner today. RTC in 6 mo for next BSP follow up visit, with labs. Call/rtc sooner prn with questions/concerns. * Cherise Xiong, REGIONAL FACILITIES MANAGER - 02/13/2022 1:00 PM EDT Images from the original note were not included. [place] [address] BARIATRIC SURGERY VIRTUAL NOTE 1. Reason/purpose for phone call: BSP follow up visit 2. The patient voiced an understanding of the reason and intent of the televisit and provided verbal consent to discuss clinical issues by telehealth. Additionally, the patient acknowledged that the telehealth consultation is a billable encounter, and that the patient or their medical insurance carrier could be billed. 3. Summary of conversation, decision making, and plan: see below encounter note for details. Time Attestation: I spent a total of 30 minutes associated with this encounter, including chart review, the patient encounter, and documentation. Reason for visit: Bariatric Surgery follow up visit Subjective: Helene Carpenter is s/p Giorgio-en-Y gastric bypass with Dr. Chavez on 07/30/20, she presents today for interim follow up. Overall tolerating foods/fluids and trying to make sure she is meeting nutritional/fluid requirements. Pt reports no difficulty swallowing, epigastric pain, or bloating. No GERD. No N/V. BM are stable - IBSD. No bariatric related concerns/complaints today. Helene continues to struggle with skin fold rashes beneath her pannus in spite of good hygiene and OTCs. The rash is pruritic and is made worse by hot weather. Interim Health: Patient reports her health has been stable overall. No bariatric related surgeries,hospitalizations, or ED visits since the last visit. No kidney stones or atraumatic fractures. Current Supplements: Multi-vitamin with minerals/iron twice daily (Flinstones), Calcium citrate 500/600mg with Vit D 400 IU tries to take 2 pills twice daily, Vit B12 500 mcg daily, No longer taking Vit D supplement, Vitron Raul CHU. Pt follows with PCP/specialist for disease management and age specific screening. Pre-Bariatric Surgery Obesity related medical issues: ? Diabetes [x]? Yes (back on metformin, working closely with PCP, checking A1C) []? Not a baseline issue ? HTN: [x]? Yes, improved no longer on meds. ? GERD: [x]? Yes, no longer on medication, no symtpoms ? Hyperlipidemia: [x]? Yes, improved no longer on statin ? GAMAL: [x]? Yes, no longer using CPAP , did call sleep center. No sx, sleeping well. ? Arthritis/Joint Issues: []? Yes [x]? Not a baseline issue Patient Active Problem List Diagnosis Code ??? Morbid obesity E66.01 ??? GAMAL on CPAP G47.33, Z99.89 ??? Diabetes mellitus E11.9 ??? Hypertension I10 ??? Hypercholesterolemia E78.00 Review of Systems Constitutional: energy level is good, no c/o restless leg, no hair thinning/loss. Neuro: no c/o paresthesias, no changes in memory. CV: no c/o chest pain or palpitations. Pulm: denies SOB or cough. GI: as above. ATHLETICS DIRECTOR: Having regular menstrual cycle. Skin: Endorses redundant skin, no skin fold rashes. Health Habits: Tobacco: Never. ETOH: 0-3 drinks per month.. NSAID use: None. Dietary history/ exericse/ activity level: See dietitian note from today's visit for complete dietary evaluation. Meds and Allergies reviewed. Complications summary: Early none Late - ? WT (lbs) BMI HT Highest wt Pre-op visit 06/20/20 ?? 274 48.5 5'3 ?? Post-op WT (lbs) BMI ?? %EBW lost 08-19-20 235 reported 41.6 ?? 29 11/18/20 191 33.9 ?? 62 08/11/21 148 26.2 ?? 95 02/13/22 154 (patient reported) 27.3 90% ?? Objective: There were no vitals taken for this visit. (Telehealth). Physical Exam- limited d/t telehealth Gen: Alert, pleasant, NAD, appears well Resp: Speaking in full sentences, no gasping. No cough witnessed. Skin: No pallor or diaphoresis visible. No rash noted. Psychiatric: normal mood and affect. No results found for this or any previous visit (from the past 72 hour(s)). Assessment 36 y.o. female who is 1.5 years s/p Giorgio-en-Y gastric bypass with 90% of excess body weight lost. Plan: ??? S/p bariatric surgery: o Doing well from a bariatric surgery perspective, overall pleased with surgical outcome. Discusseddietary considerations and strategies for continued success . Reviewed importance of meeting nutritional/protein/fluid requirements, tracking food and food choices, pairing carbs with protein, being careful to avoid eating too fast, eating too much, drinking with meals, or not chewing well enough. ??? Discussed risks associated with alcohol intake after bariatric surgery (increased risk of alcohol misuse/abuse, increased risk of ulcers, empty calorie). o Patient has met with hydraulic governor assembler today, please see note for additional details/dietary evaluation. ??? Obesity related co-morbidities: o Improved/stable overall, patient to continue to follow with PCP/specialist. Excess skin/skin fold rashes/ intertrigo caused by weight loss: Reviewed pt education re: skin careand treatment of skin fold rashes. F/u with PCP if sx worsen/fail to improve with recommended strategies. Will refer to plastic surgery for consideration of skin removal. ??? Risk for vitamin deficiencies: o No labs today. Will check labs at 2 year post op visit in Jul, 2022. o Reviewed recommended vitamin/mineral supplements- See RD note for additional details. RTC in 2 for next BSP follow up visit, with labs. Call/rtc sooner prn with questions/concerns or unexplained abdominal pain, prolonged nausea, vomiting or inability to hydrate. Bariatric Program Summary report is availabe for patient's review via e-DH I spent a total of 30 minutes associated with this encounter, including chart review, the patient encounter, and documentation. Cherise Xiong APRN RECOMMENDED BARIATRIC SURGERY PROGRAM POSTOPERATIVE FOLLOW-UP: Follow up: done at 4, 12 and yearly thereafter. High risk patients are evaluated on a more frequentbasis. *Typical Supplement recommendations: Multivitamin with minerals twice a day, B12 500 mcg once a day, calcium citrate 600 mg/400 units vitamin D twice a day, iron (ferrous fumarate, carbonyl iron taken with vitamin C 250 mg once every other day) for menstruating females or those with Iron Deficiency. Labwork: Hemogram, ferritin, iron (transferrin) saturation, iron, folate, B1, B12, D (25 hydroxy only), Intact PTH and comprehensive metabolic profile at 4, 12 months and yearly. If labwork is done by the primary primary care md: please send a copy to the Bariatric Surgery Program, General Surgery Clinic, [facility], or fax [phone] documented in this encounter Plan of Treatment Not on file documented as of this encounter Visit Diagnoses Diagnosis S/P gastric bypass Bariatric surgery status Post-resection malabsorption Other and unspecified postsurgical nonabsorption Intertrigo Other specified erythematous condition documented in this encounter Care Teams Personal Injury Litigation Paralegal Relationship Specialty Start Date End Date Mona Honeycutt APRN PCP - General Family Medicine 01/25/20 08/29/23 documented as of this encounter
--- OUTSIDE RECORDS SUMMARY | 2024-04-14 12:26 | XMS_ITS | Encounter Summary ---
Author Organization [facility] Address [facility] [place] [address] Care Team Providers Care Diesel Service Apprentice Name Role Phone Mona Honeycutt ROMEL Primary Care Provider [phone] Encounter Details Date Type Department Care Team (Late st Contact Info) Description 08/02/2020 Telephone [place] [id number] Doc Oconnor MD [facility] [place] [address] Social History Tobacco Use Types Packs/Day Years Used Date Smoking Tobacco: Never Smokeless Tobacco: Never Sex and Gender Information Value Date Recorded Sex Assigned at Not on file Gender Identity Not on file Sexual Orientation Not on file documented as of this encounter Miscellaneous Notes * Telephone Encounter - Doc Oconnor MD - 08/02/2020 12:53 AM EST I received a call from Ms. Carpenter regarding medication management. She asked if two of her meds needed to be crushed. I referred to the discharge instructions and told her that if the pills were larger than the size of a calcium pill that she needed to crush them or open the capsules and consume with applesauce or pudding, and that if the meds were smaller than a calcium pill that she did not needto crush or open the meds. She understood, had no further questions or concerns, and appreciated the call. Doc Oconnor MD 08/02/20 1:00 AM documented in this encounter Plan of Treatment Not on file documented as of this encounter Visit Diagnoses Not on filedocumented in this encounter Care Teams Diesel Service Apprentice Relationship Specialty Start Date End Date Mona Honeycutt APRN PCP - General Family Medicine 01/25/20 08/29/23 documented as of this encounter
--- OUTSIDE RECORDS SUMMARY | 2024-04-14 12:26 | XMS_ITS | Encounter Summary ---
Author Organization [facility], Located Within [facility] [place] [address] Care Team Providers Care Network Intern Name Role Phone None Primary Care Provider Unavailabl e Reason for Visit * Auth/Cert (Routine) Specialty Diagnoses / Procedures Referred By Alex t Referred To Contact Diagnoses Morbid obesity symptomatic pannus Procedures PRO EXCISE EXCESS SKIN TISSUE, ABDOMEN PANNICULECTOMY (WRVU 17.11) Huber Foote MD [facility] [place] [address] [facility] Referral ID Status Reason Start Date Expiration Date Visits Re quested Visits Authorized [id number] 1 1 Encounter Details Date Type Department Care Team (Late st Contact Info) Description 09/02/2023 1:08 PM EDT - 09/02/2023 3:53 PM EDT [place] [address] Huber Foote MD [facility] [place] [address] PANNICULECTOMY (WRVU 17.11) Social History Tobacco Use Types Packs/Day Years Used Date Smoking Tobacco: Never Smokeless Tobacco: Never Tobacco Cessation:Counseling Given: Not Answered Alcohol Use Standard Drinks/Week Comments Not Currently 0 (1 standard drink = 0.6 oz pur e alcohol) [facility] Inpatient Questions Answer Date Recorded Does Anyone [...] Sign Reading Time Taken Comments Blood Pressure 142/89 09/02/2023 3:45 PM EDT Pulse 63 09/02/2023 3:52 PM EDT Temperature 36.3 ??C (97.3 ??F) 09/02/2023 3:39 PM ED T Respiratory Rate 15 09/02/2023 3:52 PM EDT Oxygen Saturation 99% 09/02/2023 3:52 PM EDT Inhaled Oxygen Concentration - - Weight 75.8 kg (167 lb) 09/02/2023 1:03 PM EDT Height 160 cm (5' 3) 09/02/2023 1:03 PM EDT Body Mass Index 29.58 09/02/2023 1:03 PM EDT documented in this encounter Discharge Summaries * Matheus Khan MD - 09/03/2023 6:42 AM EDT Images from the original note were not included. Plastic Surgery Service Inpatient Discharge Summary Patient Name: Helene Solano Patient Age: 38 y.o. : 1985 Attending Physician: Huber Foote MD Date of Admission: 09/02/2023 Date of Discharge: Code Status: 09/03/2023 Attempt Cardiopulmonary Resuscitation - Inpatient Primary Diagnosis: Active Hospital Problems Diagnosis S/P panniculectomy Resolved Hospital Problems No resolved problems to display. Secondary Diagnosis: None. Incidental Findings: None. History: History obtained through patient interview, review of relevant records, and/or discussion with referring provider. 38 y.o. male with PMH of obesity and pSHx for gastric bypass in 2020 now presenting to [facility] for elective panniculectomy with Dr. Huber Foote. Past Medical History History reviewed. No pertinent past medical history. Past Surgical History Past Surgical History: Procedure Laterality Date PRO LAP GASTRIC BYPASS/PIA-EN-Y N/A 07/30/2020 @LAPAROSCOPIC GASTROPLASTY W/ PIA-EN-Y CONSTRUCTION (WRVU 29.4) performed by Carlos Chavez MD at [facility] MAIN OR PRO UPPER GI ENDOSCOPY, DIAGNOSTIC N/A 07/30/2020 EGD, UPPER GI ENDOSCOPY performed by Carlos Chavez MD at [facility] MAIN OR Procedures: 09/02/2023 Surgeon(s) and Role: * Huber Foote MD - Primary: Procedure(s): PANNICULECTOMY (VU 17.11) Hospital Course: Helene Solano was admitted to the Plastic Surgery Service on 09/02/2023 after undergoing panniculectomy for symptomatic pannus. She tolerated the operation well and there were no apparent complications. She was admitted post-operatively for observation and management. Her hospital stay was uncomplicated. Helene Solano was tolerating regular diet, ambulating and voiding without difficulty, afebrilewith stable vital signs, and her pain was well controlled on oral pain medications when she was deemed ready for discharge on 09/03/2023. Updated Allergies/ADRs: Allergies Allergen Reactions Ibuprofen Lisinopril Niacin Hives and Rash Skin turns red and hot Pending Lab Data at Discharge: @DCLABS@ Condition at Discharge: Stable Important Studies and Lab Data: Labs: Recent Labs 09/02/23 1224 WBC 6.4 HGB 14.1 HCT 42.5 PLATELET 270 Recent Labs 09/02/23 1224 NA 137 K 3.6 CL 101 CO2 25 BUN 11 CREATININE 0.53* GLUCOSE 164 CALCIUM 9.4 Discharge Examination: Last value Range last 12 hrs Temperature Temp: 37.3 ??C (99.1 ??F) Temp: [37.2 ??C (99 ??F)-37.3 ??C (99.1 ??F)] Heart Rate Heart Rate: (!) 108 Heart Rate: -- Blood Pressure BP: 119/72 BP: (117-119)/(72-78) Respiratory Rate Resp: 18 Resp: [18-20] SpO2 SpO2: 95 % SpO2: [95 %-98 %] General: laying in bed in no acute distress. Neuro: Awake, alert, responds to questions appropriately, CN II-XII grossly intact, moving all fourextremities spontaneously. CV: RRR. Pulm: Normal effort. Abdomen: transverse incision c/d/I, no evidence of hematoma/seroma. [address] with serosanguinous drainage. Discharge to: Home If discharged to rehab facility, name of facility: N/A. Discharge Medications: The following medications have been prescribed for you. If you notice any adverse reactions to your medications, please contact your primary care physician immediately or go tothe nearest Emergency Department. Your Medications New Medications Dose Details HYDROcodone-acetaminophen 5-325 mg tablet Commonly known as: [place] Take 1 tablet by mouth every 6 hours as needed for Pain. 1 tablet Quantity: 8 tablet Refills: 0 Continued medications, unchanged Dose Details acetaminophen 650 mg/20.3 mL Solution Commonly known as: Tylenol Take 20.3 mLs by mouth every 4 hours as needed. 650 mg Refills: 0 albuteroL 90 mcg/actuation HFA Aerosol Inhaler Q4H Refills: 0 * Calcium Citrate-Vitamin D3 250 mg-5 mcg (200 unit) Tablet Take 2 tablets by mouth. 2 tablet Refills: 0 * CALCIUM CITRATE + D ORAL 2 tablets. 2 tablet Refills: 0 cyanocobalamin (vitamin B-12) 500 mcg tablet Commonly known as: Vitamin B-12 Take 500 mcg by mouth daily. 500 mcg Refills: 0 loratadine 10 mg Tablet Commonly known as: Claritin Take 10 mg by mouth daily. 10 mg Refills: 0 metFORMIN 1,000 mg tablet Commonly known as: Glucophage Take 1,000 mg by mouth 2 times daily. 1,000 mg Refills: 0 MULTIVITAMIN WITH IRON-MINERAL ORAL 2 tablets. 2 tablet Refills: 0 * nystatin Cream Commonly known as: Mycostatin Apply topically 2 times daily. Quantity: 30 g Refills: 1 * nystatin Cream Commonly known as: Mycostatin Apply topically 2 times daily. Quantity: 30 g Refills: 1 triamcinolone 0.1 % Cream Commonly known as: Kenalog 2-4 times daily PRN Refills: 0 * This list has 4 medication(s) that are the same as other medications prescribed for you. Read thedirections carefully, and ask your doctor or other care provider to review them with you. Helene Solano is getting a prescription opioid for the treatment of acute post- operative pain related to the surgical procedure during this encounter. Pt has been advised to take the smallest dose possible to control pain and as the pain improves to take smaller doses and increase the time between doses. In addition to this medication, pt was educated on the non-opioid pain medications that can be taken for adjunct treatment of pain. Non-pharmacological treatments were also discussed that include but not limited to ice, elevation, and activity modification as appropriate. The Acute Opioid Therapy Informed Consent form has been completed during this encounter and sent tomedical records for scanning to chart. Follow-up Care & Plans: To make an appointment or for questions about scheduling, please contact our administrative offices at [phone]. For clinical questions, please call our nurses at [phone]. Both offices are open Wednesday thru Wednesday 8a - 5p. With emergencies after hours, call the hospital power machine operator at [phone] and ask for the Plastic Surgery Resident diamond sizer. Scheduled Appointments: Future Appointments Date Time Provider Department Center 09/09/2023 11:00 AM NURSE, PLASTIC SURGERY [facility] PLAS 4M [facility] Outpatient Services/Studies: No discharge procedures on file. Instructions Given to Patient at Discharge: Patient Instructions PANNICULECTOMY DISCHARGE INSTRUCTIONS WHAT TO EXPECT: During the first 1 to 3 weeks, expect to feel tired from the anesthesia and in general, due to the healing process. Altered sensation (such as shooting or burning pain) or numbness is common after surgery. Normal ornear normal sensation should return within a few months but some areas may stay numb permanently. Generalized abdominal swelling above the incision may last for several weeks to months due to tissue fluid build-up. WOUND AND DRAIN CARE: Keep dressing clean, dry, and intact. You may remove your dressings after 48 hours. After that you may leave them open to air. If you feel more comfortable with dressings under the binder, then you may replace them to suit your comfort needs. Do not use ice or heat on your surgical site. Your hospital nurse will review your drain care. You will learn how to strip, measure, and record the total amount of fluid from each drain. See below for detailed drain information. Spitting sutures: Occasionally an area of redness and tenderness develops where a dissolving stitchbecomes irritated and pushes to the surface. If this occurs, it is not an emergency. You may clip the stitch with a clean scissor or call for an appointment with a nurse. You must avoid sunlight exposure to your incision(s). No tanning on incision lines for at least 6 months to minimize scarring. Do not use any over the counter ointments on the incisions postoperatively unless instructed by your provider. SHOWERING: OK to shower two days after surgery and get incisions wet. Gently wash your incisions with soap andwater. Pat dry with a clean towel. Do not submerge your surgical site under water until your incision is completely healed, at least two weeks. MEDICATIONS: You should resume your home medications. You do not need any antibiotics. ACTIVITIES: Rest frequently during the day, and limit visitors until you feel more up to it. You will be provided with an abdominal binder. Wear your abdominal binder 24 hours a day for 4-6 weeks, removing it briefly to shower. To reduce the strain on your incision, you should remain in a flexed/recliner chair position for about 5 days - this may take longer in some instances so let your body be your guide. Do not lift more than 5 pounds for 6 weeks and no more than 10-20 pounds for 3 months. You will be able to return to work in 4-6 weeks. No strenuous exercise (tennis, aerobics, jogging) for 3 months. Feel free to walk as much as you want. Walking improves circulation, respiratory function and healing. You will not be able to drive for 2-3 weeks or while taking you pain medication. You may wear your safety belt if you place a small pillow over your abdominal incision. No sexual activity for 6 weeks. No smoking for at least 2 weeks following your surgery. DIET: Regular healthy diet. DO???S AND DON???TS FOR THE NEXT 6 WEEKS: Do not drive a motor vehicle for 1-2 weeks or until you can handle the steering wheel without discomfort. Do not drive while taking your narcotic. Do not smoke or be around anyone who smokes for 2 weeks after your surgery this is because smoking delays healing and can lead to infection. Do not lift more than 5 pounds for 6 weeks. Do not participate in strenuous activities such as running or aerobics for 6 weeks. Do resume walking at a gentle pace. Protect your incisions from the sun for 6 months to 1 year. CALL MD IF: - Your incision opens up. - Your drain output suddenly increases or the color/consistency changes. - You have signs of infection such as: - temperature over 100.4F or 38C - redness or warmth spreading away from the incision lines after the first 48 hours - yellow pus-like or foul smelling drainage larger than dime size from the incisions or drainage sites - increased swelling or pain - You notice localized swelling this could be a collection of fluid under the skin at or near the incision site. During office hours: Wednesday - Wednesday 8am-5pm call [phone]. On weekends or after hours call [phone] and ask the power machine operator to page the plastic surgery resident diamond sizer. PAIN MEDICATION: Pain is a normal part of surgery and the body's healing process. We wish we could make your postop pain zero, but that isn't a realistic expectation. Take Tylenol/acetominophen (do not exceed max daily dose of 4,000mg) as needed for pain relief. After 48 hours you may add Advil/ibuprofen (do not exceed max daily dose of 2,400mg). Take opioid pain medication only as needed for breakthrough pain. The goal is to use opioids to get over the hump of the first few days after surgery, and then quickly transition to managing your pain with non-opioid options to minimize the risk of dependence. CONTACT INFORMATION: During office hours (Wednesday through Wednesday 8 am to 5 pm): Call [phone]. On weekends or after hours: Call [phone] and ask the power machine operator to speak to the Plastic Surgery Resident on-call. FOLLOW-UP APPOINTMENTS: You follow-up appointment has been requested by not yet scheduled. You should have an appointment in 5-7 days. Please call [phone] if you have not received a phone call or letter with your appointment in a timely fashion. Your follow-up has been scheduled: Future Appointments Date Time Provider Department Center 09/09/2023 11:00 AM NURSE, PLASTIC SURGERY [facility] PLAS 4M [facility] DARWIN DRAIN CARE INSTRUCTIONS General Information: Drains help to keep fluid from collecting by removing the extra blood and fluid from under the skin. A drain is temporary. It stays in place until the drainage has slowed down or stopped. At your follow-up visits we will decide when each drain should be removed based on outputs, which is why it's important to record these. Drain removal is usually not painful and only takes a few seconds. How do I care for the drains at home? Pin your drains to your clothing by using a safety [...] tubing, and change the dressing if applicable. See the following pages for instructions on how to do this. What problems may I have with my [...] sudden decrease in amount of drainage- This is usually due to clots in the drain. Follow the instructions on how to strip the drain tubing. The tube accidentally falls out- If this [...] and keep the dressing clean and dry. Post-Surgical Drain Care: After surgery, you will have one or two drains, called a Francisco-Ballard (DARWIN) drain, placed near the incision. This device collects fluid, under suction, from your surgical area. The drain promotes healing and recovery, and reduces the chance of infection. The drain will be in place until the drainage slows enough for your body to reabsorb fluid on its own. While you are hospitalized the nursing staff will care for the drain and teach you to continue to do so at home. How to Empty Your DARWIN Drain Note: Wash your hands thoroughly before emptying your drain(s). Have the plastic measuring cup from the hospital ready to collect and measure the drainage. Please measure the output at the same two times every 24 hours and record the amount. Unpin the drain from your clothing. Open the top of the drain. Turn the drain upside down and squeeze the contents of the bulb into themeasuring cup. Be sure to empty the bulb as completely as possible. Flush the contents in the toilet. Use the drain output log chart to record the amount of drainage twice a day or any time the bulb isfull. Record the total for 24 hours for each drain you have. If you have more than one drain, remember to record the drainage from each drain separately. To prevent infection, do not let the [...] procedure to reduce the risk of infection. Stripping the Tube Often the tube may become blocked with products of healing or clot. If you do not have drainage, then: Hold the tube near where it is inserted in to the skin with your one hand. Use the other hand to hold a pencil and gently squeeze the tubing with the pencil while moving it down toward the drain away from your skin. This forces the more sold material into the bulb for better drainage. Repeat as necessary to start the draining again. Removal of the Tube The tube may be removed once a single tube output is less than 30cc (1 oz.) for 24 hours. Please call the office if the output becomes thicker or has a bad odor. Francisco-Ballard Drainage Record NAME: Date of Surgery: Date: Time: If more than one drain, which one: Drainage Amount (per drain) Total Amount (per drain; in 24 hours) General Instructions None Future Appointments and Orders Future Appointments and Orders Future Appointments Provider Department Dept Phone 09/09/2023 11:00 AM NURSE, PLASTIC SURGERY Plastic Surgery at [facility] Arrive at: [facility] Area Call your doctor if: Please call your doctor immediately or go to an Emergency Department if you notice worsening pain not controlled by pain medications, uncontrolled headache, vision changes, chest pain, difficulty breathing, persistent nausea and vomiting, new redness or swelling in any extremities, new onset weakness or changes in sensation, or for any fevers greater than 100.4 or 38 F. Signed: Matheus Khan MD 09/03/2023 Plastic Surgery Nursing Orders: Post-Op Plan: - Follow up in: 7-10 days with attending/Laura/nurse/telehealth - Wound Check - Suture removal: None - Dressings: remove dressings - Drain removal when output is less than 30 ml per day x 2 days - Other coordinating appointments needed: 3-6 months with attending Future Appointments Date Time Provider Department Center 09/09/2023 11:00 AM NURSE, PLASTIC SURGERY [address] Associated attestation - Huber Foote MD - 09/03/2023 10:13 AM EDT I have seen and examined this patient today. I have reviewed plans and agree with above. documented in this encounter Discharge Instructions * Patient Instructions* Matheus Khan MD - 09/02/2023 12:25 PM EDT Images from the original note were not included. PANNICULECTOMY DISCHARGE INSTRUCTIONS WHAT TO EXPECT: During the first 1 to 3 weeks, expect to feel tired from the anesthesia and in general, due to the healing process. Altered sensation (such as shooting or burning pain) or numbness is common after surgery. Normal ornear normal sensation should return within a few months but some areas may stay numb permanently. Generalized abdominal swelling above the incision may last for several weeks to months due to tissue fluid build-up. WOUND AND DRAIN CARE: Keep dressing clean, dry, and intact. You may remove your dressings after 48 hours. After that you may leave them open to air. If you feel more comfortable with dressings under the binder, then you may replace them to suit your comfort needs. Do not use ice or heat on your surgical site. Your hospital nurse will review your drain care. You will learn how to strip, measure, and record the total amount of fluid from each drain. See below for detailed drain information. Spitting sutures: Occasionally an area of redness and tenderness develops where a dissolving stitchbecomes irritated and pushes to the surface. If this occurs, it is not an emergency. You may clip the stitch with a clean scissor or call for an appointment with a nurse. You must avoid sunlight exposure to your incision(s). No tanning on incision lines for at least 6 months to minimize scarring. Do not use any over the counter ointments on the incisions postoperatively unless instructed by your provider. SHOWERING: OK to shower two days after surgery and get incisions wet. Gently wash your incisions with soap andwater. Pat dry with a clean towel. Do not submerge your surgical site under water until your incision is completely healed, at least two weeks. MEDICATIONS: You should resume your home medications. You do not need any antibiotics. ACTIVITIES: Rest frequently during the day, and limit visitors until you feel more up to it. You will be provided with an abdominal binder. Wear your abdominal binder 24 hours a day for 4-6 weeks, removing it briefly to shower. To reduce the strain on your incision, you should remain in a flexed/recliner chair position for about 5 days - this may take longer in some instances so let your body be your guide. Do not lift more than 5 pounds for 6 weeks and no more than 10-20 pounds for 3 months. You will be able to return to work in 4-6 weeks. No strenuous exercise (tennis, aerobics, jogging) for 3 months. Feel free to walk as much as you want. Walking improves circulation, respiratory function and healing. You will not be able to drive for 2-3 weeks or while taking you pain medication. You may wear your safety belt if you place a small pillow over your abdominal incision. No sexual activity for 6 weeks. No smoking for at least 2 weeks following your surgery. DIET: Regular healthy diet. DO???S AND DON???TS FOR THE NEXT 6 WEEKS: Do not drive a motor vehicle for 1-2 weeks or until you can handle the steering wheel without discomfort. Do not drive while taking your narcotic. Do not smoke or be around anyone who smokes for 2 weeks after your surgery this is because smoking delays healing and can lead to infection. Do not lift more than 5 pounds for 6 weeks. Do not participate in strenuous activities such as running or aerobics for 6 weeks. Do resume walking at a gentle pace. Protect your incisions from the sun for 6 months to 1 year. CALL MD IF: - Your incision opens up. - Your drain output suddenly increases or the color/consistency changes. - You have signs of infection such as: - temperature over 100.4F or 38C - redness or warmth spreading away from the incision lines after the first 48 hours - yellow pus-like or foul smelling drainage larger than dime size from the incisions or drainage sites - increased swelling or pain - You notice localized swelling this could be a collection of fluid under the skin at or near the incision site. During office hours: Wednesday - Wednesday 8am-5pm call [phone]. On weekends or after hours call [phone] and ask the power machine operator to page the plastic surgery resident diamond sizer. PAIN MEDICATION: Pain is a normal part of surgery and the body's healing process. We wish we could make your postop pain zero, but that isn't a realistic expectation. Take Tylenol/acetominophen (do not exceed max daily dose of 4,000mg) as needed for pain relief. After 48 hours you may add Advil/ibuprofen (do not exceed max daily dose of 2,400mg). Take opioid pain medication only as needed for breakthrough pain. The goal is to use opioids to get over the hump of the first few days after surgery, and then quickly transition to managing your pain with non-opioid options to minimize the risk of dependence. CONTACT INFORMATION: During office hours (Wednesday through Wednesday 8 am to 5 pm): Call [phone]. On weekends or after hours: Call [phone] and ask the power machine operator to speak to the Plastic Surgery Resident on-call. FOLLOW-UP APPOINTMENTS: You follow-up appointment has been requested by not yet scheduled. You should have an appointment in 5-7 days. Please call [phone] if you have not received a phone call or letter with your appointment in a timely fashion. Your follow-up has been scheduled: Future Appointments Date Time Provider Department Center 09/09/2023 11:00 AM NURSE, PLASTIC SURGERY [facility] PLAS 4M [facility] DARWIN DRAIN CARE INSTRUCTIONS General Information: Drains help to keep fluid from collecting by removing the extra blood and fluid from under the skin. A drain is temporary. It stays in place until the drainage has slowed down or stopped. At your follow-up visits we will decide when each drain should be removed based on outputs, which is why it's important to record these. Drain removal is usually not painful and only takes a few seconds. How do I care for the drains at home? Pin your drains to your clothing by using a safety [...] tubing, and change the dressing if applicable. See the following pages for instructions on how to do this. What problems may I have with my [...] sudden decrease in amount of drainage- This is usually due to clots in the drain. Follow the instructions on how to strip the drain tubing. The tube accidentally falls out- If this [...] and keep the dressing clean and dry. Post-Surgical Drain Care: After surgery, you will have one or two drains, called a Francisco-Ballard (DARWIN) drain, placed near the incision. This device collects fluid, under suction, from your surgical area. The drain promotes healing and recovery, and reduces the chance of infection. The drain will be in place until the drainage slows enough for your body to reabsorb fluid on its own. While you are hospitalized the nursing staff will care for the drain and teach you to continue to do so at home. How to Empty Your DARWIN Drain Note: Wash your hands thoroughly before emptying your drain(s). Have the plastic measuring cup from the hospital ready to collect and measure the drainage. Please measure the output at the same two times every 24 hours and record the amount. Unpin the drain from your clothing. Open the top of the drain. Turn the drain upside down and squeeze the contents of the bulb into themeasuring cup. Be sure to empty the bulb as completely as possible. Flush the contents in the toilet. Use the drain output log chart to record the amount of drainage twice a day or any time the bulb isfull. Record the total for 24 hours for each drain you have. If you have more than one drain, remember to record the drainage from each drain separately. To prevent infection, do not let the [...] procedure to reduce the risk of infection. Stripping the Tube Often the tube may become blocked with products of healing or clot. If you do not have drainage, then: Hold the tube near where it is inserted in to the skin with your one hand. Use the other hand to hold a pencil and gently squeeze the tubing with the pencil while moving it down toward the drain away from your skin. This forces the more sold material into the bulb for better drainage. Repeat as necessary to start the draining again. Removal of the Tube The tube may be removed once a single tube output is less than 30cc (1 oz.) for 24 hours. Please call the office if the output becomes thicker or has a bad odor. Francisco-Ballard Drainage Record NAME: Date of Surgery: Date: [...] 2-4 times daily PRN 02/10/2019 nystatin (Mycostatin) CreamIndications:Intert yecenia Apply topically 2 times daily. 30 g 1 06/28/2023 nystatin (Mycostatin) CreamIndications:Intert yecenia Apply topically 2 times daily. 30 g [...] mg by mouth 2 times daily. 06/05/2020 HYDROcodone-acetaminoph en ([place]) 5-325 mg tablet Take 1 tablet by mouth every 6 hours as needed for Pain. 8 tablet 09/02/2023 09/30/2023 documented as of this encounter Progress Notes * Brandy Rees RN - 09/03/2023 11:41 AM EDT Reviewed DC instructions with pt prior to DC all questions answered. Demonstrated drain care with pt and has pt give teach back. PIV removed after bolus infusion complete. Catheter intact. No complications. Pt dc'd to discharge lounge to wait for her friend to pick her up. All personal belongings taken with pt. * Jossie Ann MD - 09/02/2023 8:18 PM EDT Plastic Surgery Post-Op Check Note Patient Name: Helene SÁNCHEZ; Age: 11 1985; 38 y.o. Room/Bed: [address] Today's Date: 09/02/23 Surgery Post Op Check Operation/Procedure: 09/02/2023 Surgeon(s) and Role: * Huber Foote MD - Primary * Matheus Khan MD - Resident - Assisting: Procedure(s): [facility] Findings: panniculectomy (a total of 1.575kg was resected) ID: Helene Solano is a 38 y.o. female status post panniculectomy Subjective/Events: Patient denies nausea, vomiting, chest pain, shortness of breath, numbness/weakness. Pain adequately controlled. Mild incisional pain especially with abdominal binder adjustment. Objective: Temp: [36 ??C (96.8 ??F)-36.5 ??C (97.7 ??F)] Heart Rate: [63-108] Resp: [12-26] BP: (117-142)/(78-92) SpO2: [87 %-100 %] Heart Rate from SpO2: [63 bpm-116 bpm] O2 Device: Nasal cannula I/O this shift: In: - Out: 55 [Drains:55] RLQ drain: 50cc LLQ drain: 35cc Admit Weight: 75.75 kg Current Weight: Weight: 75.8 kg (167 lb) Physical Exam: General: NAD, resting comfortably, pleasant, conversant HEENT: EOMI, anicteric sclerae CV: Regular rhythm on monitor Pulm: Breathing comfortably on 1L NC Abd: Non-distended, soft, appropriately tender Incisions: Incisions with clean, dry dressings in place minimal strikethrough Drain: bilateral abdominal drains with serosanguinous OP Labs: Recent Labs 09/02/23 1224 WBC 6.4 HGB 14.1 HCT 42.5 PLATELET 270 Recent Labs 09/02/23 1224 NA 137 K 3.6 CL 101 CO2 25 BUN 11 CREATININE 0.53* GLUCOSE 164 CALCIUM 9.4 Assessment and Plan: Helene Solano is a 38 y.o. female status post panniculectomy currently in stable condition and recovering well - Patient is doing well postoperatively - Hemodynamically stable - Pain adequately controlled - Maintain HOB elevated/flexed at waist - Diet: Regular diet Jossie Ann MD 09/02/2023 Plastic Surgery [id number] * Soheila Ibarra RN - 09/02/2023 4:57 PM EDT Break coverage for Elidia Hardin RN * Shavonne Hardin RN - 09/02/2023 3:52 PM EDT 1538: patient received from operating room, alarms on and set appropriate for patient,vs's, bladderscan 99. 1800: patient meets phase 2 criteria, boarding in pacu, vs's, patient comfortable. documented in this encounter H&P Notes * Matheus Khan MD - 09/02/2023 12:36 PM EDT Patient Name: Helene Solano Patient Age: 38 y.o. Birthdate: 1985 Admit date: (Not on file) Attending Physician: Huber Foote MD Plastic Surgery Preoperative H&P: Patient Name: Helene Solano Patient : 1985 Today's Date: 09/02/2023 Helene Solano is a 38 y.o. female presenting for panniculectomy. No changes since last seen. No past medical history on file. Past Surgical History: Procedure Laterality Date PRO LAP GASTRIC BYPASS/PIA-EN-Y N/A 07/30/2020 @LAPAROSCOPIC GASTROPLASTY W/ PIA-EN-Y CONSTRUCTION (WRVU 29.4) performed by Carlos Chavez MD at [facility] MAIN OR PRO UPPER GI ENDOSCOPY, DIAGNOSTIC N/A 07/30/2020 EGD, UPPER GI ENDOSCOPY performed by Carlos Chavez MD at [facility] MAIN OR No family history on file. Social History Socioeconomic History Marital status: Single Spouse name: Not on file Number of children: Not on file Years of education: Not on file Highest education level: Not on file Occupational History Not on file Tobacco Use Smoking status: Never Smokeless tobacco: Never Vaping Use Vaping Use: Never used Substance and Sexual Activity Alcohol use: Not on file Drug use: Not on file Sexual activity: Not on file Other Topics Concern Not on file Social History Narrative Not on file Social Determinants of Health Financial Resource Strain: Not on file Food Insecurity: Not on file Transportation Needs: Not on file Physical Activity: Not on file Intimate Partner Violence: Not on file Housing Stability: Not on file Allergies Allergen Reactions Ibuprofen Lisinopril Niacin Hives and Rash Skin turns red and hot Review of systems: As per HPI, otherwise non-contributory. Exam: General: NAD Resp: CTAB CV: normal rate, regular rhythm A/P: Helene Solano is a 38 y.o. female presenting for panniculectomy. - Proceed to OR. The risks, benefits and indications were reviewed with the patient and there remains an indication for surgery. Consent signed. - Preoperative abx ordered Matheus Khan, PGY-3 Plastic & Reconstructive Surgery Pager: [phone] documented in this encounter Miscellaneous Notes * Initial Assessments - Viky Soliman RN - 09/03/2023 7:56 AM EDT Office of Care Management Initial Assessment/Discharge Note Viky Soliman RN reviewed record and discussed patient with Care Team. Source of Information: Team, bedside nurse, medical record, and Chart Review Introduced self/reviewed role; services accepted. Admitted From: Home Reason for Hospitalization: symptomatic pannus, s/p panniculectomy Last COVID test: Lab Results Component Value Date COVID19 Not Detected 07/28/2020 Past medical History: History reviewed. No pertinent past medical history. Hospitalizations Within the Past 30 Days: no previous admission in last 30 days Current Decision-Making Capacity: Self If AD's have not been completed the following surrogate would be surrogate decision maker per [place] surrogate decision making law. (Only good for 180 days) Any patient receiving care in [place] must abide by [place] law. The hierarchy for surrogate decision making is: (a) Patient???s spouse or civil union partner unless there is a divorce proceeding, separation agreement, or restraining order limiting that person???s relationship with the patient. (b) Any adult son or daughter of the patient. (c) Either parent of the patient. (d) Any adult brother or sister of the patient. (e) Any adult grandchild of the patient. (f) Any grandparent of the patient. (g) Any adult aunt, uncle, niece, or nephew of the patient. (h) A close friend of the patient. (i) The agent with financial power of geophysical e logger or a conservator appointed in accordance with RSA 464-A. (j) The guardian of the patient???s estate. Advance Care Planning: Attempt Cardiopulmonary Resuscitation - Inpatient <no information> -Advanced Directive: Other (No AD on File.) Current Functional Ability: Independent Home Address listed as: [address] [place] [address] [place] [id number] Social & Family Supports: All names listed below confirmed with patient as current and correct Extended Emergency Contact Information Primary Emergency Contact: latia solano Mobile Relation: Brother/Tjcjiw-ly-wll Substance Use/Abuse listed: Social History Tobacco Use Smoking Status Never Smokeless Tobacco Never 0 No problems reported 1-2 Low level 3-5 Moderate level 6-8 Substantial level 9- 10 Severe level 0 to 7 points: Low risk 8 to 15 points: Medium risk 16 to 19 points: High risk 20 to 40 points: Addiction likely Other Pertinent/Service Specific Information: none Health/Prescription Coverage: Primary Insurance: MEDICARE Payor: MEDICARE / Plan: MEDICARE PART A & B / Product Type: *No Product type* / Secondary Insurance: MEDICAID [place] ONLY if patient has Medicare A&B - Does this patient have secondary insurance?: Yes ; Prescription Coverage: Yes Preferred Pharmacy: [id number] - [facility], [place] - [address] AT SEC OF [facility] & [address] [phone] [facility] [place], [place] - [address] [facility] [address] [facility] [address] [id number] - [facility], [place] - [address] [facility] [address] [facility] [address] Primary Care Provider listed: None None Potential Needs for Transition of Care: none Agency Referrals: Not Applicable Transportation: no concerns Transportation Anticipated: private Concerns to be Addressed: no discharge needs identified Assessment: Patient is admitted to Plastic Surgery service for symptomatic pannus, s/p panniculectomy Plan: Discharge home without services. A member of the Care Management team will continue to monitor progress, follow for continuity of care and assist with transition of care planning. EMERITA Moss, corn grinder of Care Management Pager [phone] * Brief Op Note - Matheus Khan MD - 09/02/2023 3:13 PM EDT Brief Operative Note Patient Name: Helene Solano : [id number] MR#: [id number] Case Date: 09/02/2023 Surgeon: Surgeon(s) and Role: * Huber Foote MD - Primary * Matheus Khan MD - Resident - Assisting Preoperative diagnosis: symptomatic pannus Postoperative diagnosis: symptomatic pannus Procedure(s) (LRB): PANNICULECTOMY (WRVU 17.11) (N/A) Anesthesia: General Local (20cc's of 1% lidocaine with epinephrine 1:100,000 was used during the case; 20cc's of 0.25% marcaine was used at the end of the case). Findings: panniculectomy (a total of 1.575kg was resected) Complications: none Estimated Blood Loss: 50cc's Specimens removed during surgery: none Fluids: Intraprocedure Crystalloid Total Intake lactated ringers 500.00 mL Total Intake 500 mL PRBCs: none (See Anesthesia Record/Report for Other Blood Products) Urine Output: (no urine output recorded) Drains: 2 drains Disposition: awakened from anesthesia, extubated and taken to the recovery room in a stable condition, having suffered no apparent untoward event. Condition: doing well without problems (Please see the Surgical Encounter Summary for any Implant and Specimen details pertinent to this patient.) Surgical Infection Prevention Bundle Used? N/A Post-Op Plan: - Follow up in: 7-10 days with attending/Laura/nurse/telehealth - Wound Check - Suture removal: None - Dressings: remove dressings - Drain removal when output is less than 30 ml per day x 2 days - Other coordinating appointments needed: 3-6 months with attending Future Appointments Date Time Provider Department Center 09/09/2023 11:00 AM NURSE, PLASTIC SURGERY [facility] PLAS 4M [facility] Matheus Khan, PGY-3 Plastic & Reconstructive Surgery Pager: [phone] * Op Note - Huber Foote MD - 09/02/2023 1:59 PM EDT [facility] Operative Note Patient Name: Helene Solano : [id number] MR#: [id number] Case Date: 09/02/2023 Surgeon: Surgeon(s) and Role: * Huber Foote MD - Primary * Matheus Khan MD - Resident - Assisting Preoperative diagnosis: symptomatic pannus Postoperative diagnosis: symptomatic pannus Procedure(s) (LRB): PANNICULECTOMY (WRVU 17.11) (N/A) Anesthesia: General Local (20cc's of 1% lidocaine with epinephrine 1:100,000 was used during the case; 20cc's of 0.25% marcaine was used at the end of the case). Findings: panniculectomy (a total of 1.575kg was resected) Complications: none Estimated Blood Loss: 50cc's Specimens removed during surgery: none Fluids: Intraprocedure Crystalloid Total Intake lactated ringers 500.00 mL Total Intake 500 mL PRBCs: none (See Anesthesia Record/Report for Other Blood Products) Urine Output: (no urine output recorded) Drains: 2 drains Disposition: awakened from anesthesia, extubated and taken to the recovery room in a stable condition, having suffered no apparent untoward event. Condition: doing well without problems HPI/Surgical Indications: The patient has requested apanniculectomy. The patient has s undergone significant weight loss secondary togastric restrictive procedure/diet and weight loss. The patient has been troubled by excess abdominal skin, abdominal lipodystrophy, and intertriginous rash. They requested a panniculectomy. The risks benefits and complications of the procedure including potential for infection, bleeding, scarring, hematoma, poor aesthetic result, asymmetry, wound dehiscence, seroma, infection, us and needfor surgery or revision for all of the above as well as general surgical risks including the possibility of DVT pulmonary embolus, myocardial infarction and even deathwere discussed in detail with the patient. We discussed with the patient that this would be infraumbilical panniculectomy and that the area above the umbilicus would not be addressed as this is covered by insurance. We discussed thelateral flank lipodystrophy as well as the area of the mons and again we discussed these with beingincluded as they are considered cosmetic and not part of the functional component of this procedure. She has declined to pursue that component of the surgery at this time. Wish to do so in the future. Patient understands the above and wishes to proceed. Procedure: In the preoperative area the patient was marked in the standing position for the panniculectomy. Itwas discussed with the patient that the mons plasty could not be addressed at this particular time it would be a separate procedure depending on the extent to which this would be elevated. Following the adequate induction of general anesthesia the patient was prepped and draped in usual sterile fashion. Incision sites were infiltrated with lidocaine 1% 1 100,000 epinephrine. Incisions were made in the infraumbilical region and then above the pubis in standard fashion for the panniculectomy. These follow the lines that were marked in the preoperative area.. Excision was performed atthe level of the fascia of [place] attempting to leave as many of the lymphatics of the abdominal wall in position. Once this is accomplished hemostasis was achieved suture ligature was placed around each of the perforators to the skin. . Again all vessels were ligated. The upper flap was then pulled down to the area above the mons. The Snow's fascia was closed over 10 flat drains. Good closure was noted . . The abdominal flap was brought down over this. 10 flat drain was placed and brought out through the incision. The Snow's level was closed with 2-0 Vicryl in interrupted fashion the medial one half of the incision on both sides. At this point the Insorb staplers were used throughoutto close the remainder of the dermis. Skin was then closed in the abdominal wall with a 3-0 Monocryl strata fix. The drains were sutured in with 4-0 nylon. Patient tolerated procedure well. She had an excellent result on the table. An abdominal binder was placed over sterile dressings. The anesthesia was then reversed and the patient was taken to recovery room in stable condition Attestation: Case Date: 09/02/2023 I was present for the entire procedure and performed all of the roman elements of this procedure. HUBER FOOTE MD 09/02/2023 documented in this encounter Plan of Treatment Not on file documented as of this encounter Procedures Procedure Name Priority Date/Time Associated Diagnosis Comments EKG 12-LEAD Routine 09/03/2023 9:28 AM EDT S/P panniculectomy HEMOGLOBIN AND HEMATOCRIT, BLOOD STAT 09/03/2023 9:20 AM EDT Excise Excess Skin Tissue, Abdomen (30204) 09/02/2023 1:33 PM EDT Morbid obesity POCT GLUCOSE Routine 09/02/2023 1:12 PM EDT PANNICULECTOMY Routine 09/02/2023 12:28 PM EDT Morbid obesity PTH Routine 09/02/2023 12:24 PM EDT S/P gastric bypass Disorder of iron metabolism HEMOGRAM Routine 09/02/2023 12:24 PM EDT S/P gastric bypass Disorder of iron metabolism VITAMIN B1, WHOLE BLOOD Routine 09/02/2023 12:24 PM EDT S/P gastric bypass Disorder of iron metabolism IRON AND TIBC Routine 09/02/2023 12:24 PM EDT S/P gastric bypass Disorder of iron metabolism VITAMIN D, 25-HYDROXY Routine 09/02/2023 12:24 PM EDT S/P gastric bypass Disorder of iron metabolism Disorder of calcium metabolism FOLATE, SERUM Routine 09/02/2023 12:24 PM EDT S/P gastric bypass Disorder of iron metabolism FERRITIN Routine 09/02/2023 12:24 PM EDT S/P gastric bypass Disorder of iron metabolism VITAMIN B12 Routine 09/02/2023 12:24 PM EDT S/P gastric bypass Disorder of iron metabolism COMPREHENSIVE METABOLIC PANEL Routine 09/02/2023 12:24 PM EDT S/P gastric bypass Disorder of iron metabolism documented in this encounter Results * EKG 12 Lead (09/03/2023 9:28 AM EDT) Ventricular rate 106 BPM MUSE SYSTEM Atrial Rate 106 BPM MUSE SYSTEM P-R Interval 146 ms MUSE SYSTEM QRS Duration 80 ms MUSE SYSTEM Q-T Interval 338 ms MUSE SYSTEM QTC Calculated (Bezet) 448 ms MUSE SYSTEM Calculated P [place] 40 degrees MUSE SYSTEM Calculated R [place] 15 degrees MUSE SYSTEM Calculated T [place] 11 degrees MUSE SYSTEM INTERPRETATION Sinus tachycardia Otherwise normal ECG No previous ECGs available Confirmed by fellow MD Alfred, Melissa ([id number]) on 09/03/2023 5:00:30 PM Confirmed by MD RUSTY, FARHAD ([id number]) on 09/03/2023 10:10:46 PM MUSE SYSTEM 09/03/2023 9:28 AM EDT 09/03/2023 10:10 PM EDT Huber Foote MD ECG ORDERABLES MUSE SYSTEM * Hemoglobin and Hematocrit, blood (09/03/2023 9:20 AM EDT) Hemoglobin 12.1 11.7 - 15.5 g/dL [facility] Hematocrit 36.1 35.7 - 45.8 % [facility] Blood 09/03/2023 9:20 AM EDT 09/03/2023 9:28 AM EDT Narrative Resulting Agency Comment Spec In Lab Huber Foote MD HEMATOLOGY ORDERABLE S Performing Organization Address City/[facility]/ZIP Co de Phone Number [facility] [place] [address] * POCT Glucose (09/02/2023 1:12 PM EDT) Glucose, POC 156 65 - 199 mg/dL [facility] Comment: Supplemental ranges: <140 mg/dL before meals <180 mg/dL all other times of the day Blood 09/02/2023 1:12 PM EDT 09/02/2023 1:12 PM EDT Huber Foote MD POINT OF CARE TEST O RDERABLES Performing Organization Address [facility]/ZIP Co de Phone Number [facility] [place] [address] * (ABNORMAL) Comprehensive metabolic panel (non-fasting) (09/02/2023 12:24 PM EDT) Glucose 164 65 - 199 mg/dL [facility] Comment:Diabetes: >=200 mg/d L plus symptoms Blood Urea Nitrogen 11 8 - 18 mg/dL [facility] Creatinine 0.53(L) 0.70 - 1.20 mg/dL [facility] Sodium 137 135 - 145 mmol/L [facility] Potassium 3.6 3.5 - 5.0 mmol/L [facility] Comment: Please note: ??Patients with WBC >100,000 may have falsely elevated Potassium levels. ??For accurate Potassium quantification in these patients send serum separator tube (gold top) for subsequent determinations. ??Contact the Clinical Chemistry Laboratory if there are any questions. Chloride 101 98 - 107 mmol/L [facility] Carbon Dioxide 25 22 - 31 mmol/L [facility] Anion Gap 11 5 - 15 mmol/L [facility] Calcium 9.4 8.5 - 10.5 mg/dL [facility] Protein, Total 6.7 6.1 - 8.0 g/dL [facility] Albumin 4.2 3.2 - 5.2 g/dL [facility] Aspartate Aminotransferase 15 0 - 30 unit/L [facility] Alanine Aminotransferase 15 0 - 30 unit/L [facility] Alkaline Phosphatase 127(H) 35 - 105 unit/L [facility] Bilirubin, Total 0.5 0.2 - 1.3 mg/dL [facility] Est Glomerular Filtration Rate 123 >=60 mL/min/1. 73 m?? [facility] Comment: This patient's estimated GFR [...] and symptoms in addition to eGFR. Blood 09/02/2023 12:2 4 PM EDT 09/02/2023 12:55 PM EDT Narrative Resulting Agency Comment Spec In Lab Cherise Xiong LOADING UNIT OPERATOR [employer] CHEMISTRY ORDERABL ES [facility] [place] [address] * Ferritin (09/02/2023 12:24 PM EDT) Ferritin 34 6 - 175 ng/mL [facility] Comment: Please note that as of 05/12/2023, the reference intervals for Ferritin have been updated. Blood 09/02/2023 12:2 4 PM EDT 09/02/2023 12:55 PM EDT Narrative Resulting Agency Comment Spec In Lab Cherise E Inag LOADING UNIT OPERATOR [employer] CHEMISTRY ORDERABL ES Performing Organization Address City/[facility]/ZIP Co de Phone Number [facility] [place] [address] * Folate, serum (09/02/2023 12:24 PM EDT) Folate 9.7 4.8 - 24.2 ng/mL [facility] Blood 09/02/2023 12:2 4 PM EDT 09/02/2023 12:55 PM EDT Narrative Resulting Agency Comment Spec In Lab Cherise E [place] LOADING UNIT OPERATOR [employer] CHEMISTR[employer] ORDERABL ES Performing Organization Address City/[facility] Co de Phone Number [facility] [place] [address] * Hemogram (09/02/2023 12:24 PM EDT) White Blood Cell 6.4 4.0 - 9.5 x10(3)/[facility] Red Blood Cell 4.96 4.00 - 5.21 x10(6)/[facility] Hemoglobin 14.1 11.7 - 15.5 g/dL [facility] Hematocrit 42.5 35.7 - 45.8 % [facility] Mean Cell Volume 85.7 82.6 - 94.4 fL [facility] Mean Cell Hemoglobin 28.4 27.1 - 32.0 pg [facility] [facility] Mean Cell Hemoglobin Concentration 33.2 31.7 - 35.0 g/dL [facility] Platelet 270 145 - 357 x10(3)/[facility] LABORATORY RDW Standard Deviation 37.5 37.0 - 46.0 fL [facility] RDW coefficient of variation 12.1 11.5 - 14.1 % [facility] Mean Platelet Volume 10.7 7.6 - 12.9 fL [facility] NRBC% auto 0.0 % [facility] NRBC Absolute 0.000 0.000 - 0.000 x10(3)/mcL [facility] Blood 09/02/2023 12:2 4 PM EDT 09/02/2023 12:55 PM EDT Narrative Resulting Agency Comment Spec In Lab Cherise E W[place]see LOADING UNIT OPERATOR [facility] ORDERAB LES Performing Organization Address [facility]/ZIP Co de Phone Number [facility] [place] [address] * Iron and TIBC (09/02/2023 12:24 PM EDT) Iron 76 30 - 150 mcg/dL [facility] TIBC 324 250 - 450 mcg/dL [facility] Iron Saturation 23 20 - 50 % [facility] Blood 09/02/2023 12:2 4 PM EDT 09/02/2023 12:55 PM EDT Narrative Resulting Agency Comment Spec In Lab Cherise E [place] LOADING UNIT OPERATOR [facility] CHEMISTR[facility] ORDERABL ES Performing Organization Address [facility] Co de Phone Number [facility] [place] [address] * PTH (09/02/2023 12:24 PM EDT) Parathyroid Hormone 52 15 - 65 pg/mL [facility] Blood 09/02/2023 12:2 4 PM EDT 09/02/2023 12:55 PM EDT Narrative Resulting Agency Comment Spec In Lab Cherise E [place] LOADING UNIT OPERATOR [facility] CHEMISTR[facility] ORDERABL ES Performing Organization Address [facility]/ZIP Co de Phone Number [facility] [place] [address] * Vitamin B1, whole blood (09/02/2023 12:24 PM EDT) Vit B1 Lvl Wb (OCTOBER) 121 70 - 180 nmol/L [facility] Comment: ADDITIONAL INFORMATION This test was developed and its performance characteristics determined by [facility] in a manner consistent with CLIA requirements. This test has not been cleared or approved by the U.S. Food and Drug Administration. Test Performed by: [facility] [address] [place] [address] White Washer: Samson Ortiz M.D. Ph.D.; CLIA# [id number] Blood 09/02/2023 12:2 4 PM EDT 09/03/2023 8:54 AM EDT Narrative Resulting Agency Comment Spec In Lab Cherise Xiong APRN LAB SEND OUT ORDER ANNE MARIE Performing Organization Address [facility]/ZIP Co de Phone Number [facility] [place] [address] * Vitamin B12 (09/02/2023 12:24 PM EDT) [facility] Vitamin B12 303 232 - 1,245 pg/mL [facility] Blood 09/02/2023 12:2 4 PM EDT 09/02/2023 12:55 PM EDT Narrative Resulting Agency Comment Spec In Lab Cherise Xiong APRN CHEMISTRY ORDERABL ES Performing Organization Address [facility]/ZIP Co de Phone Number [facility] [place] [address] * (ABNORMAL) Vitamin D, 25-Hydroxy (09/02/2023 12:24 PM EDT) [facility] Vitamin D Total 25 OH 14(L) 21 - 100 ng/mL [facility] Vit D Interp Deficient [facility] Blood 09/02/2023 12:2 4 PM EDT 09/02/2023 12:55 PM EDT Narrative Resulting Agency Comment Spec In Lab Cherise Xiong ROMEL CHEMISTRY ORDERABL ES [facility] [place] [address] documented in this encounter Visit Diagnoses Diagnosis S/P panniculectomy- Primary S/P gastric bypass Bariatric surgery status 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 Maximum dose of acetaminophen is 4,000 mg from all sources in 24 hours., Day of Surgery (Day of Procedure), Routine Given 09/02/2023 1:30 PM EDT 975 mg acetaminophen (Tylenol) tablet 975 mg 975 mg, Oral, EVERY 8 HOURS SCHEDULED, First dose on Latha 09/02/23 at 2200, Until Discontinued, Maximum dose of acetaminophen is 4,000 mg from all sources in 24 hours. When ordered for pain, acetaminophen should be given even when other ordered pain medications are indicated., Routine Given 09/03/2023 6:12 AM EDT 975 mg Given 09/02/2023 9:28 PM EDT 975 mg BUpivacaine (pf) (Marcaine) (5 mg/mL) 0.5% injection PRN, Starting on Latha 09/02/23 at 1456, Until Wed09/03/23 at 1344, Intra-Operative (Intra-Procedure), Routine Given 09/02/2023 2:56 PM EDT 20 mLs 19- Surgical Site docusate sodium (Colace) capsule 100 mg 100 mg, Oral, 2 TIMES DAILY, First dose on Latha 09/02/23 at 2100, Until Discontinued, Routine Given 09/03/2023 8:58 AM EDT 100 mg Given 09/02/2023 9:28 PM EDT 100 mg HYDROmorphone (Dilaudid) (2 mg/mL) multi-dose injection solution 0.4 mg 0.4 mg, Intravenous, EVERY 10 MIN PRN, Starting on Wed09/02/23 at 1532, Until Wed09/02/23 at 1653, Pain, For Moderate to Severe Pain (6-10 out of 10), Hold for respiratory rate less than 10 per minute. Maximum dose 3 mg over one hour including administrations in the OR. If multiple pain medications are ordered, start with HYDROmorphone or morphine and use fentaNYL for breakthrough pain., PACU Recovery, Routine Given 09/02/2023 4:34 PM EDT 0.4 mg Given 09/02/2023 4:20 PM EDT 0.4 mg lactated Ringers 500 mL IV bolus Intravenous, ONCE, 1 dose, On Wed09/03/23 at 1015 New Bag 09/03/2023 10:04 AM EDT lidocaine-EPINEPHrine (1% - 1:100,000) injection PRN, Starting on Wed09/02/23 at 1359, Until Wed09/03/23 at 1344, Intra-Operative (Intra-Procedure), Routine Given 09/02/2023 1:59 PM EDT 20 mLs 19- Surgical Site oxyCODONE (Roxicodone) tablet 5 mg 5 mg, Oral, EVERY 4 HOURS PRN, Starting on Wed09/02/23 at 1605, Until Wed09/03/23 at 1344, Pain, For pain 4-10, Routine Given 09/03/2023 8:58 AM EDT 5 mg Given 09/03/2023 12:43 AM EDT 5 mg Given 09/02/2023 6:21 PM EDT 5 mg scopolamine (Transderm-Scop) 1 mg over 3 days patch 1 dose, Starting on Wed09/02/23 at 1329, Until Wed09/02/23 at 1330, Rajeev Sanford (ANES): cabinet override Patch Applied 09/02/2023 1:30 PM EDT 1 patch 01- Ear Behind (Left) senna-docusate (Pericolace) 8.6-50 mg per tablet 2 tablet 2 tablet, Oral, 2 TIMES DAILY, First dose on Wed09/02/23 at 2100, Until Discontinued, Hold for loose stool. , Routine Given 09/03/2023 8:58 AM EDT 2 tablets Given 09/02/2023 9:28 PM EDT 2 tablets documented in this encounter Active and Recently Administered Medications Times are shown in EDT. Scheduled Medication Order 09/01/2023 09/02/2023 09/03/2023 acetaminophen (Tylenol) tablet 975 mg (COMPLETED) 975 mg, Oral, ONCE, 1 dose, On Latha 09/02/23 at 1345, Administer with a SIP of water only. Maximum dose of acetaminophen is 4,000 mg from all sources in 24 hours., Day of Surgery (Day of Procedure), Routine 1330 (Given - Provider: Henrietta Doty RN) acetaminophen (Tylenol) tablet 975 mg 975 mg, Oral, EVERY 8 HOURS SCHEDULED, First dose on Latha 09/02/23 at 2200, Until Discontinued, Maximum dose of acetaminophen is 4,000 mg from all sources in 24 hours. When ordered for pain, acetaminophen should be given even when other ordered pain medications are indicated., Routine 2127 (Given - Provider: Yaniv Martin Jr., RN) 06 (Given - Provider: Yaniv Martin Jr., RN) docusate sodium (Colace) capsule 100 mg 100 mg, Oral, 2 TIMES DAILY, First dose on Latha 09/02/23 at 2100, Until Discontinued, Routine 2127 (Given - Provider: Yaniv Martin Jr., RN) 0858 (Given - Provider: Brandy Rees RN) lactated Ringers 500 mL IV bolus (COMPLETED) Intravenous, ONCE, 1 dose, On Wed09/03/23 at 1015 1004 (New Bag - Provider: Brandy Rees, BRITTANI) senna-docusate (Pericolace) 8.6-50 mg per tablet 2 tablet 2 tablet, Oral, 2 TIMES DAILY, First dose on Latha 09/02/23 at 2100, Until Discontinued, Hold for loose stool. , Routine 2127 (Given - Provider: Yaniv Martin Jr., RN) 0858 (Given - Provider: Brandy Rees, BRITTANI) PRN Medication Order 09/01/2023 09/02/2023 09/03/2023 albuteroL 90 mcg/actuation inhaler 1 puff 1 puff, Inhalation, EVERY 4 HOURS PRN, Starting on Latha 09/02/23 at 1831, Until Wed09/03/23 at 1344, Wheezing, Routine, Is there a contraindication to the patient receiving this medication as a nebulizer? No, Nebulizers typically cost 5-10 times less than inhalers, making them more cost effective treatment options for most patients. If the patient can receive a nebulizer but you would like to continue ordering an inhaler, please explain why. n/a bisacodyL (Dulcolax) suppository 10 mg 10 mg, Rectal, DAILY PRN, Starting on Latha 09/02/23 at 1831, Until Wed09/03/23 at 1344, Constipation, Administer if needed per patient's routine or if no bowel movement within 48 hours to achieve: (1) One bowel movement at least every 48 hours, AND (2) Without straining. - If multiple PRN bowel medications ordered, start with magnesium hydroxide, then bisacodyL. - Multiple medications may be given concomitantly for constipation., Routine BUpivacaine (pf) (Marcaine) (5 mg/mL) 0.5% injection (CANCELED) PRN, Starting on Latha 09/02/23 at 1456, Until Wed09/03/23 at 1344, Intra-Operative (Intra-Procedure), Routine 1456 (Given - Provider: Huber Foote MD) HYDROmorphone (Dilaudid) (2 mg/mL) multi-dose injection solution 0.4 mg (CANCELED)(Linked Group 1) 0.4 mg, Intravenous, EVERY 10 MIN PRN, Starting on Latha 09/02/23 at 1532, Until Latha 09/02/23 at 1653, Pain, For Moderate to Severe Pain (6-10 out of 10), Hold for respiratory rate less than 10 per minute. Maximum dose 3 mg over one hour including administrations in the OR. If multiple pain medications are ordered, start with HYDROmorphone or morphine and use fentaNYL for breakthrough pain., PACU Recovery, Routine 1620 (Given - Provider: Shavonne Hardin RN)1634 (Given - Provider: Shavonne Hardin RN) lidocaine-EPINEPHrine (1% - 1:100,000) injection (CANCELED) PRN, Starting on Latha 09/02/23 at 1359, Until Wed09/03/23 at 1344, Intra-Operative (Intra-Procedure), Routine 1359 (Given - Provider: Huber Foote MD) oxyCODONE (Roxicodone) tablet 5 mg 5 mg, Oral, EVERY 4 HOURS PRN, Starting on Latha 09/02/23 at 1605, Until Wed09/03/23 at 1344, Pain, For pain 4-10, Routine 1821 (Given - Provider: Shavonne Hardin, BRITTANI) 0043 (Given - Provider: Yaniv Martin Jr., RN)0858 (Given - Provider: Branyd Rees, BRITTANI) No Frequency Medication Order 09/01/2023 09/02/2023 09/03/2023 scopolamine (Transderm-Scop) 1 mg over 3 days patch (COMPLETED) 1 dose, Starting on Latha 09/02/23 at 1329, Until Latha 09/02/23 at 1330, Rajeev Sanford. (ANES): cabinet override 1330 (Patch Applied - Provid er: Rajeev Sanford MD) Linked Groups Order Group 1: HYDROmorphone (Dilaudid) (2 mg/mL) multi-dose injection solution 0.2 mg (CANCELED) 0.2 mg, Intravenous, EVERY 10 MIN PRN, Starting on Latha 09/02/23 at 1532, Until Latha 09/02/23 at 1653, Pain, For Mild to Moderate Pain (1-5 out of 10), Hold for respiratory rate less than 10 per minute. Maximum dose 3 mg over one hour including administrations in the OR. If multiple pain medications are ordered, start with HYDROmorphone or morphine and use fentaNYL for breakthrough pain., PACU Recovery, Routine Or HYDROmorphone (Dilaudid) (2 mg/mL) multi-dose injection solution 0.4 mg (CANCELED)Jump to med 0.4 mg, Intravenous, EVERY 10 MIN PRN, Starting on Latha 09/02/23 at 1532, Until Latha 09/02/23 at 1653, Pain, For Moderate to Severe Pain (6-10 out of 10), Hold for respiratory rate less than 10 per minute. Maximum dose 3 mg over one hour including administrations in the OR. If multiple pain medications are ordered, start with HYDROmorphone or morphine and use fentaNYL for breakthrough pain., PACU Recovery, Routine documented in this encounter Care Teams Network Intern Relationship Specialty Start Date End Date None None PCP - General 08/30/23 documented as of this encounter
--- OUTSIDE RECORDS SUMMARY | 2024-04-14 12:26 | XMS_ITS | Encounter Summary ---
Author Organization [facility] [place] [address] Care Team Providers Care Radar Air Traffic Controller Name Role Phone Mona Honeycutt APRN Primary Care Provider [phone] Reason for Referral * Consultation (Routine) - Closed Specialty Diagnoses / Procedures Referred By Alex new Referred To Contact Plastic Surgery Diagnoses Intertrigo Cherise Xiong APRN [facility] [place] [address] [facility] Plastic Surg [address] [place] [phone] Referral ID Status Reason Start Date Expiration Date V isits Requested Visits Authorized [id number] Closed Consult, Test & Treat 06/28/2023 06/27/2024 1 1 Encounter Details Date Type Department Care Team (Late st Contact Info) Description 06/28/2023 11:00 AM EST TH Visit (TeleHealth) [place] [phone] Cherise Xiong APRN [facility] [place] [address] Intertrigo Social History Tobacco Use Types Packs/Day Years Used Date Smoking Tobacco: Never Smokeless Tobacco: Never Sex and Gender Information Value Date Recorded Sex Assigned at Not on file Gender Identity Not on file Sexual Orientation Not on file documented as of this encounter Patient Instructions * Patient Instructions* Cherise Xiong APRN - 06/28/2023 11:00 AM EST [facility] print support specialist Genevieve [phone] and Carissa [phone] Dietitians: [phone] Surgeons/ nurse practitioners: [phone] Nurse line: [phone] Dear Helene, Please see your electronic medical record note from today for details we discussed at your visit. Below is some additional general information that you may find helpful. Testing: It would be helpful if you can have your lab work drawn a couple days before your visit rubio [facility] facility so the results are available at the time of your follow up visit. If you have labwork done by your primary care center manager before that date, please have a copy sent to the Bariatric Surgery Program. Please call/send my [employer] message if you have not heard from us within 2 weeks of having labs work done. Here's the link to [facility] Lab hours and locations: [email or web address] Next visit: Follow up visits are done at 4 months and 12 months after surgery and yearly thereafter. Some patients are evaluated on a more frequent basis. Please call [phone] if you do not receive an appointment [...] Blow dry area on low setting with behavioral sciences department chair. Avoid excessive heat and/or sweating as friction [...] as Ibuprofen (Advil), Aleve (Naproxen), Excedrin, [place] should be used sparingly after gastric bypass, [...] Our post surgery support group meets at [facility] on the first Wednesday of every month from 1:00 PM-2:00 PM. You can attend online or in person. Use the following link to attend online: [email or web address] Nutrition and Activity apps- Baritastic, My Fitness Pal, Lose It, My Plate Internet resources: www.Tamecco wwwRad www.bariatriceating.[employer] www.Inaaya.[employer]/blog [facility] facebook page: https://www.[email or web address]/[email or web address]ONBariatricSurgery Books & Magazines: - Recipes for Life After Weight Loss Surgery by Elayne Genao - Shrink Yourself by Dr Collins Fuller - Eating Well - www.Cavitation Technologieswell.[employer] - Cooking Light- www.cookinglight.[employer] Anxiety: The Happiness Trap by Guillermo Mccall The Mindfulness and acceptance workbook for anxiety By Lele Avelar. Mindful eating: What are you Hungry For? By Ismael Carmichael The Mindful Diet by Carleen Melton and the [facility] group. Emotional eating: End Emotional Eating by Hilda Davis Calming the Emotional Storm Maryan Dee documented in this encounter Progress Notes * Cherise Xiong APRN - 06/28/2023 11:00 AM EST Images from the original note were not included. [place] [address] BARIATRIC SURGERY VIRTUAL NOTE Reason/purpose for phone call: BSP follow up visit. The patient voiced an understanding of the reason and intent of the televisit and provided verbal consent to discuss clinical issues by telehelath. Additionally, the patient acknowledged that the telehealth consultation is a billable encounter, and that the patient or their medical insurance carrier could be billed. Summary of conversation, decision making, and plan: see below encounter note for details. Time Attestation: I spent a total of 60 minutes associated with this encounter, including chart review, the patient encounter, and documentation. Reason for visit: Bariatric Surgery follow up visit Subjective: Helene Carpenter is s/p Zandra-en-Y gastric bypass with Dr. Chavez on 07/30/20, she presents today for annual BSP follow up. Overall tolerating foods/fluids and trying to make sure she is meeting nutritional/fluid requirements (meeting goals). Helene continues to struggle with discomfort related to excess skin on her abdomen. The excess skin pulls on her back and causes back aches. Excess skin gets in the way of movement and is uncomfortable in clothing. She continues to have skin fold rashes, mainly in the umbilicus. Using OTCs, good hygiene, PRN Nystatin. Unfortunately Helene's fiance unexpectedly in December. She is now living alone. She is cooking more (he was the main cook) and has adjusted to making smaller portions. She continues to try to eat 3 meals a day, focusing on protein (skips breakfast more often without her fiance there). Helene is still foods and fluids. Has very rare sweets (ice cream about once a month). Walking 7 days a week and on her feet all day at work (working FT at [employer]). Interim Health: -Ankle sprain in the Fall Patient reports health has been stable overall. No surgeries, hospitalizations, or bariatric related ED visits since the last visit. No kidney stones or atraumatic fractures. Current Supplements: Multi-vitamin with minerals/iron twice daily (Flinstones), Calcium citrate 500/600mg with Vit D 400 IU tries to take 2 pills twice daily, Vit B12 500 mcg daily, Vitron C MWF. Pt follows with PCP/specialist for disease management and age specific screening. Pre-Bariatric Surgery Obesity related medical issues: Diabetes [x] Yes (back on metformin, last A1C was ~9%) [] Not a baseline issue HTN: [x] Yes, improved no longer on meds. GERD: [x] Yes, no longer on medication, no symtpoms Hyperlipidemia: [x] Yes, improved no longer on statin GAMAL: [x] Yes, no longer using CPAP. No sx, sleeping well. Arthritis/Joint Issues: [] Yes [x] Not a baseline issue Patient Active Problem List Diagnosis Code Morbid obesity E66.01 GAMAL on CPAP G47.33 Diabetes mellitus E11.9 Hypertension I10 Hypercholesterolemia E78.00 Review of Systems Constitutional: energy level is low (trouble sleeping), no c/o restless leg, hair thinning/loss. Neuro: no c/o paresthesias, no changes in memory. CV: no c/o chest pain or palpitations. Pulm: denies SOB or new cough (has chronic cough). GI: denies bloating, abdominal pain. No nausea/vomiting. No diarrhea. No constipation. 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 Skin: Endorses redundant skin over abdomen, endorses skin fold rashes (see HPI). Health Habits: Tobacco: None. ETOH: Never more than 3 drinks/occasion, drinks about 1-2x/month. No drinking in her home. NSAID use: None. Meds and Allergies reviewed. WT (lbs) BMI HT Highest wt Pre-op visit 06/20/20 274 48.5 5'3 Post-op WT (lbs) BMI %EBW lost 08-19-20 235 (reported) 41.6 29 11/18/20 191 33.9 62 08/11/21 148 26.2 95 02/13/22 154 (reported) 27.3 90 06/28/23 164 (reported) 29 83% Objective: There were no vitals taken for this visit. Physical Exam Gen: Alert, pleasant, NAD, appears well Resp: Speaking in full sentences, no gasping. No cough witnessed. Skin: No pallor or diaphoresis visible. No rash noted. Psychiatric: normal mood and affect. No results found for this or any previous visit (from the past 72 hour(s)). Assessment 38 y.o. female who is 3 years s/p Zandra-en-Y gastric bypass with 83% of excess body weight lost. Plan: S/p bariatric surgery: Doing well from a bariatric surgery perspective, overall pleased with wt loss. Discussed dietary considerations and strategies for continued success . Reviewed importance of meeting nutritional/protein/fluid requirements, tracking food and food choices, pairing carbs with protein, being careful to avoid eating too fast, eating too much, drinking with meals, or not chewing well enough. Reviewed healthy snack options that are available to her at work (encourage olive oil popcorn rather than potato chips). Encouraged patient to try to prioritize eating breakfast (protein oatmeal, protein drink, Fairlife milk, Frisian yogurt). -Excess skin/skin fold rashes/ intertrigo caused by weight loss: Reviewed pt education re: skin care and treatment of skin fold rashes. Rx for Nystatin. F/u if sx worsen/fail to improve with recommended strategies. Additionally, will refer to plastic surgery for consideration of skin removal. Obesity related co-morbidities: Continue follow up with PCP re: diabetes (missed last PCP visit). Risk for vitamin deficiencies: Will check iron studies, folate, Vit D, Vit B 1, Vit B 12, hemogram, CMP, PTH. Reviewed recommended vitamin/mineral supplements- Will make additional recommendations once lab results are available. Pt reminded that a bone mineral density scan (DEXA) is recommended every 2 years after bariatric surgery. RTC in 1 year for next BSP follow up visit, with labs (sooner if indicated based on today's labs). Call/rtc sooner prn with questions/concerns or unexplained abdominal pain, prolonged nausea, vomiting or inability to hydrate. Bariatric Program Summary report is availabe for patient's review via e-DH 60 minutes spent with patient in [id number] discussion including review of diagnosis, labs, counseling/education and treatment plan. Cherise Xiong APRN RECOMMENDED BARIATRIC SURGERY PROGRAM [...] If labwork is done by the primary care center manager: please send a copy to the Bariatric Surgery Program, General Surgery Clinic, [facility], or fax [phone] documented in this encounter Plan of Treatment Scheduled Referrals Name Type Priority Associated Diagnoses Orde r Schedule Referral to Plastic Surgery Outpatient Referral Routine Intertrigo Ordered: 06/28/2023 documented as of this encounter Visit Diagnoses Diagnosis Intertrigo Other specified erythematous condition documented in this encounter Care Teams Radar Air Traffic Controller Relationship Specialty Start Date End Date Mona Honeycutt APRN PCP - General Family Medicine 01/25/20 08/29/23 documented as of this encounter
--- OUTSIDE RECORDS SUMMARY | 2024-04-14 12:26 | XMS_ITS | Encounter Summary ---
Author Organization [facility] [place] [address] Care Team Providers Care Freight Flow Sales Leader Name Role Phone Mona Honeycutt APRN Primary Care Provider [phone] Reason for Visit * Reason Comments Medication Refill Encounter Details Date Type Department Care Team (Late st Contact Info) Description 02/20/2021 Refill [place] [address] Emily Jurado PA [facility] [place] [address] Social History Tobacco Use Types Packs/Day Years [...] on filedocumented in this encounter Care Teams Freight Flow Sales Leader Relationship Specialty Start Date End Date Mona Honeycutt APRN PCP - General Family Medicine 01/25/20 08/29/23 documented as of this encounter
--- OUTSIDE RECORDS SUMMARY | 2024-04-14 12:26 | XMS_ITS | Encounter Summary ---
Author Organization [facility] Address [facility] [place] [address] Care Team Providers Care Butcher Apprentice Name Role Phone Jessica Honeycuttn Sol ROMEL Primary Care Provider [phone] Encounter Details Date Type Department Care Team (Late st Contact Info) Description 08/03/2020 Telephone [place] [phone] Ananth Lynch MD [facility] [place] [address] Social History Tobacco Use Types Packs/Day Years Used Date Smoking Tobacco: Never Smokeless Tobacco: Never Sex and Gender Information Value Date Recorded Sex Assigned at Not on file Gender Identity Not on file Sexual Orientation Not on file documented as of this encounter Miscellaneous Notes * Telephone Encounter - Ananth Lynch - 08/03/2020 7:33 AM EST I called the patient at 7:33 AM. Helene Carpenter is a 35 y.o. female who is s/p laparoscopic R-en-Y gastric bypass 07/30/[address] Chavez. They are calling in regards to an open incision. She reports that last night she noticed one of herincisions had opened. She put a bandaid over the area, which is under her breast. She denies any redness, drainage, protrusion, fever, chills, nausea, vomiting, shortness of breath. She reports she showered yesterday and the area appeared clean. She is curious what she can do about this. She reports that she has no mode of transportation to [facility] until Wednesday when a friend can drive her. She reports there is a local urgent care nearby but that she also cannot get there today. I encouraged her to come to [facility] for evaluation but she cannot due to transportation issues. I encouraged her to present to her local urgent care if that is closer and possible with her transportation, where they may be able to stitch the wound closed or place some glue. She also sounded apprehensive about this and said she could not make that happen today. Thus, I advised the patient that she should keep this area clean and replace the bandage, with some neosporin in the area if she has any. Iasked that she keep us updated regarding the wound and watch out for the signs of infection we discussed, as above. I also encouraged her to call back throughout the weekend and possibly Wednesday when she has transportation, we can evaluate her wound in clinic. Helene Carpenter agrees with this plan. This note will be routed to the provider mentioned above. Ananth Lynch MD documented in this encounter Plan of Treatment Not on file documented as of this encounter Visit Diagnoses Not on filedocumented in this encounter Care Teams Butcher Apprentice Relationship Specialty Start Date End Date Mona Honeycutt APRN PCP - General Family Medicine 01/25/20 08/29/23 documented as of this encounter
--- OUTSIDE RECORDS SUMMARY | 2024-04-14 12:26 | XMS_ITS | Encounter Summary ---
Author Organization [facility] [place] [address] Care Team Providers Care Station Jailer Name Role Phone Mona Honeycutt APRN Primary Care Provider [phone] Encounter Details Date Type Department Care Team (Latest Contact Info) Description 07/13/2023 Travel Social History Tobacco Use Types Packs/Day [...] on filedocumented in this encounter Care Teams Station Jailer Relationship Specialty Start Date End Date Mona Honeycutt APRN PCP - General Family Medicine 01/25/20 08/29/23 documented as of this encounter
--- OUTSIDE RECORDS SUMMARY | 2024-04-14 12:26 | XMS_ITS | Encounter Summary ---
Author Organization [facility] [place] [address] Care Team Providers Care Package Pick Up Name Role Phone Mona Honeycutt APRN Primary Care Provider [phone] Reason for Visit * Reason Comments Medication Refill Encounter Details Date Type Department Care Team (Late st Contact Info) Description 09/04/2021 Refill [place] [address] Emily Jurado PA [facility] [place] [address] Social History Tobacco Use Types Packs/Day Years [...] on filedocumented in this encounter Care Teams Package Pick Up Relationship Specialty Start Date End Date Mona Honeycutt APRN PCP - General Family Medicine 01/25/20 08/29/23 documented as of this encounter
--- OUTSIDE RECORDS SUMMARY | 2024-04-14 12:26 | XMS_ITS | Encounter Summary ---
Author Organization [facility] Address [facility] [place] [address] Care Team Providers Care Advertising Display Rotator Name Role Phone None Primary Care Provider Unavailabl e Encounter Details Date Type Department Care Team (Late st Contact Info) Description 09/04/2023 Telephone Plastic Surgery at [facility] [place] [address] Matheus Khan MD [facility] [place] [address] Social History Tobacco Use Types Packs/Day Years Used Date Smoking Tobacco: Never Smokeless Tobacco: Never Alcohol Use Standard Drinks/Week Comments Not Currently 0 (1 standard drink = 0.6 oz pur e alcohol) [facility], [facility] Inpatient Questions Answer Date Recorded Does Anyone [...] encounter Miscellaneous Notes * Telephone Encounter - Matheus Khan MD - 09/04/2023 9:12 AM EDT Received patient phone call regarding Helene Carpenter s/p panniculectomy with Dr. Foote on 09/01. Patientis calling in regards to questions related to her dressings. She otherwise has no other concerns orsystemic symptoms. All questions were answered in detail and to patient satisfaction. If patient has any further questions or concerns, patient was encouraged to reach out. Matheus Khan, PGY-3 Plastic & Reconstructive Surgery Pager: [phone] documented in this encounter Plan of Treatment Not on file documented as of this encounter Visit Diagnoses Not on filedocumented in this encounter Care Teams Advertising Display Rotator Relationship Specialty Start Date End Date None None PCP - General 08/30/23 documented as of this encounter
--- OUTSIDE RECORDS SUMMARY | 2024-04-14 12:26 | XMS_ITS | Encounter Summary ---
Author Organization Formerly [facility] [address] Care Team Providers Care Yarn Bleaching Machine Operator Name Role Phone Mona Honeycutt APRN Primary Care Provider [phone] Reason for Visit * Reason Comments Follow-up Encounter Details Date Type Department Care Team (Latest Contact Info) Description 11/18/2020 10:30 AM EDT Office [place] [address] Cherise Xiong APRN [facility] [place] [address] Mariana Al, CHANELL [facility] [place] [address] S/P gastric bypass; Post-resection malabsorption Social History Tobacco Use Types Packs/Day Years Used Date Smoking Tobacco: Never Smokeless Tobacco: Never Sex and Gender Information Value Date Recorded Sex Assigned at Not on file Gender Identity Not on file Sexual Orientation Not on file documented as of this encounter Last Filed Vital Signs Vital Sign Reading Time Taken Comments Blood Pressure 124/76 11/18/2020 10:35 AM EDT Pulse 76 11/18/2020 10:35 AM EDT Temperature 36.4 ??C (97.5 ??F) 11/18/2020 10:35 AM E DT Respiratory Rate 16 11/18/2020 10:35 AM EDT Oxygen Saturation 100% 11/18/2020 10:35 AM EDT Inhaled Oxygen Concentration - - Weight 86.7 kg (191 lb 3.2 oz) 11/18/2020 10:35 AM EDT Height 160 cm (5' 2.99) 11/18/2020 10:35 AM EDT Body Mass Index 33.88 11/18/2020 10:35 AM EDT documented in this encounter Patient Instructions * Patient Instructions* Mariana Al, RD - 11/18/2020 10:30 AM EDT [facility] manager support Genevieve [phone] and Carissa [phone] Dietitians: [phone] Surgeons/ nurse practitioners: [phone] Nurse line: [phone] Dear Helene, Please see your electronic medical record note from today for details we discussed at your visit. Below is some additional general information that you may find helpful. Testing: It would be helpful if you can have your lab work drawn a couple days before your visit rubio [facility] facility so the results are available at the time of your follow up visit. If you have labwork done by your primary pharmacy customer care specialist before that date, please have a copy sent to the Bariatric Surgery Program. Please call/send my message if you have not heard from us within 2 weeks of having labs work done. Here's the link to [facility] Lab hours and locations: [email or web address] Next visit: Follow up visits are done at 4 months and 12 months after surgery and yearly thereafter. Some patients are evaluated on a more frequent basis. Please call [phone] if you do not receive an appointment by 3-4 weeks prior to the expected visit. Vitamins/Nutrition/Activity Recommendations: Please see your visit note for personalized recommendations General Vitamin recommendations: ??? Multivitamins with minerals twice daily- needs to be an under 50 multivitamin that contains iron. ??? Vitamin B12 500 mcg by mouth once daily ??? Calcium citrate 500-600 mg with Vitamin D 400 units twice daily (600 mg in AM and 600 mg in PM-2 pills twice a day) (or 1 chewable twice a day) ??? Iron supplement: as specified in today's visit ??? Vitamin D: as specified in today's visit General Nutrition recommendations: ?? 1,000-1,200 calories per day (300 calories per meal, 100 calories per snack, 1-2 snacks per day) ?? 60 grams of protein per day (20 grams per meal) ?? 48-64 oz of non-caloric and hydrating fluids per day (6-8, 8 oz cups) ?? Do not drink with meals- pushes food through more quickly, can cause upset stomach Activity: ??? Aim for 30 minutes of exercise daily, 5 days a week of both cardio and strength training exercises. Skinfold care: 1. Cleanse area with soap and water. 2. Blow dry area on low setting with behavioral sciences department chair. 3. Avoid excessive heat and/or sweating as friction and moisture can exacerbate disease. 4. Try OTC Dove clinical strength anti perspirant to affected areas nightly or an absorbent powder such as Gold Corral and Desinex 5. Apply cotton strips (such as strips from old sheets) or larger size cotton underwear folded beneath skin folds to act as a wick. Do not apply anant cloth toweling which can cause further irritation 6. Try combination of over the counter hydrocortisone cream with over the counter antifungal cream such as lotrimin twice a day for 2 weeks. 7. If your symptoms do not improve you may require prescription of anti-fungal cream/powder. 8. Follow up with PCP if symptoms worsen/fail [...] such as Ibuprofen (Advil), Aleve (Naproxen), Excedrin, [place] should be used sparingly after gastric bypass, [...] developed heartburn or severe reflux Call us: ??? If you have concerns. ??? If you have unexplained abdominal pain. ??? if you see blood in your stool or vomit blood ??? If you have prolonged vomiting Post Surgery Support Group: Our post surgery support group meets at [facility] on the first Wednesday of every month from 1:00 PM-2:00 PM. Nutrition and Activity apps- Baritastic, My Fitness Pal, Lose It, My Plate Internet resources: www.Social Tree Media www.Mohound www.bariatriceating.[employer], [employer] www.BetaUsersNow.comPal.[employer], [employer]/blog [facility] facebook page: https://www.facebook.[email or web address]/[email or web address]ariatricSurgery Books & Magazines: - Recipes for Life After Weight Loss Surgery by Elayne Genao - Shrink Yourself by Dr Collins Fuller - Eating Well - www.Shop Hers.[employer], [employer] - Cooking Light- www.cookinglight.[employer] Anxiety: The Happiness Trap by Guillermo Mccall The Mindfulness and acceptance workbook for anxiety By Lele Avelar. Mindful eating: What are you Hungry For? By Ismael Carmichael The Mindful Diet by Carlene Melton and the [facility] group. Emotional eating: End Emotional Eating by Hilda Davis Calming the Emotional Storm Maryan Dee documented in this encounter Progress Notes * Cherise Xiong APRN - 11/18/2020 10:30 AM EDT [place] [address] Reason for visit: Bariatric Surgery follow up visit Subjective: Helene Carpenter is s/p Giorgio-en-Y gastric bypass with Dr. Chavez on 07/30/20. She presentstoday for 4 month post bariatric surgery follow up. Not meeting fluid (16 oz on recall) or protein goals (30 g on recall). 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 Current Supplements: Multi-vitamin with minerals/iron twice daily (Flinstones), Calcium citrate 500/600mg with Vit D 400 IU once daily (Working towards 2 pills twice daily), Vit B12 500 mcg daily, Vit D3 2,000 IU daily, Vitron C every other day. Interim Health: Deepthi reports health has been stable overall. No surgeries, hospitalizations, or bariatric related ED visits since the last visit. No kidney stones or atraumatic fractures. Abbreviated visit today. Complications summary: Early none Late - WT (lbs) BMI HT Highest wt Pre-op visit 06/20/20 274 48.5 5'3 Post-op WT (lbs) BMI %EBW lost 08-19-20 235 reported 41.6 29 11/18/20 191 33.9 62 Objective: BP 124/76 Pulse 76 Temp 36.4 ??C (97.5 ??F) Resp 16 Ht 160 cm (5' 2.99) Wt 86.7 kg (191 lb 3.2 oz) SpO2 100% BMI 33.88 kg/m?? Physical Exam General: Alert, pleasant, NAD, appears well. Abdomen: Soft, non-distended, non-tender. Well healed incisions. Respiratory: No increased work of breathing. Speaking in full sentences. No cough/wheeze witnessed. Skin: Excess skin noted over abdomen. Skin is warm and dry. No rash noted on exam today. Psychiatric: Normal mood and affect. Appropriate eye contact. No results found for this or any previous visit (from the past 72 hour(s)). Assessment 35 y.o. female 4 months s/p Giorgio-en-Y gastric bypass with 62% of excess body weight lost. Abbreviated visit due to transportation issue. ?? Telehealth booked for tomorrow. ?? Patient to go to the lab today. ?? Briefly encouraged increased fluid and protein intake. Cherise Xiong APRN RECOMMENDED BARIATRIC SURGERY PROGRAM [...] If labwork is done by the primary pharmacy customer care specialist: please send a copy to the Bariatric Surgery Program, General Surgery Clinic, [facility], or fax [phone] * Mariana Al RD - 11/18/2020 10:30 AM EDT Bariatric Surgery Program Nutrition Progress Note Encounter Type: follow up SUBJECTIVE: Helene Carpenter is a 35 y.o. female who is 4 months s/p Giorgio-en-Y gastric bypass with Dr. Chavez on 07/30/20. Topics Discussed/Patient Concerns: ?? Pain when eating, improved since letting food cool more ?? Tolerating foods well, seasonings are tricky, advised pt to try one new seasoning at a time ?? Pt reports not feeling hunger ?? Meeting protein and fluid goals ?? 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 Lives w her boyfriend. 3 cats and 5 fish. ?? Social support:??boyfriend (Huseyin), friends, coworkers ?? Hobbies:??likes to go to hotels and swim, water garcia. Watching wrestling WWE and [employer] -[employer] Natural ?? Vision at 2 years post-op:??improve health issues. To be able to walk better. To see her niece graduate from high school. ?Goal weight: under 200# ?? OBJECTIVE: ?? Date of Surgery: 07/30/20 Type of Surgery: laparoscopic giorgio en y gastric bypass ?? Weight History: Date Weight (lbs) HT BMI Comments?? Age 34 290# ? Highest Weight 01/07/20 290# ? Initial program weight 06/20/20 274# 63 48.5 1st pre-op visit 07/30/20 ??n/a EWL % ?? Surgery ??08/19/20 235#?29% 41.6?? 1 month post-op ??11/18/2020 ??191# ??62% 33.8?? 4 months post-op [place] Body Weight (based on BMI of 25):??141# 30-70% Excess Weight Loss:??181-234#; 50% Excess Weight Loss:??208# ?? Vitamin/Mineral Supplements (reported by patient): Supplement Type Brand/Form Dosage/Amount Frequency Comments Multivitamin Flintstones 2 pill daily ?? Calcium Citracal 1 pill Twice daily Breaking in half Still only taking once/day Vitamin B12 ??pill 500 mcg daily ??every morning Iron Vitron C 1 pill weekly taking every other day Vitamin D3 ? none? Food Allergies/Intolerances: ice cream and sweets ?? Tracking Intake: baritastic-not consistently using 24-Hour Intake: Breakfast Bowl of remington charms, 1/3 cup low fat milk AM Snack Part of a cup of milk Lunch Egg roll/spring roll w/ 1 tbsp ranch PM Snack 1 cup cheddar popcorn Dinner Small sausage and pickle HS Snack 4 oz. orange Protein/ grams per day: Less than 60g Hydrating fluids- oz/ day: Gatorade zero- 8 oz. Soda: None ETOH: None Caffeine: Coffee 2-3x/week, 1 cup w/ 2 packets sweet & low and low-fat milk Sweets: Still avoiding Meals per day: 3 meals/day ?? Feels full/satisfied after eating: yes ?? Feels hungry [X} never []sometimes []most of the time [] always ?? Drinks with meals: no ?? Practices portion control: yes ?? Spends at least 20 minutes eating each meal: 30 minutes for meals ?? Has had dumping syndrome: some, but not recently Foods/Symptoms: ?? In the past month, pt has vomited/regurgitated: not recently ?? Constipation/Diarrhea: ? IBS-D- she has medicine for it but doesn't use it until she has a couple loose stools ? Some constipation 1 month post op, better now, not taking anything for constipation Exercise: walks all the time, 10-15 minutes 2-3 times/day, walks a lot at work and walks to work-starts a [place] [place] again in December ASSESSMENT: Summary of Weight Loss: Helene Carpenter returns for routine follow-up at 4 months s/p RNYGB. Her excess weight loss is at 62%. She is tolerating the diet, no vomiting or nausea. Pt reports that her previous chest pain has improved by letting foods cool more before eating. Pt is not meeting protein or fluid goals. Pt reports that finances are a barrier to buying healthy foods. We discussed the importance of meeting protein and fluid goals and eating protein first. Advised pt to increase Gatorade zero to 32 oz./day and to add 1 protein drink (26g-30g protein) per day to increase her protein and fluid intake. Pt is taking the recommended supplements-she is working up to taking the calcium pills 2 pills twice per day. Pt is exercising regularly. NUTRITION INTERVENTION & MONITORING: ?? Provided support/encouragement and reinforced importance of meeting nutritional goals. Pt is notmeeting protein and fluid goals- advised pt to increase Gatorade zero (or other hydrating fluids to32 oz./day) and to add at least 1 protein drink with 26-30g/protein per day. Reminded pt to eat protein first at meals. ?? Reviewed vitamin and mineral supplement recommendations.Encouraged pt to increase calcium to 2x/day, then increase to 2 pills 2x/day ?? Written recommendations provided. Patient agreed with these and verbalized adequate understanding. ?? Evaluation by nurse practitioner today. documented in this encounter Plan of Treatment Not on file documented as of this encounter Procedures Procedure Name Priority Date/Time Associated Diagnosis Comments HC PARATHYROID HORMONE(PTH INTACT Routine 11/18/2020 11:53 AM EDT S/P gastric bypass Post-resection malabsorption HC HEMOGRAM Routine 11/18/2020 11:53 AM EDT S/P gastric bypass Post-resection malabsorption HC PC THIAMIN LVL(VITAMIN B1) [facility] Routine 11/18/2020 11:53 AM EDT S/P gastric bypass Post-resection malabsorption HC IRON BINDING CAPACITY Routine 11/18/2020 11:53 AM EDT S/P gastric bypass Post-resection malabsorption HC VENIPUNCTURE Routine 11/18/2020 11:53 AM EDT S/P gastric bypass Post-resection malabsorption HC FOLATE, SERUM Routine 11/18/2020 11:5 3 AM EDT S/P gastric bypass Post-resection malabsorption HC FERRITIN, SERUM Routine 11/18/2020 11 :53 AM EDT S/P gastric bypass Post-resection malabsorption HC VITAMIN B12 SERUM Routine 11/18/2020 11:53 AM EDT S/P gastric bypass Post-resection malabsorption COMPREHENSIVE METABOLIC PANEL Routine 11/18/2020 11:53 AM EDT S/P gastric bypass Post-resection malabsorption documented in this encounter Results * (ABNORMAL) Comprehensive metabolic panel (non-fasting) (11/18/2020 11:53 AM EDT) Glucose 139 65 - 199 mg/dL [facility] Comment:Diabetes: >=200 mg/d L plus symptoms Blood Urea Nitrogen 8 8 - 18 mg/dL [facility] Creatinine 0.68(L) 0.70 - 1.20 mg/dL [facility] Sodium 140 135 - 145 mmol/L [facility] Potassium 4.3 3.5 - 5.0 mmol/L [facility] Comment: Please note: ??Patients with WBC >100,000 may have falsely elevated Potassium levels. ??For accurate Potassium quantification in these patients send serum separator tube (gold top) for subsequent determinations. ??Contact the Clinical Chemistry Laboratory if there are any questions. Chloride 105 98 - 107 mmol/L [facility] Carbon Dioxide 25 22 - 31 mmol/L [facility] Anion Gap 10 5 - 15 mmol/L [facility] Calcium 9.7 8.5 - 10.5 mg/dL [facility] Protein, Total 6.8 6.1 - 8.0 gm/dL [facility] Albumin 4.2 3.2 - 5.2 gm/dL [facility] Aspartate Aminotransferase 20 0 - 30 unit/L [facility] Alanine Aminotransferase 16 0 - 30 unit/L [facility] Alkaline Phosphatase 91 35 - 105 unit/L [facility] Bilirubin, Total 0.5 0.2 - 1.3 mg/dL [facility] Est Glomerular Filtration Rate 115 >=60 mL/min/1. 73 m?? [facility] Comment: This patient? s estimated glomerular filtration rate (eGFR) is between 115 mL/min/1.73 m2 (patients with less muscle mass) and 133 mL/min/1.73 m2 (patients with more muscle mass) as determined by the CKD-EPI equation. Assessment of eGFR is not appropriate when creatinine concentrations are rapidly changing. For clinical decisions where creatinine clearance will affect therapy, a 24-hour urine creatinine clearance may be advised. Assignment of CKD stage 1 - 5 for patients with an eGFR near the transition point between stages may be based on clinical assessment of muscle mass and symptoms in addition to eGFR. Blood 11/18/2020 11:5 3 AM EDT 11/18/2020 12:18 PM EDT Narrative Resulting Agency Comment Spec In Lab Cherise Xiong DATA ARCHITECT CHEMISTRY ORDERABL ES Performing Organization Address [facility] Co de Phone Number [facility] [place] [address] * (ABNORMAL) Ferritin (11/18/2020 11:53 AM EDT) [facility] Ferritin 208(H) 15 - 150 ng/mL [facility] Comment: Pediatric reference ranges not verified at [facility], interpret with caution. Reference ranges for females greater than 50 years of age approach values for men, i.e., 30-400 ng/mL. Blood 11/18/2020 11:5 3 AM EDT 11/18/2020 12:18 PM EDT Narrative Resulting Agency Comment Spec In Lab Cherise E Victoria DATA ARCHITECT CHEMISTRY ORDERABL ES Performing Organization Address [facility]/ZIP Co de Phone Number [facility] [place] [address] * Folate, serum (11/18/2020 11:53 AM EDT) [facility] Folate >20.0 4.8 - 24.2 ng/mL [facility] Blood 11/18/2020 11:5 3 AM EDT 11/18/2020 12:18 PM EDT Narrative Resulting Agency Comment Spec In Lab Cherise E Inga DATA ARCHITECT CHEMISTRY ORDERABL ES [facility] [place] [address] * (ABNORMAL) Hemogram (11/18/2020 11:53 AM EDT) White Blood Cell 6.5 4.0 - 9.5 x10(3)/mc L [facility] Red Blood Cell 5.42(H) 4.00 - 5.21 x10(6)/mc L [facility] Hemoglobin 14.5 11.7 - 15.5 gm/dL [facility] Hematocrit 45.8 35.7 - 45.8 % [facility] Mean Cell Volume 84.5 82.6 - 94.4 fL [facility] Mean Cell Hemoglobin 26.8(L) 27.1 - 32.0 pg [facility] Mean Cell Hemoglobin Concentration 31.7 31.7 - 35.0 gm/dL [facility] Platelet 233 145 - 357 x10(3)/mc L [facility] RDW Standard Deviation 42.4 37.0 - 46.0 [facility] RDW coefficient of variation 13.9 11.5 - 14.1 % [facility] Mean Platelet Volume 11.9 7.6 - 12.9 fL [facility] NRBC% auto 0.0 % [facility] NRBC Absolute 0.000 0.000 - 0.000 x10(3)/mc L [facility] Blood 11/18/2020 11:5 3 AM EDT 11/18/2020 12:18 PM EDT Narrative Resulting Agency Comment Spec In Lab Cherise E Inga DATA ARCHITECT HEMATOLOGY ORDERAB LES Performing Organization Address [facility] Co de Phone Number [facility] [address] * (ABNORMAL) Iron and TIBC (11/18/2020 11:53 AM EDT) Iron 50 30 - 150 mcg/dL [facility] TIBC 240(L) 250 - 450 mcg/dL [facility] Iron Saturation 21 20 - 50 % [facility] Blood 11/18/2020 11:5 3 AM EDT 11/18/2020 12:18 PM EDT Narrative Resulting Agency Comment Spec In Lab Cherise E Victoria DATA ARCHITECT CHEMISTRY ORDERABL ES Performing Organization Address [facility] Co de Phone Number [facility] [place] [address] * PTH (11/18/2020 11:53 AM EDT) Parathyroid Hormone 36 15 - 65 pg/mL [facility] Blood 11/18/2020 11:5 3 AM EDT 11/18/2020 12:18 PM EDT Narrative Resulting Agency Comment Spec In Lab Cherise E Victoria DATA ARCHITECT CHEMISTRY ORDERABL ES Performing Organization Address [facility] Co de Phone Number [facility] [address] * Vitamin B1, whole blood (11/18/2020 11:53 AM EDT) Vit B1 Lvl Wb (OCTOBER) 104 70 - 180 nmol/L [facility] Comment: ADDITIONAL INFORMATION This test was developed and its performance characteristics determined by [facility] in a manner consistent with CLIA requirements. This test has not been cleared or approved by the U.S. Food and Drug Administration. Test Performed by: [facility] [address] [place] [address] Customer Care Consultant: Samson Ortiz M.D. Ph.D.; IA# [id number] Blood 11/18/2020 11:5 3 AM EDT 11/18/2020 4:54 PM EDT Narrative Resulting Agency Comment Spec In Lab Cherise Xiong APRN LAB SEND OUT ORDER ANNE MARIE Performing Organization Address [facility] Co de Phone Number [facility] [address] * Vitamin B12 (11/18/2020 11:53 AM EDT) Vitamin B12 670 232 - 1,245 pg/mL [facility] Blood 11/18/2020 11:5 3 AM EDT 11/18/2020 12:18 PM EDT Narrative Resulting Agency Comment Spec In Lab Cherise Xiong APRN CHEMISTRY ORDERABL ES Performing Organization Address [facility] Co de Phone Number [facility] [address] * Vitamin D, 25-Hydroxy (11/18/2020 11:53 AM EDT) Vitamin D Total 25 OH 49 21 - 100 ng/mL [facility] Vit D Interp Sufficient [facility] Blood 11/18/2020 11:5 3 AM EDT 11/18/2020 12:18 PM EDT Narrative Resulting Agency Comment Spec In Lab Cherise Xiong APRN CHEMISTRY ORDERABL ES Performing Organization Address [facility] Co de Phone Number [facility] [address] documented in this encounter Visit Diagnoses Diagnosis S/P gastric bypass Bariatric surgery status Post-resection malabsorption Other and unspecified postsurgical nonabsorption documented in this encounter Care Teams Yarn Bleaching Machine Operator Relationship Specialty Start Date End Date Mona Honeycutt APRN PCP - General Family Medicine 01/25/20 08/29/23 documented as of this encounter
--- OUTSIDE RECORDS SUMMARY | 2024-04-14 12:26 | XMS_ITS | Encounter Summary ---
Author Organization [facility] [place] [address] Care Team Providers Care Second Cook And Baker Name Role Phone None Primary Care Provider Unavailabl e Reason for Visit * Auth/Cert (Routine) Specialty Diagnoses / Procedures Referred By Alex new Referred To Contact Diagnoses Morbid obesity symptomatic pannus Procedures PRO EXCISE EXCESS SKIN TISSUE, ABDOMEN PANNICULECTOMY (WRVU 17.11) Huber Foote MD [facility] [place] [address] [facility] Referral ID Status Reason Start Date Expiration Date Visits Re quested Visits Authorized [id number] 1 1 Encounter Details Date Type Department Care Team (Latest Contact Info) Description 09/02/2023 11:51 AM EDT - 09/03/2023 11:44 AM EDT Hospital [place] [address] Huber Foote MD [facility] [place] [address] S/P gastric bypass; Disorder of iron metabolism; Disorder of calcium metabolism; Morbid obesity; S/P panniculectomy Discharge Disposition: Home Social History Tobacco Use Types Packs/Day Years Used Date Smoking Tobacco: Never Smokeless Tobacco: Never Tobacco Cessation:Counseling Given: Not Answered Alcohol Use Standard Drinks/Week Comments Not Currently 0 (1 standard drink = 0.6 oz pur e alcohol) [facility] Inpatient Questions Answer Date Recorded [...] Sign Reading Time Taken Comments Blood Pressure 124/62 09/03/2023 7:45 AM EDT Pulse 108 09/02/2023 5:00 PM EDT Temperature 36.7 ??C (98.1 ??F) 09/03/2023 7:45 AM ED T Respiratory Rate 16 09/03/2023 7:45 AM EDT Oxygen Saturation 97% 09/03/2023 7:45 AM EDT Inhaled Oxygen Concentration - - [...] Service Inpatient Discharge Summary Patient Name: Helene Carpenter Patient Age: 38 y.o. : 1985 Attending [...] gastric bypass in 2020 now presenting to [facility] [place] for elective panniculectomy with Dr. Huber Foote. Past Medical History History reviewed. No pertinent past medical history. Past Surgical History Past Surgical History: Procedure Laterality Date PRO LAP GASTRIC BYPASS/PIA-EN-Y N/A 07/30/2020 @LAPAROSCOPIC GASTROPLASTY W/ PIA-EN-Y CONSTRUCTION (WRVU 29.4) performed by Carlos Chavez MD at [facility] MAIN OR PRO UPPER GI ENDOSCOPY, DIAGNOSTIC N/A 07/30/2020 EGD, UPPER GI ENDOSCOPY performed by Carlos Chavez MD at [facility] MAIN OR Procedures: 09/02/2023 Surgeon(s) and Role: * Huber Foote MD - Primary: Procedure(s): PANNICULECTOMY (WRVU 17.11) Hospital Course: Helene Carpenter was admitted to the Plastic Surgery Service on 09/02/2023 after undergoing panniculectomy for symptomatic pannus. She tolerated the operation well and there were no apparent complications. She was admitted post-operatively for observation and management. Her hospital stay was uncomplicated. Helene Carpenter was tolerating regular diet, ambulating and voiding [...] HYDROcodone-acetaminophen 5-325 mg tablet Commonly known as: Rindge Take 1 tablet by mouth every 6 [...] provider to review them with you. Helene Carpenter is getting a prescription opioid for the [...] scheduling, please contact our administrative offices at [phone]. For clinical questions, please call our nurses at [phone]. Both offices are open Wednesday thru Wednesday 8a - 5p. With emergencies after hours, call the hospital pneumatic system conveyor operator at [phone] and ask for the Plastic Surgery Resident online marketing analyst. Scheduled Appointments: Future Appointments Date Time Provider Department Center 09/09/2023 11:00 AM NURSE, PLASTIC SURGERY [facility] [place] PLAS 4M [facility] [place] Outpatient Services/Studies: No discharge procedures on file. [...] office hours: Wednesday - Wednesday 8am-5pm call [phone]. On weekends or after hours call [phone] and ask the pneumatic system conveyor operator to page the plastic surgery resident online marketing analyst. PAIN MEDICATION: Pain is a normal part [...] Wednesday 8 am to 5 pm): Call [phone]. On weekends or after hours: Call [phone] and ask the pneumatic system conveyor operator to speak to the Plastic Surgery Resident on-call. FOLLOW-UP APPOINTMENTS: You follow-up appointment has been requested by not yet scheduled. You should have an appointment in 5-7 days. Please call [phone] if you have not received a phone call or letter with your appointment in a timely fashion. Your follow-up has been scheduled: Future Appointments Date Time Provider Department Center 09/09/2023 11:00 AM NURSE, PLASTIC SURGERY [facility] [place] [place] [facility] General Information: Drains [...] AM NURSE, PLASTIC SURGERY Plastic Surgery at [facility] [place] [place] Arrive at: Tar Processing Technician Area 4M [phone] Call your doctor if: Please call your [...] Center 09/09/2023 11:00 AM NURSE, PLASTIC SURGERY [address] Associated attestation - Huber Foote MD [...] office hours: Wednesday - Wednesday 8am-5pm call [phone]. On weekends or after hours call [phone] and ask the pneumatic system conveyor operator to page the plastic surgery resident online marketing analyst. PAIN MEDICATION: Pain is a normal part [...] Wednesday 8 am to 5 pm): Call [phone]. On weekends or after hours: Call [phone] and ask the pneumatic system conveyor operator to speak to the Plastic Surgery Resident on-call. FOLLOW-UP APPOINTMENTS: You follow-up appointment has been requested by not yet scheduled. You should have an appointment in 5-7 days. Please call [phone] if you have not received a phone call or letter with your appointment in a timely fashion. Your follow-up has been scheduled: Future Appointments Date Time Provider Department Center 09/09/2023 11:00 AM NURSE, PLASTIC SURGERY [facility] [place] PLAS 4M [facility] [place] [place] [facility] General Information: Drains [...] mouth 2 times daily. 06/05/2020 HYDROcodone-acetaminoph en (Rindge) 5-325 mg tablet Take 1 tablet by [...] intact. No complications. Pt dc'd to discharge [place] to wait for her friend to pick her up. All personal belongings taken with pt. * Jossie Ann MD - 09/02/2023 8:18 PM EDT Plastic Surgery Post-Op Check Note Patient Name: Helene Carpenter ; Age: 11 1985; 38 y.o. Room/Bed: [address] Today's Date: 09/02/23 Surgery Post Op Check Operation/Procedure: 09/02/2023 Surgeon(s) and Role: * Huber Foote MD - Primary * Matheus hKan MD - Resident - Assisting: Procedure(s): [facility] Findings: panniculectomy (a total of 1.575kg was resected) ID: Helene Carpenter is a 38 y.o. female status post [...] 164 CALCIUM 9.4 Assessment and Plan: Helene Carpenter is a 38 y.o. female status post [...] 09/02/2023 12:36 PM EDT Patient Name: Helene Carpenter Patient Age: 38 y.o. Birthdate: 1985 Admit date: (Not on file) Attending Physician: Huber Foote MD Plastic Surgery Preoperative H&P: Patient Name: Helene Carpenter Patient : 1985 Today's Date: 09/02/2023 Helene Carpenter is a 38 y.o. female presenting for panniculectomy. No changes since last seen. No past medical history on file. Past Surgical History: Procedure Laterality Date PRO LAP GASTRIC BYPASS/PIA-EN-Y N/A 07/30/2020 @LAPAROSCOPIC GASTROPLASTY W/ PIA-EN-Y CONSTRUCTION (WRVU 29.4) performed by Carlos Chavez MD at [facility] MAIN OR PRO UPPER GI ENDOSCOPY, DIAGNOSTIC N/A 07/30/2020 EGD, UPPER GI ENDOSCOPY performed by Carlos Chavez MD at [facility] MAIN OR No family history on file. [...] CV: normal rate, regular rhythm A/P: Helene Carpenter is a 38 y.o. female presenting for panniculectomy. - Proceed to OR. The risks, benefits and indications were reviewed with the patient and there remains an indication for surgery. Consent signed. - Preoperative abx ordered Matheus Khan, PGY-3 Plastic & Reconstructive Surgery Pager: [phone] documented in this encounter Miscellaneous Notes * [...] surrogate would be surrogate decision maker per [place] decision making law. (Only good for 180 days) Any patient receiving care in [place] must abide by [place] law. The hierarchy for surrogate decision making [...] (i) The agent with financial power of health care attorney or a conservator appointed in accordance with RSA 464-A. (j) The guardian of the patient???s estate. Advance Care Planning: Attempt Cardiopulmonary Resuscitation - Inpatient <no information> -Advanced Directive: Other (No AD on File.) Current Functional Ability: Independent Home Address listed as: [address] [place] [address] [address] [facility] [address] Social & Family Supports: All names listed below confirmed with patient as current and correct Extended Emergency Contact Information Primary Emergency Contact: russlatia Mobile Relation: Brother/[id number] Substance Use/Abuse listed: Social History Tobacco Use [...] Yes ; Prescription Coverage: Yes Preferred Pharmacy: [id number] - [facility], [place] - [address] [facility] [address] [facility] [place], [place] - [address] [facility] [address] [facility] [address] [facility] [address] - [place], [place] - [address] [facility] [address] [facility] [address] Primary Care Provider listed: None None Potential [...] with transition of care planning. EMERITA Moss, nylon winder of Care Management Pager [phone] * Brief Op Note - Matheus Khan MD - 09/02/2023 3:13 PM EDT Brief Operative Note Patient Name: Helene Carpenter : [id number] MR#: [id number] Case Date: 09/02/2023 Surgeon: Surgeon(s) and Role: [...] Center 09/09/2023 11:00 AM NURSE, PLASTIC SURGERY [facility] [place] PLAS 4M [facility] [place] Matheus Khan PGY-3 Plastic & Reconstructive Surgery Pager: [phone] * Op Note - Huber Foote MD - 09/02/2023 1:59 PM EDT [facility] [place] [place] Operative Note Patient Name: Helene Carpenter : [id number] MR#: [id number] Case Date: 09/02/2023 Surgeon: Surgeon(s) and Role: [...] AM EDT Excise Excess Skin Tissue, Abdomen ([id number]) 09/02/2023 1:33 PM EDT Morbid obesity POCT [...] (Bezet) 448 ms MUSE SYSTEM Calculated P [place] 40 degrees MUSE SYSTEM Calculated R [place] 15 degrees MUSE SYSTEM Calculated T [place] 11 degrees MUSE SYSTEM INTERPRETATION Sinus tachycardia Otherwise normal ECG No previous ECGs available Confirmed by fellow MD Alfred, Melissa ([id number]) on 09/03/2023 5:00:30 PM Confirmed by MD RUSTY, FARHAD ([id number]) on 09/03/2023 10:10:46 PM MUSE SYSTEM 09/03/2023 9:28 AM EDT 09/03/2023 10:10 PM EDT Huber Foote MD ECG ORDERABLES MUSE SYSTEM * Hemoglobin and Hematocrit, blood (09/03/2023 9:20 AM EDT) Hemoglobin 12.1 11.7 - 15.5 g/dL [facility] Hematocrit 36.1 35.7 - 45.8 % [facility] Blood 09/03/2023 9:20 AM EDT 09/03/2023 9:28 AM EDT Narrative Resulting Agency Comment Spec In Lab Huber Foote MD HEMATOLOGY ORDERABLE S [facility] [place] [address] * POCT Glucose (09/02/2023 1:12 PM EDT) [facility] Signature Glucose, POC 156 65 - 199 mg/dL [facility] Comment: Supplemental ranges: <140 mg/dL before meals <180 mg/dL all other times of the day Blood 09/02/2023 1:12 PM EDT 09/02/2023 1:12 PM EDT Huber Foote MD POINT OF CARE TEST O RDERABLES Performing Organization Address [facility]/ZIP Co de Phone Number [facility] [place] [address] * (ABNORMAL) Comprehensive metabolic panel (non-fasting) (09/02/2023 12:24 PM EDT) [facility] Signature Glucose 164 65 - 199 mg/dL [facility] Comment:Diabetes: >=200 mg/d L plus symptoms Blood Urea Nitrogen 11 8 - 18 mg/dL [facility] Creatinine 0.53(L) 0.70 - 1.20 mg/dL [facility] Sodium 137 135 - 145 mmol/L [facility] Potassium 3.6 3.5 - 5.0 mmol/L [facility] Comment: Please note: ??Patients with WBC >100,000 may have falsely elevated Potassium levels. ??For accurate Potassium quantification in these patients send serum separator tube (gold top) for subsequent determinations. ??Contact the Clinical Chemistry Laboratory if there are any questions. Chloride 101 98 - 107 mmol/L [facility] Carbon Dioxide 25 22 - 31 mmol/L [facility] Anion Gap 11 5 - 15 mmol/L [facility] Calcium 9.4 8.5 - 10.5 mg/dL [facility] Protein, Total 6.7 6.1 - 8.0 g/dL [facility] Albumin 4.2 3.2 - 5.2 g/dL [facility] Aspartate Aminotransferase 15 0 - 30 unit/L [facility] Alanine Aminotransferase 15 0 - 30 unit/L [facility] Alkaline Phosphatase 127(H) 35 - 105 unit/L [facility] Bilirubin, Total 0.5 0.2 - 1.3 mg/dL [facility] Est Glomerular Filtration Rate 123 >=60 mL/min/1. 73 m?? [facility] Comment: This patient's estimated GFR [...] Comment Spec In Lab Cherise E Inga MOBILE HEAVY EQUIPMENT OPERATOR CHEMISTRY ORDERABL ES [facility] [place] [address] * Ferritin (09/02/2023 12:24 PM EDT) Ferritin 34 6 - 175 ng/mL [facility] Comment: Please note that as of 05/12/2023, the reference intervals for Ferritin have been updated. Blood 09/02/2023 12:2 4 PM EDT 09/02/2023 12:55 PM EDT Narrative Resulting Agency Comment Spec In Lab Cherise E [place] MOBILE HEAVY EQUIPMENT OPERATOR CHEMISTRY ORDERABL ES Performing Organization Address [facility] Co de Phone Number [facility] [place] [address] * Folate, serum (09/02/2023 12:24 PM EDT) Folate 9.7 4.8 - 24.2 ng/mL [facility] Blood 09/02/2023 12:2 4 PM EDT 09/02/2023 12:55 PM EDT Narrative Resulting Agency Comment Spec In Lab Cherise E Inga MOBILE HEAVY EQUIPMENT OPERATOR CHEMISTRY ORDERABL ES Performing Organization Address City/[facility] Co de Phone Number [facility] [place] [address] * Hemogram (09/02/2023 12:24 PM EDT) White Blood Cell 6.4 4.0 - 9.5 x10(3)/[facility] Red Blood Cell 4.96 4.00 - 5.21 x10(6)/[facility] Hemoglobin 14.1 11.7 - 15.5 g/dL [facility] Hematocrit 42.5 35.7 - 45.8 % [facility] Mean Cell Volume 85.7 82.6 - 94.4 fL [facility] Mean Cell Hemoglobin 28.4 27.1 - 32.0 pg [facility] Mean Cell Hemoglobin Concentration 33.2 31.7 - 35.0 g/dL [facility] Platelet 270 145 - 357 x10(3)/[facility] LABORATORY RDW Standard Deviation 37.5 37.0 - 46.0 [facility] LABORATORY RDW coefficient of variation 12.1 11.5 - 14.1 % [facility] Mean Platelet Volume 10.7 7.6 - 12.9 fL [facility] NRBC% auto 0.0 % [facility] NRBC Absolute 0.000 0.000 - 0.000 x10(3)/mcL [facility] Blood 09/02/2023 12:2 4 PM EDT 09/02/2023 12:55 PM EDT Narrative Resulting Agency Comment Spec In Lab Cherise E Inga MOBILE HEAVY EQUIPMENT OPERATOR HEMATOLOGY ORDERAB LES Performing Organization Address City/[facility]/ZIP Co de Phone Number [facility] [place] [address] * Iron and TIBC (09/02/2023 12:24 PM EDT) Iron 76 30 - 150 mcg/dL [facility] TIBC 324 250 - 450 mcg/dL [facility] Iron Saturation 23 20 - 50 % [facility] Blood 09/02/2023 12:2 4 PM EDT 09/02/2023 12:55 PM EDT Narrative Resulting Agency Comment Spec In Lab Cherise E Inga MOBILE HEAVY EQUIPMENT OPERATOR CHEMISTRY ORDERABL ES Performing Organization Address City/[facility]/ZIP Co de Phone Number [facility] [place] [address] * PTH (09/02/2023 12:24 PM EDT) Parathyroid Hormone 52 15 - 65 pg/mL [facility] Blood 09/02/2023 12:2 4 PM EDT 09/02/2023 12:55 PM EDT Narrative Resulting Agency Comment Spec In Lab Cherise E [place] MOBILE HEAVY EQUIPMENT OPERATOR CHEMISTRY ORDERABL ES Performing Organization Address City/[facility]/ZIP Co de Phone Number [facility] [place] [address] * Vitamin B1, whole blood (09/02/2023 12:24 PM EDT) Pathologist [facility] Vit B1 Lvl Wb (OCTOBER) 121 70 - 180 nmol/L [facility] Comment: ADDITIONAL INFORMATION This test was developed and its performance characteristics determined by [facility] in a manner consistent with CLIA requirements. This test has not been cleared or approved by the U.S. Food and Drug Administration. Test Performed by: [facility] [address] [place] [address] Pneumatic Tester Mechanic: Samson Ortiz M.D. Ph.D.; CLIA# [id number] Blood 09/02/2023 12:2 4 PM EDT 09/03/2023 8:54 AM EDT Narrative Resulting Agency Comment Spec In Lab Cherise Xiong APRN LAB SEND OUT ORDER ANNE MARIE Performing Organization Address City/[facility]/ZIP Co de Phone Number [facility] [place] [address] * Vitamin B12 (09/02/2023 12:24 PM EDT) [facility] Vitamin B12 303 232 - 1,245 pg/mL [facility] Blood 09/02/2023 12:2 4 PM EDT 09/02/2023 12:55 PM EDT Narrative Resulting Agency Comment Spec In Lab Cherise Xiong MOBILE HEAVY EQUIPMENT OPERATOR CHEMISTRY ORDERABL ES Performing Organization Address City[facility]/ZIP Co de Phone Number [facility] [place] [address] * (ABNORMAL) Vitamin D, 25-Hydroxy (09/02/2023 12:24 PM EDT) [facility] Vitamin D Total 25 OH 14(L) 21 - 100 ng/mL [facility] Vit D Interp Deficient [facility] Blood 09/02/2023 12:2 4 PM EDT 09/02/2023 12:55 PM EDT Narrative Resulting Agency Comment Spec In Lab Cherise Sol Xiong MOBILE HEAVY EQUIPMENT OPERATOR CHEMISTRY ORDERABL ES [facility] [place] [address] documented in this encounter Visit Diagnoses Diagnosis S/P panniculectomy- Primary S/P gastric bypass Bariatric surgery status Disorder of iron metabolism Other disorders of iron metabolism Disorder of calcium metabolism Unspecified disorders of calcium metabolism Morbid obesity S/P panniculectomy documented in this encounter Admitting Diagnoses Diagnosis [...] Given 09/02/2023 9:28 PM EDT 975 mg docusate sodium (Colace) capsule 100 mg 100 [...] 1015 New Bag 09/03/2023 10:04 AM EDT oxyCODONE (Roxicodone) tablet 5 mg 5 mg, [...] (Given - Provider: Yaniv Martin Jr., RN) 0612 (Given - Provider: Yaniv Martin Jr., BRITTANI) docusate sodium (Colace) capsule 100 mg 100 mg, Oral, 2 TIMES DAILY, First dose on Latha 09/02/23 at 2100, Until Discontinued, Routine 2127 (Given - Provider: Yaniv Martin Jr., BRITTANI) 0858 (Given - Provider: Brandy Rees, BRITTANI) lactated Ringers 500 mL IV bolus (COMPLETED) [...] 4-10, Routine 1821 (Given - Provider: Shavonne Hardin RN) 0043 (Given - Provider: Yaniv Martin Jr., RN)0858 (Given - Provider: Brandy Rees, BRITTANI) No Frequency Medication Order 09/01/2023 [...] Routine documented in this encounter Care Teams Second Cook And Baker Relationship Specialty Start Date End Date None None PCP - General 08/30/23 documented as of this encounter
--- OUTSIDE RECORDS SUMMARY | 2024-04-14 12:26 | XMS_ITS | Encounter Summary ---
Author Organization [facility] [place] [address] Care Team Providers Care Nuclear Power Plant Engineer Name Role Phone Mona Honeycutt APRN Primary Care Provider [phone] Encounter Details Date Type Department Care Team (Late st Contact Info) Description 07/28/2021 Orders [place] [address] Karlie Villanueva APRN [facility] [place] [address] S/P gastric bypass; Post-resection malabsorption Social History [...] nonabsorption documented in this encounter Care Teams Nuclear Power Plant Engineer Relationship Specialty Start Date End Date Mona Honeycutt APRN PCP - General Family Medicine 01/25/20 08/29/23 documented as of this encounter
--- OUTSIDE RECORDS SUMMARY | 2024-04-14 12:26 | XMS_ITS | Encounter Summary ---
Author Organization [facility] Address [facility] [place] [address] Care Team Providers Care Digital Producer Name Role Phone Mona Honeycutt APRN Primary Care Provider [phone] Reason for Visit * Reason Comments Advice Only * Consultation (Routine) - Closed Specialty Diagnoses / Procedures Referred By Alex new Referred To Contact Plastic Surgery Diagnoses Intertrigo Cherise Xiong APRN [facility] [place] [address] [facility] [address] [address] Referral ID Status Reason Start Date Expiration Date V isits Requested Visits Authorized [id number] Closed Consult, Test & Treat 06/28/2023 06/27/2024 1 1 Encounter Details Date Type Department Care Team (Late st Contact Info) Description 07/13/2023 1:00 PM EST Office Visit [place] [address] Huber Foote MD [facility] [place] [address] Morbid obesity; Abdominal pannus Social History Tobacco Use Types Packs/Day Years Used Date Smoking Tobacco: Never Smokeless Tobacco: Never Sex and Gender Information Value Date Recorded Sex Assigned at Not on file Gender Identity Not on file Sexual Orientation Not on file documented as of this encounter Last Filed Vital Signs Vital Sign Reading Time Taken Comments Blood Pressure - - Pulse - - Temperature - - Respiratory Rate - - Oxygen Saturation - - Inhaled Oxygen Concentration - - Weight 75.9 kg (167 lb 6.4 oz) 07/13/2023 1:12 P M EST Height 160.7 cm (5' 3.25) 07/13/2023 1:12 PM ES T Body Mass Index 29.42 07/13/2023 1:12 PM EST documented in this encounter Patient Instructions * Patient Instructions* Beverly Ledesma RN - 07/13/2023 1:00 PM EST Preoperative Instructions You have been scheduled to have plastic surgery. The instructions below are specific to your procedure. Two Weeks prior to Surgery Do not take any Aspirin or aspirin containing products for the 2 weeks leading up to surgery. You may resume taking 48 hours after surgery. Do not take medications containing Ibuprofen. Do not take any anti-steroidal's such as Advil, Aleve, Celebrex, Daypro, Indocin, Midol, Motrin, Naproxen, Nuprinand Toradol. These medications increase your risk of bleeding. You may resume taking any of these medications 48 hours after surgery. Stop Vitamin E, Garlic supplements, Ginseng, Fish Oil tablets, Ginkgo and Jero's Wort and any other herbals. You may resume taking 48 hours after surgery. If you need medication for pain, you may take Tylenol or extra strength Tylenol during this two week period. Medication Specific Instructions None One Week prior to Surgery Please call if you feel ill, have cold or fever, have a rash or breaks in the skin near your surgical site. Stay hydrated. Avoid alcohol and recreational drugs Three Days before Surgery Do not shave near your surgical site One Day before Surgery Shower the night before and the morning of surgery using an antibacterial soap (Dial or Lever 2000)or Hibiclens wash The Same Day Surgery Team will call you the business day before your surgery to give you instructions specific to your procedure and your surgical time. Generally, you will be asked not to eat any solids after midnight. You are allowed clear liquids (water, osmany gladis, apple juice, black coffee andplain tea) until 2 hours prior to your surgery. Day of Surgery A van driver helper is required at time of discharge. If you are a Same Day procedure and do not have a driveryour surgery will be canceled. DO NOT wear any jewelry, makeup or artificial nails the day of surgery. DO NOT apply any lotions, powders or deodorants on or near the surgical site the day of surgery. Do wear comfortable, loose fitting clothes. Anesthesia will meet with you the morning of surgery. They will perform an assessment and review your history with you. Contact Information: During regular office hours (Wednesday- Wednesday, non-holiday 8:00 am- 5:00 pm) For an appointment or insurance questions [phone] For questions pertaining to your surgical date [phone] For nursing related questions [phone] On weekends, holidays or after office hours: Call [phone] and ask the calender roll operator to page the Plastic Surgery Resident division road supervisor. Plastic surgery Clinic fax number: [phone] documented in this encounter Progress Notes * Sharmaine Ybarra - 07/13/2023 1:00 PM EST Plastic Surgery Consultation Note Provider: Huber Foote MD PCP: Mona Honeycutt APRN TAXATION INSPECTOR: Cherise Xiong APRN CC: Abdominal pannus HPI: Helene Carpenter is a 38 y.o. female seen in my office today for consideration for abdominal panniculectomy. her PCP, Mona Honeycutt APRN has requested the consultation. (or) She is self referredfor the consulation Her maximum weight was 274 lb lbs in 2020. She now weighs 167 lbs. Her current weight has been stable for a few months.She has lost weight after gastric bypass surgery which was performed in 2020. She presents today because of increasing difficulty with keeping the fold under her pannus free of rashes and infection, and clean, and odor free. The patient reports that she has been experiencing a significant amount of back pain since losing weight. The patient states that she has not seen a chiropractor or interactive digital media specialist in regards to her back pain. The patient denies seeing a chiropractor or interactive digital media specialist regarding her back pain. [ x ]The pannus causes a chronic and persistent skin condition (e.g., intertriginous dermatitis, panniculitis, and cellulitis or skin ulcerations) that is refractory to at least three months of medical treatment and associated with at least one episode of cellulitis requiring systemic antibiotics. In addition to good hygiene practices, treatment should include topical antifungals, topical and/or systemic corticosteroids, and/or local or systemic antibiotics. [ x ]There is presence of a functional deficit due to a severe physical deformity or disfigurement resulting from the pannus. [ x ]The surgery is expected to restore or improve the functional deficit. [ x ]The pannus is interfering with activities of daily living. No past medical history on file. Past Surgical History: Procedure Laterality Date PRO LAP GASTRIC BYPASS/PIA-EN-Y N/A 07/30/2020 @LAPAROSCOPIC GASTROPLASTY W/ PIA-EN-Y CONSTRUCTION (WRVU 29.4) performed by Carlos Chavez MD at [facility] MAIN OR PRO UPPER GI ENDOSCOPY, DIAGNOSTIC N/A 07/30/2020 EGD, UPPER GI ENDOSCOPY performed by Carlos Chavez MD at [facility] MAIN OR Social History Socioeconomic History Marital status: Single [...] on file Housing Stability: Not on file ROS: HEENT, GI, /Renal, Psych, Card, Pulm, Endo, Heme, Immun, Neuro: negative Examination: Ht 160.7 cm (5' 3.25) Wt 75.9 kg (167 lb 6.4 oz) BMI 29.42 kg/m?? female in no acute distress, comfortable. Abdomen: Grade 1: Panniculus barely covers the hairline of the mons pubis but not the genitalia She has a well healed, scars Hernia palpable no Diastasis no Active rash or intertrigo yes Impression: Helene Carpenter is a suitable candidate for panniculectomy which would likely correct herphysical symptomatology. We talked about the scars and risks from panniculectomy. She is aware thatinfection, delayed wound healing, seroma and numbness are possibilities. [facility], as well as their standard informed consent documents on bothabdominoplasty, and panniculectomy. She has expressed a desire to proceed with surgical correction.I feel strongly that she will gain significant symptom relief and avoid further intertrigo following surgery. We discussed the possible need for revision or touch up in the future as the abdomen skinmay become lax following surgery. I explained that relapse is always possible due to the elasticityof the skin which is uncontrollable. We reviewed the timing of surgery relative to weight fluctuations and I've advised that surgery is best done at a realistic halfway stable weight. We talked about the outpatient nature of the surgery, drains, postoperative recovery, and time required off work. Post- operative restrictions include no lifting, pushing, or pulling more than 5lbs for 4-6 weeks. Limit bending and twisting x 6 weeks. She should anticipate 4 weeks off from work. We discussed potential risks and complications which include but are not limited to pain, bleeding, infection, scarring, asymmetry, hematoma, seroma, poor cosmetic outcome, failure of procedure, possible need for revision, recurrence damage to adjacent structures. We have obtained photographs today. Insurance Guidelines [ ] Pannus grade 2 or higher [ x ] Rashes; prescribed and documented treatment for any rashes that don???t respond to 3 - 6 months of treatment. [ x ] If the weight has been lost due to gastric bypass, it must be 18 months s/p bariatric surgery [ x ] Patient must be at goal weight and stable 6 months Based on this, we will request insurance pre-determination.I will communicate my recommendations Quincy Honeycutt APRN. Plan: Schedule surgery Surgical Grid: Surgeon: Qamar Duration: 2 hours Timeframe: Elective Coordinated with: None Procedure: Panniculectomy CPT: 74611 Surgical site: Abdomen Side: N/a Anesthesia: General Follow up: 7-10 days with [facility] H&P: Day of surgery Need to discontinue blood thinners pre-op? N/A I, Sharmaine Ybarra, have performed the documentation for this encounter in the presence of and actingas a scribe for HUBER FOOTE MD. documented in this encounter Plan of Treatment Not on file documented as of this encounter Visit Diagnoses Diagnosis Morbid obesity Abdominal pannus Localized adiposity documented in this encounter Care Teams Digital Producer Relationship Specialty Start Date End Date Mona Honeycutt, VIDEOTAPE RECORDING ENGINEER PCP - General Family Medicine 01/25/20 08/29/23 documented as of this encounter
--- OUTSIDE RECORDS SUMMARY | 2024-04-14 12:26 | XMS_ITS | Encounter Summary ---
Author Organization [facility] [place] [address] Care Team Providers Care Security Shift Manager Name Role Phone Mona Honeycutt APRN Primary Care Provider [phone] Encounter Details Date Type Department Care Team (Latest Contact Info) Description 11/19/2020 1:30 PM EDT TH Visit (TeleHealth) [place] [address] Cherise Xiong [facility] [place] [address] S/P gastric bypass; Post-resection malabsorption; Type 2 diabetes mellitus without complication, without long-term current use of insulin; Hypercholesterolemia ; GAMAL on CPAP; Hypertension, unspecified type Social History Tobacco Use Types Packs/Day Years Used Date Smoking Tobacco: Never Smokeless Tobacco: Never Sex and Gender Information Value Date Recorded Sex Assigned at Not on file Gender Identity Not on file Sexual Orientation Not on file documented as of this encounter Progress Notes * Cherise Xiong APRN - 11/19/2020 1:30 PM EDT Images from the [place] [address] BARIATRIC SURGERY VIRTUAL NOTE 1. Reason/purpose for phone call: BSP follow up visit - 4 month post op. 2. The patient voiced an understanding of [...] Time Attestation: I spent a total of 40 minutes associated with this encounter, including chart review, the patient encounter, and documentation. Subjective: Helene Carpenter is s/p Zandra-en-Y gastric bypass with Dr. Chavez on 07/30/20. She presented yesterday for4 month post bariatric surgery follow up but visit was cut short due to a transportation issue. Telemedicine follow up visit was booked for today. No bariatric complaints today. Patient is feeling well, tolerating foods and fluids without difficulty. Not meeting fluid (16 oz on recall) or protein goals (30 g). After discussing with the RD yesterday, Helene purchased [place] with 23 G protein. Current Supplements: Multi-vitamin with minerals/iron twice daily [...] visit. No kidney stones or atraumatic fractures. Pt follows with PCP/specialist for disease management and age specific screening. Obesity related medical issues- o Diabetes [x] Yes (back on metformin, working closely with PCP, checking A1C) [] Not a baseline issue o HTN: [x] Yes, still taking losartan [] Not a baseline issue o GERD: [x] Yes, no longer on medication, no symtpoms [] Not a baseline issue o Hyperlipidemia: [x] Yes, on statin [] Not a baseline issue o GAMAL: [x] Yes, no longer using CPAP (will follow up with [facility]) [] Not a baseline issue o Arthritis/Joint Issues: [] Yes [x] Not a baseline issue Patient Active Problem List Diagnosis Code ??? Morbid obesity E66.01 ??? GAMAL on CPAP G47.33, Z99.89 ??? Diabetes mellitus E11.9 ??? Hypertension I10 ??? Hypercholesterolemia E78.00 Review of Systems Constitutional: energy level is good, no c/o restless leg, no pica, endorses hair thinning/loss Neuro: no c/o paresthesias. No changes in memory. CV: no chest pain or palpitations. Pulm: denies SOB or cough. GI: denies bloating, abdominal pain, nausea, vomiting. No diarrhea. Mild constipation (moving bowelevery 3-4 days). MARGARINE MAKER: getting regular periods, currently using abstinence. Skin: Endorses redundant skin, denies skin fold rashes. Health Habits: Tobacco/Nicotine use: None. ETOH use: None. NSAID use. Social History: Lives with boyfriend. 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 Dietary history/ exericse/ activity level: See dietitian note from today's visit for complete dietary evaluation. Meds and Allergies reviewed. Complications summary: Early none Late - WT (lbs) BMI HT Highest wt Pre-op visit 06/20/20 274 48.5 5'3 Post-op WT (lbs) BMI %EBW lost 08-19-20 235 reported 41.6 29% 11/18/20 191 33.9 62 Physical Exam Gen: Alert, pleasant, NAD, appears well Resp: Speaking in full sentences, no gasping. No cough witnessed. Skin: No pallor or diaphoresis visible. No rash noted. Psychiatric: normal mood and affect. Assessment: 35 y.o. female 4 months s/p Zandra-en-Y gastric bypass with 62% of excess body weight lost, no concerns today per patient, though not meeting fluid or protein goals. Patient also strugglingwith food insecurity due to being laid off. Plan: ??? S/p bariatric surgery: o Doing well from a bariatric surgery perspective, overall pleased with surgery outcome. Discussed dietary considerations and strategies for continued success . Reviewed importance of meeting nutritional/protein/fluid requirements, tracking food and food choices, pairing carbs with protein, being careful to avoid eating too fast, eating too much, drinking with meals, or not chewing well enough. o Reviewed strategies to increase fluids and protein including goal of 2 Gatorade zeros (16 oz each) and protein (fairlife or premiere 26-30 g protein). o Discussed foods that are high in protein/low in carbs/sugar that may be found at a local food pantry (canned tuna, canned chicken, black beans). Also reviewed low cost/high protein foods including string cheese. o PPI for ulcer prevention: discussed tapering down to every other day x 2 weeks and discontinue ifno heartburn, reflux/regurg or epigastric pain. Resume PPI if above sx occur. o Advised that Ursodiol can be discontinued at 6 months post-operatively o Advised that control is recommended for at least 18-24 months post-operatively. o Advised that hair loss due to rapid weight loss is typical for this early post-surgery time frame, will improve with time and adequate protein/ calorie intake. o Avoid ETOH until 6-12 months post-operatively, and then should be used in small amounts ??? Skin issues: counseled patient on strategies to avoid skin breakdown including cotton strips, barrier cream, etc. Patient to call if rashes. ??? Constipation: Improved per patient, now moving bowels every 3-4 days. Recommended daily Miralaxstarting at 1/2 cap/day. ??? Obesity related co-morbidities o Improved/stable overall. Encouraged follow up with Sleep Center. ??? Risk for vitamin deficiencies: o Reviewed lab results as above. o Reviewed recommended vitamin/mineral supplements- Reviewed general recommendations, patient working her way up to appropriate calcium dose. - See RD note for additional details (visit from yesterday). RD was present during today's visit aswell, provided reinforcement of strategies reviewed yesterday. - Recent lab results reviewed with patient. o Pt reminded that a bone mineral density scan (DEXA) is recommended every 2 years after bariatric surgery. RTC in 8 months for 1 year post bariatric surgery follow up visit, with labs. Call/rtc sooner prn with questions/concerns, unexplained abdominal pain, prolonged nausea, vomiting or inability to hydrate, questions or concerns. Encouraged patient to call to schedule interim follow up if seeking further guidance on diet choices. Bariatric Program Summary report is availabe for patient's review via e-DH. 40 minutes spent with patient in [id number] discussion including review of diagnosis, labs, counseling and treatment plan. Cherise Xiong APRN RECOMMENDED [...] If labwork is done by the primary home care assistant: please send a copy to the Bariatric Surgery Program, General Surgery Clinic, [facility], or fax [phone] documented in this encounter Plan of Treatment Not on file documented as of this encounter Visit Diagnoses Diagnosis S/P gastric bypass Bariatric surgery status Post-resection malabsorption Other and unspecified postsurgical nonabsorption Type 2 diabetes mellitus without complication, without long-term current use of insulin Hypercholesterolemia Pure hypercholesterolemia GAMAL on CPAP Obstructive sleep apnea (adult) (pediatric) Hypertension, unspecified type documented in this encounter Care Teams Security Shift Manager Relationship Specialty Start Date End Date Mona Honeycutt APRN PCP - General Family Medicine 01/25/20 08/29/23 documented as of this encounter
--- OUTSIDE RECORDS SUMMARY | 2024-04-14 12:26 | XMS_ITS | Encounter Summary ---
Author Organization [facility] [place] [address] Care Team Providers Care Door To Door Sales Representative Name Role Phone Jessica Honeycuttn Sol ROMEL Primary Care Provider [phone] Encounter Details Date Type Department Care Team (Late st Contact Info) Description 08/02/2020 Telephone General Surgery at [facility] [place] [phone] Katarina Campbell, RN Social History Tobacco Use Types Packs/Day Years Used Date Smoking Tobacco: Never Smokeless Tobacco: Never Sex and Gender Information Value Date Recorded Sex Assigned at Not on file Gender Identity Not on file Sexual Orientation Not on file documented as of this encounter Miscellaneous Notes * Telephone Encounter - Katarina Campbell, RN - 08/02/2020 5:27 PM EST I received a call from Helene who called because her friend noted her face was really red. In talking with Helene she reports she walked to her friends so she could get out of her place and get some exercise. She said her face does get red when she exerts herself, or if she is overheated. When she was at her friends they had sat outside to watch her nephew and children playing then wentinside. She notes that is where and when her friend said her face was red. Helene notes she keeps her apartment at 75 degrees however her friend keeps it at 80 degrees. Helene feels she was overheated; when I spoke with her she was back at her apartment where she felt much calmer and cooler. She said the redness is becoming less pronounced and she is feeling much calmer. She did not take any new medications or have any new foods around the time of the incident. She didnot have any other symptoms ie itching, swelling, rash etc. She will continue to self monitor and knows she can call and speak to the doctors professional caster at any time should she have any changes or note any worsening in her condition. [facility] Operative Note?? Patient Name: Helene Carpenter : [id number] MR#: [id number] Case Date: 07/30/2020 Surgeon: Surgeon(s) and Role: * Carlos Chavez MD - Primary * Rebecca Sharif MD - Fellow * Doc Velasquez MD - Resident Preoperative diagnosis: MORBID OBESITY Postoperative diagnosis: MORBID OBESITY Procedure(s) (LRB): @LAPAROSCOPIC GASTROPLASTY W/ PIA-EN-Y CONSTRUCTION (WRVU 29.4) (N/A) EGD, UPPER GI ENDOSCOPY (N/A) documented in this encounter Plan of Treatment Not on file documented as of this encounter Visit Diagnoses Not on filedocumented in this encounter Care Teams Door To Door Sales Representative Relationship Specialty Start Date End Date Mona Honeycutt APRN PCP - General Family Medicine 01/25/20 08/29/23 documented as of this encounter
--- OUTSIDE RECORDS SUMMARY | 2024-04-14 12:26 | XMS_ITS | Encounter Summary ---
Author Organization [facility] [place] [address] Care Team Providers Care E Commerce Developer Name Role Phone Mona Honeycutt APRN Primary Care Provider [phone] Encounter Details Date Type Department Care Team (Late st Contact Info) Description 08/14/2020 Telephone [place] [phone] Hilda Marx, RD [facility] DR [place] [address] Social History Tobacco Use Types Packs/Day Years Used Date Smoking Tobacco: Never Smokeless Tobacco: Never Sex and Gender Information Value Date Recorded Sex Assigned at Not on file Gender Identity Not on file Sexual Orientation Not on file documented as of this encounter Miscellaneous Notes * Telephone Encounter - Hilda Marx, CHANELL - 08/14/2020 10:42 AM EST Helene called with questions regarding the bariatric meal plan and supplements. Advised she can advance to Stage 3 today and she should also start her supplements. Reviewed basic concepts of the Stage 3 diet, emphasizing that if she cannot squish the food through the tines of a fork it is not on this stage (ie. [employer] or pickles). Reviewed supplements. Suggested starting iron just once per week and building up to every other day. Advised it was OK to start with taking 1 calcium pill twice daily with the goal of building up to 2 pills twice daily. She has Flintstones and B12. Helene states she may not be able to make her appointment on Sean as she will not have a ride. Sheanabelll call her friend to confirm and then call me back. documented in this encounter Plan of Treatment Not on file documented as of this encounter Visit Diagnoses Not on filedocumented in this encounter Care Teams E Commerce Developer Relationship Specialty Start Date End Date Mona Honeycutt APRN PCP - General Family Medicine 01/25/20 08/29/23 documented as of this encounter
--- OUTSIDE RECORDS SUMMARY | 2024-04-14 12:26 | XMS_ITS | Encounter Summary ---
Author Organization [facility] [place] [address] Care Team Providers Care Assemblies And Installations Inspector Name Role Phone Mona Honeycutt APRN Primary Care Provider [phone] Reason for Visit * Reason Comments Medication Refill Encounter Details Date Type Department Care Team (Late st Contact Info) Description 12/04/2020 [place] [address] Emily Jurado PA [facility] [place] [address] Social History Tobacco Use Types Packs/Day Years [...] on filedocumented in this encounter Care Teams Assemblies And Installations Inspector Relationship Specialty Start Date End Date Mona Honeycutt APRN PCP - General Family Medicine 01/25/20 08/29/23 documented as of this encounter
--- OUTSIDE RECORDS SUMMARY | 2024-04-14 12:26 | XMS_ITS | Encounter Summary ---
Author Organization Formerly [facility] [address] Care Team Providers Care Ram Press Operator Name Role Phone Mona Honeycutt APRN Primary Care Provider [phone] Encounter Details Date Type Department Care Team (Late st Contact Info) Description 12/16/2020 Telephone [place] [address] Cherise Xiong APRN [facility] [place] [address] Social History Tobacco Use Types Packs/Day Years Used Date Smoking Tobacco: Never Smokeless Tobacco: Never Sex and Gender Information Value Date Recorded Sex Assigned at Not on file Gender Identity Not on file Sexual Orientation Not on file documented as of this encounter Miscellaneous Notes * Telephone Encounter - Cherise Xiong APRN - 12/16/2020 9:23 AM EDT Called patient in response to my message. No answer. LMTCB. documented in this encounter Plan of Treatment Not on file documented as of this encounter Visit Diagnoses Not on filedocumented in this encounter Care Teams Ram Press Operator Relationship Specialty Start Date End Date Mona Honeycutt APRN PCP - General Family Medicine 01/25/20 08/29/23 documented as of this encounter
--- OUTSIDE RECORDS SUMMARY | 2024-04-14 12:26 | XMS_ITS | Encounter Summary ---
Author Organization [facility] [place] [address] Care Team Providers Care Drying Machine Operator Name Role Phone Mona Honeycutt APRN Primary Care Provider [phone] Encounter Details Date Type Department Care Team (Latest Contact Info) Description 08/11/2021 11:00 AM EST TH Visit (TeleHealth) [place] [address] [facility] [place] [address] Mariana Al, CHANE[facility] [place] [address] S/P gastric bypass; Post-resection malabsorption Social History Tobacco Use Types Packs/Day Years Used Date Smoking Tobacco: Never Smokeless Tobacco: Never Sex and Gender Information Value Date Recorded Sex Assigned at Not on file Gender Identity Not on file Sexual Orientation Not on file documented as of this encounter Patient Instructions * Patient Instructions* Karlie Villanueva APRN - 08/11/2021 12:32 PM EST BSP instructional support specialist Genevieve [phone] and Carissa [phone] Dietitians: [phone] Surgeons/ nurse practitioners: [phone] Nurse line: [phone] Dear Helene, Please see your electronic medical record note from today for details we discussed at your visit. Below is some additional general information that you may find helpful. Testing: It would be helpful if you can have your lab work drawn a couple days before your visit rubio [facility] facility so the results are available at the time of your follow up visit. If you have labwork done by your primary zoo caretaker before that date, please have a copy sent to the Bariatric Surgery Program. Please call/send my message if you have not heard from us within 2 weeks of having labs work done. Here's the link to [facility] Lab hours and locations: [email or web address] Next visit: Follow up visits are done at 4 months and 12 months after surgery and yearly thereafter. Some patients are evaluated on a more frequent basis. Please call [phone] if you do not receive an appointment [...] Blow dry area on low setting with nursing program chair. Avoid excessive heat and/or sweating as [...] such as Ibuprofen (Advil), Aleve (Naproxen), Excedrin, Deana-Attalla should be used sparingly after gastric bypass, [...] Our post surgery support group meets at [facility] on the first Wednesday of every month from 1:00 PM-2:00 PM. You can attend online or in person. Use the following link to attend online: [email or web address] Nutrition and Activity apps- Baritastic, My Fitness Pal, Lose It, My Plate Internet resources: www.[employer] www.Face-Me www.bariatriceating.com www.VIP Parking[employer].Qubulus/blog [facility] facebook page: https://www.facebook.com/[facility]ariatricSurgery Books & Magazines: - Recipes for Life After Weight Loss Surgery by Elayne Genao - Shrink Yourself by Dr Collins Fuller - Eating Well - www.[employer]).Qubulus - Cooking Light- www.cookingCool Planet Energy Systems.Qubulus Anxiety: The Happiness Trap by Guillermo Mccall The Mindfulness and acceptance workbook for anxiety By Lele Avelar. Mindful eating: What are you Hungry For? By Ismael Carmichael The Mindful Diet by Carleen Melton and the [facility] group. Emotional eating: End Emotional Eating by Hilda Davis Calming the Emotional Storm Maryan Dee documented in this encounter Progress Notes * Mariana Al, RD - 08/11/2021 11:00 AM EST Images from the original note were not included. Bariatric Surgery Program Nutrition Progress Note ?? [place] [address] BARIATRIC SURGERY VIRTUAL NOTE 1. Reason/purpose for [...] chart review, the patient encounter, and documentation. ?? Encounter Type: ??follow up ?? SUBJECTIVE: ? Topics Discussed/Patient Concerns:? Pt states she is practicing stopping eating when she is full. ?? Pt states she does not feel hungry, sets reminders to eat ?? Pt states her weight has been stable for the last month ? Social history:??works at a [employer]. Lives w her boyfriend. 3 cats and 5 fish. ?? Social support:??boyfriend??(Huseyin), friends, coworkers ?? Hobbies:??likes to go to hotels and swim, water garcia. Watching wrestling WWE and Netflix -Super Natural ?? Vision at 2 years post-op:??improve health issues. To be able to walk better. To see her niece graduate from high school. ?Goal weight: under 200# ?? OBJECTIVE: ?? Date of Surgery: 2/23/21 Type of Surgery:??laparoscopic giorgio en y gastric [...] 95% 26.2 1 year post-op (per pt) [place] Body Weight (based on BMI of 25):??141# 30-70% Excess Weight Loss:??181-234#; 50% Excess Weight Loss:??208# ?? Vitamin/Mineral Supplements (reported by patient): Supplement Type Brand/Form Dosage/Amount Frequency Comments Multivitamin Flintstones 2 pill daily ?? Calcium Citracal 1 pill Twice daily Advised pt to increase to 2 pills, twice daily Vitamin B12?pill 500 mcg daily ??every morning Iron Vitron C 1 pill MWF Vitamin D3 ? none? Food Allergies/Intolerances: none, pt has not tried pasta, ice cream, or chocolate ?? Tracking Intake:??baritastic ?? 24-Hour??Intake: ?? Breakfast ??oatmeal (peaches and cream) w/ water AM Snack ?? Lunch ??1/2 bologna s/w w/ cheese PM Snack ??honey mustard and onion pretzels (1/4 cup), strawberry Fairlife -30g Dinner ??Broccoli (4 stems w/ block bits) HS Snack ? Protein/ grams per day: ??45g Hydrating fluids- oz/ day: ??16 oz (Powerade zero, OJ, water), 11 oz protein drink Soda: ??none ETOH: ??less than 1x/wk Caffeine: coffee (3-4 splenda, SF or reg syrup) Sweets: ??avoids Meals per day: ??3 ? Feels full/satisfied after eating:??yes ?? Feels hungry [x]?never ?[]?sometimes ?[]?most of the time ?[]? always ?? Drinks with meals:?? no ?? Practices portion control:??yes, uses portion size bags ?? Has had dumping syndrome: none ?? In the past month, pt has vomited/regurgitated: ?? Constipation/Diarrhea:??Pt reports coffee helps with BM, discussed taking Miralax regularly, BM daily ?? Exercise:?? 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 ASSESSMENT: ?? Summary of Weight Loss: Helene Carpenter returns for routine follow-up at 1 year s/p surgery. Her excess weight loss is at 95%.? NUTRITION INTERVENTION & MONITORING: ?? Provided support/encouragement and reinforced importance of meeting nutritional goals. ?? Aim for 60-80g of protein/day- eat protein at all meals and snacks, eat protein first ?? Try eggs, cottage cheese, cypriot yogurt, add protein to lunch and dinner ?? Aim for 48-64 oz hydrating fluids/day ?? Get water bottle to bring to work ?? Use CL or [place] at work ?? Reviewed vitamin and mineral supplement recommendations. Multivitamins with minerals twice daily- needs to be an under 50 multivitamin that contains iron. Vitamin B12 500 mcg by mouth once daily Calcium citrate 500-600 mg with Vitamin D 400 units twice daily (2 pills twice a day) Iron-Vitron C-Take iron supplement every other day or Wednesday/Wednesday/Wednesday. Take miralax 1 cap aday on the day you take your iron supplement to minimize risk of constipation. Space iron 2 hours from calcium supplementation Do not take iron with caffeine, fiber, thyroid medications or dairy products ?? Evaluation by nurse practitioner today. ?? Handouts provided: Bariatric Toolkit (revised 2020) RTC in 6 mo for next BSP follow up visit, with labs. Call/rtc sooner prn with questions/concerns. * Karlie Villanueva, PLASTIC BOAT BUFFER - 08/11/2021 11:00 AM EST Images from the [place] [address] BARIATRIC SURGERY VIRTUAL NOTE 1. Reason/purpose for phone call: BSP follow up visit. 2. The patient voiced an understanding of the reason and intent of the televisit and provided verbal consent to discuss clinical issues by telehelath. Additionally, the patient acknowledged that the telehealth consultation is a billable encounter, and that the patient or their medical insurance carrier could be billed. 3. Summary of conversation, decision making, and plan: see below encounter note for details. Subjective: Helene Carpenter is s/p Giorgio-en-Y gastric bypass with Dr. Chavez on 07/30/20. She presented yesterday for1 yr post bariatric surgery follow up. Patient is feeling well, tolerating foods and fluids withoutdifficulty. She is tracking her nutrition and tries to make sure she is meeting nutritional goals daily. Could be better with getting in more fluids. Finds that she is busy at work and doesn't remember to always drink. Recognizes fullness cues, food/fluids, tries to make healthier choices if she goes out to eat. She has been sticking with foods that she knows she will tolerate. She hasbeen mindful of her food choices. She is not hungry, but does try to make sure to eat to get her nutrition in. No dumping. Finds her breathing and energy level have been better since she lost wt. Sheis happy with her wt loss. No bariatric complaints today. Continues to have some food insecurities. Current Supplements: Multi-vitamin with minerals/iron twice daily (Flinstones), Calcium citrate 500/600mg with Vit D 400 IU tries to take 2 pills daily Vit B12 500 mcg daily, No longer taking Vit D supplement James [facility] Interim Health: She tripped at work last month and sustained concussion, doing better now. No bariatric related surgeries, hospitalizations, or ED visits since the last visit. No kidney stones or atraumatic fractures. Pt follows with PCP/specialist for disease management and age specific screening. Obesity related medical issues- o Diabetes [x] Yes (back on metformin, working closely with PCP, checking A1C) [] Not a baseline issue o HTN: [x] Yes, improved no longer on meds. o GERD: [x] Yes, no longer on medication, no symtpoms o Hyperlipidemia: [x] Yes, improved no longer on statin o GAMAL: [x] Yes, no longer using CPAP , did call sleep center. No sx, sleeping well. o Arthritis/Joint Issues: [] Yes [x] Not a baseline issue Patient Active Problem List Diagnosis Code ??? Morbid obesity E66.01 ??? GAMAL on CPAP G47.33, Z99.89 ??? Diabetes mellitus E11.9 ??? Hypertension I10 ??? Hypercholesterolemia E78.00 Review of Systems Constitutional: energy level is good, no c/o restless leg, endorses hair thinning/loss (better) Neuro: no c/o paresthesias. No changes in memory. CV: no chest pain or palpitations. Pulm: SOB if she is walking fast outside in the cold, otherwise denies SOB or cough. GI: + bloating with menses, no abdominal pain, nausea, or vomiting. No diarrhea. Mild constipation - getting better, having BM daily to every other day. PRACTICAL NURSE CLINICAL COORDINATOR: getting regular periods, currently using abstinence. Skin: Endorses redundant skin, Reports skin folds are heavy and now has more moisture and irritation especially with activity. She is getting rashes, has OTC topicals that she uses to try to keep herskin dry. Health Habits: Tobacco/Nicotine use: None. ETOH use: 0-1 x a month. NSAID use. Exercise: walking every day. Social History: Lives with boyfriend. Works at [employer]. Dietary history/ exericse/ activity level: See dietitian note from today's visit for complete dietary evaluation. Meds and Allergies reviewed. Complications summary: Early none Late - WT (lbs) BMI HT Highest wt Pre-op visit 06/20/20 274 48.5 5'3 Post-op WT (lbs) BMI %EBW lost 08-19-20 235 reported 41.6 29% 11/18/20 191 33.9 62 08/11/21 148 26.2 95% Physical Exam Gen: Alert, pleasant, NAD, appears well Resp: Speaking in full sentences, no gasping. No cough witnessed. Psychiatric: normal mood and affect. [facility] from [facility] on 08/04/21 B1 164 Vit D 38.4 Ferritin 60 Iron 69 H/H 13.9/44 MCHC 31.6 low (RR 32.-36) Otherwise hemogram is WNL CMP WNL albumin 3.5 Vit B12 863 Folate >20 PTH 31 Assessment 36 y.o. female who is 1 yr s/p Giorgio-en-Y gastric bypass with 95 % of excess body weight lost Plan: ??? S/p bariatric surgery: o Discussed dietary considerations and strategies for weight maintenance . Reviewed importance of meeting nutritional/protein/fluid requirements, tracking food and food choices, pairing carbs with protein and practice bariatric eating behaviors. Encouraged to drink more fluids while she's at work, getting water bottle and setting a timer. Goal is 48 oz of fluids daily and 60 grams of protein ??? Discussed risks associated with alcohol intake after bariatric surgery (increased risk of alcohol misuse/abuse, increased risk of ulcers, empty calorie). ??? Reviewed is not recommended for 18-24 months after surgery. She will continue to practice abstinence o Patient has met with wood heel cementer today, please see note for additional details/dietary evaluation. ??? Obesity related co-morbidities: o Improved/stable overall, patient to continue to follow with PCP/specialist. Excess skin/skin fold rashes caused by weight loss: Reviewed pt education re: skin care and treatment of skin fold rashes. Discussed OTCs including barrier creams and anti-friction products. F/u if recommended strategies fail to improve sx. Reviewed criteria for referral to plastic surgery. ??? Risk for vitamin deficiencies: o Reviewed lab results as above. Iron and vitamin labs are overall in target range. o Reviewed recommended vitamin/mineral supplements- See RD note for additional details. o Pt reminded that a bone mineral density scan (DEXA) is recommended every 2 years after bariatric surgery. RTC in 6 months for next BSP follow up visit, with repeat vitamin D level . Call/rtc sooner prn with questions/concerns or unexplained abdominal pain, prolonged nausea, vomiting or inability to hydrate. Bariatric Program Summary report is availabe for patient's review via e-beqom I spent a total of 30 minutes associated with this encounter, including chart review, the patient encounter, and documentation. Karlie Villanueva APRN RECOMMENDED BARIATRIC SURGERY PROGRAM POSTOPERATIVE FOLLOW-UP: [...] If labwork is done by the primary zoo caretaker: please send a copy to the Bariatric Surgery Program, General Surgery Clinic, [facility], or fax [phone] documented in this encounter Plan of Treatment Not on file documented as of this encounter Visit Diagnoses Diagnosis S/P gastric bypass Bariatric surgery status Post-resection malabsorption Other and unspecified postsurgical nonabsorption documented in this encounter Care Teams Drying Machine Operator Relationship Specialty Start Date End Date Mona Honeycutt APRN PCP - General Family Medicine 01/25/20 08/29/23 documented as of this encounter
--- OUTSIDE RECORDS SUMMARY | 2024-04-14 12:26 | XMS_ITS | Encounter Summary ---
Author Organization [facility] [place] [address] Care Team Providers Care Sign Language Instructor Name Role Phone Mona Honeycutt APRN Primary Care Provider [phone] Encounter Details Date Type Department Care Team (Late st Contact Info) Description 06/25/2023 Orders [place] [address] Cherise Xiong APRN [facility] [place] [address] S/P gastric bypass; Disorder of iron metabolism; Disorder of calcium metabolism Social History Tobacco Use Types Packs/Day Years Used Date Smoking Tobacco: Never Smokeless Tobacco: Never Sex and Gender Information Value Date Recorded Sex Assigned at Not on file Gender Identity Not on file Sexual Orientation Not on file documented as of this encounter Plan of Treatment Not on file documented as of this encounter Results * (ABNORMAL) Vitamin D, 25-Hydroxy (09/02/2023 12:24 PM EDT) Vitamin D Total 25 OH 14(L) 21 - 100 ng/mL [facility] Vit D Interp Deficient [facility] Blood 09/02/2023 12:2 4 PM EDT 09/02/2023 12:55 PM EDT Narrative Resulting Agency Comment Spec In Lab Cherise Xiong APRN CHEMISTRY ORDERABL ES [facility] [place] [address] * Vitamin B12 (09/02/2023 12:24 PM EDT) Vitamin B12 303 232 - 1,245 pg/mL [facility] Blood 09/02/2023 12:2 4 PM EDT 09/02/2023 12:55 PM EDT Narrative Resulting Agency Comment Spec In Lab Cherise Xiong APRN CHEMISTRY ORDERABL ES Performing Organization Address [facility]/ZIP Co de Phone Number [facility] [place] [address] * Vitamin B1, whole blood (09/02/2023 12:24 PM EDT) Vit B1 Lvl Wb (OCTOBER) 121 70 - 180 nmol/L [facility] Comment: ADDITIONAL INFORMATION This test was developed and its performance characteristics determined by [facility] in a manner consistent with CLIA requirements. This test has not been cleared or approved by the U.S. Food and Drug Administration. Test Performed by: [facility] - [address] [address] [employer]p Marketing: Samson Ortiz M.D. Ph.D.; CLIA# [id number] Blood 09/02/2023 12:2 4 PM EDT 09/03/2023 8:54 AM EDT Narrative Resulting Agency Comment Spec In Lab Cherise Xiong APRN LAB SEND OUT ORDER ANNE MARIE Performing Organization Address City/[facility]/ZIP Co de Phone Number [facility] [place] [address] * PTH (09/02/2023 12:24 PM EDT) Parathyroid Hormone 52 15 - 65 pg/mL [facility] Blood 09/02/2023 12:2 4 PM EDT 09/02/2023 12:55 PM EDT Narrative Resulting Agency Comment Spec In Lab Cherise E [employer] CURATORIAL SPECIALIST CHEMISTRY ORDERABL ES Performing Organization Address [facility] Co de Phone Number [facility] [place] [address] * Iron and TIBC (09/02/2023 12:24 PM EDT) Iron 76 30 - 150 mcg/dL [facility] TIBC 324 250 - 450 mcg/dL [facility] Iron Saturation 23 20 - 50 % [facility] Blood 09/02/2023 12:2 4 PM EDT 09/02/2023 12:55 PM EDT Narrative Resulting Agency Comment Spec In Lab Cherise E [employer] CURATORIAL SPECIALIST CHEMISTRY ORDERABL ES Performing Organization Address [facility] de Phone Number [facility] [place] [address] * Hemogram (09/02/2023 12:24 PM EDT) White Blood Cell 6.4 4.0 - 9.5 x10(3)/[facility] Red Blood Cell 4.96 4.00 - 5.21 x10(6)/[facility] Hemoglobin 14.1 11.7 - 15.5 g/dL [facility] Hematocrit 42.5 35.7 - 45.8 % [facility] Mean Cell Volume 85.7 82.6 - 94.4 [facility] Mean Cell Hemoglobin 28.4 27.1 - 32.0 pg [facility] Mean Cell Hemoglobin Concentration 33.2 31.7 - 35.0 g/dL [facility] Platelet 270 145 - 357 x10(3)/[facility] RDW Standard Deviation 37.5 37.0 - 46.0 [facility] RDW coefficient of variation 12.1 11.5 - 14.1 % [facility] Mean Platelet Volume 10.7 7.6 - 12.9 fL [facility] NRBC% auto 0.0 % [facility] NRBC Absolute 0.000 0.000 - 0.000 x10(3)/mcL [facility] Blood 09/02/2023 12:2 4 PM EDT 09/02/2023 12:55 PM EDT Narrative Resulting Agency Comment Spec In Lab Cherise E [employer] CURATORIAL SPECIALIST HEMATOLOGY ORDERAB LES Performing Organization Address City/[facility]/ZIP Co de Phone Number [facility] [place] [address] * Folate, serum (09/02/2023 12:24 PM EDT) Folate 9.7 4.8 - 24.2 ng/mL [facility] Blood 09/02/2023 12:2 4 PM EDT 09/02/2023 12:55 PM EDT Narrative Resulting Agency Comment Spec In Lab Cherise E [employer] CURATORIAL SPECIALIST CHEMISTRY ORDERABL ES Performing Organization Address [facility] Co de Phone Number [facility] [place] [address] * Ferritin (09/02/2023 12:24 PM EDT) Ferritin 34 6 - 175 ng/mL [facility] Comment: Please note that as of 05/12/2023, the reference intervals for Ferritin have been updated. Blood 09/02/2023 12:2 4 PM EDT 09/02/2023 12:55 PM EDT Narrative Resulting Agency Comment Spec In Lab Cherise E Inga CURATORIAL SPECIALIST CHEMISTRY ORDERABL ES Performing Organization Address City/[facility]/ZIP Co de Phone Number [facility] [place] [address] * (ABNORMAL) Comprehensive metabolic panel (non-fasting) (09/02/2023 12:24 PM EDT) Glucose 164 65 - 199 mg/dL [facility] Comment:Diabetes: >=200 mg/d L plus symptoms Blood Urea Nitrogen 11 8 - 18 mg/dL [facility] Creatinine 0.53(L) 0.70 - 1.20 mg/dL [facility] Sodium 137 135 - 145 mmol/L [facility] Potassium 3.6 3.5 - 5.0 mmol/L [facility] Comment: Please note: ??Patients with WBC >100,000 may have falsely elevated Potassium levels. ??For accurate Potassium quantification in these patients send serum separator tube (gold top) for subsequent determinations. ??Contact the Clinical Chemistry Laboratory if there are any questions. Chloride 101 98 - 107 mmol/L [facility] Carbon Dioxide 25 22 - 31 mmol/L [facility] Anion Gap 11 5 - 15 mmol/L [facility] Calcium 9.4 8.5 - 10.5 mg/dL [facility] Protein, Total 6.7 6.1 - 8.0 g/dL [facility] Albumin 4.2 3.2 - 5.2 g/dL [facility] Aspartate Aminotransferase 15 0 - 30 unit/L [facility] Alanine Aminotransferase 15 0 - 30 unit/L [facility] Alkaline Phosphatase 127(H) 35 - 105 unit/L [facility] Bilirubin, Total 0.5 0.2 - 1.3 mg/dL [facility] Est Glomerular Filtration Rate 123 >=60 mL/min/1. 73 m?? [facility] Comment: This patient's estimated GFR [...] Lab Cherise Xiong APRN CHEMISTRY ORDERABL ES [facility] [place] [address] documented in this encounter Visit Diagnoses Diagnosis S/P gastric bypass Bariatric surgery status Disorder of iron metabolism Other disorders of iron metabolism Disorder of calcium metabolism Unspecified disorders of calcium metabolism documented in this encounter Care Teams Sign Language Instructor Relationship Specialty Start Date End Date Mona Honeycutt APRN PCP - General Family Medicine 01/25/20 08/29/23 documented as of this encounter
--- OUTSIDE RECORDS SUMMARY | 2024-04-14 12:26 | XMS_ITS | Encounter Summary ---
Author Organization [facility] [place] [address] Care Team Providers Care Inventory Control Analyst Name Role Phone Mona Honeycutt APRN Primary Care Provider [phone] Encounter Details Date Type Department Care Team (Late st Contact Info) Description 02/16/2022 Orders Only [place] [address] Cherise Xiong ORDER SELECTOR [facility] [place] [address] S/P gastric bypass; Post-resection malabsorption Social History [...] nonabsorption documented in this encounter Care Teams Inventory Control Analyst Relationship Specialty Start Date End Date Mona Honeycutt APRN PCP - General Family Medicine 01/25/20 08/29/23 documented as of this encounter
--- OUTSIDE RECORDS SUMMARY | 2024-04-14 12:26 | XMS_ITS | Encounter Summary ---
Author Organization [facility] [place] [address] Care Team Providers Care Limehouse Worker Name Role Phone None Primary Care Provider Unavailabl e Reason for Visit * Auth/Cert (Routine) Specialty Diagnoses / Procedures Referred By Alex new Referred To Contact Diagnoses Morbid obesity symptomatic pannus Procedures PRO EXCISE EXCESS SKIN TISSUE, ABDOMEN PANNICULECTOMY (WRVU 17.11) Huber Foote MD [facility] [place] [address] [facility] Referral ID Status Reason Start Date Expiration Date Visits Re quested Visits Authorized [id number] 1 1 Encounter Details Date Type Department Care Team (Late st Contact Info) Description 09/02/2023 1:30 PM EDT Anesthesia [place] [address] Rajeev Sanford MD [facility] [place] [address] Helene Toussaint MD [facility] [place] [address] Anesthesia Record Procedure Summary Procedure Name Responsible Anesthesiologist Anesthesia Start Time Anesthesia Stop Time PANNICULECTOMY (WRVU 17.11) (Abdomen) Rajeev Sanford MD 09/02/23 1330 09/02/23 1536 Events Date Time Event Comment 09/02/2023 1330 Start 1333 AN Verify 1333 An Start Data 1339 An Induction 1344 An Intubation 1346 Anesthesia Ready 1359 Procedure Start 1509 Extubation/LMA Out 1536 an stop data 1536 Recovery or ICU Handoff Lilly ent care was transferred to the destination unit staff after review of the patient's medical history, current anesthetic/surgical status and plan, according to the Provider Handoff Checklist. 1536 Stop 1903 Meds Name Total Midazolam 2 mg fentaNYL 100 mcg IV Lidocaine 80 mg Propofol 200 mg Rocuronium 70 mg Ondansetron 8 mg Dexamethasone 8 mg ceFAZolin 2 g lidocaine 4% LTA 4 mL HYDROmorphone 2 mg neostigmine 3 mg glycopyrrolate 0.3 mg lactated ringers 500 mL * Agents Name O2 * Blood No blood administrations on file. Lines, Drains, and Airways Type Details Placement Removal Incision 09/02/23; 1359; midl ine; lower quadrant 09/02/23 1359 by Karina Garrison RN Closed/Suction Drain 09/02/23; 1437; 1; Right; LLQ; Bulb; 10 Moroccan 09/02/23 1437 by Karina Garrison RN Closed/Suction Drain 09/02/23; 1438; Lef t; RLQ; Bulb; 10 Moroccan 09/02/23 1438 by Karina Garrison RN PIV 09/02/23; 1326; xkee-aer-cxyimn catheter system; 18 gauge; cephalic vein (lateral side of arm), left; Anatomical Landmarks; Anesthesia; distraction, intradermal injection, tolerated well, appears comfortable; 09/03/23; 1109 09/02/23 1326 by Henrietta Doty RN 09/03/23 1109 by Brandy Rees RN ETT Mask Ventilation: Ea sy (1); ETT Type: Cuffed, Oral; ETT Size: 7 mm; Mac Blade: 3; Notes: Asleep, Pre-O2, Stylette; Attempts: 1; Laryngoscopy Grade: 2; ETT Placement Verified By: Capnometry; Secured at Teeth: 21 cm; Removal Date: 09/02/23; Removal Time: 1509 09/02/23 1344 by Rajeev Sanford MD 09/02/23 1509 by Arvin Mireles CRNA documented in this encounter Social History Tobacco Use Types Packs/Day Years [...] on file documented as of this encounter OR Notes * Anesthesia Postprocedure Evaluation - Rajeev Sanford MD - 09/02/2023 7:03 PM EDT Department of Anesthesiology Post-procedure Note Patient: Helene Carpenter Procedure Summary Date: 09/02/23 Room / Location: [facility] OR Anesthesia Start: 1330 Anesthesia Stop: 1536 Procedure: PANNICULECTOMY (WRVU 17.11) (Abdomen) Diagnosis: Morbid obesity (symptomatic pannus) Surgeons: Huber Foote MD Responsible Provider: Rajeev Sanford MD Anesthesia Type: general ASA Status: 3 All Anesthesia Providers: Anesthesiologist: Rajeev Sanford MD IRRIGATION ENGINEER: Arvin Mireles CRNA Vitals Value Taken Time BP 122/92 09/02/23 1900 Temp 36.5 ??C (97.7 ??F) 09/02/23 1700 Pulse 108 09/02/23 1700 Resp 17 09/02/23 1700 SpO2 98 % 09/02/23 1902 Pain Level 5 09/02/23 1821 Vitals shown include unfiled device data. Patient Location: PACU/[facility] Level of Consciousness: Awake and Alert Pain Management: Satisfactory Analgesia PONV: None Cardiovascular Status: Hemodynamically Stable and At Baseline Respiratory Status: At Baseline and Room Air Postoperative Fluid Status: Intravascular EUvolemia Possible Anesthetic Complications: NONE apparent at time of evaluation Final Primary Anesthesia Type: General (The anesthetic type performed was the same as planned.) Comments: * Anesthesia Preprocedure Evaluation - Rajeev Sanford MD - 09/01/2023 9:19 PM EDT Pre-Anesthesia Evaluation for: Helene Carpenter a 38 y.o. female. Procedure(s): PANNICULECTOMY (WRVU 17.11) Patient Active Problem List Diagnosis Date Noted ??? Abdominal pannus 07/20/2023 ??? Hypertension 08/19/2020 ??? Hypercholesterolemia 08/19/2020 ??? Morbid obesity 06/23/2020 ??? GAMAL on CPAP 06/23/2020 ??? Diabetes mellitus 06/23/2020 No past medical history on file. Past Surgical History: Procedure Laterality Date ??? PRO LAP GASTRIC BYPASS/PIA-EN-Y N/A 07/30/2020 @LAPAROSCOPIC GASTROPLASTY W/ [facility] by Carlos Chavez MD at [facility] MAIN OR ??? PRO UPPER GI ENDOSCOPY, DIAGNOSTIC N/A 07/30/2020 EGD, UPPER GI ENDOSCOPY performed by Carlos Chavez MD at [facility] MAIN OR Social History Tobacco Use ??? Smoking status: Never ??? Smokeless tobacco: Never Substance Use Topics ??? Alcohol use: Not on file Social History Substance and Sexual Activity Drug Use Not on file Allergies Allergen Reactions ??? Ibuprofen ??? Lisinopril ??? Niacin Hives and Rash Skin turns red and hot Medications: MAR and/or home medications have been reviewed. Physical Exam: Preprocedure Vitals Current as of 09/01/239 No BP, pulse, respiration, SpO2, or temperature recorded. Height: 160.7 cm (5' 3.25) (07/13/23) Weight: 75.9 kg (167 lb 6.4 oz) (07/13/23) BMI: 29.42 IBW: 53 kg (116 lb 14.1 oz) Airway Assessment: Mallampati: II Neck ROM: full Cardiovascular Assessment: Rate: normal Pulmonary Assessment: unlabored breathing Dental Assessment: - normal exam Misc Assessment: Last Filed Perioperative Cognitive Screening None Anesthesia Plan: ASA 3 general, with a(n) intravenous induction Helene Carpenter is a 38yo female presenting for panniculectomy. PMH of obesity (BMI 30) s/p gastric bypass, HTN, DM, GAMAL on CPAP. 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 Plan: GA with ETT Region - Other Informed Consent: Anesthetic plan and risks discussed with patient. Plan discussed with attending, resident and IRRIGATION ENGINEER. Anesthesia Screening documented in this encounter Plan of Treatment Not on file documented as of this encounter Visit Diagnoses Not on filedocumented in this encounter Administered Medications Inactive Administered Medications - up to 3 most recent administrations Medication Order MAR Action Action Date Dose Rate Site ceFAZolin (Ancef) (100 mg/mL) injection solution Intravenous, PRN, Starting on Latha 09/02/23 at 1349, Until Latha 09/02/23 at 1536, Anesthesia Intra-op, Routine Given 09/02/2023 1:49 PM EDT 2 g dexAMETHasone (Decadron) injection Intravenous, PRN, Starting on Latha 09/02/23 at 1341, Until Latha 09/02/23 at 1536, Anesthesia Intra-op, Routine Given 09/02/2023 1:41 PM EDT 8 mg fentaNYL (pf) (50 mcg/mL) multi-dose injection Intravenous, PRN, Starting on Latha 09/02/23 at 1339, Until Latha 09/02/23 at 1536, Anesthesia Intra-op, Routine Given 09/02/2023 2:00 PM EDT 50 mcg Given 09/02/2023 1:39 PM EDT 50 mcg glycopyrrolate (Robinul) (0.2 mg/mL) multi-dose injection Intravenous, PRN, Starting on Latha 09/02/23 at 1500, Until Latha 09/02/23 at 1536, Anesthesia Intra-op, Routine Given 09/02/2023 3:00 PM EDT 0.3 mg HYDROmorphone (Dilaudid) (2 mg/mL) multi-dose injection solution Intravenous, PRN, Starting on Latha 09/02/23 at 1452, Until Latha 09/02/23 at 1536, Anesthesia Intra-op, Routine Given 09/02/2023 3:35 PM EDT 0.4 mg Given 09/02/2023 3:31 PM EDT 0.4 mg Given 09/02/2023 3:27 PM EDT 0.4 mg lactated ringers infusion Intravenous, CONTINUOUS PRN, Starting on Latha 09/02/23 at 1330, Until Latha 09/02/23 at 1536, Anesthesia Intra-op New Bag 09/02/2023 1:30 PM EDT lidocaine (pf) (Xylocaine) (20 mg/mL) 2% injection syringe Intravenous, PRN, Starting on Latha 09/02/23 at 1340, Until Latha 09/02/23 at 1536, Anesthesia Intra-op, Routine Given 09/02/2023 1:40 PM EDT 80 mg lidocaine (XYLOCAINE) 4 % external solution Intratracheal, PRN, Starting on Latha 09/02/23 at 1344, Until Latha 09/02/23 at 1536, Anesthesia Intra-op Given 09/02/2023 1:44 PM EDT 4 mLs midazolam (pf) (Versed) (1 mg/mL) multi-dose injection Intravenous, PRN, Starting on Latha 09/02/23 at 1330, Until Latha 09/02/23 at 1536, Anesthesia Intra-op, Routine Given 09/02/2023 1:32 PM EDT 1 mg Given 09/02/2023 1:30 PM EDT 1 mg neostigmine (Bloxiver) (1 mg/mL) injection Intravenous, PRN, Starting on Latha 09/02/23 at 1500, Until Latha 09/02/23 at 1536, Anesthesia Intra-op, Routine Given 09/02/2023 3:00 PM EDT 3 mg ondansetron (pf) (Zofran) (2 mg/mL) injection Intravenous, PRN, Starting on Latha 09/02/23 at 1452, Until Latha 09/02/23 at 1536, Anesthesia Intra-op, Routine Given 09/02/2023 2:52 PM EDT 8 mg propofoL (Diprivan) 10 mg/mL bolus injection (Anesthesia) Intravenous, PRN, Starting on Latha 09/02/23 at 1341, Until Latha 09/02/23 at 1536, Anesthesia Intra-op Given 09/02/2023 1:43 PM EDT 20 mg Given 09/02/2023 1:41 PM EDT 180 mg rocuronium (Zemuron) (10 mg/mL) multi-dose injection Intravenous, PRN, Starting on Latha 09/02/23 at 1340, Until Latha 09/02/23 at 1536, Anesthesia Intra-op, Routine Given 09/02/2023 2:04 PM EDT 20 mg Given 09/02/2023 1:41 PM EDT 45 mg Given 09/02/2023 1:40 PM EDT 5 mg documented in this encounter Care Teams Limehouse Worker Relationship Specialty Start Date End Date None None PCP - General 08/30/23 documented as of this encounter
--- OUTSIDE RECORDS SUMMARY | 2024-04-14 12:26 | XMS_ITS | Encounter Summary ---
Author Organization [facility] [place] [address] Care Team Providers Care Compensation Manager Name Role Phone None Primary Care Provider Drew e Encounter Details Date Type Department Care Team (Late st Contact Info) Description 09/07/2023 Telephone General Surgery at [facility] [place] [address] [facility] [place] [address] Social History Tobacco Use Types Packs/Day Years Used Date Smoking Tobacco: Never Smokeless Tobacco: Never Alcohol Use Standard Drinks/Week Comments Not Currently 0 (1 standard drink = 0.6 oz pur e alcohol) [facility] Inpatient Questions Answer Date Recorded [...] Telephone Encounter - Cherise Xiong APRN - 09/07/2023 10:37 AM EDT Called patient to review recent bariatric surgery labs. Labs show: minimally elevated alk phos, folate and B12 below goal, vitamin D deficiency. Has been off of supplements x 2+ months. Planning to resume: Multi-vitamin with minerals/iron twice daily (Flinstones), Calcium citrate 500/600mg with Vit D 400 IU tries to take 2 pills twice daily, Vit B12 500 mcg daily, James Carter MWF. Will plan to start vitamin D Rx x 12 weeks. Administration instructions reviewed. Rx sent to pharmacy. Follow up with labs in 3-4 months. documented in this encounter Plan of Treatment Scheduled Orders Name Type Priority Associated Diagnoses Orde r Schedule Vitamin D, 25-Hydroxy Lab Routine Vitamin D deficiency S/P gastric bypass Expected: 12/07/2023 (Approximate), Expires: 03/08/2024 Vitamin B12 Lab Routine S/P gastric bypass Expected: 12/07/2023 (Approximate), Expires: 03/08/2024 Folate, serum Lab Routine S/P gastric bypass Expected: 12/07/2023 (Approximate), Expires: 03/08/2024 PTH Lab Routine Vitamin D deficiency S/P gastric bypass Expected: 12/07/2023 (Approximate), Expires: 03/08/2024 Alkaline Phosphatase Lab Routine S/P gastric bypass Expected: 12/07/2023, Expires: 03/08/2024 documented as of this encounter Visit Diagnoses Diagnosis Vitamin D deficiency Unspecified vitamin D deficiency S/P gastric bypass Bariatric surgery status documented in this encounter Care Teams Compensation Manager Relationship Specialty Start Date End Date None None PCP - General 08/30/23 documented as of this encounter
--- OUTSIDE RECORDS SUMMARY | 2024-04-14 12:26 | XMS_ITS | Encounter Summary ---
Author Organization [facility] [place] [address] Care Team Providers Care Residential Roofer Helper Name Role Phone Mona Honeycutt APRN Primary Care Provider [phone] Encounter Details Date Type Department Care Team (Latest Contact Info) Description 07/09/2023 Travel Social History Tobacco Use Types Packs/Day [...] on filedocumented in this encounter Care Teams Residential Roofer Helper Relationship Specialty Start Date End Date Mona Honeycutt APRN PCP - General Family Medicine 01/25/20 08/29/23 documented as of this encounter
--- OUTSIDE RECORDS SUMMARY | 2024-04-14 12:26 | XMS_ITS | Encounter Summary ---
Author Organization [facility] [place] [address] Care Team Providers Care Patrol Commander Name Role Phone Mona Honeycutt APRN Primary Care Provider [phone] Encounter Details Date Type Department Care Team (Late st Contact Info) Description 10/28/2020 Telephone [place] [address] Cherise Xiong APRN [facility] [place] [address] Social History Tobacco Use Types Packs/Day Years Used Date Smoking Tobacco: Never Smokeless Tobacco: Never Sex and Gender Information Value Date Recorded Sex Assigned at Not on file Gender Identity Not on file Sexual Orientation Not on file documented as of this encounter Miscellaneous Notes * Telephone Encounter - Cherise Xiong APRN - 10/28/2020 2:54 PM EDT Called patient regarding her pain with swallowing. She reports the pain started immediately after surgery and has been improving (now less severe and less frequent). Pain now occurs when foods are too hot or too cold. She most recently had the pain when she ate hot home fries and when she at a hot hardboiled egg. The pain feels like stabbing and lasts about 5 minutes. The pain also happens but is milder with very cold drinks.These episodes of pain are occurring once every 2 weeks. Encouraged her to avoid foods that are too hot or too cold andlikely to trigger pain. She is keeping foods and fluids down. Most recently vomited about 2 weeks ago after eating a pickle. Discussed food choices including avoiding coolattas. Suggested alternatives. Also discussed control plan (lives with boyfriend, not sexually active at this time). She is planning continued abstinence and is aware she should use protection if she becomes sexually active again. She is aware that is not advised during the first 18-24 months after bariatric surgery. Patient is overall feeling well and is happy with her weight loss/improved back pain. Helene will reach out again if new or worsening symptoms before her upcoming visit. documented in this encounter Plan of Treatment Not on file documented as of this encounter Visit Diagnoses Not on filedocumented in this encounter Care Teams Patrol Commander Relationship Specialty Start Date End Date Mona Honeycutt APRN PCP - General Family Medicine 01/25/20 08/29/23 documented as of this encounter
--- OUTSIDE RECORDS SUMMARY | 2024-04-14 12:26 | XMS_ITS | Encounter Summary ---
[place] [address] Care Team Providers Care Manager Intranet Name Role Phone Mona Honeycutt APRN Primary Care Provider [phone] Reason for Referral * Consultation (Routine) - Closed Specialty Diagnoses / Procedures Referred By Alex new Referred To Contact Weight and Wellness Diagnoses Pannus, abdominal Emilio Christian DO [address] [place] [address] [facility] [place] [address] Referral ID Status Reason Start Date Expiration Date V isits Requested Visits Authorized [id number] Closed Consult, Test & Treat PCP Updated and/or Approved 04/23/2023 04/22/2024 6 6 Encounter Details Date Type Department Care Team (Late st Contact Info) Description 04/23/2023 Transcribe Orders eDH Incoming Referrals [phone] Emilio Christian DO [address] [place], [place] [id number] Localized adiposity; Pannus, abdominal Social History Tobacco Use Types Packs/Day Years Used Date Smoking Tobacco: Never Smokeless Tobacco: Never Sex and Gender Information Value Date Recorded Sex Assigned at Not on file Gender Identity Not on file Sexual Orientation Not on file documented as of this encounter Plan of Treatment Scheduled Referrals Name Type Priority Associated Diagnoses Orde r Schedule Referral to [facility] Outpatient Referral Routine Pannus, abdominal Ordered: 04/23/2023 documented as of this encounter Visit Diagnoses Diagnosis Localized adiposity Pannus, abdominal Localized adiposity documented in this encounter Care Teams Manager Intranet Relationship Specialty Start Date End Date Mona Honeycutt, CONTRACT FORESTER PCP - General Family Medicine 01/25/20 08/29/23 documented as of this encounter
--- OUTSIDE RECORDS SUMMARY | 2024-04-14 12:26 | XMS_ITS | Encounter Summary ---
Author Organization [facility] [place] [address] Care Team Providers Care Pilot Boat Operator Name Role Phone Mona Honeycutt APRN Primary Care Provider [phone] Encounter Details Date Type Department Care Team (Late st Contact Info) Description 08/19/2020 12:30 PM EDT TH Visit (TeleHealth) [place] [address] Cherise Xiong APRN [facility] [place] [address] Hilda Marx, RD [facility] [place] [address] S/P gastric bypass; Post-resection malabsorption; GAMAL on CPAP; Morbid obesity; Type 2 diabetes mellitus without complication, without long-term current use of insulin Social History Tobacco Use Types Packs/Day Years [...] - Inhaled Oxygen Concentration - - Weight 106.6 kg (235 lb) 08/19/2020 12:55 PM EDT reported Height 160 cm (5' 3) 08/19/2020 12:55 PM EDT Body Mass Index 41.63 08/19/2020 12:55 PM EDT documented in this encounter Patient Instructions * Patient Instructions* Hilda Marx, RD - 08/19/2020 12:30 PM EDT Bariatric Surgery Program First Post-operative Follow up visit Contact information: [facility] technical support assistant: Genevieve: [phone] and Carissa [phone] Dietitians: [phone] Surgeons/ nurse practitioners: [phone] Nurse line: [phone] Next follow up visit: at 4 months post-op. Testing: Labwork will be done at your 4 month post op check. It would be helpful if you can have your lab work drawn a couple days before your visit so the results are available at the time of your follow up visitf you have labwork done by your primary resident care supervisor before that date, please have a copy sent to the Bariatric Surgery Program. Post surgery Medications: 1. continue medication to prevent ulcer (omeprazole ) until you are at least 3 months post surgery, or as indicated by your primary care provider. After 3 months you may decrease to every other day for 1-2 more weeks, if you have no reflux, regurgitation or difficulty swallowing then it is OK to stop, if you have symptoms continue to take the omeprazole and continue to follow up with your primary care provider. 2. If you have a gallbladder, continue to take Ursodiol 300 mg twice daily for a total of 6 months after surgery to prevent gallstones from forming, and to shrink any gallstones that may be present. Vitamin and mineral supplementation recommendations: The following vitamins are recommended: ??? Multivitamins with minerals twice daily- needs to be an under 50 multivitamin that contains iron. ??? Vitamin B12 500 mcg by mouth once daily ??? Calcium citrate 600 mg with Vitamin D 400 units twice daily (2 pills twice a day) ??? Iron with Vitamin C, 50-66 mg three times per week. ?? Space iron 2 hours from calcium supplementation ?? Do not take iron with caffeine, fiber, thyroid medications or dairy products Nutrition recommendations: - Your Daily Goals: ?? 3 meals per day. Snacks if physically hungry or you need to increase your protein and/or calories (choose protein and/or fruit) ?? 60 grams protein per day (20 grams per meal) ?? 48-64 oz of non-caloric and hydrating fluids per day (6-8, 8 oz cups) Activity: ??? Aim for 30 minutes of exercise daily, 5 days a week of both cardio and strength training exercises. Alcohol: is not recommended for at least [...] think your alcohol intake is a problem. Hair Loss: is associated with rapid weight loss and is seen approximately 3 to 6 months after surgery and can last 3 to 6 months. It is almost always temporary. Eating a healthy diet with 60 grams ofprotein per day and taking your multivitamin with minerals will help. Constipation: Remember fluid and movement are important for bowel function. Additionally you may want to try Miralax (which you can buy over the counter) one capful at bedtime. If you haven't had a good satisfying bowel movement after 3 days, increase to 2 capfuls at bedtime. For loose stools, decrease to 1/2 capful at bedtime. For loose stools lasting 3 days, stop miralax. Skinfold care 1. Cleanse area with soap and water. 2. Blow dry area on low setting with haircutter. 3. Apply absorbent powder such as [place]ral and Desinex or over the counter antifungal 4. Apply cotton strips (such as strips from old sheets) or larger size cotton underwear folded beneath skin folds to act as a wick. Do not apply anant cloth toweling which can cause further irritation 5. Can try combination of over the counter hydrocortisone cream with over the counter antifungal cream such as lotrimin twice a day for 2 weeks. 6. Call if above strategies don't work and if you would like a prescription for an antifungal creamor powder. control for women of child bearing age: is recommended for at least 18-24 months after surgery. Call us: ??? If you have concerns. ??? If you have unexplained abdominal pain. ??? if you see blood in your stool or vomit blood ??? If you have prolonged vomiting Post Surgery Support Group: Our post surgery support group meets on the first Wednesday of every month from 1-2 PM at [facility] Nutrition and Activity apps- Baritastic, My Fitness Pal, Lose It Internet resources: www.[employer] www.[employer] www.bariatriceating.Pepscan www.Interact.io.Pepscan/blog [facility] facebook page: https://www.facebook.[email or web address]/[email or web address]ric[facility] Books & Magazines: - Recipes for Life After Weight Loss Surgery by Elayne Genao - Shrink Yourself by Dr Collins Fuller - Eating Well - Cooking Light documented in this encounter Progress Notes * Hilda Marx RD - 08/19/2020 12:30 PM EDT Bariatric Nutrition Telemedicine Visit Call made with Cherise Xiong APRN At time of the call patient was home in [place]. SUBJECTIVE: Topics Discussed/Patient Concerns: ?? Chest hurts when she eats drinks. ?? 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 Lives w her boyfriend. 3 cats and 5 fish. ?? Social support: boyfriend (Huseyin), friends, coworkers ?? Hobbies: likes to go to hotels and swim, water garcia. Watching wrestling WWE and Netflix -Super Natural Vision at 2 years post-op: improve health issues. To be able to walk better. To see her niece graduate from high school. Goal weight: under 200# OBJECTIVE: Date of Surgery: 07/30/20 Type of Surgery: laparoscopic giorgio en y gastric bypass Weight History: Date Weight (lbs) HT BMI Comments Age 34 290# ? Highest Weight 01/07/20 290# ? Initial program weight 06/20/20 274# 63 48.5 1st pre-op visit 07/30/20 ??n/a EWL % ?? Surgery ??08/19/20 235#?29% 41.6?? 1 month post-op ? 4 months post-op [place] Body Weight (based on BMI of 25): 141# 30-70% Excess Weight Loss: 181-234#; 50% Excess Weight Loss: 208# Vitamin/Mineral Supplements (reported by patient): Supplement Type Brand/Form Dosage/Amount Frequency Comments Multivitamin Flintstones 2 pill daily Calcium Citracal 1 pill Twice daily Breaking in half Vitamin B12 500 mcg daily Iron Vitron C 1 pill weekly Will start every other day Vitamin D3 Food Allergies/Intolerances: SF pudding Tracking Intake: baritastic 24- Hour Intake: recently cut back on doing protein drinks. Waiting for food stamps to come in. Atkins protein drinks- 15 g. Tomato soup w / c milk. Has [place] yogurt. Breakfast AM Snack Lunch 06/10 cTuna w leyva PM Snack SF popscicle Dinner HS Snack Protein- grams/day: <60 g Hydrating fluids - oz/day: 48+ oz. Gatorade zero, water daily Soda: none ETOH: None Caffeine: none Other: ?? Vomiting/ regurgitation: none. ?? Nausea: some ?? Constipation/diarrhea: some constipation. ?? IBS-D- she has medicine for it but doesn't use it until she has a couple loose stools ?? Dumping syndrome: Exercise: walking, ADLs ASSESSMENT: Helene is 3 weeks s/p RNYGB. She is tolerating the diet, not vomiting. Protein intake is low, in part due to finances. She is waiting to get her food stamps. To prevent chest pain while eating/drinking rec. Trying fluids at different temperatures and to slow down eating drinking even more. Helene reports she has noticed better tolerance to some fluids if they are room temperature. Reiterated needto have protein first. She plans to check her Stage 3 diet list and create a store list from that. Talked a little about using the Algentis marcello; advised 06/10 c tuna is about 2 oz. Constipation addressed by ROMEL today. Helene is taking the recommended supplements- she is working up to taking the calcium 2 pills twice daily and she will also start Vitron C M/W/F. She is walking regularly. PLAN: ?? Provided support/encouragement and reinforced importance of meeting nutritional goals. ?? Reviewed nutrition and vitamin and mineral supplement recommendations. * Cherise Xiong, ROMEL - 08/19/2020 12:30 PM EDTSummary: POST OP [place] [address] Bariatric Surgery Program: POST OP CHECK. 1. Reason/purpose for phone call: POST OP CHECK 2. The patient voiced an understanding of the reason and intent of the televisit and provided verbal consent to discuss clinical issues by telehelath. 3. Date 08/19/20, Time: Call began at: 12:35; call ended at: 1:30. Total time of call: 55 minutes. 4. Summary of conversation, decision making, and plan: see below encounter note for details. Reason for visit: Bariatric Surgery Post Op Check Surgery Info: s/p Giorgio-en-Y gastric bypass with Dr. Chavez on 07/30/20. Subjective: Helene Carpenter is s/p the above procedures, post operative course has been going well aside from mild discomfort with swallowing certain foods/beverages. Port sites are healing. Tolerating foods/fluids overall, still learning what foods work better and pacing eating/drinking. Trying to make sure sheis meeting protein/fluid requirements. Taking supplements as recommended (but taking all at once). Primary care post op follow up visit: Pt was seen by PCP on 08/16/20. No ED visits/unplanned medical visits since surgery. Obesity related medical issues- o Diabetes [x] Yes (meds currently on hold, BS over 200 last 2 days, working closely with PCP, checking A1C) [] Not a baseline issue o HTN: [x] Yes, on metoprolol, decreased dose due to dizziness [] Not a baseline issue o GERD: [x] Yes [] Not a baseline issue o Hyperlipidemia: [x] Yes, on statin [] Not a baseline issue o GAMAL: [x] Yes, using CPAP [] Not a baseline issue o Arthritis/Joint Issues: [] Yes [x] Not a baseline issue Post Bariatric Surgery Required Medications: Extended VTE prophylaxis post surgery Not indicated. Post-discharge narcotic analgesic use No longer required. Ursodiol gallstone prophylaxis Still taking. PPI ulcer prophylaxis: Still taking. ROS: No Fever, chills, minimal nausea with certain foods, no vomiting. Has not required anti-emetics since about 1 week post-op. No Chest pain, SOB or palpitations No bladder concerns or changes. BM are moving every other day. Energy level is improving. Appetite : as expected, trying to meet protein/fluid requirements Activity level : walking daily. Control: abstinent. Support: Boyfriend Huseyin, local friends/coworkers. Health Habits: Tobacco: Never. ETOH: Never. NSAID use: None. Patient Active Problem List Diagnosis Code ??? Morbid obesity E66.01 ??? GAMAL on CPAP G47.33, Z99.89 ??? Diabetes mellitus E11.9 Medications/allergies reviewed. Dietary history/ exericse/ activity level: See dietitian note from today's visit for complete dietary evaluation. Complications summary: Early none Late - WT (lbs) BMI HT Highest wt Pre-op visit 06/20/20 274 48.5 5'3 Post-op WT (lbs) BMI %EBW lost 3-15-21 235 reported 41.6 29% Objective: There were no vitals taken for this visit. (Revolucionadolabs). Physical Exam Gen: Alert, pleasant, NAD, appears well Resp: Speaking in full sentences, no gasping. No cough witnessed. Skin: No pallor or diaphoresis visible. No rash noted. Abdomen: Appears non-distended. Trochar sites healing well. No surrounding erythema. No drainage visible. Dressing on site under right breast. Psychiatric: normal mood and affect. Assessment: Helene Carpenter is s/p above procedures, with uneventful early post- operative course. Obesity related co-morbidities are improved/stable overall. Plan: ?? Continue Ursodiol as recommended for 6 months to reduce the risk of gallstone formation during the period of rapid weight loss. ?? Continue PPI therapy until at least 3 months post op to decrease the risk of ulcer formation andavoid NSAIDs. Discussed how to taper down/off. ?? Bowel Function: Reviewed bowel regimen and importance of movement and fluids. Recommend BM at least every other day. Call if struggling. Given IBSD- did not recommend Miralax, encouraged fluids/walking. ?? Sleep apnea: Recommend follow up with sleep center to determine if CPAP settings need to be adjusted. ?? control: Advised that control is recommended for at least 18-24 months post-operatively. Patient is currently not having intercourse, if she is going to resume sexual activity she willtalk to PCP about control first. ?? Advised that hair loss due to rapid weight loss is typical 3-6 months post- surgery and should improve with time and adequate protein/ calorie intake. ?? Avoid ETOH until 6-12 months post-operatively, and then should be used in small amounts (does not drink alcohol). ?? Discussion re: importance of chewing food completely, taking time to eat, trying to avoid more complex foods at this time, food/fluids etc... ?? See layer out note re: recommendations regarding vitamin and mineral supplementation, fluid intake and exercise. RTC in 3 months for next BSP follow up visit, with labs. Call/rtc sooner prn with questions/concerns or unexplained abdominal pain, prolonged nausea, vomiting or inability to hydrate Bariatric Program Summary report is availabe for patient's review via e- Cherise Xiong APRN [facility] Bariatric Surgery Program RECOMMENDED BARIATRIC SURGERY PROGRAM POSTOPERATIVE FOLLOW-UP: Follow up: done at 4, 12 and 24 months, and yearly thereafter. High risk patients are evaluated on a more frequent basis. *Supplement recommendations: Multivitamin with minerals twice a day, B12 500 mcg once a day, calcium citrate 600 mg/400 units vitamin D twice a day, iron (ferrous fumarate, carbonyl iron taken with vitamin C 250 mg once a day) for menstruating females or those with PALAK. Labwork: Hemogram, ferritin, iron (transferrin) saturation, iron, folate, B1, B12, D (25 hydroxy only), Intact PTH and comprehensive metabolic profile at 4, 12 and 24 months, and yearly. If labwork is done by the primary resident care supervisor: please send a copy to the Bariatric Surgery Program, General Surgery Clinic, [facility], or fax [phone] documented in this encounter Plan of Treatment Not on file documented as of this encounter Results * Vitamin D, 25-Hydroxy (11/18/2020 11:53 AM EDT) Vitamin D Total 25 OH 49 21 - 100 ng/mL [facility] Vit D Interp Sufficient [facility] Blood 11/18/2020 11:5 3 AM EDT 11/18/2020 12:18 PM EDT Narrative Resulting Agency Comment Spec In Lab Cherise Xiong APRN CHEMISTRY ORDERABL ES Performing Organization Address [facility]/ZIP Co de Phone Number [facility] [place] [address] * Vitamin B12 (11/18/2020 11:53 AM EDT) Vitamin B12 670 232 - 1,245 pg/mL [facility] Blood 11/18/2020 11:5 3 AM EDT 11/18/2020 12:18 PM EDT Narrative Resulting Agency Comment Spec In Lab Cherise Xiong APRN CHEMISTRY ORDERABL ES Performing Organization Address [facility]/ZIP Co de Phone Number [facility] [place] [address] * Vitamin B1, whole blood (11/18/2020 11:53 AM EDT) Vit B1 Lvl Wb (OCTOBER) 104 70 - 180 nmol/L [facility] Comment: ADDITIONAL INFORMATION This test was developed and its performance characteristics determined by [facility] in a manner consistent with CLIA requirements. This test has not been cleared or approved by the U.S. Food and Drug Administration. Test Performed by: [facility] [address] [place] [id number] [employer] Supervisor: Samson Ortiz M.D. Ph.D.; [facility]# [id number] Blood 11/18/2020 11:5 3 AM EDT 11/18/2020 4:54 PM EDT Narrative Resulting Agency Comment Spec In Lab Cherise E Inga HONEY PRODUCER LAB SEND OUT ORDER ANNE MARIE Performing Organization Address [facility] Co de Phone Number [facility] [place] [address] * PTH (11/18/2020 11:53 AM EDT) Parathyroid Hormone 36 15 - 65 pg/mL [facility] Blood 11/18/2020 11:5 3 AM EDT 11/18/2020 12:18 PM EDT Narrative Resulting Agency Comment Spec In Lab Cherise E [place] HONEY PRODUCER CHEMISTRY ORDERABL ES Performing Organization Address [facility] de Phone Number [facility] [place] [address] * (ABNORMAL) Iron and TIBC (11/18/2020 11:53 AM EDT) Iron 50 30 - 150 mcg/dL [facility] TIBC 240(L) 250 - 450 mcg/dL [facility] Iron Saturation 21 20 - 50 % [facility] Blood 11/18/2020 11:5 3 AM EDT 11/18/2020 12:18 PM EDT Narrative Resulting Agency Comment Spec In Lab Cherise E Inga HONEY PRODUCER CHEMISTRY ORDERABL ES Performing Organization Address [facility] Co de Phone Number [facility] [place] [address] * (ABNORMAL) Hemogram (11/18/2020 11:53 AM EDT) White Blood Cell 6.5 4.0 - 9.5 x10(3)/mc L [facility] Red Blood Cell 5.42(H) 4.00 - 5.21 x10(6)/mc L [facility] Hemoglobin 14.5 11.7 - 15.5 gm/dL [facility] Hematocrit 45.8 35.7 - 45.8 % [facility] Mean Cell Volume 84.5 82.6 - 94.4 fL [facility] Mean Cell Hemoglobin 26.8(L) 27.1 - 32.0 pg [facility] Mean Cell Hemoglobin Concentration 31.7 31.7 - 35.0 gm/dL [facility] Platelet 233 145 - 357 x10(3)/mc L [facility] RDW Standard Deviation 42.4 37.0 - 46.0 [facility] RDW coefficient of variation 13.9 11.5 - 14.1 % [facility] Mean Platelet Volume 11.9 7.6 - 12.9 [facility] NRBC% auto 0.0 % [facility] NRBC Absolute 0.000 0.000 - 0.000 x10(3)/mc L [facility] Blood 11/18/2020 11:5 3 AM EDT 11/18/2020 12:18 PM EDT Narrative Resulting Agency Comment Spec In Lab Cherise E [place] HONEY PRODUCER HEMATOLOGY ORDERAB LES Performing Organization Address City/[facility] Co de Phone Number [facility] [place] [address] * Folate, serum (11/18/2020 11:53 AM EDT) Folate >20.0 4.8 - 24.2 ng/mL [facility] Blood 11/18/2020 11:5 3 AM EDT 11/18/2020 12:18 PM EDT Narrative Resulting Agency Comment Spec In Lab Cherise E [place] HONEY PRODUCER CHEMISTRY ORDERABL ES [facility] [place] [address] * (ABNORMAL) Ferritin (11/18/2020 11:53 AM EDT) Pathologist [facility] Ferritin 208(H) 15 - 150 ng/mL [facility] Comment: Pediatric reference ranges not verified at [facility], interpret with caution. Reference ranges for females greater than 50 years of age approach values for men, i.e., 30-400 ng/mL. Blood 11/18/2020 11:5 3 AM EDT 11/18/2020 12:18 PM EDT Narrative Resulting Agency Comment Spec In Lab Cherise E Morrisdalebranden URENA CHEMISTRY ORDERABL ES Performing Organization Address [facility]/ZIP Co de Phone Number [facility] [place] [address] * (ABNORMAL) Comprehensive metabolic panel (non-fasting) (11/18/2020 11:53 AM EDT) [facility] Glucose 139 65 - 199 mg/dL [facility] Comment:Diabetes: >=200 mg/d L plus symptoms Blood Urea Nitrogen 8 8 - 18 mg/dL [facility] Creatinine 0.68(L) 0.70 - 1.20 mg/dL [facility] Sodium 140 135 - 145 mmol/L [facility] Potassium 4.3 3.5 - 5.0 mmol/L [facility] Comment: Please note: ??Patients with WBC >100,000 may have falsely elevated Potassium levels. ??For accurate Potassium quantification in these patients send serum separator tube (gold top) for subsequent determinations. ??Contact the Clinical Chemistry Laboratory if there are any questions. Chloride 105 98 - 107 mmol/L [facility] Carbon Dioxide 25 22 - 31 mmol/L [facility] Anion Gap 10 5 - 15 mmol/L [facility] Calcium 9.7 8.5 - 10.5 mg/dL [facility] Protein, Total 6.8 6.1 - 8.0 gm/dL [facility] Albumin 4.2 3.2 - 5.2 gm/dL [facility] Aspartate Aminotransferase 20 0 - 30 unit/L [facility] Alanine Aminotransferase 16 0 - 30 unit/L [facility] Alkaline Phosphatase 91 35 - 105 unit/L [facility] Bilirubin, Total 0.5 0.2 - 1.3 mg/dL [facility] Est Glomerular Filtration Rate 115 >=60 mL/min/1. 73 m?? [facility] Comment: This patient? s estimated [...] Lab Cherise Xiong APRN CHEMISTRY ORDERABL ES [facility] [place] [address] documented in this encounter Visit Diagnoses Diagnosis S/P gastric bypass Bariatric surgery status Post-resection malabsorption Other and unspecified postsurgical nonabsorption GAMAL on CPAP Obstructive sleep apnea (adult) (pediatric) Morbid obesity Type 2 diabetes mellitus without complication, without long-term current use of insulin documented in this encounter Care Teams Pilot Boat Operator Relationship Specialty Start Date End Date Mona Honeycutt APRN PCP - General Family Medicine 01/25/20 08/29/23 documented as of this encounter
--- OUTSIDE RECORDS SUMMARY | 2024-04-14 12:27 | XMS_ITS | Encounter Summary ---
Author Organization [facility] [place] [address] Care Team Providers Care Ux Interaction Designer Name Role Phone Bhanu Luna MD, Ishaan Primary Care Provider [phone] Encounter Details Date Type Department Care Team (Late st Contact Info) Description 01/12/2020 2:00 PM EDT Notes [place] [id number] Social History Tobacco Use Types Packs/Day Years Used Date Smoking Tobacco: Never Assessed Sex and Gender Information Value Date Recorded Sex Assigned at Not on file Gender Identity Not on file Sexual Orientation Not on file documented as of this encounter Progress Notes * Genevieve Quiroga - 01/12/2020 2:00 PM EDT Patient attended [facility] Intro to Bariatric Surgery on 01/12/2020. documented in this encounter Plan of Treatment Not on file documented as of this encounter Visit Diagnoses Not on filedocumented in this encounter Care Teams Ux Interaction Designer Relationship Specialty Start Date End Date Ishaan Drummond MD [address] [place] [address] PCP - General 04/29/10 01/24/20 documented as of this encounter
--- OUTSIDE RECORDS SUMMARY | 2024-04-14 12:27 | XMS_ITS | Encounter Summary ---
Author Organization [facility] Address [address] [place] [id number] Care Team Providers Care Undercar Specialist Name Role Phone Pcp, No Unavailable Unavailable Reason for Visit * Reason Comments Foreign Body Encounter Details Date Type Department Care Team (Late st Contact Info) Description 12/02/2019 5:05 PM EDT Office Visit [facility] [place] [address] [place] [address] Erika Alva, PAC [address] [place] [address] Lois Varner NP [address] [place] [address] Foreign body in left foot, initial encounter (Primary Dx) Social History Tobacco Use Types Packs/Day Years Used Date Smoking Tobacco: Never Smokeless Tobacco: Never Alcohol Use Standard Drinks/Week Comments Never 0 (1 standard drink = 0.6 oz pur e alcohol) AUDIT-C Answer Date Recorded Frequency of Alcohol Consumption Never 12/02/2019 Average Number of Drinks Not on file 020 Frequency of Binge Drinking Not on file 11/06 Substance Use Types Use/Week Comments Never Comments No Sex and Gender Information Value Date Recorded Sex Assigned at Not on file Legal Sex Female 5:02 PM EDT Gender Identity Not on file Sexual Orientation Not on file documented as of this encounter Last Filed Vital Signs Vital Sign Reading Time Taken Comments Blood Pressure 125/85 12/02/2019 5:24 PM EDT Pulse 104 12/02/2019 5:24 PM EDT Temperature 36.2 ??C (97.1 ??F) 12/02/2019 5:24 PM ED T Respiratory Rate 14 12/02/2019 5:24 PM EDT Oxygen Saturation 95% 12/02/2019 5:24 PM EDT Inhaled Oxygen Concentration 95% 12/02/2019 5 :24 PM EDT Weight - - Height - - Body Mass Index - - documented in this encounter Patient Instructions * Patient Instructions* Lois Varner NP - 12/02/2019 5:43 PM EDT Images from the original note were not included. Foreign body removed from left foot successful removed. Apply a warm, moist compression to the area20 min at a time three times per day for at least the next 5 days. Tylenol or Ibuprofen as directedon package as needed for pain and swelling. Keep area clean and dry, warm water soaks and antibacterial soap daily as needed to clean wound, may apply triple antiboitic ointment with band-aid until healed. Follow up with PCP or here if develop redness, swelling, purulent drainage, or develop fevers. Object in the Skin: Care Instructions Your Care Instructions Small objects (splinters) of wood, metal, glass, or plastic can become embedded in the skin. Thornsfrom roses and other plants also can prick or become stuck in the skin. Splinters can cause an infection if they are not removed. Your doctor probably removed the object and cleaned the skin well. Your doctor may have given you antibiotics to prevent infection and a tetanus shot if you had not had one in the last 5 years or do not know when you had your last one. For a few days, you may have pain and itching in the wound where the object was removed. Follow-up care is a roman part of your treatment and safety. Be sure to make and go to all appointments, and call your doctor if you are having problems. It's also a good idea to know your test resultsand keep a list of the medicines you take. How can you care for yourself at home? ?? If your doctor told you how to care for your wound, follow your doctor's instructions. If you did not get instructions, follow this general advice: ?? Wash the wound with clean water 2 times a day. Don't use hydrogen peroxide or alcohol, which canslow healing. ?? You may cover the wound with a thin layer of petroleum jelly, such as Vaseline, and a nonstick bandage. ?? Apply more petroleum jelly and replace the bandage as needed. ?? Your doctor may have used medicine to numb your skin. When it wears off, your pain may return. Take an lvxp-qqn-xgiyemz pain medicine, such as acetaminophen (Tylenol), ibuprofen (Advil, Motrin), or naproxen (Aleve). Read and follow all instructions on the label. ?? Do not take two or more pain medicines at the same time unless the doctor told you to. Many painmedicines have acetaminophen, which is Tylenol. Too much acetaminophen (Tylenol) can be harmful. ?? If your doctor prescribed antibiotics, take them as directed. Do not stop taking them just because you feel better. You need to take the full course of antibiotics. ?? After 2 or 3 days, if your swelling is gone, apply a heating pad set on low or a warm cloth to your wound area. Some doctors suggest that you go back and forth between hot and cold. Put a thin cloth between the heating pad and your skin. ?? It may help to prop up the affected part of your body on a pillow anytime you sit or lie down during the next 3 days. Try to keep it above the level of your heart. This will help reduce swelling. ?? Your wound may itch or feel irritated. A little redness and swelling is normal. Do not scratch or rub the wound. When should you call for help? Call your doctor now or seek immediate medical care if: ? The skin near the wound is cool or pale or changes color. ? You have tingling, weakness, or numbness in the area near the wound. ? The wound starts to bleed, and blood soaks the bandage. Oozing small amounts of blood is normal. ? You have trouble moving a limb near the wound. ? You have signs of infection, such as: ?? Increased pain, swelling, warmth, or redness. ?? Red streaks leading from the wound. ?? Pus draining from the wound. ?? A fever. ??Watch closely for changes in your health, and be sure to contact your doctor if: ? You do not get better as expected. Where can you learn more? Visit [facility]'s health reference library for more information on Object in the Skin: Care Instructions and other health topics. In [employer] [email or web address], go to the Resources icon, and then click ???Search Health Reference Library?? . Enter U261 in the search box. You can also get to the library through the [employer] website at [email or web address]. Current as of: April 26, 2017 Content Version: 11.6 ?? [id number] [employer]. Care instructions adapted under license by [employer]. Thiscare instruction is for use with your licensed healthcare professional AND IS NOT A SUBSTITUTE FOR PROFESSIONAL MEDICAL ADVICE. If you have questions about a medical condition or this instruction, always ask your healthcare professional. [employer] disclaims any warranty or liability for your use of this information. documented in this encounter Progress Notes * Lois Varner NP - 12/02/2019 5:39 PM EDT [facility] Subjective: Patient ID: Helene Carpenter Chief Complaint: Foreign Body History of Present Illness: Patient presents for complaints of piece of glass in left foot sustained 1 hour prior to arrival. Patient reported was chasing her nephew around and got something sharp and hard stuck in left foot. Denies fevers, chills, sweats, headaches, nausea, vomiting, abdominal pain, diarrhea, constipation, tingling in the affected area, generalized weakness, redness, swelling, drainage, and numbness, tingling, or weakness bilateral lower extremities. She has no prior h/o MRSA.She has not been around anyone with a similar rash or infection. Tried taking piece of glass out with tweezers without ability to get piece of glass. The patients medications, allergies, problem list, medical history, family history, and social history were personally reviewed by me at today's visit. ?? Review of Systems: Pertinent positives / negatives as per HPI. Additionally denies the following: General: unintended weight changes, malaise, recent travel / illness HEENT: headaches, vision changes, diplopia, hearing loss Cardiovascular: chest pain, palpitations, syncope Pulmonary: difficulty breathing, hemoptysis, BROWN, orthopnea Musculoskeletal: arthralgia, myalgia, swollen joints Skin: rash, itching Objective: Physical Exam: BP 125/85 Pulse 104 Temp 36.2 ??C (97.1 ??F) (Temporal) Resp 14 LMP 12/02/2019 SpO2 95% No General: alert female in NAD HEENT: normocephalic, atraumatic; conjunctiva clear Peripheral Vascular: warm and well-perfused, no edema Neurological: alert and oriented x 3, gait normal, moves all extremities, sensation to light touch intact to affected injury Skin: Left heel noted with small visible foreign body. Surrounding skin without erythema, edema, tenderness, or warmth. ?? Consent: The foreign body procedure was explained to the patient, including risks and benefits of said procedure; the patient gave verbal consent. ?? Procedure: Using fine tip tweezers 1 triangular shape piece of glass measuring approx 0.5 cm by 0.3was completely removed. The patient tolerated the procedure well. Minimal EBL was appreciated. ?? Dressing: The area was covered with a Bacitracin and Band-aid. Assessment & Plan 1. Foreign body in left foot, initial encounter TDAP VACCINE 0.5ML IM FOREIGN BODY REMOVAL Foreign body removed from left foot successful removed. Apply a warm, moist compression to the area20 min at a time three times per day for at least the next 5 days. Tylenol or Ibuprofen as directedon package as needed for pain and swelling. Keep area clean and dry, warm water soaks and antibacterial soap daily as needed to clean wound, may apply triple antiboitic ointment with band-aid until healed. Follow up with PCP or here if develop redness, swelling, purulent drainage, or develop fevers. Signed: Lois Varner NP Date: 12/02/2019 Time: 5:39 PM * Clarisse Veliz MA - 12/02/2019 5:19 PM EDT Patient states she has DM II, hypertension. Patient states within the past hour she was chasing hernephew and now has something hard in bottom of her left foot which she has not been able to remove on her own. Patient states she believes this is glass. Patient states her last tetanus was done in 2014 because she was bit by a dog. Patient name and date of verified, only smoking, drug use and alcohol use verified by Jorge Anders. Please note both patient and all staff members involved in patient's care were masked while rendering care, and appropriate PPE was worn by medical team. [place] documented in this encounter Procedure Notes * Lois Varner NP - 12/02/2019 7:29 PM EDTAssociated Order(s): FOREIGN BODY REMOVAL Procedure(s): WI REMOVAL FOREIGN BODY FOOT SUBCUTANEOUS Pre-Procedure Diagnose(s): Foreign body in left foot, initial encounter ?? Consent: The foreign body procedure was explained to the patient, including risks and benefits of said procedure; the patient gave verbal consent. ?? Procedure: Using fine tip tweezers 1 triangular shape piece of glass measuring approx 0.5 cm by 0.3was completely removed. The patient tolerated the procedure well. Minimal EBL was appreciated. ?? Dressing: The area was covered with a Bacitracin and Band-aid. documented in this encounter Plan of Treatment Not on file documented as of this encounter Procedures Procedure Name Priority Date/Time Associated Diagnosis Comments WI REMOVAL FOREIGN BODY FOOT SUBCUTANEOUS Routine 12/02/2019 7:29 PM EDT Foreign body in left foot, initial encounter documented in this encounter Results * WI REMOVAL FOREIGN BODY FOOT SUBCUTANEOUS (12/02/2019 7:29 PM EDT) Narrative .MANUAL ENTRY (EXTERNAL LAB) - 12/02/2019 7:29 PM EDT Lois Varner NP ? 12/02/2019 ??7:30 PM ?? Consent: The foreign body procedure was explained to the patient, including risks and benefits of said procedure; the patient gave verbal consent. ?? Procedure: Using fine tip tweezers 1 triangular shape piece of glass measuring approx 0.5 cm by 0.3 was completely removed. The patient tolerated the procedure well. ??Minimal EBL was appreciated. ?? Dressing: The area was covered with a Bacitracin and Band-aid. ?? us Lois Varner NP PROCEDURE/MINOR SURGICAL ORD ERABLES Final Result .MANUAL ENTRY (EXTERNAL LAB) Please Refer to Scanned Lab Report documented in this encounter Visit Diagnoses Diagnosis Foreign body in left foot, initial encounter- Primary documented in this encounter Care Teams Undercar Specialist Relationship Specialty Start Date End Date Pcp, No PCP - Generic [facility] PCP 12/02/19 documented as of this encounter
--- OUTSIDE RECORDS SUMMARY | 2024-04-14 12:27 | XMS_ITS | Referral Summary ---
Author Organization [facility] Address [address] [place] [address] Care Team Providers Care Toy Department Manager Name Role Phone Pcp, No Unavailable Unavailable Allergies Active Allergy Reactions Criticality Noted Date Comments Ibuprofen Nausea Only 12/02/2019 Lisinopril Cough 12/02/2019 Niacin Hives 12/02/2019 Skin turns red and hot Medications metFORMIN 1000 MG Tab Take 1,000 mg by mouth 2 times daily (with meals) Active losartan 25 MG Tab Take 25 mg by mouth daily Active loratadine 10 MG Tab Take 10 mg by mouth daily Active Vit-Fe Fumarate-FA ( MULTIVITAMIN) Tab Take 1 Tab by mouth daily Active traZODone 50 MG Tab Take 50 mg by mouth nightly as needed for Insomnia Active glipiZIDE 10 MG Tab Take 10 mg by mouth 2 times daily Active metoprolol tartrate 25 MG Tab Take 25 mg by mouth 2 times daily Active pravastatin 20 MG Tab Take 20 mg by mouth daily Active aspirin 81 MG Chew Tab Take 81 mg by mouth daily Active Active Problems No known active problems Immunizations Name Administration Dates Next Due Tdap Vaccine (7y+) 0.5 mL IM (Adacel, Boostrix)TDAP VACCINE AGE 7+ 12/02/2019 Social History Tobacco Use Types Packs/Day Years [...] - - Body Mass Index - - Plan of Treatment Not on file Care Teams Toy Department Manager Relationship Specialty Start Date End Date Pcp, No PCP - Generic [facility] PCP 12/02/19
--- OUTSIDE RECORDS SUMMARY | 2024-04-14 12:27 | XMS_ITS | Encounter Summary ---
Author Organization [facility] [place] [address] Care Team Providers Care Network Pricing Consultant Name Role Phone Mona Honeycutt APRN Primary Care Provider [phone] Reason for Visit * Auth/Cert Specialty Diagnoses / Procedures Referred By Alex t Referred To Contact Diagnoses MORBID OBESITY Procedures PRO LAP GASTRIC BYPASS/PIA-EN-Y PRO UPPER GI ENDOSCOPY, DIAGNOSTIC @LAPAROSCOPIC GASTROPLASTY W/ PIA-EN-Y CONSTRUCTION (WRVU 29.4) EGD, UPPER GI ENDOSCOPY Referral ID Status Reason Start Date Expiration Date Visits Re quested Visits Authorized [id number] 1 1 Encounter Details Date Type Department Care Team (Latest Contact Info) Description 07/30/2020 7:39 AM EST - 08/01/2020 2:44 PM EST Hospital Encounter [address] [place] [address] Carlos Valle MD [facility] [place] [address] Discharge Disposition: Home Social History Tobacco Use Types Packs/Day Years Used Date Smoking Tobacco: Never Smokeless Tobacco: Never Sex and Gender Information Value Date Recorded Sex Assigned at Not on file Gender Identity Not on file Sexual Orientation Not on file documented as of this encounter Last Filed Vital Signs Vital Sign Reading Time Taken Comments Blood Pressure 110/67 08/01/2020 11:43 AM EST Pulse 64 08/01/2020 11:43 AM EST Temperature 36.7 ??C (98.1 ??F) 08/01/2020 1 1:43 AM EST Respiratory Rate 20 08/01/2020 11:4 3 AM EST Oxygen Saturation 97% 08/01/2020 11: 43 AM EST Inhaled Oxygen Concentration - - Weight 124.3 kg (274 lb 0.5 oz) 07/30/2020 8:22 AM EST Height 160 cm (5' 2.99) 07/30/2020 8:22 AM EST Body Mass Index 48.55 07/30/2020 8:22 AM EST documented in this encounter Discharge Summaries * Emily Jurado PA - 07/31/2020 7:06 AM EST General Surgery Discharge Summary Patient Name: Helene Carpenter Patient Age: 35 y.o. Birthdate: 1985 Admit date: 07/30/2020 Discharge date and time: 08/01/2020 Attending Physician: Carlos Valle MD Primary Diagnosis: Morbid Obesity Secondary Diagnosis: AGMAL; Type 2 DM; Hypophosphatemia Operations and Procedures: Laparoscopic Pia-en-Y Gastric Bypass with Intraoperative Upper Endoscopy Surgeons: Surgeon(s) and Role: * Carlos Valle MD - Primary * Rebecca Sharif MD - Fellow * Doc Velasquez MD - Resident History of Present Illness: Helene Carpenter is a 35 year-old female referred by Mona Honeycutt APRN for consultation for consideration of surgical treatment of obesity. Her preferred procedure is a laparoscopic Pia en Y gastric bypass due to GERD and potential for maximum weight loss. She states that she has struggled with obesity for many years. She has tried multiple weight loss measures without sustainable success. Factors that she identifies as contributing to her obesity include genetics, overconsumption and inactivity. She seeks bariatric surgery for health reasons. ?? She denies binge eating, night eating disorder, self-induced vomiting, laxative or diuretic use or excessive exercise to lose weight. Hospital Course: Helene Carpenter is a 35 y.o. female who was admitted on 07/30/2020 for laparoscopic Pia-en-Y gastric bypass with intraoperative upper endoscopy. The operative course was uneventful. OnPOD#1 she was started on a Gastric bypass stage I diet, and when she tolerated that she was advanced to a Gastric bypass stage II diet. She was changed to oral pain medications and the injected medica tions were discontinued on POD# 1. She did have urinary retention that required straight cath x 1, but was then voiding without difficulty. On POD# 1 & 2 the dressings were dry and intact and thewounds were benign. She did not have a bowel movement prior to discharge but was passing flatus andtaking PO without difficulty. Prior to discharge on POD# 2 Helene Carpenter was afebrile, with stable vital signs. On POD# 2, she was discharged to home in stable condition. Vital Signs: Last value Range last 24hrs Temperature Temp: 36.7 ??C (98.1 ??F) Temp: [36.4 ??C (97.5 ??F)-36.9 ??C (98.4 ??F)] Heart Rate Heart Rate: 64 Heart Rate: [64] Blood Pressure BP: 110/67 BP: (105-121)/(67-81) Respiratory Rate Resp: 20 Resp: [17-20] SpO2 SpO2: 97 % SpO2: [95 %-98 %] Pertinent Lab Data: Recent Labs 02/25/21 0846 02/24/ 0245 WBC 7.1 9.8* HGB 13.9 13.8 HCT 43.3 42.6 PLATELET 227 273 Recent Labs 02/25/21 0846 02/24/ 0245 NA 139 138 K 3.7 3.7 CL 112* 110* CO2 11* 9* BUN 5* 5* CREATININE 0.66* 0.68* GLUCOSE 119 115 CALCIUM 8.5 8.3* MAGNESIUM 0.82 0.77 PHOS 1.2* 3.2 Physical Exam: General: NAD, resting comfortably, pleasant, conversant HEENT: PERRL, anicteric sclerae CVS: RRR Pulm: CTAB Abd: soft, appropriately tender, non-distended. 6 port sites without evidence of edema, erythema orecchymosis. No drainage or s/s of infection noted. : urinary retention requiring straight cath x 1; now voiding without any issues Skin: warm, dry Ext: no c/c/e Neuro: CN 2-12 grossly intact, nonfocal,moving all four extremities spontaneously Imaging: SCAN DOC: TELEMETRY STRIPS Result Date: 07/30/2020 Ordered by an unspecified provider. Condition at discharge: Stable Mental Status: awake and alert, oriented x 3 Medications: Your Medications New Medications Dose Details acetaminophen 650 mg/20.3 mL Soln Commonly known as: Tylenol Take 20.3 mLs by mouth every 4 hours as needed. 650 mg Refills: 0 omeprazole 40 mg Cpdr Commonly known as: PriLOSEC Take 1 capsule by mouth daily. 40 mg Quantity: 30 capsule Refills: 11 ondansetron 4 mg Tab Commonly known as: Zofran Take 1 tablet by mouth daily as needed for Nausea. 4 mg Quantity: 9 tablet Refills: 0 oxyCODONE 5 mg/5 mL Soln Commonly known as: Roxicodone Take 5 mLs by mouth every 4 hours as needed for Pain. 5 mg Quantity: 50 mL Refills: 0 ursodioL 300 mg Cap Commonly known as: Actigall Take 1 capsule by mouth 2 times daily for 180 days. Start taking on: August 13, 2020 300 mg Quantity: 60 capsule Refills: 5 Continued medications, unchanged Dose Details aspirin EC 81 mg Tbec Take 81 mg by mouth daily. 81 mg Refills: 0 loratadine 10 mg Tab Commonly known as: Claritin Take 10 mg by mouth daily. 10 mg Refills: 0 losartan 25 mg Tab Commonly known as: Cozaar Take 25 mg by mouth daily. 25 mg Refills: 0 metFORMIN 1,000 mg Tab Commonly known as: GLUCOPHAGE Take 1,000 mg by mouth 2 times daily. 1,000 mg Refills: 0 metoprolol tartrate 25 mg Tab Commonly known as: Lopressor Take 25 mg by mouth 2 times daily. 25 mg Refills: 0 pravastatin 40 mg Tab Commonly known as: PRAVACHOL Take 40 mg by mouth daily. 40 mg Refills: 0 PrePlus 27 mg iron- 1 mg Tab Take 1 tablet by mouth daily. Generic drug: PNV,calcium 14-oflg-kgcua acid 1 tablet Refills: 0 traZODone 50 mg Tab Commonly known as: Desyrel Take 50 mg by mouth nightly. 50 mg Refills: 0 STOPPED Medications glipiZIDE 10 mg Tab Commonly known as: GLUCOTROL Heartburn Relief (famotidine) 10 mg Tab Generic drug: famotidine Jardiance 25 mg Tab Generic drug: empagliflozin Disposition: Home Allergies: Allergies Allergen Reactions ??? Ibuprofen ??? Lisinopril Outpatient Services/Studies: No discharge procedures on file. Scheduled Appointments: Future Appointments and Orders Future Appointments and Orders Future Appointments Provider Department Dept Phone 08/19/2020 12:[address]; Karlie Villanueva APRN General Surgery at [facility] [place] Arrive at: [facility] [phone] 11/18/2020 10:[address]; Karlie Villanueva APRN General Surgery at [facility] [place] [facility] Arrive at: [facility] [phone] Instructions Given to Patient at Discharge: BARIATRIC SURGERY DISCHARGE INFORMATION BARIATRIC SUPPORT TEAM CONTACT NUMBERS (Mon-Fri 8am - 5pm): General Surgery and Bariatric Surgery [phone] Bariatric Surgeons: Doctors. Banegas [phone] Patient Care Associate: [phone] Dietitians: [phone] Outside of regular business hours, including weekends and holidays: Ask for General Surgery resident conservation of resources commissioner [phone] Please note, this call will be answered by a resident, and they may not be Able to return your call for many hours FOR EMERGENCIES: CALL 911 (trouble breathing, chest pain, rapid heart rate >120 beats per minuteor severe abdominal pain) CALL THE BARIATRIC TEAM FOR ANY OF THE FOLLOWING: ?? Signs and symptoms of infection such as: - Redness or swelling or new significant drainage from wounds - Drainage or bleeding from wounds - Fever over 101 degrees Fahrenheit, or shaking chills ?? Persistent diarrhea or vomiting or inability to keep down food or fluids down in a 24 hour period. ?? Signs / symptoms of a blood clot: leg swelling, redness, or pain, shortness of breath ?? Problems with urination or constipation, worsening abdominal pain not controlled with pain medication ?? Any concerns you may have after your surgery Follow up Information: You have a surgical followup appointment with The Bariatric Surgery Team in 3 weeks at the [facility] ([facility] [address] [place] [address]). Future Appointments Date Time Provider Department Center 08/19/2020 12:30 PM Karlie Villanueva APRN [facility] [place] [facility] SURG [facility] 11/18/2020 10:30 AM Karlie Villanueva APRN [facility] [place] [facility] SURG [facility] [place] [facility] BATHING AND WOUND CARE: ?? You may shower 2 days after surgery ?? Wash incisions with unscented mild soap ?? Rinse, pat dry and leave open to air. ?? Remove Steri-strips if they don't fall off by 7-10 days after discharge. Pat dry if they become wet. ?? Do not soak wound (no baths, no swimming) for 3 weeks after surgery ACTIVITY, LIFTING AND DRIVING: ?? For laparoscopic surgery: there are no lifting restrictions. Lift when you feel comfortable. ?? Do not drive for if you are taking narcotic pain medication. When you are no longer taking narcotic pain medication and when it no longer causes pain to get in and out of the vehicle, you may drive when comfortable. DIET: ?? Follow Stage II diet for two weeks. ?? Keep a log of your intake: Daily goals are: 48-64 ounces of fluids and 60 grams of protein. MEDICATIONS: ?? For 2 WEEKS: LARGE pills (bigger than the size of a calcium pill) must be crushed, Capsules mustbe opened onto applesauce or pudding. ?? Pills smaller than the size of a calcium DO NOT need to be crushed. ?? Not all medications can be crushed. Check with your pharmacist if unsure. ?? HOLD bariatric vitamins for 2 weeks after surgery BLOOD CLOT PREVENTION: ?? You do not meet scoring criteria to be discharged on medication to prevent blood clots. Be active, walk at least 4 times a day and do blood clot prevention exercises in your handbook on page 82. IF YOU ARE TREATED FOR OBSTRUCTIVE SLEEP APNEA: ?? IMPORTANT - you MUST use your CPAP/ BIPAP after surgery while sleeping at night and also when napping during the day because some medications you may have been prescribed at discharge can decreaseyour breathing. ?? Follow up with the Sleep Center if pressure seems to be too high. ULCER PREVENTION: ?? IMPORTANT - starting the day after discharge, you must take acid suppressing medication for 3 MONTHS after surgery. This is taken to prevent ulcers at your surgical sites internally, even if you do not have heartburn. ?? omeprazole 40 mg daily (or another medication you may currently take for heartburn/reflux that has been discussed with Bariatric Team) ?? Omeprazole capsules contain enteric-coated, delayed-release granules. Because these granules should not be chewed or crushed, you must OPEN the capsules, sprinkle the enteric-coated granules on applesauce or yogurt. Alternatively, you may take the granules with apple juice, or swallow them quickly with water. Follow any of these methods with additional water to ensure that you have swallowed the granules completely. ?? If your insurer does not cover omeprazole, or similar medications such as pantoprazole, you mustpurchase these medications over the counter. ?? You will continue this after the initial 3 month course if you have heartburn or reflux GALLSTONE PREVENTION: ?? If you have had your gallbladder REMOVED - you do not need this medication. ?? If you have your gallbladder after Bariatric Surgery - you must take start taking Ursodiol (Actigall) 300 mg twice a day to prevent gallstones. You may START this medication 2 weeks after surgery for a duration of 6 months. After that, you may stop this medication unless otherwise directed. If you find that this medication costs too much, and/or your insurance will not pay for it, you maybe eligible for assistance to pay for this with [employer]. Go to www.[employer] and put in the prescription and the pharmacy you would like to pick it up from, and you may be able to get the medication at a significantly reduced zazueta. PAIN MEDICATION: ?? Your pain should lessen with each day out from surgery. Over the next couple of days you should be requiring less narcotic medication to control your pain, and eventually you will not need any at all. ?? Take the medication exactly as it is prescribed and make sure to read all instructions that comewith the medication. Take only as needed. ?? You may adjunct your pain control using scheduled Tylenol (acetaminophen), use as directed. Do NOT use NSAIDS (ibuprofen, Motrin, Aleve, Toradol, aspirin, etc.) to adjunct your pain control. ?? Opioids can slow reaction time, cause drowsiness or cloud judgement. You MUST NOT DRIVE while taking narcotic pain medication. ?? Taking more than the prescribed amount of narcotic or combining with alcohol or drugs can cause you to stop breathing, leading to coma, brain damage or . ?? Using this drug may cause addiction. While addiction is more common in people with a personal orfamily history of addiction, it can occur in anyone. ?? Opioids are at risk of being diverted by anyone with access to your home. Opioids should be stored in a safe and secure place, such as a locked cabinet or safe. ?? Unused opioids should be disposed of appropriately. They may be returned to a take-back location, or mixed with a small amount of water and poured over an undesirable waste such as used coffee grounds or cat litter. ?? Opioid pain medications can cause significant constipation. You should use a stool softener suchas Miralax to address this. OTHER MEANS FOR PAIN RELIEF: Other than medications. ?? Learn deep breathing exercises or meditation to help you relax ?? Reduce stress ?? Your body produces natural endorphins from exercise which can help reduce pain. Even walking is considered exercise. Talk with your provider/surgical team about what exercises are appropriate for you to perform. ?? You may use a heating pad or apply ice to the painful area unless specifically discouraged by the surgical team. ?? Find ways to distract yourself from the pain. MEDICATIONS TO AVOID FOR TWO MONTHS AFTER SURGERY: ?? Discontinue anti-inflammatory non-steroidal medications, such as Advil, Aleve, etc. Refer to Medications that may increase the risk of bleeding in handbook. ?? If you do take aspirin for your heart or to prevent strokes, continue as prescribed. WOMEN OF CHILDBEARING AGE: ?? Fertility may increase with weight loss. Avoid for 18-24 months after bariatric surgery. ?? Condoms alone are not acceptable as a form of control. Do not take control pills forthe first month after surgery. MANAGEMENT OF DIABETES MELLITUS AFTER BARIATRIC SURGERY: ?? IMPORTANT to check blood sugars four times a day, fasting blood sugars, 2 hours after meals and as needed when feeling unwell. ?? Discontinue taking Jardiance and Glipizede. ?? Continue taking Metformin 1000mg twice daily. ?? Patients on oral diabetic medication: If blood sugar is over 200 on more than 3 checks, call your primary care physician or diabetic specialist for recommendations. ?? Follow up with primary care provider or grain origination specialist in 1-2 weeks in order to adjust yourchanging diabetes treatment requirements. PATIENTS WITH HIGH BLOOD PRESSURE: ?? Monitor your blood pressure regularly. ?? If you feel dizzy and have been drinking 48-64 ounces of fluid, have your blood pressure checked. ?? If your blood pressure is low, call your primary care provider. Keep a log to bring to your PCP appointments. PATIENTS ON ANTI-DEPRESSANT OR MENTAL HEALTH MEDICATIONS: ?? Do not stop or decrease your medications unless advised. ?? Ongoing counseling is encouraged. VITAMIN AND MINERAL SUPPLEMENTATION: START at 2 weeks post surgery Vitamin B12 500 mcg pill daily Complete multivitamin w/ minerals One pill twice daily. If a bariatric specific multivitamin, follow the package directions Calcium Calcium citrate 600 mg with vitamin D 400 units twice a day between meals. Iron with vitamin C Take iron as instructed per Handbook - (only if you have anemia, iron deficiency or regular menses) FOLLOW-UP CARE: ?? It is IMPORTANT to see your Primary Care Physician or PCP within 10-14 days after surgery for wound check and vital signs check, and to discuss specific medical management as referenced above. ?? You should follow up with your surgeon and dietitian at 3-4 weeks after surgery. ?? You will follow up with the dietitian and Bariatric nurse practitioner at 4, 12, 18, and 24 months, then yearly for life. Signed: OCTAVIANO IZAGUIRRE 08/01/2020 Primary Care Physician: Mona Honeycutt, [address] [facility] [id number] documented in this encounter Discharge Instructions * Discharge Instructions* Emily Jurado PA - 08/01/2020 1:15 PM EST Instructions Given to Patient at Discharge: ?? BARIATRIC SURGERY DISCHARGE INFORMATION ? BARIATRIC SUPPORT TEAM CONTACT NUMBERS (Mon-Fri 8am - 5pm): ?? General Surgery and Bariatric Surgery [phone] ?? Bariatric Surgeons: Doctors. Banegas [phone] Patient Care Associate: [phone] Dietitians: [phone] ?? Outside of regular business hours, including weekends and holidays: Ask for General Surgery resident conservation of resources commissioner [phone] Please note, this call will be answered by a resident, and they may not be Able to return your call for many hours ?? FOR EMERGENCIES: CALL 911 (trouble breathing, chest pain, rapid heart rate >120 beats per minuteor severe abdominal pain) ?? CALL THE BARIATRIC TEAM FOR ANY OF THE FOLLOWING: ?? Signs and symptoms of infection such as: - Redness or swelling or new significant drainage from wounds - Drainage or bleeding from wounds - Fever over 101 degrees Fahrenheit, or shaking chills ?? Persistent diarrhea or vomiting or inability to keep down food or fluids down in a 24 hour period. ?? Signs / symptoms of a blood clot: leg swelling, redness, or pain, shortness of breath ?? Problems with urination or constipation, worsening abdominal pain not controlled with pain medication ?? Any concerns you may have after your surgery ?? Follow up Information: You have a surgical followup appointment with The Bariatric Surgery Team in 3 weeks at the [facility] ([facility], [facility]). ?? Future Appointments Date Time Provider Department Center 08/19/2020 12:30 PM Karlie Villanueva APRN [facility] [place] SUR[facility] 11/18/2020 10:30 AM Karlie Villanueva APRN [facility] ? BATHING AND WOUND CARE: ?? You may shower 2 days after surgery ? Wash incisions with unscented mild soap ? Rinse, pat dry and leave open to air. ?? Remove Steri-strips if they don't fall off by 7-10 days after discharge. Pat dry if they become wet. ?? Do not soak wound (no baths, no swimming) for 3 weeks after surgery ?? ACTIVITY, LIFTING AND DRIVING: ?? For laparoscopic surgery: there are no lifting restrictions. Lift when you feel comfortable. ?? Do not drive for if you are taking narcotic pain medication. When you are no longer taking narcotic pain medication and when it no longer causes pain to get in and out of the vehicle, you may drive when comfortable. ?? DIET: ?? Follow Stage II diet for two weeks. ?? Keep a log of your intake: Daily goals are: 48-64 ounces of fluids and 60 grams of protein. ?? MEDICATIONS: ?? For 2 WEEKS: LARGE pills (bigger than the size of a calcium pill) must be crushed, Capsules mustbe opened onto applesauce or pudding. ?? Pills smaller than the size of a calcium DO NOT need to be crushed. ?? Not all medications can be crushed. Check with your pharmacist if unsure. ?? HOLD bariatric vitamins for 2 weeks after surgery ? BLOOD CLOT PREVENTION: ?? You do not meet scoring criteria to be discharged on medication to prevent blood clots. Be active, walk at least 4 times a day and do blood clot prevention exercises in your handbook on page 82. IF YOU ARE TREATED FOR OBSTRUCTIVE SLEEP APNEA: ?? IMPORTANT - you MUST use your CPAP/ BIPAP after surgery while sleeping at night and also when napping during the day because some medications you may have been prescribed at discharge can decreaseyour breathing. ?? Follow up with the Sleep Center if pressure seems to be too high. ?? ULCER PREVENTION: ?? IMPORTANT - starting the day after discharge, you must take acid suppressing medication for 3 MONTHS after surgery. This is taken to prevent ulcers at your surgical sites internally, even if you do not have heartburn. ? omeprazole 40 mg daily (or another medication you may currently take for heartburn/reflux that has been discussed with Bariatric Team) ? Omeprazole capsules contain enteric-coated, delayed-release granules. Because these granules should not be chewed or crushed, you must OPEN the capsules, sprinkle the enteric-coated granules on applesauce or yogurt. Alternatively, you may take the granules with apple juice, or swallow them quickly with water. Follow any of these methods with additional water to ensure that you have swallowed the granules completely. ? If your insurer does not cover omeprazole, or similar medications such as pantoprazole, you must purchase these medications over the counter. ?? You will continue this after the initial 3 month course if you have heartburn or reflux ?? GALLSTONE PREVENTION: ?? If you have had your gallbladder REMOVED - you do not need this medication. ?? If you have your gallbladder after Bariatric Surgery - you must take start taking Ursodiol (Actigall) 300 mg twice a day to prevent gallstones. You may START this medication 2 weeks after surgery for a duration of 6 months. After that, you may stop this medication unless otherwise directed. ?? If you find that this medication costs too much, and/or your insurance will not pay for it, you maybe eligible for assistance to pay for this with [employer]. Go to www.[employer] and put in the prescription and the pharmacy you would like to pick it up from, and you may be able to get the medication at a significantly reduced zazueta. PAIN MEDICATION: ?? Your pain should lessen with each day out from surgery. Over the next couple of days you should be requiring less narcotic medication to control your pain, and eventually you will not need any at all. ?? Take the medication exactly as it is prescribed and make sure to read all instructions that comewith the medication. Take only as needed. ?? You may adjunct your pain control using scheduled Tylenol (acetaminophen), use as directed. Do NOT use NSAIDS (ibuprofen, Motrin, Aleve, Toradol, aspirin, etc.) to adjunct your pain control. ?? Opioids can slow reaction time, cause drowsiness or cloud judgement. You MUST NOT DRIVE while taking narcotic pain medication. ?? Taking more than the prescribed amount of narcotic or combining with alcohol or drugs can cause you to stop breathing, leading to coma, brain damage or . ?? Using this drug may cause addiction. While addiction is more common in people with a personal orfamily history of addiction, it can occur in anyone. ?? Opioids are at risk of being diverted by anyone with access to your home. Opioids should be stored in a safe and secure place, such as a locked cabinet or safe. ?? Unused opioids should be disposed of appropriately. They may be returned to a take-back location, or mixed with a small amount of water and poured over an undesirable waste such as used coffee grounds or cat litter. ?? Opioid pain medications can cause significant constipation. You should use a stool softener suchas Miralax to address this. ?? OTHER MEANS FOR PAIN RELIEF: Other than medications. ?? Learn deep breathing exercises or meditation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 midline. A 45-degree telescope was inserted, and under direct vision, two 5-mm ports were placed in the left upper quadrant forming the first arm of a V with the scope at the apex. Several adhesions were taken down with sharp dissection. A 5- mm port was placed approximately 15-cm along the right costal margin, through which a liver retractor was placed and used to elevate the left lobe of the liver, thus exposing the hiatal region. This was fixed in good position using the mechanical arm. A 5-mm port was placed approximately 10 cm along the right costal margin and a 12- mm port was placed approximately 4 cm below this. A small window was made along the vasculature of the lesser curve, approximately 5 cm from the hiatus. Eventually, the vasculature was from the lesser curve and the posterior, lesser sac was entered. The hiatal region was freed up of some attachments to the diaphragm, thus exposing the left daniel. A firing of an power stapler with a 60 mm purple load in a transverse direction across the stomach was performed. The stapler was then fired multiple times until a small narrow pouch was created. The pouch accommodated a volume of approximately 20 cc to 30 cc. Adhesions between the omentum and lower anterior abdominal wall were taken down using sharp dissection. The omentum and transverse colon reflected cephalad. The ligament of Treitz was identified and dissection was carried along approximately 40 cm from the ligament of Treitz. A small window was made in the small bowel mesentery and a stapler was introduced through this to divide the small bowel using a 60 mm escamilla staple load . The harmonic scalpel was used to divide the mesentery for a Pia limb. At a point approximately 100 cm, the distal bowel was chosen to create the [id number] jejunojejunostomy. The duodenal, afferent limb was approximated to the side wall of the jejunum at the 100-cm nicole. Enterotomies were made in both and a single firing of a 60 mm escamilla staple load was used to create anastomosis. The resultant defect was sewn in two layers of running 2-0 Surgilon suture. A split was made in the omentum just above the transverse colon and the Pia limb fed through this. Two stay stitches in the side wall of the Pia limb were approximated to the end of the gastric pouch. An enterotomy was made in the gastric pouch and the jejunostomy and a partial-length firing of a 45 mm escamilla staple load wasused to create the anastomosis between this pouch and the jejunum. The resultant enterotomy defect was closed with a running 2- 0 Surgilon suture in two layers with a 30 Indian Bougie (blunt-tipped) in place. The Bougie was then removed and the Pia limb clamped with a bowel clamp. The endoscope was introduced and the pouch and anastomosis was insufflated under saline. Inspection of the anastomosis did not reveal any leak. It appeared to be patent and allowed passage of an endoscope without resistance. The jejuno-jejunostomy mesenteric defect and Joaquin's defect were then closed with a running 3-0 V-Lock suture. All ports were then removed under direct vision and the skin was closed with running subcuticular 4-0 Vicryl suture, followed by Steri- Strips and Band-aids. The patient returned to the Recovery Room in stable conditions. Sponge, instrument and needle counts were correct. Attestation: Case Date: 07/30/2020 I was present and I participated during the entire procedure (does not need to include opening and closing). CARLOS VALLE MD 07/30/2020 documented in this encounter Plan of Treatment Not on file documented as of this encounter Procedures Procedure Name Priority Date/Time Associated Diagnosis Comments HEMOGRAM Routine 08/01/2020 8:46 AM EST DIFFERENTIAL, AUTOMATED Routine 08/01/2020 8:46 AM EST HC VENIPUNCTURE Routine 08/01/2020 8:46 AM EST HC PHOSPHORUS, SERUM Routine 08/01/2020 8:46 AM EST HC MAGNESIUM, SERUM Routine 08/01/2020 8 :46 AM EST BASIC METABOLIC PANEL Routine 08/01/2020 8:46 AM EST HEMOGRAM Routine 07/31/2020 2:45 AM EST DIFFERENTIAL, AUTOMATED Routine 07/31/2020 2:45 AM EST HC CBC,PLT & AUTO DIFF Routine 07/31/2020 2:45 AM EST HC PHOSPHORUS, SERUM Routine 07/31/2020 2:45 AM EST HC MAGNESIUM, SERUM Routine 07/31/2020 2 :45 AM EST BASIC METABOLIC PANEL Routine 07/31/2020 2:45 AM EST POCT GLUCOSE Routine 07/30/2020 2:45 PM EST Upper GI Endoscopy, Diagnostic (45991) 07/30/2020 10:35 AM EST MORBID OBESITY Lap Gastric Bypass/Pia-En-Y ([id number]) 07/30/2020 10:35 AM EST MORBID OBESITY POCT GLUCOSE Routine 07/30/2020 8:21 AM EST documented in this encounter Results * Differential, Automated (08/01/2020 8:46 AM EST) Neutrophil % 61.1 % [facility] Neutrophil Absolute 4.33 1.70 - 6.10 x10(3)/[facility] Lymph % 27.1 % [facility] Lymphocytes Abs 1.9 0.9 - 3.2 x10(3)/[facility] Monocyte % 8.3 % [facility] Monocyte Abs 0.6 0.3 - 0.9 x10(3)/[facility] Eos % 2.8 % [facility] Eosinophils Abs 0.2 0.0 - 0.4 x10(3)/[facility] Basophil % 0.6 % [facility] Baso Absolute 0.0 0.0 - 0.1 x10(3)/[facility] Immature Gran % 0.10 % [facility] Comment: Immature granulocytes(IG's)percentage and absolute count will include metamyelocytes, myelocytes, and promyelocytes. Blood smears from CBCs yielding IG's will be scanned manually for concordance. If this scan disagrees with the automated IG or if promyelocytes are noted, a manual differential will be performed. Immature Gran Absolute 0.01 0.00 - 0.04 x10(3)/[facility] Blood specimen (specimen) 08/01/2020 8:46 AM EST 08/01/2020 9:03 AM EST Narrative Resulting Agency Comment Spec In Lab Emily BRUMFIELD HEMATOLOGY ORDERABLE S Performing Organization Address City/State/[facility] Co de Phone Number [facility] [place] [address] * (ABNORMAL) Hemogram (08/01/2020 8:46 AM EST) White Blood Cell 7.1 4.0 - 9.5 x10(3)/ L [facility] Red Blood Cell 5.38(H) 4.00 - 5.21 x10(6)/ L [facility] Hemoglobin 13.9 11.7 - 15.5 gm/dL [facility] Hematocrit 43.3 35.7 - 45.8 % [facility] Mean Cell Volume 80.5(L) 82.6 - 94.4 fL [facility] Mean Cell Hemoglobin 25.8(L) 27.1 - 32.0 pg [facility] Mean Cell Hemoglobin Concentration 32.1 31.7 - 35.0 gm/dL [facility] Platelet 227 145 - 357 x10(3)/mc L [facility] RDW Standard Deviation 46.4(H) 37.0 - 46.0 fL [facility] RDW coefficient of variation 16.1(H) 11.5 - 14.1 % [facility] Mean Platelet Volume 11.4 7.6 - 12.9 fL [facility] NRBC% auto 0.0 % [facility] NRBC Absolute 0.000 0.000 - 0.000 x10(3)/mc L [facility] Blood specimen (specimen) 08/01/2020 8:46 AM EST 08/01/2020 9:03 AM EST Narrative Resulting Agency Comment Spec In Lab Emily BRUMFIELD HEMATOLOGY ORDERABLE S Performing Organization Address [facility] Co de Phone Number [facility] [place] [address] * (ABNORMAL) Phosphorus (08/01/2020 8:46 AM EST) Phosphorus 1.2(Critic al) 2.5 - 4.5 mg/dL [facility] Comment: Results rechecked Called by: WILLIAM, Read back by: dorota Gonzalez, Date/Time:08/01/20 10:24. Blood specimen (specimen) 08/01/2020 8:46 AM EST 08/01/2020 9:03 AM EST Narrative Resulting Agency Comment Spec In Lab Carlos Valle MD CHEMISTRY ORDERABLES Performing Organization Address City/[facility]/ZIP Co de Phone Number [facility] [place] [address] * Magnesium (08/01/2020 8:46 AM EST) Magnesium 0.82 0.69 - 1.07 mmol/L [facility] Blood specimen (specimen) 08/01/2020 8:46 AM EST 08/01/2020 9:03 AM EST Narrative Resulting Agency Comment Spec In Lab Carlos Valle MD CHEMISTRY ORDERABLES [facility] [place] [address] * (ABNORMAL) Basic Metabolic Panel (non-fasting) (08/01/2020 8:46 AM EST) Glucose 119 65 - 199 mg/dL [facility] Comment:Diabetes: >=200 mg/d L plus symptoms Blood Urea Nitrogen 5(L) 8 - 18 mg/dL [facility] Creatinine 0.66(L) 0.70 - 1.20 mg/dL [facility] Sodium 139 135 - 145 mmol/L [facility] Potassium 3.7 3.5 - 5.0 mmol/L [facility] Comment: Please note: ??Patients with WBC >100,000 may have falsely elevated Potassium levels. ??For accurate Potassium quantification in these patients send serum separator tube (gold top) for subsequent determinations. ??Contact the Clinical Chemistry Laboratory if there are any questions. Chloride 112(H) 98 - 107 mmol/L [facility] Carbon Dioxide 11(L) 22 - 31 mmol/L [facility] Anion Gap 16(H) 5 - 15 mmol/L [facility] Calcium 8.5 8.5 - 10.5 mg/dL [facility] Est Glomerular Filtration Rate 116 >=60 mL/min/1. 73 m?? [facility] Comment: This patient? s estimated glomerular filtration rate (eGFR) is between 116 mL/min/1.73 m2 (patients with less muscle mass) and 135 mL/min/1.73 m2 (patients with more muscle mass) as determined by the CKD-EPI equation. Assessment of eGFR is not appropriate when creatinine concentrations are rapidly changing. For clinical decisions where creatinine clearance will affect therapy, a 24-hour urine creatinine clearance may be advised. Assignment of CKD stage 1 ? 5 for patients with an eGFR near the transition point between stages may be based on clinical assessment of muscle mass and symptoms in addition to eGFR. Blood specimen (specimen) 08/01/2020 8:46 AM EST 08/01/2020 9:03 AM EST Narrative Resulting Agency Comment Spec In Lab Carlos Valle MD CHEMISTRY ORDERABLES [facility] [place] [address] * (ABNORMAL) Differential, Automated (07/31/2020 2:45 AM EST) Neutrophil % 69.4 % [facility] Neutrophil Absolute 6.79(H) 1.70 - 6.10 x10(3)/mc L [facility] Lymph % 19.4 % [facility] Lymphocytes Abs 1.9 0.9 - 3.2 x10(3)/mc L [facility] Monocyte % 7.1 % [facility] Monocyte Abs 0.7 0.3 - 0.9 x10(3)/mc L [facility] Eos % 3.5 % [facility] Eosinophils Abs 0.3 0.0 - 0.4 x10(3)/mc L [facility] Basophil % 0.4 % [facility] Baso Absolute 0.0 0.0 - 0.1 x10(3)/mc L [facility] Immature Gran % 0.20 % [facility] Comment: Immature granulocytes(IG's)percentage and absolute count will include metamyelocytes, myelocytes, and promyelocytes. Blood smears from CBCs yielding IG's will be scanned manually for concordance. If this scan disagrees with the automated IG or if promyelocytes are noted, a manual differential will be performed. Immature Gran Absolute 0.02 0.00 - 0.04 x10(3)/ L [facility] Blood specimen (specimen) 07/31/2020 2:45 AM EST 07/31/2020 2:51 AM EST Narrative Resulting Agency Comment Spec In Lab Rebecca Sharif MD HEMATOLOGY ORDERABLE S [facility] [place] [address] * (ABNORMAL) Hemogram (07/31/2020 2:45 AM EST) White Blood Cell 9.8(H) 4.0 - 9.5 x10(3)/[facility] LAB[facility] Red Blood Cell 5.28(H) 4.00 - 5.21 x10(6)/[facility] Hemoglobin 13.8 11.7 - 15.5 gm/dL [facility] Hematocrit 42.6 35.7 - 45.8 % [facility] Mean Cell Volume 80.7(L) 82.6 - 94.4 fL [facility] Mean Cell Hemoglobin 26.1(L) 27.1 - 32.0 pg [facility] Mean Cell Hemoglobin Concentration 32.4 31.7 - 35.0 gm/dL [facility] Platelet 273 145 - 357 x10(3)/[facility] RDW Standard Deviation 44.9 37.0 - 46.0 [facility] RDW coefficient of variation 15.5(H) 11.5 - 14.1 % [facility] Mean Platelet Volume 11.2 7.6 - 12.9 fL [facility] NRBC% auto 0.0 % [facility] NRBC Absolute 0.000 0.000 - 0.000 x10(3)/[facility] Blood specimen (specimen) 07/31/2020 2:45 AM EST 07/31/2020 2:51 AM EST Narrative Resulting Agency Comment Spec In Lab Rebecca Sharif MD HEMATOLOGY ORDERABLE S Performing Organization Address [facility] Co de Phone Number [facility] [place] [address] * Phosphorus (07/31/2020 2:45 AM EST) Phosphorus 3.2 2.5 - 4.5 mg/dL [facility] Blood specimen (specimen) 07/31/2020 2:45 AM EST 07/31/2020 2:51 AM EST Narrative Resulting Agency Comment Spec In Lab Rebecca Sharif MD CHEMISTRY ORDERABLES Performing Organization Address [facility] Phone Number [facility] [place] [address] * Magnesium (07/31/2020 2:45 AM EST) Magnesium 0.77 0.69 - 1.07 mmol/L [facility] Blood specimen (specimen) 07/31/2020 2:45 AM EST 07/31/2020 2:51 AM EST Narrative Resulting Agency Comment Spec In Lab Rebecca Sharif MD CHEMISTRY ORDERABLES Performing Organization Address [facility] Phone Number [facility] [place] [address] * (ABNORMAL) Basic Metabolic Panel (non-fasting) (07/31/2020 2:45 AM EST) Glucose 115 65 - 199 mg/dL [facility] Comment:Diabetes: >=200 mg/d L plus symptoms Blood Urea Nitrogen 5(L) 8 - 18 mg/dL [facility] Creatinine 0.68(L) 0.70 - 1.20 mg/dL [facility] Sodium 138 135 - 145 mmol/L [facility] Potassium 3.7 3.5 - 5.0 mmol/L [facility] Comment: Please note: ??Patients with WBC >100,000 may have falsely elevated Potassium levels. ??For accurate Potassium quantification in these patients send serum separator tube (gold top) for subsequent determinations. ??Contact the Clinical Chemistry Laboratory if there are any questions. Chloride 110(H) 98 - 107 mmol/L [facility] Carbon Dioxide 9(Critica l) 22 - 31 mmol/L [facility] Comment: Called by: norma, Read back by: sylvester brown, Date/Time:07/31/20 03:30. Result rechecked. Anion Gap 19(H) 5 - 15 mmol/L [facility] Calcium 8.3(L) 8.5 - 10.5 mg/dL [facility] Est Glomerular Filtration Rate 115 >=60 mL/min/1. 73 m?? [facility] Comment: This patient? s estimated [...] be advised. Assignment of CKD stage 1 ? 5 for patients with an eGFR near the transition point between stages may be based on clinical assessment of muscle mass and symptoms in addition to eGFR. Blood specimen (specimen) 07/31/2020 2:45 AM EST 07/31/2020 2:51 AM EST Narrative Resulting Agency Comment Spec In Lab Rebecca Sharif MD CHEMISTRY ORDERABLES [facility] [place] [address] * POCT Glucose (07/30/2020 2:45 PM EST) Glucose, POC 124 65 - 199 mg/dL [facility] Comment: Supplemental ranges: <140 mg/dL before meals <180 mg/dL all other times of the day Blood specimen (specimen) 07/30/2020 2:45 PM EST 07/30/2020 2:45 PM EST Carlos Valle MD POINT OF CARE TEST O KARIN Performing Organization Address [facility] Co de Phone Number [facility] [place] [address] * POCT Glucose (07/30/2020 8:21 AM EST) Glucose, POC 118 65 - 199 mg/dL [facility] Comment: Supplemental ranges: <140 mg/dL before meals <180 mg/dL all other times of the day Blood specimen (specimen) 07/30/2020 8:21 AM EST 07/30/2020 8:21 AM EST Carlos Valle MD POINT OF CARE TEST María FRAZIER Performing Organization Address [facility] Co de Phone Number [facility] [place] [address] documented in this encounter Visit Diagnoses Diagnosis Morbid obesity documented in this encounter Administered Medications Inactive Administered Medications - up to 3 most recent administrations Medication Order MAR Action Action Date Dose Rate Site acetaminophen (Ofirmev) (1000 mg/100 mL) infusion 1,000 mg 1,000 mg, Intravenous, at 400 mL/hr, Administer over 15 Minutes, EVERY 8 HOURS SCHEDULED, 3 doses, First dose on Wed07/30/20 at 1500, Last dose on Wed07/31/20 at 0600, Maximum dose of acetaminophen is 4000 mg from all sources in 24 hours. When ordered for pain, acetaminophen should be given even when other ordered pain medications are indicated. , Routine, Is ketorolac (Toradol) IV contraindicated? Yes, Can this patient tolerate oral medications or suppositories? No Given 07/31/2020 5:18 AM EST 1,000 mg 400 mL/hr Given 07/30/2020 9:06 PM EST 1,000 mg 400 mL/hr Given 07/30/2020 3:48 PM EST 1,000 mg 400 mL/hr acetaminophen (Tylenol) (32.02 mg/mL) oral liquid 650 mg 650 mg, Oral, EVERY 4 HOURS PRN, Starting on Wed07/31/20 at 0939, Until Wed08/01/20 at 1714, Pain, Fever, Routine Given 08/01/2020 2:08 AM EST 650 mg Given 07/31/2020 9:11 PM EST 650 mg aspirin chewable tablet 81 mg 81 mg, Oral, DAILY, First dose on Wed07/31/20 at 0900, Until Discontinued, Routine Given 08/01/2020 9:01 AM EST 81 mg Given 07/31/2020 8:45 AM EST 81 mg atorvastatin (Lipitor) tablet 10 mg 10 mg, Oral, EVERY EVENING, First dose on Wed07/31/20 at 1700, Until Discontinued Given 07/31/2020 5:56 PM EST 10 mg celecoxib (CeleBREX) capsule 200 mg 200 mg, Oral, 2 TIMES DAILY, First dose on Wed07/31/20 at 0900, Until Discontinued, Administer starting post-op day one. Open capsule and administer all at once., Routine Given 08/01/2020 9:01 AM EST 200 mg Given 07/31/2020 9:11 PM EST 200 mg Given 07/31/2020 8:45 AM EST 200 mg enoxaparin (Lovenox) (40 mg/0.4 mL) subcutaneous injection 40 mg 40 mg, Subcutaneous, ONCE, 1 dose, On Wed07/30/20 at 0845, Day of Surgery (Day of Procedure), Routine Given 07/30/2020 8:51 AM EST 40 mg enoxaparin (Lovenox) (40 mg/0.4 mL) subcutaneous injection 40 mg 40 mg, Subcutaneous, EVERY 12 HOURS SCHEDULED (2 times per day), First dose on Wed07/30/20 at 2100, Until Discontinued, Routine Given 08/01/2020 9:01 AM EST 40 mg Given 07/31/2020 9:12 PM EST 40 mg Given 07/31/2020 8:45 AM EST 40 mg HYDROmorphone (Dilaudid) (2 mg/mL) injection solution 0.4 mg 0.4 mg, Intravenous, EVERY 4 HOURS PRN, Starting on Wed07/30/20 at 1741, Until Wed07/31/20 at 0940, Pain, Moderate-Severe pain 4-10, Routine Given 07/31/2020 2:49 AM EST 0.4 mg HYDROmorphone (Dilaudid) (2 mg/mL) multi-dose injection solution 0.2-0.4 mg 0.2-0.4 mg, Intravenous, EVERY 5 MIN PRN, Starting on Wed07/30/20 at 1348, Until Wed07/30/20 at 1741, Pain, Give 0.2 mg every 5 minutes PRN for mild to moderate pain (1-5) Give 0.4 mg every 5 minutes PRN for moderate to severe pain (6-10). Hold for respiratory rate less than 10 per minute. Maximum dose 4 mg over one hour. If multiple pain medications are ordered, start with hydromorphone or morphine and use fentanyl for breakthrough pain., PACU Recovery, Routine Given 07/30/2020 5:30 PM EST 0.2 mg lactated ringers infusion 1,000 mL, at 100 mL/hr, Intravenous, CONTINUOUS, Starting on Wed07/30/20 at 0845, Until Wed07/30/20 at 1740, Day of Surgery (Day of Procedure) Restarted 07/30/2020 10:32 AM EST New Bag 07/30/2020 8:49 AM EST 1,000 mLs 100 mL/hr lactated ringers infusion 1,000 mL, at 125 mL/hr, Intravenous, CONTINUOUS, Starting on Wed07/30/20 at 1500, Until Latha 08/01/20 at 0618 New Bag 08/01/2020 5:06 AM EST 1,000 mLs 125 m L/hr New Bag 07/31/2020 1:01 PM EST 1,000 mLs 125 mL/hr New Bag 07/31/2020 5:21 AM EST 1,000 mLs 125 mL/hr losartan (Cozaar) tablet 25 mg 25 mg, Oral, DAILY, First dose on Wed07/31/20 at 0900, Until Discontinued, Hold for SBP <100, Routine Given 08/01/2020 9:01 AM EST 25 mg metoprolol (LOPRESSOR) injection 5 mg 5 mg, Intravenous, EVERY 6 HOURS, First dose on Wed07/30/20 at 2100, Until Discontinued, Hold for SBP <90 or HR <60 Given 08/01/2020 9:01 AM EST 5 mg Given 08/01/2020 3:34 AM EST 5 mg Given 07/31/2020 9:11 PM EST 5 mg ondansetron (pf) (Zofran) (2 mg/mL) injection 4 mg 4 mg, Intravenous, EVERY 8 HOURS SCHEDULED, First dose on Wed07/30/20 at 2200, Until Discontinued, For nausea please use ondansetron as the first choice; prochlorperazine as a second choice; promethazine as a third choice. Call provider if not effective. Given 08/01/2020 1:59 PM EST 4 mg Given 08/01/2020 5:22 AM EST 4 mg Given 07/31/2020 9:11 PM EST 4 mg ondansetron (pf) (Zofran) (2 mg/mL) injection 4 mg 4 mg, Intravenous, EVERY 8 HOURS PRN, Starting on Wed07/30/20 at 1741, Until Wed07/31/20 at 1306, Nausea, May repeat 4 mg once in 30 minutes. If multiple antiemetics ordered, use ondansetron first and if ineffective use prochlorperazine second and if ineffective use promethazine, PACU Recovery Given 07/31/2020 2:56 AM EST 4 mg oxyCODONE (Roxicodone) (1 mg/mL) oral liquid 5-10 mg 5-10 mg, Oral, EVERY 4 HOURS PRN, Starting on Wed07/31/20 at 0939, Until Latha 08/01/20 at 1714, Pain, for pain 1-5 give 5mg; for pain 6-10 give 10mg, Routine Given 08/01/2020 10:37 AM EST 5 mg pantoprazole (Protonix) injection 40 mg 40 mg, Intravenous, DAILY, First dose on Wed07/30/20 at 1800, Until Discontinued, Reconstitute with 10 mL of normal saline to a concentration of 4 mg/mL and infuse slowly over 2 minutes. , Routine Given 08/01/2020 9:01 AM EST 40 mg Given 07/31/2020 8:45 AM EST 40 mg Given 07/30/2020 7:00 PM EST 40 mg potassium phosphate 15 mMol in sodium chloride 0.9% 250 mL 15 mmol, Intravenous, ONCE, 1 dose, On Wed08/01/20 at 1115, Administer over 4 Hours, Administer over 4-6 hours New Bag 08/01/2020 11:09 AM EST 15 mmol potassium, sodium phosphates (Neutra-Phos) 280-160-250 mg oral packet 3 g 3 g, Oral, ONCE, 1 dose, On Wed08/01/20 at 1115, Take with full glass of water, Routine Given 08/01/2020 10:37 AM EST 3 g prochlorperazine (Compazine) (5 mg/mL) injection 10 mg 10 mg, Intravenous, EVERY 6 HOURS PRN, Starting on Wed07/30/20 at 1740, Until Wed08/01/20 at 1714, Nausea, Vomiting, For nausea please use ondansetron as the first choice; prochlorperazine as a second choice; promethazine as a third choice. Call provider if not effective., Routine Given 07/31/2020 10:22 AM EST 10 mg scopolamine (TRANSDERM-SCOP) 1 mg over 3 days patch 1 patch 1 patch, Transdermal, EVERY 72 HOURS, First dose on Wed07/30/20 at 1000, Until Discontinued, Routine Patch Applied 07/30/2020 9:59 AM EST 1 patch 01- Ear Behind (Left) scopolamine (TRANSDERM-SCOP) 1.5 mg patch Patch Removal Transdermal, EVERY 72 HOURS, First dose on Wed07/30/20 at 1000, Until Discontinued, Remove scopolamine 1.5 mg patch scopolamine (TRANSDERM-SCOP) 1.5 mg patch Patch Verification Transdermal, 2 TIMES DAILY, First dose on Wed07/30/20 at 2145, Until Discontinued, Verify scopolamine 1.5 mg patch. sodium chloride 0.9 % (flush) flush 5 mL 5 mL, Intravenous, 2 TIMES DAILY, First dose on Wed07/30/20 at 2100, Until Discontinued, Recovery (Recovery-Hospital Unit), Routine Given 08/01/2020 9:10 AM EST 5 mLs Given 07/31/2020 9:14 PM EST 5 mLs Given 07/31/2020 8:48 AM EST 5 mLs sodium chloride 0.9 % (flush) flush 5-20 mL 5-20 mL, Intravenous, EVERY 1 MIN PRN, Starting on Wed07/30/20 at 1740, Until Latha 08/01/20 at 1714, flush, Flush pertains to all indwelling lines. Flush per protocol found in the job aid using the link provided on this medication record., Recovery (Recovery-Hospital Unit), Routine Given 08/01/2020 5:22 AM EST 10 mLs Given 08/01/2020 3:34 AM EST 10 mLs documented in this encounter Active and Recently Administered Medications Times are shown in EST. Scheduled Medication Order 07/30/2020 07/31/2020 08/01/2020 acetaminophen (Ofirmev) (1000 mg/100 mL) infusion 1,000 mg (COMPLETED) 1,000 mg, Intravenous, at 400 mL/hr, Administer over 15 Minutes, EVERY 8 HOURS SCHEDULED, 3 doses, First dose on Wed07/30/20 at 1500, Last dose on Wed07/31/20 at 0600, Maximum dose of acetaminophen is 4000 mg from all sources in 24 hours. When ordered for pain, acetaminophen should be given even when other ordered pain medications are indicated. , Routine, Is ketorolac (Toradol) IV contraindicated? Yes, Can this patient tolerate oral medications or suppositories? No 1548 (Given - Provider: Merna Vazquez RN)2106 (Given - Provider: Dior Holly RN) 0518 (Given - Provider: Sylvester Brown RN) aspirin chewable tablet 81 mg 81 mg, Oral, DAILY, First dose on Wed07/31/20 at 0900, Until Discontinued, Routine 0845 (Given - Provider: Lorraine Wasserman RN) 0901 (Given - Provider: Marsha Gonzalez, BRITTANI) atorvastatin (Lipitor) tablet 10 mg 10 mg, Oral, EVERY EVENING, First dose on Wed07/31/20 at 1700, Until Discontinued 1756 (Given - Provider: Lynne Sanchez, BRITTANI) ceFAZolin (Ancef) 2 g in dextrose 5% 100 mL infusion (COMPLETED) 2 g, Intravenous, EVERY 3 HOURS, 1 dose, First dose on Wed07/30/20 at 0845, Administer over 30 Minutes, Intra-Operative (Intra-Procedure), Indication for (Active or Suspected): Prophylaxis 1045 (Given - Provider: Terrell Cardona) celecoxib (CeleBREX) capsule 200 mg 200 mg, Oral, 2 TIMES DAILY, First dose on Wed07/31/20 at 0900, Until Discontinued, Administer starting post-op day one. Open capsule and administer all at once., Routine 08 (Given - Provider: Lorraine Wasserman RN)2110 (Given - Provider: Keyla Damico, BRITTANI) 900 (Given - Provider: Marsha Gonzalez RN) enoxaparin (Lovenox) (40 mg/0.4 mL) subcutaneous injection 40 mg (COMPLETED) 40 mg, Subcutaneous, ONCE, 1 dose, On Wed07/30/20 at 0845, Day of Surgery (Day of Procedure), Routine 850 (Given - Provider: Jenelle Martin RN) enoxaparin (Lovenox) (40 mg/0.4 mL) subcutaneous injection 40 mg 40 mg, Subcutaneous, EVERY 12 HOURS SCHEDULED (2 times per day), First dose on Wed07/30/20 at 2100, Until Discontinued, Routine 2109 (Given - Provider: Dior Holly RN) 08 (Given - Provider: Lorraine Wasserman RN)2111 (Given - Provider: Keyla Damico RN) 09 (Given - Provider: Marsha Gonzalez RN) losartan (Cozaar) tablet 25 mg 25 mg, Oral, DAILY, First dose on Wed07/31/20 at 0900, Until Discontinued, Hold for SBP <100, Routine 08 (Not Given - Provider: Lorraine Wasserman RN - Reason: Order parameters not met) 900 (Given - Provider: Marsha Gonzalez RN) metoprolol (LOPRESSOR) injection 5 mg (CANCELED) 5 mg, Intravenous, EVERY 6 HOURS, First dose on Wed07/30/20 at 2100, Until Discontinued, Hold for SBP <90 or HR <60 2110 (Given - Provider: Dior Holly RN) 0249 (Given - Provider: Sylvester Brown RN)0841 (Not Given - Provider: Lorraine Wasserman RN - Reason: Order parameters not met)143 (Given - Provider: Lynne Sanchez RN)2110 (Given - Provider: Keyla Damico, BRITTANI) 0334 (Given - Provider: Keyla Damico, BRITTANI)0901 (Given - Provider: Marsha Gonzalez, BRITTANI) ondansetron (pf) (Zofran) (2 mg/mL) injection 4 mg 4 mg, Intravenous, EVERY 8 HOURS SCHEDULED, First dose on Wed07/30/20 at 2200, Until Discontinued, For nausea please use ondansetron as the first choice; prochlorperazine as a second choice; promethazine as a third choice. Call provider if not effective. 2106 (Given - Provider: Dior Holly RN) 0518 (Given - Provider: Sylvester Brown RN)143 (Given - Provider: Lynne Sanchez RN)2110 (Given - Provider: Keyla Damico, BRITTANI) 0522 (Given - Provider: Keyla Damico, BRITTANI)1359 (Given - Provider: Marsha Gonzalez RN) pantoprazole (Protonix) injection 40 mg 40 mg, Intravenous, DAILY, First dose on Wed07/30/20 at 1800, Until Discontinued, Reconstitute with 10 mL of normal saline to a concentration of 4 mg/mL and infuse slowly over 2 minutes. , Routine 1900 (Given - Provider: Merna Vazquez RN) 0845 (Given - Provider: Lorraine Wasserman, BRITTANI) 0901 (Given - Provider: Marsha Gonzalez, BRITTANI) potassium phosphate 15 mMol in sodium chloride 0.9% 250 mL (COMPLETED) 15 mmol, Intravenous, ONCE, 1 dose, On Wed08/01/20 at 1115, Administer over 4 Hours, Administer over 4-6 hours 1109 (New Bag - Provider: Marsha Gonzalez, BRITTANI)1509 (Stopped - Provider: Marsha Gonzalez RN) potassium, sodium phosphates (Neutra-Phos) 280-160-250 mg oral packet 3 g (COMPLETED) 3 g, Oral, ONCE, 1 dose, On Wed08/01/20 at 1115, Take with full glass of water, Routine 1037 (Given - Provider: Marsha Gonzalez, BRITTANI) scopolamine (TRANSDERM-SCOP) 1 mg over 3 days patch 1 patch(Linked Group 1) 1 patch, Transdermal, EVERY 72 HOURS, First dose on Wed07/30/20 at 1000, Until Discontinued, Routine 0959 (Patch Applied - Provider: Veronica Sanchez RN) scopolamine (TRANSDERM-SCOP) 1.5 mg patch Patch Removal(Linked Group 1) Transdermal, EVERY 72 HOURS, First dose on Wed07/30/20 at 1000, Until Discontinued, Remove scopolamine 1.5 mg patch 1000 (Due) scopolamine (TRANSDERM-SCOP) 1.5 mg patch Patch Verification(Linked Group 1) Transdermal, 2 TIMES DAILY, First dose on Wed07/30/20 at 2145, Until Discontinued, Verify scopolamine 1.5 mg patch. 2145 (Patch (dose and location) verified - Provider: Dior Holly RN) 0841 (Patch (dose and location) verified - Provider: Lorraine Wasserman, BRITTANI)2100 (Patch (dose and location) verified - Provider: Keyla Damico RN) 0900 (Patch (dose and location) verified - Provider: Marsha Gonzalez, BRITTANI) sodium chloride 0.9 % (flush) flush 5 mL 5 mL, Intravenous, 2 TIMES DAILY, First dose on Wed07/30/20 at 2100, Until Discontinued, Recovery (Recovery-Hospital Unit), Routine 2111 (Given - Provider: Dior Holly RN) 0848 (Given - Provider: Lorraine Wasserman, BRITTANI)2114 (Given - Provider: Keyla Damico, BRITTANI) 0910 (Given - Provider: Marsha Gonzalez, BRITTANI) Continuous Medication Order 07/30/2020 07/31/2020 08/01/2020 lactated ringers infusion (CANCELED) 1,000 mL, at 100 mL/hr, Intravenous, CONTINUOUS, Starting on Wed07/30/20 at 0845, Until Wed07/30/20 at 1740, Day of Surgery (Day of Procedure) 0849 (New Bag - Provider: Jenelle Martin, BRITTANI)1031 (Paused - Provider: Terrell Cardona - Comment: Switch to gravity)1032 (Restarted - Provider: Terrell Cardona)1144 (Anesthesia Volume Adjustment - Provider: Terrell Cardona)1321 (Anesthesia Volume Adjustment - Provider: Terrell Cardona)1344 (Anesthesia Volume Adjustment - Provider: Terrell Cardona) lactated ringers infusion (CANCELED) 1,000 mL, at 125 mL/hr, Intravenous, CONTINUOUS, Starting on Wed07/30/20 at 1500, Until Latha 08/01/20 at 0618 1433 (New Bag - Provider: Merna Vazquez, BRITTANI)2245 (New Bag - Provider: Dior Holly, RN) 0521 (New Bag - Provider: Sylvester Brown, BRITTANI)1301 (New Bag - Provider: Lorraine Wasserman, BRITTANI) 0506 (New Bag - Provider: Keyla Damico, BRITTANI)0650 (Stopped - Provider: Keyla Damico RN) PRN Medication Order 07/30/2020 07/31/2020 08/01/2020 acetaminophen (Tylenol) (32.02 mg/mL) oral liquid 650 mg 650 mg, Oral, EVERY 4 HOURS PRN, Starting on Wed07/31/20 at 0939, Until Latha 08/01/20 at 1714, Pain, Fever, Routine 2111 (Given - Provider: Keyla Damico RN) 0208 (Given - Provider: Keyla Damico RN) BUpivacaine (pf) (Marcaine) (2.5 mg/mL) 0.25% injection (CANCELED) ONCE PRN, Starting on Wed07/30/20 at 1122, Until Latha 08/01/20 at 1714, Intra-Operative (Intra-Procedure), Routine 1122 (Given - Provider: Carlos Valle MD)1338 (Given - Provider: Rebecca Sharif MD) HYDROmorphone (Dilaudid) (2 mg/mL) injection solution 0.4 mg (CANCELED) 0.4 mg, Intravenous, EVERY 4 HOURS PRN, Starting on Wed07/30/20 at 1741, Until Wed07/31/20 at 0940, Pain, Moderate-Severe pain 4-10, Routine 0249 (Given - Provider: Sylvester Brown RN) HYDROmorphone (Dilaudid) (2 mg/mL) multi-dose injection solution 0.2-0.4 mg (CANCELED) 0.2-0.4 mg, Intravenous, EVERY 5 MIN PRN, Starting on Wed07/30/20 at 1348, Until Wed07/30/20 at 1741, Pain, Give 0.2 mg every 5 minutes PRN for mild to moderate pain (1-5) Give 0.4 mg every 5 minutes PRN for moderate to severe pain (6-10). Hold for respiratory rate less than 10 per minute. Maximum dose 4 mg over one hour. If multiple pain medications are ordered, start with hydromorphone or morphine and use fentanyl for breakthrough pain., PACU Recovery, Routine 1730 (Given - Provider: Merna Vazquez RN) lidocaine (Xylocaine) 1% (10 mg/mL) injection 3 mg 3 mg (0.3 mL), Subcutaneous, ONCE PRN, 1 dose, Starting on Wed07/30/20 at 1740, Until Latha 08/01/20 at 1714, for discomfort with PIV insertion, Recovery (Recovery-Hospital Unit), Routine ondansetron (pf) (Zofran) (2 mg/mL) injection 4 mg (CANCELED) 4 mg, Intravenous, EVERY 8 HOURS PRN, Starting on Wed07/30/20 at 1741, Until Wed07/31/20 at 1306, Nausea, May repeat 4 mg once in 30 minutes. If multiple antiemetics ordered, use ondansetron first and if ineffective use prochlorperazine second and if ineffective use promethazine, PACU Recovery 0256 (Given - Provider: Sylvester Brown RN) oxyCODONE (Roxicodone) (1 mg/mL) oral liquid 5-10 mg 5-10 mg, Oral, EVERY 4 HOURS PRN, Starting on Wed07/31/20 at 0939, Until Latha 08/01/20 at 1714, Pain, for pain 1-5 give 5mg; for pain 6-10 give 10mg, Routine 1037 (Given - Provider: Marsha Gonzalez RN) prochlorperazine (Compazine) (5 mg/mL) injection 10 mg 10 mg, Intravenous, EVERY 6 HOURS PRN, Starting on Wed07/30/20 at 1740, Until Latha 08/01/20 at 1714, Nausea, Vomiting, For nausea please use ondansetron as the first choice; prochlorperazine as a second choice; promethazine as a third choice. Call provider if not effective., Routine 1022 (Given - Provider: Lorraine Wasserman, BRITTANI) promethazine (Phenergan) (25 mg/mL) injection 6.25 mg 6.25 mg, Intravenous, EVERY 4 HOURS PRN, Nausea, Starting on Wed07/30/20 at 1740, Until Latha 08/01/20 at 1714, For nausea please use ondansetron as the first choice; prochlorperazine as a second choice; promethazine as a third choice. Call provider if not effective. sodium chloride 0.9 % (flush) flush 5-20 mL 5-20 mL, Intravenous, EVERY 1 MIN PRN, Starting on Wed07/30/20 at 1740, Until Latha 08/01/20 at 1714, flush, Flush pertains to all indwelling lines. Flush per protocol found in the job aid using the link provided on this medication record., Recovery (Recovery-Hospital Unit), Routine 0334 (Given - Provider: Keyla Damico, BRITTANI)0522 (Given - Provider: Keyla Damico, BRITTANI) Linked Groups Order Group 1: scopolamine (TRANSDERM-SCOP) 1 mg over 3 days patch 1 patchJump to med 1 patch, Transdermal, EVERY 72 HOURS, First dose on Wed07/30/20 at 1000, Until Discontinued, Routine And scopolamine (TRANSDERM-SCOP) 1.5 mg patch Patch VerificationJump to med Transdermal, 2 TIMES DAILY, First dose on Wed07/30/20 at 2145, Until Discontinued, Verify scopolamine 1.5 mg patch. And scopolamine (TRANSDERM-SCOP) 1.5 mg patch Patch RemovalJump to med Transdermal, EVERY 72 HOURS, First dose on Wed07/30/20 at 1000, Until Discontinued, Remove scopolamine 1.5 mg patch documented in this encounter Care Teams Network Pricing Consultant Relationship Specialty Start Date End Date Mona Honeycutt, ALARM SECURITY OR SURVEILLANCE MONITOR PCP - General Family Medicine 01/25/20 08/29/23 documented as of this encounter
--- OUTSIDE RECORDS SUMMARY | 2024-04-14 12:27 | XMS_ITS | Clinical Summary ---
Author Organization [facility] Address [address] [place] [address] Care Team Providers Care Child Care Assistant Name Role Phone Pcp, No Unavailable Unavailable [...] of Treatment Not on file Care Teams Child Care Assistant Relationship Specialty Start Date End Date Pcp, No PCP - Generic [facility] PCP 12/02/19
--- OUTSIDE RECORDS SUMMARY | 2024-04-14 12:27 | XMS_ITS | Encounter Summary ---
Author [facility] [place] [address] Care Team Providers Care Imcu Specialist Name Role Phone Yinka Mona Horton APRN Primary Care Provider [phone] Reason for Visit * Auth/Cert Specialty Diagnoses / Procedures Referred By Alex t Referred To Contact Diagnoses MORBID OBESITY Procedures PRO LAP GASTRIC BYPASS/PIA-EN-Y PRO UPPER GI ENDOSCOPY, DIAGNOSTIC @LAPAROSCOPIC GASTROPLASTY W/ PIA-EN-Y CONSTRUCTION (WRVU 29.4) EGD, UPPER GI ENDOSCOPY Referral ID Status Reason Start Date Expiration Date Visits Re quested Visits Authorized [id number] 1 1 Encounter Details Date Type Department Care Team (Late st Contact Info) Description 07/27/2020 10:05 AM EST Public [facility] [place] [address] COVID-19 ruled out Social History Tobacco Use Types Packs/Day Years Used Date Smoking Tobacco: Never Smokeless Tobacco: Never Sex and Gender Information Value Date Recorded Sex Assigned at Not on file Gender Identity Not on file Sexual Orientation Not on file documented as of this encounter Plan of Treatment Not on file documented as of this encounter Procedures Procedure Name Priority Date/Time Associated Diagnosis Comments COVID-19 PCR Routine 07/28/2020 10:15 AM EST COVID-19 ruled out documented in this encounter Results * COVID-19 PCR (07/28/2020 10:15 AM EST) SARS-CoV-2 RNA Not Detected Not Detected [facility] Comment: This result should be interpreted in combination with the clinical observations, patient history and epidemiological information in making a final diagnosis. For testing of asymptomatic individuals, assay performance characteristics and clinical utility have not been evaluated. Testing for SARS-CoV-2 (Severe acute respiratory syndrome coronavirus 2, formerly known as 2019 novel coronavirus or 2019-nCoV) to aid in the diagnosis of COVID-19 is performed using the [employer] m SARS-CoV-2 Assay as authorized by the FDA Emergency Use Authorization (EUA). This EUA assay is intended for In-vitro Diagnostic (IVD) use with respiratory specimens such as nasopharyngeal swabs collected from individuals during the acute phase of infection. This assay is performed based on the instructions for use provided by [employer] and additional guidance provided by CDC and FDA. Testing is performed in the [facility] within the Department of Pathology and Laboratory Medicine at [facility], certified under the Clinical Laboratory Improvement Amendments of 1988 (CLIA), 42 U.S.C. 263a, to perform high complexity tests. Assay performance has been verified according to clinical laboratory regulatory requirements for use with specimens collected from individuals suspected of COVID-19. Test results are provided above. A result of ? Not Detected? indicates that the viral RNA target is not present above the limit of detection, but does not preclude SARS-CoV-2 infection. False negative results may occur if a specimen is improperly collected, transported or handled; if amplification inhibitors are present; or if inadequate numbers of viral particles are present in the specimen. When a diagnostic test is negative, the possibility of a false negative result should be considered in the context of a patient? s recent exposures and the presence of clinical signs and symptoms consistent with COVID-19. A result of ? Detected? indicates that RNA from SARS-CoV-2 was detected and the patient is infected. As required or requested by public health authorities, positive specimens may be sent for additional testing. Positive and negative predictive values for this test are highly dependent on disease prevalence. A result of ? Invalid? indicates that neither the viral RNA targets nor the internal control target was detected. An invalid result suggests the presence of inhibitors. Recollection and re-testing is recommended in the case of an invalid result. CDC COVID-19 criteria for testing on human specimens and clinical management guidance information are available at the CDC Coronavirus Disease 2019 (COVID-19) webpage under ? Information for Healthcare Professionals? (https://www.cdc.gov/coronavirus/2019-ncov/hcp/index.html) Additional information about this and other EUA tests can be found in provider and patient fact sheets at the following FDA website: https://www.fda.gov/medical-devices/olkzyodcnlz-hxxabkq-0345-uwsgi-25-ogyjpjjze- use-a qlkrozbbxegdz-rzwjxjk-igvfwbe/rmkbj-bgnpzbagzyw-fuql SARS-CoV-2 RNA Source HEAD OF QUALITY Swab [facility] Nasopharyngeal swab (specimen) 07/28/2020 10:15 AM EST 07/28/2020 10:15 AM EST Comment:Symptoms->Asymptomat ic Narrative Resulting Agency Comment Spec In Lab Carlos Chavez MD MOLECULAR ORDERABLES [facility] [place] [address] documented in this encounter Visit Diagnoses Diagnosis COVID-19 ruled out documented in this encounter Care Teams Imcu Specialist Relationship Specialty Start Date End Date Mona Honeycutt APRN PCP - General Family Medicine 01/25/20 08/29/23 documented as of this encounter
--- OUTSIDE RECORDS SUMMARY | 2024-04-14 12:27 | XMS_ITS | Encounter Summary ---
Author Organization [facility] [place] [address] Care Team Providers Care Sales Associate Name Role Phone Mona Honeycutt APRN Primary Care Provider [phone] Reason for Visit * Auth/Cert Specialty Diagnoses / Procedures Referred By Alex t Referred To Contact Diagnoses MORBID OBESITY Procedures PRO LAP GASTRIC BYPASS/PIA-EN-Y PRO UPPER GI ENDOSCOPY, DIAGNOSTIC @LAPAROSCOPIC GASTROPLASTY W/ PIA-EN-Y CONSTRUCTION (WRVU 29.4) EGD, UPPER GI ENDOSCOPY Referral ID Status Reason Start Date Expiration Date Visits Re quested Visits Authorized [id number] 1 1 Encounter Details Date Type Department Care Team (Late st Contact Info) Description 07/30/2020 9:58 AM EST - 07/30/2020 1:56 PM EST Surgery [place] [address] Carlos Valle MD [facility] [place] [address] @LAPAROSCOPIC GASTROPLASTY W/ PIA-EN-Y CONSTRUCTION (WRVU 29.4) Social History Tobacco Use Types Packs/Day Years Used Date Smoking Tobacco: Never Smokeless Tobacco: Never Sex and Gender Information Value Date Recorded Sex Assigned at Not on file Gender Identity Not on file Sexual Orientation Not on file documented as of this encounter Last Filed Vital Signs Vital Sign Reading Time Taken Comments Blood Pressure 137/78 07/30/2020 8:22 AM EST Pulse 82 07/30/2020 8:22 AM EST Temperature 37.4 ??C (99.3 ??F) 07/30/2020 8:22 AM ES T Respiratory Rate 16 07/30/2020 8:22 AM EST Oxygen Saturation 100% 07/30/2020 8:22 AM EST Inhaled Oxygen Concentration - - [...] MD Primary Diagnosis: Morbid Obesity Secondary Diagnosis: GAMAL; Type 2 DM; Hypophosphatemia Operations and Procedures: [...] Pertinent Lab Data: Recent Labs 02/25/21 0846 02/24/21 0245 WBC 7.1 9.8* HGB 13.9 13.8 HCT 43.3 42.6 PLATELET 227 273 Recent Labs 02/25/21 0846 02/24/21 0245 NA 139 138 K 3.7 3.7 [...] tablet by mouth daily. Generic drug: PNV,calcium 47-vazy-hfllz acid 1 tablet Refills: 0 traZODone 50 [...] RD; Karlie Villanueva APRN General Surgery at [facility] Arrive at: Director Of Vendor Management Area [phone] 11/18/2020 10:[address]; Karlie Villanueva APRN General Surgery at [facility] Arrive at: Director Of Vendor Management Area [phone] Instructions Given to Patient at Discharge: BARIATRIC SURGERY DISCHARGE INFORMATION BARIATRIC SUPPORT TEAM CONTACT NUMBERS (Mon-Fri 8am - 5pm): General Surgery and Bariatric Surgery [phone] Bariatric Surgeons: Doctors. Banegas [phone] Braille Typist: [phone] Dietitians: [phone] Outside of regular business hours, including weekends and holidays: Ask for General Surgery resident occupational medicine physician [phone] Please note, this call will be answered [...] weeks at the General Surgery Outpatient Clinic (Director Of Vendor Management [address] [place] [address]). Future Appointments Date Time Provider Department Center 08/19/2020 12:30 PM Karlie Villanueva APRN [facility] SURG [facility] 11/18/2020 10:30 AM Karlie Villanueva APRN [facility] SURG [facility] BATHING AND WOUND CARE: ?? You may [...] for assistance to pay for this with [employer]. Go to www.[employer] and put in the prescription and the [...] Follow up with primary care provider or hospital cleaning specialist in 1-2 weeks in order to [...] IZAGUIRRE 08/01/2020 Primary Care Physician: Mona Honeycutt, POWER TRANSFORMER REPAIR SUPERVISOR [address] [facility] [id number] documented in this encounter Discharge Instructions * Discharge Instructions* Emily Jurado PA - 08/01/2020 1:15 PM EST Instructions Given to Patient at Discharge: ?? BARIATRIC SURGERY DISCHARGE INFORMATION ? BARIATRIC SUPPORT TEAM CONTACT NUMBERS (Mon-Fri 8am - 5pm): ?? General Surgery and Bariatric Surgery [phone] ?? Bariatric Surgeons: Doctors. Banegas [phone] Braille Typist: [phone] Dietitians: [phone] ?? Outside of regular business hours, including weekends and holidays: Ask for General Surgery resident occupational medicine physician [phone] Please note, this call will be answered [...] weeks at the General Surgery Outpatient Clinic (Director Of Vendor Management 4L, [facility]). ?? Future Appointments Date Time Provider Department Center 08/19/2020 12:30 PM Karlie Villanueva APRN [facility] SURG [facility] 11/18/2020 10:30 AM Karlie Villanueva APRN [facility] SURG [facility] ? BATHING AND WOUND CARE: ?? You [...] for assistance to pay for this with [employer]. Go to www.[employer] and put in the prescription and the [...] Follow up with primary care provider or hospital cleaning specialist in 1-2 weeks in order to [...] with pt, verbalizes understanding. Pt taken to [facility] Pharmacy to bulk picker pain medication and anti-emetic. Pt denies [...] 3.2 Microbiology: None New Studies: None ASSESSMENT: Helene Carpenter is a 35 y.o. female [...] small amount, PVR >900, straight cath completed. Lap sites CDI. 2345: Report given to BRITTANI [...] She has attended a Introduction to the [facility] Bariatric Surgery Program seminar, a comprehensive two hour meeting that provides a program overview, education on bariatric surgeries offered at [facility], risks and benefits, as well as patient expectations and follow up. [facility] Bariatric Surgery Program Educational seminars viewed 2. Pre-operative programmatic evaluations: PCP evaluation and letter of support to proceed with surgery, BSP labwork, and psychological evaluation. 3. Bariatric Surgery Program evaluations with RD today. 4. Program start weight: 290 WT at visit #1: Wt & BMI By Encounter Date Office Visit from 06/20/2020 in General Surgery at [facility] Weight 124.3 kg (274 lb) 1 06/20/2020 [...] file Gets together: Not on file Attends sikhism service: Not on file Active member of [...] data 2. Final psychological evaluation done by BETTIE AbbasiW, MOLDING LINE OPERATOR on 05/27/2020: no contraindication to bariatric surgery [...] ? hematuria ? history of renal calculi WELLNESS PROGRAM MANAGER: ? LMP: ? menorrhagia ? menopause Musculoskeletal [...] of treatment of obesity and of the [facility] Bariatric Surgery Program: Ms.. Carpenter is aware that other treatments for obesity are available, ie, dietary, behavior modification, weight loss medications, exercise as well as surgical weight loss methods. 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 Lives w her boyfriend. 3 cats and 5 fish. ?? Social support: boyfriend ?? Hobbies: likes to go to hotels and swim, water garcia. Watching wrestling WWE and Netflix -Super Natural ?? [address] [facility] [phone] Supports: family, boyfriend Assessment: Patient with no apparent RNCM/SW needs at this time. No housing, transportation, insurance, resources concerns identified at this time. Supports in place to achieve a safe post-hospital transition. No identified barriers to accessing necessary care and/or follow-up after discharge. Plan: Patient to d/c to home via family/boyfriend when medically ready. senior consulting manager/Sales And Service Officer will continue to follow patient???s progress and remain available if situation changes for coordination of care, psychosocial support and/or discharge planning. Office of Care Management Clarisse Skinner RN CM Pager [phone] * Plan of Care - Keyla Damico RN - 08/01/2020 2:43 AM EST * Consult Note - Kojo Hawkins RRT - 07/30/2020 6:23 PM EST Pt seen post op in PACU. Home NIV is with patient at bedside and will be set up on patient tonight upon request. * Op Note - Carlos Valle MD - 07/30/2020 11:08 AM EST [facility] Operative Note Patient Name: Helene Carpenter : [id number] MR#: [id number] Case Date: 07/30/2020 Surgeon: Surgeon(s) and Role: [...] position. The abdomen was entered using the optiview trocar system. The 10-mm port was placed [...] distal bowel was chosen to create the ahig-qt-ipip jejunojejunostomy. The duodenal, afferent limb was approximated [...] suture in two layers with a 30 Australian Bougie (blunt-tipped) in place. The Bougie was [...] 2:45 PM EST Upper GI Endoscopy, Diagnostic (34651) 07/30/2020 10:35 AM EST MORBID OBESITY Lap Gastric Bypass/Pia-En-Y (60971) 07/30/2020 10:35 AM EST MORBID OBESITY POCT GLUCOSE Routine 07/30/2020 8:21 AM EST documented in this encounter Results * Differential, Automated (08/01/2020 8:46 AM EST) Neutrophil % 61.1 % [facility] Neutrophil Absolute 4.33 1.70 - 6.10 x10(3)/[facility] Lymph % 27.1 % [facility] Lymphocytes Abs 1.9 0.9 - 3.2 x10(3)/[facility] Monocyte % 8.3 % [facility] Monocyte Abs 0.6 0.3 - 0.9 x10(3)/[facility] Eos % 2.8 % [facility] Eosinophils Abs 0.2 0.0 - 0.4 x10(3)/[facility] Basophil % 0.6 % [facility] Baso Absolute 0.0 0.0 - 0.1 x10(3)/[facility] Immature Gran % 0.10 % [facility] Comment: Immature granulocytes(IG's)percentage and absolute count will include metamyelocytes, myelocytes, and promyelocytes. Blood smears from CBCs yielding IG's will be scanned manually for concordance. If this scan disagrees with the automated IG or if promyelocytes are noted, a manual differential will be performed. Immature Gran Absolute 0.01 0.00 - 0.04 x10(3)/[facility] Blood specimen (specimen) 08/01/2020 8:46 AM EST 08/01/2020 9:03 AM EST Narrative Resulting Agency Comment Spec In Lab Emily BRUMFIELD HEMATOLOGY ORDERABLE S [facility] [place] [address] * (ABNORMAL) Hemogram (08/01/2020 8:46 AM EST) White Blood Cell 7.1 4.0 - 9.5 x10(3)/ L [facility] Red Blood Cell 5.38(H) 4.00 - 5.21 x10(6)/ L [facility] Hemoglobin 13.9 11.7 - 15.5 gm/dL [facility] Hematocrit 43.3 35.7 - 45.8 % [facility] Mean Cell Volume 80.5(L) 82.6 - 94.4 fL [facility] Mean Cell Hemoglobin 25.8(L) 27.1 - 32.0 pg [facility] Mean Cell Hemoglobin Concentration 32.1 31.7 - 35.0 gm/dL [facility] Platelet 227 145 - 357 x10(3)/mc L [facility] RDW Standard Deviation 46.4(H) 37.0 - 46.0 fL [facility] RDW coefficient of variation 16.1(H) 11.5 - 14.1 % [facility] Mean Platelet Volume 11.4 7.6 - 12.9 fL [facility] NRBC% auto 0.0 % [facility] NRBC Absolute 0.000 0.000 - 0.000 x10(3)/mc L [facility] Blood specimen (specimen) 08/01/2020 8:46 AM EST 08/01/2020 9:03 AM EST Narrative Resulting Agency Comment Spec In Lab Emily BRUMFIELD HEMATOLOGY ORDERABLE S Performing Organization Address City/[facility]/ZIP Co de Phone Number [facility] [place] [address] * (ABNORMAL) Phosphorus (08/01/2020 8:46 AM EST) Phosphorus 1.2(Critic al) 2.5 - 4.5 mg/dL [facility] Comment: Results rechecked Called by: WILLIAM, Read back by: dorota Gonzalez, Date/Time:08/01/20 10:24. Blood specimen (specimen) 08/01/2020 8:46 AM EST 08/01/2020 9:03 AM EST Narrative Resulting Agency Comment Spec In Lab Carlos Valle MD CHEMISTRY ORDERABLES [facility] [place] [address] * Magnesium (08/01/2020 8:46 AM EST) Magnesium 0.82 0.69 - 1.07 mmol/L [facility] Blood specimen (specimen) 08/01/2020 8:46 AM EST 08/01/2020 9:03 AM EST Narrative Resulting Agency Comment Spec In Lab Carlos Valle MD CHEMISTRY ORDERABLES Performing Organization Address City/[facility] Co de Phone Number [facility] [place] [address] * (ABNORMAL) Basic Metabolic Panel (non-fasting) (08/01/2020 8:46 AM EST) Pathologist [facility] Glucose 119 65 - 199 mg/dL [facility] Comment:Diabetes: >=200 mg/d L plus symptoms Blood Urea Nitrogen 5(L) 8 - 18 mg/dL [facility] Creatinine 0.66(L) 0.70 - 1.20 mg/dL [facility] Sodium 139 135 - 145 mmol/L [facility] Potassium 3.7 3.5 - 5.0 mmol/L [facility] Comment: Please note: ??Patients with WBC >100,000 may have falsely elevated Potassium levels. ??For accurate Potassium quantification in these patients send serum separator tube (gold top) for subsequent determinations. ??Contact the Clinical Chemistry Laboratory if there are any questions. Chloride 112(H) 98 - 107 mmol/L [facility] Carbon Dioxide 11(L) 22 - 31 mmol/L [facility] Anion Gap 16(H) 5 - 15 mmol/L [facility] Calcium 8.5 8.5 - 10.5 mg/dL [facility] Est Glomerular Filtration Rate 116 >=60 mL/min/1. 73 m?? [facility] Comment: This patient? s [...] In Lab Carlos Valle MD CHEMISTRY ORDERABLES [facility] [place] [address] * (ABNORMAL) Differential, Automated (07/31/2020 2:45 AM EST) Neutrophil % 69.4 % [facility] Neutrophil Absolute 6.79(H) 1.70 - 6.10 x10(3)/mc L [facility] Lymph % 19.4 % [facility] Lymphocytes Abs 1.9 0.9 - 3.2 x10(3)/mc L [facility] Monocyte % 7.1 % [facility] Monocyte Abs 0.7 0.3 - 0.9 x10(3)/mc L [facility] Eos % 3.5 % [facility] Eosinophils Abs 0.3 0.0 - 0.4 x10(3)/mc L [facility] Basophil % 0.4 % [facility] Baso Absolute 0.0 0.0 - 0.1 x10(3)/mc L [facility] Immature Gran % 0.20 % [facility] Comment: Immature granulocytes(IG's)percentage and absolute count will include metamyelocytes, myelocytes, and promyelocytes. Blood smears from CBCs yielding IG's will be scanned manually for concordance. If this scan disagrees with the automated IG or if promyelocytes are noted, a manual differential will be performed. Immature Gran Absolute 0.02 0.00 - 0.04 x10(3)/ L [facility] Blood specimen (specimen) 07/31/2020 2:45 AM EST 07/31/2020 2:51 AM EST Narrative Resulting Agency Comment Spec In Lab Rebecca Sharif MD HEMATOLOGY ORDERABLE S [facility] [place] [address] * (ABNORMAL) Hemogram (07/31/2020 2:45 AM EST) White Blood Cell 9.8(H) 4.0 - 9.5 x10(3)/[facility] Red Blood Cell 5.28(H) 4.00 - 5.21 x10(6)/[facility] Hemoglobin 13.8 11.7 - 15.5 gm/dL [facility] Hematocrit 42.6 35.7 - 45.8 % [facility] Mean Cell Volume 80.7(L) 82.6 - 94.4 [facility] Mean Cell Hemoglobin 26.1(L) 27.1 - 32.0 pg [facility] Mean Cell Hemoglobin Concentration 32.4 31.7 - 35.0 gm/dL [facility] Platelet 273 145 - 357 x10(3)/[facility] RDW Standard Deviation 44.9 37.0 - 46.0 [facility] RDW coefficient of variation 15.5(H) 11.5 - 14.1 % [facility] Mean Platelet Volume 11.2 7.6 - 12.9 [facility] NRBC% auto 0.0 % [facility] NRBC Absolute 0.000 0.000 - 0.000 x10(3)/mc L [facility] Blood specimen (specimen) 07/31/2020 2:45 AM EST 07/31/2020 2:51 AM EST Narrative Resulting Agency Comment Spec In Lab Rebecca Sharif MD HEMATOLOGY ORDERABLE S Performing Organization Address [facility] de Phone Number [facility] [place] [address] * Phosphorus (07/31/2020 2:45 AM EST) Phosphorus 3.2 2.5 - 4.5 mg/dL [facility] Blood specimen (specimen) 07/31/2020 2:45 AM EST 07/31/2020 2:51 AM EST Narrative Resulting Agency Comment Spec In Lab Rebecca Sharif MD CHEMISTRY ORDERABLES Performing Organization Address [facility] Phone Number [facility] [place] [address] * Magnesium (07/31/2020 2:45 AM EST) Magnesium 0.77 0.69 - 1.07 mmol/L [facility] Blood specimen (specimen) 07/31/2020 2:45 AM EST 07/31/2020 2:51 AM EST Narrative Resulting Agency Comment Spec In Lab Rebecca Sharif MD CHEMISTRY ORDERABLES Performing Organization Address [facility] de Phone Number [facility] [place] [address] * (ABNORMAL) Basic Metabolic Panel (non-fasting) (07/31/2020 2:45 AM EST) Glucose 115 65 - 199 mg/dL [facility] Comment:Diabetes: >=200 mg/d L plus symptoms Blood Urea Nitrogen 5(L) 8 - 18 mg/dL [facility] Creatinine 0.68(L) 0.70 - 1.20 mg/dL [facility] Sodium 138 135 - 145 mmol/L [facility] Potassium 3.7 3.5 - 5.0 mmol/L [facility] Comment: Please note: ??Patients with WBC >100,000 may have falsely elevated Potassium levels. ??For accurate Potassium quantification in these patients send serum separator tube (gold top) for subsequent determinations. ??Contact the Clinical Chemistry Laboratory if there are any questions. Chloride 110(H) 98 - 107 mmol/L [facility] Carbon Dioxide 9(Critica l) 22 - 31 mmol/L [facility] Comment: Called by: norma, Read back by: sylvester brown, Date/Time:07/31/20 03:30. Result rechecked. Anion Gap 19(H) 5 - 15 mmol/L [facility] Calcium 8.3(L) 8.5 - 10.5 mg/dL [facility] Est Glomerular Filtration Rate 115 >=60 mL/min/1. 73 m?? [facility] Comment: This patient? s [...] In Lab Rebecca Sharif MD CHEMISTRY ORDERABLES [facility] [place] [address] * POCT Glucose (07/30/2020 2:45 PM EST) Glucose, POC 124 65 - 199 mg/dL [facility] Comment: Supplemental ranges: <140 mg/dL before meals <180 mg/dL all other times of the day Blood specimen (specimen) 07/30/2020 2:45 PM EST 07/30/2020 2:45 PM EST Carlos Valle MD POINT OF CARE TEST O KARIN Performing Organization Address [facility] Co de Phone Number [facility] [place] [address] * POCT Glucose (07/30/2020 8:21 AM EST) Glucose, POC 118 65 - 199 mg/dL [facility] Comment: Supplemental ranges: <140 mg/dL before meals <180 mg/dL all other times of the day Blood specimen (specimen) 07/30/2020 8:21 AM EST 07/30/2020 8:21 AM EST Carlos Valle MD POINT OF CARE TEST O KARIN Performing Organization Address [facility] Co de Phone Number [facility] [place] [address] documented in this encounter Visit Diagnoses Not on filedocumented in this encounter Administered Medications Inactive Administered Medications - up to 3 most recent administrations Medication Order MAR Action Action Date Dose Rate Site acetaminophen (Tylenol) (32.02 mg/mL) oral liquid 650 [...] Given 07/31/2020 5:56 PM EST 10 mg BUpivacaine (pf) (Marcaine) (2.5 mg/mL) 0.25% injection ONCE PRN, Starting on Wed07/30/20 at 1122, Until Wed08/01/20 at 1714, Intra-Operative (Intra-Procedure), Routine Given 07/30/2020 1:38 PM EST 7 mLs 19- Surgical Site Given 07/30/2020 11:22 AM EST 23 mLs 1 9- Surgical Site celecoxib (CeleBREX) capsule 200 mg 200 mg, [...] Given 07/31/2020 8:45 AM EST 40 mg losartan (Cozaar) tablet 25 mg 25 mg, Oral, DAILY, First dose on Wed07/31/20 at 0900, Until Discontinued, Hold for SBP <100, Routine Given 08/01/2020 9:01 AM EST 25 mg ondansetron (pf) (Zofran) (2 mg/mL) injection [...] Given 07/31/2020 9:11 PM EST 4 mg oxyCODONE (Roxicodone) (1 mg/mL) oral liquid 5-10 mg 5-10 mg, Oral, EVERY 4 HOURS PRN, Starting on Wed07/31/20 at 0939, Until Wed08/01/20 at 1714, Pain, for pain 1-5 give [...] Given 07/30/2020 7:00 PM EST 40 mg prochlorperazine (Compazine) (5 mg/mL) injection 10 mg [...] patient tolerate oral medications or suppositories? No 4019 (Given - Provider: Merna Vazquez RN)1856 (Given - Provider: Dior Holly RN) 0518 (Given - Provider: Sylvester Brown RN) aspirin chewable tablet 81 mg 81 mg, Oral, DAILY, First dose on Wed07/31/20 at 0900, Until Discontinued, Routine 0845 (Given - Provider: Lorraine Wasserman RN) 0901 (Given - Provider: Marsha Gonzalez RN) atorvastatin (Lipitor) tablet 10 mg 10 mg, Oral, EVERY EVENING, First dose on Wed07/31/20 at 1700, Until Discontinued 1756 (Given - Provider: Lynne Sanchez RN) ceFAZolin (Ancef) 2 g in dextrose 5% [...] Lorraine Wasserman RN)2111 (Given - Provider: Keyla Damico, BRITTANI) 900 (Given - Provider: Marsha Gonzalez, BRITTANI) losartan (Cozaar) tablet 25 mg 25 mg, Oral, DAILY, First dose on Wed07/31/20 at 0900, Until Discontinued, Hold for SBP <100, Routine 841 (Not Given - Provider: Lorraine Wasserman RN - Reason: Order parameters not met) 900 (Given - Provider: Marsha Gonzalez, BRITTANI) metoprolol (LOPRESSOR) injection 5 mg (CANCELED) 5 mg, Intravenous, EVERY 6 HOURS, First dose on Wed07/30/20 at 2100, Until Discontinued, Hold for SBP <90 or HR <60 2110 (Given - Provider: Dior Holly, RN) 0249 (Given - Provider: Sylvester Brown RN)0841 (Not Given - Provider: Lorraine Wasserman, BRITTANI - Reason: Order parameters not met)143 (Given - Provider: Lynne Sanchez RN)2110 (Given - Provider: Keyla Damico, BRITTANI) 0334 (Given - Provider: eKyla Damico, BRITTANI)0901 (Given - Provider: Marsha Gonzalez, [...] Keyla Damico, BRITTANI)1359 (Given - Provider: Marsha Gonzalez, BRITTANI) pantoprazole (Protonix) injection 40 mg 40 mg, [...] 15 mmol, Intravenous, ONCE, 1 dose, On Latha 08/01/20 at 1115, Administer over 4 Hours, Administer over 4-6 hours 1109 (New Bag - Provider: Marsha Gonzalez, BRITTANI)1509 (Stopped - Provider: Marsha Gonzalez, BRITTANI) potassium, sodium phosphates (Neutra-Phos) 280-160-250 mg oral packet 3 g (COMPLETED) 3 g, Oral, ONCE, 1 dose, On Latha 08/01/20 at 1115, Take with full glass of [...] Until Discontinued, Verify scopolamine 1.5 mg patch. 214 (Patch (dose and location) verified - Provider: Dior Holly RN) 0841 (Patch (dose and location) verified - Provider: Lorraine Wasserman, BRITTANI)2100 (Patch (dose and location) verified - Provider: Keyla Damico, BRITTANI) 0900 (Patch (dose and location) verified - Provider: Marsha Gonzalez, BRITTANI) sodium chloride 0.9 % (flush) flush 5 mL 5 mL, Intravenous, 2 TIMES DAILY, First dose on Wed07/30/20 at 2100, Until Discontinued, Recovery (Recovery-Hospital Unit), Routine 2111 (Given - Provider: Dior Holly RN) 0848 (Given - Provider: Lorraine Wasserman, BRITTANI)211 (Given - Provider: Keyla Damico, BRITTANI) 0910 [...] BRITTANI)2245 (New Bag - Provider: Dior Holly, BRITTANI) 0521 (New Bag - Provider: Sylvester Brown RN)1301 (New Bag - Provider: Lorraine Wasserman, BRITTANI) 0506 (New Bag - Provider: Keyla Damico, BRITTANI)0650 (Stopped - Provider: Keyla Damico, RN) PRN Medication Order 07/30/2020 07/31/2020 08/01/2020 acetaminophen (Tylenol) (32.02 mg/mL) oral liquid 650 mg 650 mg, Oral, EVERY 4 HOURS PRN, Starting on Wed07/31/20 at 0939, Until Latha 08/01/20 at 1714, Pain, Fever, Routine 2111 (Given - Provider: Keyla Damico, BRITTANI) 0208 (Given - Provider: Keyla Damico RN) [...] dose, Starting on Wed07/30/20 at 1740, Until Lahta 08/01/20 at 1714, for discomfort with PIV [...] 10mg, Routine 1037 (Given - Provider: Marsha Gonzalez, BRITTANI) prochlorperazine (Compazine) (5 mg/mL) injection 10 mg 10 mg, Intravenous, EVERY 6 HOURS PRN, Starting on Wed07/30/20 at 1740, Until Latha 08/01/20 at 1714, Nausea, Vomiting, For nausea please use ondansetron as the first choice; prochlorperazine as a second choice; promethazine as a third choice. Call provider if not effective., Routine 1022 (Given - Provider: Lorraine Wasserman RN) promethazine (Phenergan) (25 mg/mL) injection 6.25 mg [...] Unit), Routine 0334 (Given - Provider: Keyla Damico RN)0522 (Given - Provider: Keyla Damico RN) Linked Groups Order Group 1: scopolamine (TRANSDERM-SCOP) [...] patch documented in this encounter Care Teams Sales Associate Relationship Specialty Start Date End Date Mona Honeycutt, POWER TRANSFORMER REPAIR SUPERVISOR PCP - General Family Medicine 01/25/20 08/29/23 documented as of this encounter
--- OUTSIDE RECORDS SUMMARY | 2024-04-14 12:27 | XMS_ITS | Encounter Summary ---
Author Organization [facility] [place] [address] Care Team Providers Care Sand Carrier Name Role Phone Yinka Mona Horton APRN Primary Care Provider [phone] Reason for Visit * Auth/Cert Specialty Diagnoses / Procedures Referred By Alex new Referred To Contact Diagnoses MORBID OBESITY Procedures PRO LAP GASTRIC BYPASS/PIA-EN-Y PRO UPPER GI ENDOSCOPY, DIAGNOSTIC @LAPAROSCOPIC GASTROPLASTY W/ PIA-EN-Y CONSTRUCTION (WRVU 29.4) EGD, UPPER GI ENDOSCOPY Referral ID Status Reason Start Date Expiration Date Visits Re quested Visits Authorized [id number] 1 1 Encounter Details Date Type Department Care Team (Late st Contact Info) Description 07/30/2020 10:32 AM EST Anesthesia [place] [address] Ari Vee MD [facility] [address] [place] [address] Anesthesia Record Procedure Summary Procedure Name Responsible Anesthesiologist Anesthesia Start Time Anesthesia Stop Time @LAPAROSCOPIC GASTROPLASTY W/ PIA-EN-Y CONSTRUCTION (WRVU 29.4) (Abdomen) Ari Vee MD 07/30/20 1032 07/30/20 1406 Events Date Time Event Comment 07/30/2020 0915 1032 AN Verify 1032 Start 1036 An Start Data 1041 An Induction 1043 An Intubation 1046 Anesthesia Ready 1046 IV Start 1107 Procedure Start 1116 Break/Relief In I assumed ca re for Break Relief before which we: 1. Identified the patient 2. Identified the responsible provider(s) 3. Reviewed the pertinent medical history 4. Discussed the surgical plan and course 5. Reviewed intra-op anesthesia management and issues during anesthesia 6. Set expectations for the relief (and/or post-procedure) period 7. Allowed opportunity for questions and acknowledgement of understanding ARI VEE MD 1130 Quick Note Temp probe and OGT out per surgeon request 1142 Break/Relief Out 1244 Quick Note [address] aced in the esophagus and advanced without resistance under direct visualization by surgeon. 1310 Quick Note Bougie removed. EGD by surgeon. 1353 Extubation/LMA Out Extubatio n criteria met including SpO2 > 92%, spontaneous Vt > 5 mL/kg, spontaneous RR > 7 bpm, ETCO2 < 50 mmHg, full reversal of muscle relaxation, intact cough/gag reflexes, and following verbal commands. Oropharynx suctioned and patient extubated to 6L of oxygen via facemask without any airway adjuncts. Hemodynamically stable and spontaneous ventilation maintained. 1358 an stop data 1401 Recovery or ICU Handoff Lilly ent care was transferred to the destination unit staff after review of the patient's medical history, current anesthetic/surgical status and plan, according to the Provider Handoff Checklist. 1406 Stop Meds Name Total Midazolam 2 mg fentaNYL 100 mcg IV Lidocaine 60 mg Propofol 250 mg Rocuronium 50 mg PHENYLephrine 160 mcg Ondansetron 8 mg Neostigmine 5 mg Glycopyrrolate 0.8 mg Succinylcholine 140 mg ceFAZolin (Ancef) 2 g in dextrose 5% 100 mL infusion 3 g Propofol INF 1,093.84 mg Dexmedetomidine 20 mcg diphenhydrAMINE 25 mg HYDROmorphone 1.2 mg lactated ringers infusion 1,000 mL * Agents Name O2 Air N2O Sevoflurane (et) * Blood No blood administrations on file. Lines, Drains, and Airways Type Details Placement Removal (RETIRED) Peripheral IV Line - Single Lumen 07/30/20; 08; metacarpal vein (top of hand), right; 20 gauge, 1 in length; removed per patient, catheter/device intact; 08/01/20; 92907/30/20 0845 by Jenelle Martin RN 08/01/20929 by Johanna Haley RN ETT Mask Ventilation: No t Attempted (0); ETT Type: Cuffed, Oral; ETT Size: 7 mm; Mac Blade: 3; Notes: Asleep, Pre-O2, Cricoid Pressure, Stylette, RSI; Attempts: 1; Laryngoscopy Grade: 1; ETT Placement Verified By: Auscultation, Capnometry, Visual; Secured at Teeth: 20 cm; Inserted by: KAZ Denney; Removal Date: 07/30/20; Removal Time: 1353 07/30/20 1043 by Terrell Cardona CRNA 07/30/20 1353 by Terrell Cardona CRNA (RETIRED) Peripheral IV Line - Single Lumen 07/30/20; 1046; metacarpal vein (top of hand), left; [id number] catheter system; 20 gauge; Olga, MS3; other (see comments) (GA); 03/12/21 (LDA Cleanup utility RA#[id number]); 1650 (LDA Cleanup utility RA#[id number]) 07/30/20 1046 by Terrell Cardona CRNA 03/12/21 1650 by Nahid Cohen/OG Tube 07/30/20; 1051; orogastric; 16 Fr; center mouth; 07/30/20; 1130 07/30/20 1051 by Terrell Cardona OPERATOR MAINTAINER 07/30/20 1130 by Terrell Cardona CRNA Incision 07/30/20; 1108; anterior; abdomen; laparoscopic punctures (specify); 02/02/22 (LDA cleanup utility RA#[id number]); 1715 (LDA cleanup utility RA#[id number]) 07/30/20 1108 by Daisy Jhaveri RN 02/02/22 1715 by Fallon Rosas documented in this encounter Social History Tobacco Use Types Packs/Day Years Used Date Smoking Tobacco: Never Smokeless Tobacco: Never Sex and Gender Information Value Date Recorded Sex Assigned at Not on file Gender Identity Not on file Sexual Orientation Not on file documented as of this encounter OR Notes * Anesthesia Postprocedure Evaluation - Ari Vee MD - 07/30/2020 5:06 PM EST Department of Anesthesiology Post-procedure Note Patient: Helene Carpenter Procedure Summary Date: 07/30/20 Room / Location: [address] MAIN OR Anesthesia Start: 1032 Anesthesia Stop: 1406 Procedures: @LAPAROSCOPIC GASTROPLASTY W/ PIA-EN-Y CONSTRUCTION (WRVU 29.4) (N/A Abdomen) EGD, UPPER GI ENDOSCOPY (N/A Abdomen) Diagnosis: (MORBID OBESITY) Surgeons: Carlos Chavez MD Responsible Provider: Ari Vee MD Anesthesia Type: general ASA Status: 3 All Anesthesia Providers: Anesthesiologist: Ari Vee MD Student Nurse Software Requirements Engineer: Terrell Cardona Vitals Value Taken Time BP 103/62 07/30/20 1700 Temp 36.1 ??C (97 ??F) 07/30/20 1515 Pulse 78 07/30/20 1705 Resp 20 07/30/20 1700 SpO2 97 % 07/30/20 1705 Pain Level Vitals shown include unvalidated device data. Patient Location: PACU/[facility] Level of Consciousness: Conscious but Sleepy Pain Management: Satisfactory Analgesia PONV: None Cardiovascular Status: Hemodynamically Stable Respiratory Status: Stable Respiratory Status and Supplemental O2 (NC or FM) Postoperative Fluid Status: Intravascular EUvolemia Possible Anesthetic Complications: NONE apparent at time of evaluation Final Primary Anesthesia Type: General (The anesthetic type performed was the same as planned.) Comments: * Anesthesia Preprocedure Evaluation - Ari Vee MD - 07/30/2020 8:18 AM EST Pre-Anesthesia Evaluation for: Helene Carpenter a 35 y.o. female. Procedure(s): @LAPAROSCOPIC GASTROPLASTY W/ PIA-EN-Y CONSTRUCTION (WRVU 29.4) EGD, UPPER GI ENDOSCOPY Patient Active Problem List Diagnosis ??? Morbid obesity ??? GAMAL on CPAP ??? Diabetes mellitus No past medical history on file. No past surgical history on file. Social History Tobacco Use ??? Smoking status: Never Smoker ??? Smokeless tobacco: Never Used Substance Use Topics ??? Alcohol use: Not on file Social History Substance and Sexual Activity Drug Use Not on file Allergies Allergen Reactions ??? Ibuprofen ??? Lisinopril Medications: MAR and/or home medications have been reviewed. Physical Exam: No data found. There is no height or weight on file to calculate BMI. Airway Assessment: Mallampati: III TM distance: >3 FB Neck ROM: full Cardiovascular Assessment: Rhythm: regular Rate: normal Pulmonary Assessment: unlabored breathing Dental Assessment: - normal exam Misc Assessment: Patient is wearing No contact(s). IV access: Peripheral line Anesthesia Plan: ASA 3 general, with a(n) intravenous induction Region - Other Informed Consent: Anesthetic plan and risks discussed with patient. Attending NOTE Brief HPI: 35 y.o. with morbid obesity to OR for gastric bypass Diagnosis ??? Morbid obesity ??? GAMAL on CPAP ??? Diabetes mellitus BP Readings from Last 3 Encounters: 06/20/20 135/85 METS:>4 Cardiac Symptoms: denies EKG: none ECHO: none LABS: Lab Results Component Value Date HGB 14.1 06/20/2020 PLATELET 341 06/20/2020 NA 140 06/20/2020 K 4.0 06/20/2020 CREATININE 0.69 (L) 06/20/2020 Type and Screen: No results found for: ABORH Past anesthetic problems: denies Previous airway notes (on eDH): none NPO status: Reviewed and appropriate Anesthetic Plan: GETA Monitoring: Standard ASA monitors [facility] Clinic Note documented in this encounter Plan of Treatment Not on file documented as of this encounter Visit Diagnoses Not on filedocumented in this encounter Administered Medications Inactive Administered Medications - up to 3 most recent administrations Medication Order MAR Action Action Date Dose Rate Site ceFAZolin (Ancef) 2 g in dextrose 5% 100 mL infusion 2 g, Intravenous, EVERY 3 HOURS, 1 dose, First dose on Wed07/30/20 at 0845, Administer over 30 Minutes, Intra-Operative (Intra-Procedure), Indication for (Active or Suspected): Prophylaxis Given 07/30/2020 10:45 AM EST 3 g dexmedetomidine (Precedex) (4 mcg/mL) bolus injection (Anesthsia) Intravenous, PRN, Starting on Wed07/30/20 at 1134, Until Wed07/30/20 at 1411, Anesthesia Intra-op, Routine Given 07/30/2020 11:42 AM EST 8 mcg Given 07/30/2020 11:34 AM EST 12 mcg diphenhydrAMINE (Benadryl) (50 mg/mL) injection Intravenous, PRN, Starting on Wed07/30/20 at 1049, Until Wed07/30/20 at 1411, Anesthesia Intra-op, Routine Given 07/30/2020 10:49 AM EST 25 mg fentaNYL (pf) (50 mcg/mL) multi-dose injection Intravenous, PRN, Starting on Wed07/30/20 at 1107, Until Wed07/30/20 at 1411, Anesthesia Intra-op, Routine Given 07/30/2020 11:07 AM EST 100 mcg glycopyrrolate (Robinul) (0.2 mg/mL) multi-dose injection Intravenous, PRN, Starting on Wed07/30/20 at 1343, Until Wed07/30/20 at 1411, Anesthesia Intra-op, Routine Given 07/30/2020 1:43 PM EST 0.8 mg HYDROmorphone (Dilaudid) (2 mg/mL) multi-dose injection solution Intravenous, PRN, Starting on Wed07/30/20 at 1346, Until Wed07/30/20 at 1411, Anesthesia Intra-op, Routine Given 07/30/2020 2:06 PM EST 0.4 mg Given 07/30/2020 2:02 PM EST 0.4 mg Given 07/30/2020 1:48 PM EST 0.2 mg lactated ringers infusion 1,000 mL, at 100 mL/hr, Intravenous, CONTINUOUS, Starting on Wed07/30/20 at 0845, Until Wed07/30/20 at 1740, Day of Surgery (Day of Procedure) Restarted 07/30/2020 10:32 AM EST New Bag 07/30/2020 8:49 AM EST 1,000 mLs 100 mL/hr lidocaine (pf) (Xylocaine) (20 mg/mL) 2% injection syringe Intravenous, PRN, Starting on Wed07/30/20 at 1040, Until Wed07/30/20 at 1411, Anesthesia Intra-op, Routine Given 07/30/2020 10:40 AM EST 60 mg midazolam (pf) (Versed) (1 mg/mL) multi-dose injection Intravenous, PRN, Starting on Wed07/30/20 at 1032, Until Wed07/30/20 at 1411, Anesthesia Intra-op, Routine Given 07/30/2020 10:32 AM EST 2 mg neostigmine (Bloxiver) (1 mg/mL) injection Intravenous, PRN, Starting on Wed07/30/20 at 1343, Until Wed07/30/20 at 1411, Anesthesia Intra-op, Routine Given 07/30/2020 1:43 PM EST 5 mg ondansetron (pf) (Zofran) (2 mg/mL) injection Intravenous, PRN, Starting on Wed07/30/20 at 1049, Until Wed07/30/20 at 1411, Anesthesia Intra-op, Routine Given 07/30/2020 1:25 PM EST 4 mg Given 07/30/2020 10:49 AM EST 4 mg PHENYLephrine in NS (PF) (TEQUILA-SYNEPHRINE) 0.8 mg/10 mL (80 mcg/mL) multi-dose injection Syrg Intravenous, PRN, Starting on Wed07/30/20 at 1210, Until Wed07/30/20 at 1411, Anesthesia Intra-op, Routine Given 07/30/2020 12:10 PM EST 160 mcg propofoL (Diprivan) 10 mg/mL bolus injection (Anesthesia) Intravenous, PRN, Starting on Wed07/30/20 at 1041, Until Wed07/30/20 at 1411, Anesthesia Intra-op Given 07/30/2020 1:09 PM EST 50 mg Given 07/30/2020 10:41 AM EST 200 mg propofoL (Diprivan) infusion Intravenous, CONTINUOUS PRN, Starting on Wed07/30/20 at 1049, Until Wed07/30/20 at 1411, Anesthesia Intra-op, Routine New Bag 07/30/2020 10:49 AM EST 50 mcg/kg/min 37.29 mL/hr rocuronium (Zemuron) (10 mg/mL) multi-dose injection Intravenous, PRN, Starting on Wed07/30/20 at 1042, Until Wed07/30/20 at 1411, Anesthesia Intra-op, Routine Given 07/30/2020 12:21 PM EST 10 mg Given 07/30/2020 10:49 AM EST 35 mg Given 07/30/2020 10:42 AM EST 5 mg succinylcholine (Anectine;Quelicin) (20 mg/mL) injection Intravenous, PRN, Starting on Wed07/30/20 at 1042, Until Wed07/30/20 at 1411, Anesthesia Intra-op, Routine Given 07/30/2020 10:42 AM EST 140 mg documented in this encounter Care Teams Sand Carrier Relationship Specialty Start Date End Date Mona Honeycutt, TRANSFUSION NURSE PCP - General Family Medicine 01/25/20 08/29/23 documented as of this encounter
--- OUTSIDE RECORDS SUMMARY | 2024-04-14 12:27 | XMS_ITS | Encounter Summary ---
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 Risk: 200-239 mg/dL Higher Risk: >fl=978 mg/dL Triglyceride 147 mg/dL [facility] Comment: Average Risk/Lower Risk: <150 mg/dL Borderline High Risk: 150-199 mg/dL High Risk: 200-499 mg/dL Very High Risk: >rn=341 mg/dL HDL Cholesterol 49 mg/dL [facility] Comment: Males: ?? Higher Risk: <40 mg/dL Females: ?? HIgher Risk: <50 mg/dL LDL Cholesterol 64 mg/dL [facility] Comment: Lowest Risk: <100 mg/dL Lower Risk: 100-129 mg/dL Borderline High Risk: 130-159 mg/dL High Risk: 160-189 mg/dL Very High Risk: >kc=756 mg/dL Cholesterol/HDL Ratio 2.9 ratio [facility] Lipid Interpretation See Note [facility] Comment: Lipid management should be guided by a patient? s ASCVD risk, goals and preferences. ACC/AHA Guidelines recommend high intensity statin if clinical ASCVD or LDL greater than or equal to 190 mg/dL. http://Justinmind.com/KBI-PTE-Ppisyjgte Adults aged 40-75 with LDL 70-189 mg/dL should have their 10 year ASCVD risk estimated with the ACC/AHA ASCVD risk mixer dry food products http://tools.acc.org/JCDZJ-Fvon-Fmwitzqgd/ Statin should be discussed if risk greater [...] In Lab Carlos Chavez MD CHEMISTRY ORDERABLES Performing Organization Address City/[facility]/ZIP Co de Phone Number [facility] [place] [address] * (ABNORMAL) Iron and TIBC (06/20/2020 4:37 PM EST) Iron 35 30 - 150 mcg/dL [facility] TIBC 350 250 - 450 mcg/dL [facility] Iron Saturation 10(L) 20 - 50 % [facility] Blood specimen (specimen) 06/20/2020 4:37 PM EST 06/20/2020 4:53 PM EST Narrative Resulting Agency Comment Spec In Lab Carlos Chavez MD CHEMISTRY ORDERABLES Performing Organization Address City/[facility]/ZIP Co de Phone Number [facility] [place] [address] * (ABNORMAL) Hemogram (06/20/2020 4:37 PM EST) White Blood Cell 9.6(H) 4.0 - 9.5 x10(3)/mc L [facility] Red Blood Cell 5.63(H) 4.00 - 5.21 x10(6)/[facility] Hemoglobin 14.1 11.7 - 15.5 gm/dL [facility] Hematocrit 44.9 35.7 - 45.8 % [facility] Mean Cell Volume 79.8(L) 82.6 - 94.4 fL [facility] Mean Cell Hemoglobin 25.0(L) 27.1 - 32.0 pg [facility] Mean Cell Hemoglobin Concentration 31.4(L) 31.7 - 35.0 gm/dL [facility] Platelet 341 145 - 357 x10(3)/[facility] LAB[facility]AT[facility] RDW Standard Deviation 43.5 37.0 - 46.0 [facility]AT[facility] RDW coefficient of variation 15.2(H) 11.5 - 14.1 % [facility] Mean Platelet Volume 9.7 7.6 - 12.9 [facility] LAB[facility]ATORY NRBC% auto 0.0 % [facility] NRBC Absolute 0.000 0.000 - 0.000 x10(3)/[facility] Blood specimen (specimen) 06/20/2020 4:37 PM EST 06/20/2020 4:53 PM EST Narrative Resulting Agency Comment Spec In Lab Carlos Chavez MD HEMATOLOGY ORDERABLE S [facility] [place] [address] * (ABNORMAL) Hemoglobin A1c (06/20/2020 4:37 PM EST) Hemoglobin A1c 6.4(H) 4.3 - 5.6 % [facility] Comment: Reference Range: 4.3 - [...] 1, S67-74 Estimated Average Glucose 138 mg/dL [facility] Comment: eAG equivalents for HbA1c [...] into estimated average glucose values. ??Diabetes Care 2008:31(8):9056-2104. Blood specimen (specimen) 06/20/2020 4:37 PM EST 06/20/2020 4:53 PM EST Narrative Resulting Agency Comment Spec In Lab Carlos Chavez MD CHEMISTRY ORDERABLES [facility] [place] [address] * Folate, serum (06/20/2020 4:37 PM EST) Folate >20.0 4.8 - 24.2 ng/mL [facility] Blood specimen (specimen) 06/20/2020 4:37 PM EST 06/20/2020 4:53 PM EST Narrative Resulting Agency Comment Spec In Lab Carlos Chavez MD CHEMISTRY ORDERABLES Performing Organization Address City/[facility]/ZIP Co de Phone Number [facility] [place] [address] * Ferritin (06/20/2020 4:37 PM EST) Ferritin 56 15 - 150 ng/mL [facility] Comment: Pediatric reference ranges not verified at [facility], interpret with caution. Reference ranges for females greater than 50 years of age approach values for men, i.e., 30-400 ng/mL. Blood specimen (specimen) 06/20/2020 4:37 PM EST 06/20/2020 4:53 PM EST Narrative Resulting Agency Comment Spec In Lab Carlos Chavez MD CHEMISTRY ORDERABLES Performing Organization Address [facility]/ZIP Co de Phone Number [facility] [place] [address] * (ABNORMAL) Comprehensive metabolic panel (non-fasting) (06/20/2020 4:37 PM EST) Pathologist [facility] Glucose 107 65 - 199 mg/dL [facility] Comment:Diabetes: >=200 mg/d L plus symptoms Blood Urea Nitrogen 9 8 - 18 mg/dL [facility] Creatinine 0.69(L) 0.70 - 1.20 mg/dL [facility] Sodium 140 135 - 145 mmol/L [facility] Potassium 4.0 3.5 - 5.0 mmol/L [facility] Comment: Please note: ??Patients with WBC >100,000 may have falsely elevated Potassium levels. ??For accurate Potassium quantification in these patients send serum separator tube (gold top) for subsequent determinations. ??Contact the Clinical Chemistry Laboratory if there are any questions. Chloride 103 98 - 107 mmol/L [facility] Carbon Dioxide 26 22 - 31 mmol/L [facility] Anion Gap 11 5 - 15 mmol/L [facility] Calcium 9.4 8.5 - 10.5 mg/dL [facility] Protein, Total 7.3 6.1 - 8.0 gm/dL [facility] Albumin 4.4 3.2 - 5.2 gm/dL [facility] Aspartate Aminotransferase 25 0 - 30 unit/L [facility] Alanine Aminotransferase 30 0 - 30 unit/L [facility] Alkaline Phosphatase 91 35 - 105 unit/L [facility] Bilirubin, Total 0.3 0.2 - 1.3 mg/dL [facility] Est Glomerular Filtration Rate 114 >=60 mL/min/1. 73 m?? [facility] Comment: This patient? s estimated glomerular filtration rate (eGFR) is between 114 mL/min/1.73 m2 (patients with less muscle mass) [...] in addition to eGFR. Blood specimen (specimen) 06/20/2020 4:37 PM EST 06/20/2020 4:53 PM EST Narrative Resulting Agency Comment Spec In Lab Carlos Chavez MD CHEMISTRY ORDERABLES [facility] [place] [address] documented in this encounter Visit Diagnoses Diagnosis Morbid obesity documented in this encounter Care Teams Piercing Mill Operator Relationship Specialty Start Date End Date Mona Honeycutt APRN PCP - General Family Medicine 01/25/20 08/29/23 documented as of this encounter
--- OUTSIDE RECORDS SUMMARY | 2024-04-14 12:27 | XMS_ITS | Encounter Summary ---
Author Organization Formerly [facility] [place] [address] Care Team Providers Care Assembler Brazer Name Role Phone Yinka Mona Horton APRN Primary Care Provider [phone] Encounter Details Date Type Department Care Team (Late st Contact Info) Description 07/10/2020 1:00 PM EST [place] [address] Karlie Villanueva APRN [facility] [address] Hilda Marx, RD [facility] [place] [address] Morbid obesity Social History Tobacco Use Types Packs/Day Years Used Date Smoking Tobacco: Never Smokeless Tobacco: Never Sex and Gender Information Value Date Recorded Sex Assigned at Not on file Gender Identity Not on file Sexual Orientation Not on file documented as of this encounter Patient Instructions * Patient Instructions* Karlie Villanueva APRN - 07/10/2020 1:00 PM EST [facility] BARIATRIC SUPPORT TEAM CONTACT NUMBERS (Mon-Fri 8am - 5pm): General Surgery and Bariatric Surgery [phone] Bariatric Surgeons: Doctors. Banegas [phone] Hot Metal Charger: [phone] Dietitians: [phone] Outside of regular business hours, including weekends and holidays: Ask for General Surgery resident emulsion operator [phone] BEFORE YOUR SURGERY: ??? Questions for your doctor, specialist or pharmacist: Ask your doctor about medication suggestions if you currently take medications that are larger than the size of a tylenol or calcium pill. Large pills need to be crushed (if permitted by the drug glass engraver), taken in smaller size pills, ortaken in liquid form for TWO WEEKS after surgery. ??? If you take antinflammatory medications or steroid medications for arthritis or asthma, please check with your doctor. These medications will need to be held 1 week prior to and at least a few weeks after surgery. ??? Oral contraceptive pills, post menopausal hormones, and male hormones should be stopped 1 monthbefore and 1 month after surgery. ??? If you have sleep apnea be sure to bring your CPAP/BiPAP with you to the hospital. ?? Schedule a follow up appointment with your primary care provider 10-14 days after your surgery. ?? Bring your handbook with you to the hospital AFTER YOUR SURGERY: GENERAL BARIATRIC SURGERY DISCHARGE INFORMATION (some information specific to health problems list below may not pertain to you) FOR EMERGENCIES: CALL 911 (trouble breathing, chest [...] have after your surgery Follow up Information: ?? You will be given a surgical follow-up appointment with The Bariatric Surgery Team in 3-4 weeks at the General Surgery Outpatient Clinic (Flow Worker 4L, [facility]). BATHING AND WOUND CARE: ?? You may [...] feel comfortable. ?? Do not drive for 2 weeks. After [address] when comfortable and not taking narcotic pain medicine. DIET: ?? Follow Stage II diet for [...] weeks after surgery BLOOD CLOT PREVENTION: ?? Be active, walk at least 4 times a day and do blood clot prevention exercises in your handbook on page 82. ?? Some patients will be discharged on enoxaparin twice a day for 10 days to prevent blood clots, which is determined by the surgeon. IF YOU ARE TREATED FOR OBSTRUCTIVE SLEEP APNEA: ?? IMPORTANT - you MUST use your CPAP/ BIPAP after surgery while sleeping at night and also when napping during the day because some medications you may have been prescribed at discharge can decreaseyour breathing. ?? Follow up with the Sleep Center if pressure seems to be too high. ULCER PREVENTION: ?? IMPORTANT - you must take acid suppressing medication such as pantoprazole, nexium or omeprazolefor 3 MONTHS after surgery. This is taken to prevent ulcers at your surgical sites internally, evenif you do not have heartburn. ?? omeprazole 20 mg daily (or another medication you may [...] mustpurchase these medications over the counter. ?? Decrease the medication to every other day when you have 7 days left in your prescription. Continue this after the initial 3 month course if you have heartburn or reflux ?? If you have William's esophagus, continue the medication fpc GALLSTONE PREVENTION: ?? If you have had [...] may stop this medication unless otherwise directed. PAIN MEDICATION: ?? Your pain should lessen [...] ?? Discontinue anti-inflammatory non-steroidal medications, such as Celebrex, Mobic, Advil (ibuprofen), Aleve (naprosyn), etc. Refer to Medications that may increase [...] and as needed when feeling unwell. ?? If the Diabetes Team saw you during your hospital stay, they have listed specific recommendations elsewhere in your discharge paperwork. Please refer to their specific diabetes care recommendations. ?? Patients on oral diabetic medication: If blood sugar is over 200 on more than 3 checks, call your primary care physician or diabetic specialist for recommendations. For patients on insulin and oral diabetic medications: If blood sugar is over 200 on 3 checks, call your primary care doctor or diabetic specialist for recommendations. ?? Follow up with primary care provider or technical customer support specialist in 1-2 weeks in order to adjust yourchanging diabetes treatment requirements. PATIENTS WITH HIGH BLOOD PRESSURE: ?? Monitor your blood pressure regularly. ?? If you feel dizzy and have been drinking 48-64 ounces of fluid, have your blood pressure checked. ?? If your blood pressure is low, call your primary care provider. Keep a log to bring to your PCP appointments. PATIENTS WHO TAKE DIURETICS (WATER PILLS) such as furosemide, HCTZ (hydrochlorothiazide), spironolactone: ?? Check with your surgical team prior to discharge for instructions. In general, this medication is stopped after surgery, as you are at risk for dehydration after Bariatric Surgery. ?? Monitor yourself for any swelling of legs or gain of water weight after medication is stopped.Call your primary care doctor if you notice this. PATIENTS ON ANTI-DEPRESSANT OR MENTAL HEALTH MEDICATIONS: ?? Do not stop or decrease your medications unless advised. ?? Ongoing counseling is encouraged. ?? Some patients notice a change in their mood early after surgery, if you are having difficulty coping with the lifestyle or dietary changes associated with surgery please follow up with your primary care provider or your mental health provider. Important to have non-food related ways to cope withstress. VITAMIN AND MINERAL SUPPLEMENTATION: START at 2 [...] You should follow up with your surgeon or bariatric nurse practitioner and dietitian at 3-4 weeks after surgery. ?? You will follow up with the dietitian and Bariatric nurse practitioner at 4, 12 months, then yearly for life. Vitamins and supplements are required for life. documented in this encounter Progress Notes * Hilda Marx RD - 07/10/2020 1:00 PM EST BARIATRIC SURGERY PROGRAM NUTRITION EDUCATION 2nd Pre-Operative Visit Shared Medical Appointment Helene Carpenter attended a 2 hour shared medical appointment today with the bariatric surgery program dietitian and nurse practitioner. Ms. Carpenter is a morbidly obese female who has been referred for nutrition evaluation and diet instruction in anticipation of bariatric surgery. Previous conservative attempts at weight loss through dieting have been unsuccessful over the local intermodal truck driver. Advised patient that bariatric surgery is a weight loss tool not a solution; and ultimately weight loss will be achieved through proper eating and exercise habits. Patient was given a copy of the program handbook at the initial appointment which includes specific information on all nutrition recommendations and guidelines. Pt instructed on importance of following the Pre-operative Surgical Diet. Failure to do so may result in poor pre-surgical weight loss and may result in surgery not being performed. Helene was given the opportunity to ask questions and all questions were answered. She was also given contact information for further nutrition questions. Nutrition Topics Covered at Today's Appointment: ?? Pre-operative Surgical Diet ?? Purpose of diet ?? Appropriate foods ?? Protein goals ?? Carbohydrate goals ?? Calorie goals ?? Keeping a food log ?? Hydration and Appropriate Beverages ?? Post-Operative Diets (Stages I-IV) ?? Importance of following diet stages ?? Appropriate foods ?? Sample Menus ?? Vitamin/Mineral Supplementation ?? Common Food Intolerances ?? Dumping Syndrome ?? Sugar Alcohols ?? Physical Activity ?? Weight Regain ?? Habits of Successful Bariatric Surgery Patients The appointment consisted of 60 minutes of group education and counseling. * Karlie Villanueva APRN - 07/10/2020 1:00 PM EST BARIATRIC SURGERY PROGRAM [place], [place] [address] Reason for visit: [facility] for up coming bariatric surgery Helene attended a comprehensive group pre-operative class today, which included discussion of pre and post operative instructions included in the [facility] Bariatric Surgery Program Education Handbook. Thenutrition component of the class was taught by the BSP RD. Patient completed health update form. No new medical issues/ED visit. Medications/allergies are reviewed, otherwise today's visit was group visit. Surgery info: Patient is scheduled for laparoscopic Zandra en Y gastric bypass on 07/30/20, with Dr. Chavez Obesity related medical issues: o Diabetes [x] Yes on jardiance, glipizide, metformin preop A1c 6.4 [] Not a baseline issue o HTN: [x] Yes, on losartan, metoprolol [] Not a baseline issue o GERD: [x] Yes, on famotidine [] Not a baseline issue o Hyperlipidemia: [x] Yes on pravastatin [] Not a baseline issue o GAMAL: [x] Yes, using CPAP [] Not a baseline issue o Musculoskeletal issues: [] Yes [x] Not a baseline issue o Other: Preop labs: completed Individualized recommendations for post discharge: as per surgeon note Ursodiol- [x] indicated [] not indicated PPI- [x] indicated [] not indicated Lovenox- [] Indicated [x] not indicated Prescriptions provided at today's visit: none Bariatric Surgery Program Pathway and review of status with the requirements of the Bariatric Surgery Program 1. Education: Pt previously attended a Introduction to the [facility] Bariatric Surgery Program seminar,a two hour meeting that provides a program overview as well as expectations. The [facility] Bariatric Surgery Program Educational seminar requirement has been met. The BSP Educational Handbook was providedat visit #1. 2. Pre-operative programmatic evaluations have been done, as noted in previous pathway review. 3. Bariatric Surgery Program evaluations with the surgeon and dietitian have taken place. Helene lujan approved to proceed with surgery by surgeon. 6. Surgical consultation has taken place Next steps in pathway: ?? During hospitalization for bariatric surgery, a standard bariatric surgery order set is followed. ?? Routine post-operative follow up with labwork is done at months 1,4,12 and 24, yearly thereafter, and PRN. High risk patients are followed more frequently. Some of the topics reviewed during group discussion today included: ?? day of surgery and post-op routine care/ locations: Admissions/SDP/PACU/// [facility] ?? medications that increase the risk of bleeding including NSAIDs and anticoagulants to be avoidedper guidelines pre and post-operatively ?? DVT/VTE prevention and signs of DVT/PE. ?? Inpatient management for VTE prevention: venodynes, ambulation, Enoxaparin 40 units BID during inpatient stay. ?? Indications for extended Enoxaparin 10 days post discharge: A. patients with BMI >60 or prior VTE OR B. 2 or more of the following: age >50, BMI >50, male gender, sleep apnea, varicose veins, venous insufficiency, history of oral contraceptive or hormone or post-menopausal hormone replacement use within 30 days of surgery, and recent smoking ?? guidelines for patients treated with oral anticoagulants per Thrombosis Clinic ?? diabetes and hypertension monitoring during pre-op diet and post-operatively. Diuretic therapy is held to avoid risk of dehydration unless patient is symptomatic. ?? signs and symptoms of infection as well as emergency signs and symptoms were reviewed ?? common post-operative complaints ?? management of sleep apnea during hospitalization and post operatively. The importance of post-operative follow-up with Sleep Center after weight loss was stressed. ?? recommendations for psychiatric medications: should continue uninterrupted after surgery ?? activity post surgery/ return to work recommendations ?? routine BSP post-operative follow-up: 3 weeks. 4 months, 12 months and yearly for LIFE ?? routine Primary Care post-operative follow up: at 10-14 days after surgery to monitor chronic health problems such as diabetes and hypertension, since the requirement for antihypertensive and diabetic medications may decrease or be discontinued A preliminary copy of the discharge instructions was provided, which is also available in the patient handbook. Helene was given the opportunity to ask questions, and all questions were answered. Time spent in counselin minutes documented in this encounter Plan of Treatment Not on file documented as of this encounter Visit Diagnoses Diagnosis Morbid obesity documented in this encounter Care Teams Assembler Brazer Relationship Specialty Start Date End Date Mona Honeycutt APRN PCP - General Family Medicine 01/25/20 08/29/23 documented as of this encounter
--- OUTSIDE RECORDS SUMMARY | 2024-04-14 12:27 | XMS_ITS | Encounter Summary ---
Author Organization [facility] [place] [address] Care Team Providers Care Platform Stapler Name Role Phone Yinka Mona Horton APRN Primary Care Provider [phone] Encounter Details Date Type Department Care Team (Late st Contact Info) Description 07/05/2020 Telephone [place] [id number] Hilda Marx, RD [facility] [place] [address] Social History Tobacco Use Types Packs/Day Years Used Date Smoking Tobacco: Never Smokeless Tobacco: Never Sex and Gender Information Value Date Recorded Sex Assigned at Not on file Gender Identity Not on file Sexual Orientation Not on file documented as of this encounter Miscellaneous Notes * Telephone Encounter - Hilda Marx, RD - 07/05/2020 10:40 AM EST Returned Helene's call regarding the preop diet. She is scheduled for bariatric surgery on 07/30/20. She is scheduled for her preop class on 07/10/20. We discussed the preop diet in more detail. (She should start the preop diet on 07/16). She is going to play around with some of the meal options to see what she likes. She plans to go to [employer] to purchase protein drinks - we discussed Boost Glucose Control, Premier Protein and Equate high protein (30 g) as options. Advised she can pick meals from options 1-4 throughout the day but needs to be sure she does not exceed 1000 calories or 100 g CHO. She needs to get at least 60 g protein and have 48 oz water. Helene is going to use the [employer] marcello to track her meals. She is going to scan some foods into it over the next few days. I offered to sit down with Helene 1:1 after the class to review the diet inmore detail if she still has questions. Helene is agreeable to the above. Encouraged her to call with any additional questions. documented in this encounter Plan of Treatment Not on file documented as of this encounter Visit Diagnoses Not on filedocumented in this encounter Care Teams Platform Stapler Relationship Specialty Start Date End Date Mona Honeycutt, ROMEL PCP - General Family Medicine 01/25/20 08/29/23 documented as of this encounter
--- OUTSIDE RECORDS SUMMARY | 2024-04-14 12:27 | XMS_ITS | Encounter Summary ---
Author Organization [facility] [place] [address] Care Team Providers Care Group Practice Pediatrician Name Role Phone Mona Honeycutt APRN Primary Care Provider Encounter Details Date Type Department Care Team (Late st Contact Info) Description 03/20/2020 Telephone [place] [phone] Junaid-Genevieve Freeman Social History Tobacco Use Types Packs/Day Years Used Date Smoking Tobacco: Never Assessed Sex and Gender Information Value Date Recorded Sex Assigned at Not on file Gender Identity Not on file Sexual Orientation Not on file documented as of this encounter Miscellaneous Notes * Telephone Encounter - Genevieve Quiroga - 03/20/2020 8:07 AM EDT Spoke with Helene this morning let her know that we are still waiting on her psych evaluation notes,her letter of support from her PCP, a copy of her most recent pap smear. She was going to get in touch with the provider who did the psych eval and her PCP. documented in this encounter Plan of Treatment Not on file documented as of this encounter Visit Diagnoses Not on filedocumented in this encounter Care Teams Group Practice Pediatrician Relationship Specialty Start Date End Date Mona Honeycutt APRN PCP - General Family Medicine 01/25/20 08/29/23 documented as of this encounter
--- NOTE | 2024-04-14 13:04 | DI.RAD_ITS ---
Exam(s) XR ANKLE RT COMPLETE EXAM: XR ANKLE RT COMPLETE CLINICAL HISTORY: R ankle pain, twisted. TECHNIQUE: 2D digital imaging was performed of the right ankle. Three images were obtained. AP, la teral and oblique views were obtained. COMPARISON: CR,XR XR ANKLE RT COMPLETE from 03/06/2023 FINDINGS: BONES: No acute fracture is present. No bony destructive lesion is seen. JOINTS: The ankle mortise is normally aligned. SOFT TISSUE: Normal. There is a tiny well circumscribed density at the tip of the medial malleolus wh ich is old. IMPRESSION: No acute abnormality. DATA REPOSITORY: RADIATION DOSE DELIVERED:
[2024-04-14] MEDS: Acetaminophen 325 MG TAB 650 MG PO (13:22)
--- NOTE | 2024-04-15 16:52 | NUR.NOTE ---
Access chart to get the diagnosis for billing paperwork for [facility]. Nursing Note:
--- NOTE | 2024-04-17 09:59 | NUR.NOTE ---
Helene called to request a work note defining any limitations she should have. 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 Return to no limitations after cleared by her PCP. Note faxed to [employer], Shanelle Hanna .
== END 2024-04-14 14:01 | disposition home or self-care (01) ==
PROVIDERS: Emergency Provider Nurse Practitioner Family; PCP Nurse Practitioner Family
DX: S93.401A Sprain of unspecified ligament of right ankle, initial encounter (principal); E11.9 Type 2 diabetes mellitus without complications; I10 Essential (primary) hypertension; E78.5 Hyperlipidemia, unspecified; Z98.84 Bariatric surgery status; Z79.84 Long term (current) use of oral hypoglycemic drugs; W18.39XA Other fall on same level, initial encounter; Y93.01 Activity, walking, marching and hiking; Y92.89 Other specified places as the place of occurrence of the external cause
CPT/HCPCS: 81025; 99284; 73610; 99283

== ENCOUNTER 2025-01-18 09:08 | Emergency (ER) | payer OTHER, SELFPAY ==
--- NOTE | 2025-01-18 09:00 | DI.RAD_ITS ---
Exam(s) XR ANKLE LT COMPLETE EXAM: XR ANKLE LT COMPLETE CLINICAL HISTORY: L ankle pain TECHNIQUE: 2D digital imaging was performed. Three views. COMPARISON: CR LEFT ANKLE COMPLETE from 11/17/2009 CR LEFT ANKLE COMPLETE from 02/26/2017 CR,XR XR ANKLE RT COMPLETE from 03/06/2023 FINDINGS: BONES: Lucency through the tip of the lateral malleolus could represent acute or old fracture. No bony destructive lesion is seen. JOINTS:The ankle mortise is normally aligned. No joint space narrowing. SOFT TISSUE: Soft tissue swelling around the malleoli. IMPRESSION: Question of old versus acute fracture at the tip of the lateral malleolus. DATA REPOSITORY: RADIATION DOSE DELIVERED:
[2025-01-18 09:39] VITALS: BP 138/97; PULSE 85; RESP 14; TEMP 36.8; O2SAT 98
--- NOTE | 2025-01-18 09:43 | W.ED.GENAD ---
Discharge Plan Disposition Patient Disposition: Home Condition: Stable Discharge Details Clinical Impression: Closed fracture of distal end of left fibula Primary Care Provider: Mona Honeycutt ED Provider: Ryan Haq Home Meds and New Rx's Prescriptions: Continued Vitron-C 65 mg iron- 125 mg tablet,delayed release (DR/EC) 1 tab PO DAILY (DME) Wrist Brace Misc See Rx Instructions .Route Qty: 1 0RF Rx Instructions: As directed albuterol sulfate 90 mcg/actuation HFA aerosol inhaler 1 - 2 puff IH Q4H PRN (Reason: shortness of breath or wheezing) Qty: 8.5 0RF Rx Instructions: Dispense brand of albuterol inhaler covered by patient's insurance loratadine 10 mg tablet 10 mg PO DAILY Qty: 90 3RF (DME) OneTouch Ultra Test Strip See Rx Instructions .ROUTE .MEDSUPPLY Qty: 100 3RF Rx Instructions: test once daily. metformin 500 mg tablet 1,000 mg PO BID Qty: 120 6RF (DME) blood-glucose meter [Accu-Chek Emely Plus Meter] 1 EACH misc 1 ea Miscellaneous BID Qty: 1 Rx Instructions: to check blood glucose, E11.69 to maintain HGB A1C less than 7 (DME) lancets Misc See Dose Instructions .ROUTE .MEDSUPPLY Qty: 100 3RF Dose Instruction: As directed to check daily morning fasting blood glucose Rx Instructions: As directed to check daily morning fasting blood glucose. No insulin. cyanocobalamin (vitamin B-12) [Vitamin B-12] 500 mcg tablet 500 mcg PO DAILY Rx Instructions: note dated 08/19/20 [facility] multivitamin with iron-mineral Tablet 2 tab PO DAILY Rx Instructions: note dated 08/11/21 [facility] calcium [id number] vit D 400 U tablet 2 tab PO DAILY Rx Instructions: note dated 08/11/21 [facility] ascorbic acid (vitamin C) 125 mg tablet,chewable 125 mg PO DAILY Qty: 90 3RF Discharge Instructions Instructions: Lower Leg Fracture ED Additional Instructions: You were seen in the emergency department for a possible fracture of the distal end of your left fibula, this is a nonweightbearing bone, you should be fine weightbearing in the walking boot we have provided, the only way to tell if this is a new fracture versus an old fractures to get a repeat x-ray in about 10 days. Have your regular doctor order 1 of these. Until then use the walking boot and weight-bear as tolerated, you may remove the boot to rest, ice, compress and elevate in the evenings, take regular doses of Tylenol and ibuprofen, please return for any signs of neurovascular compromise. Stand Alone Forms: Work Release Referrals: Mona Honeycutt NP [Primary Care Provider, Medicine] Discharge Data Discharge Date/Time-TO BE ENTERED AT DEPARTURE: 01/18/25 11:49 HPI General Date/Time Provider Initiated Documentation: 01/18/25 09:12. HPI Narrative: 39 year-old female presents to ED today by POV/ambulating with a chief complaint of rolled her L ankle last night on wet ground. Quality described as pain at lateral malleolus. Patient is R-foot dominant. NO radiation to numbness/tingling, inability to bear weight, gross deformity, proximal calf/knee pain, headstrike or LOC. Severity is described as moderate. Palliating factors include elevated last night, but no ice or meds. Provoking factors include nothing specific. Patient not anticoagulated. Related Data Home Medications ?Medication ?Instructions ?Recorded ?Confirmed blood-glucose meter (Accu-Chek #1 ea 11/04/17 06/26/24 Emely Plus Meter) lancets #100 ea 12/22/18 06/26/24 iron,carbonyl 65 mg-vitamin C 125 1 tab PO DAILY 08/16/20 06/26/24 mg tablet,delayed release (Vitron-C) cyanocobalamin (vitamin B-12) 500 500 mcg PO DAILY 08/20/20 06/26/24 mcg tablet (Vitamin B-12) calcium [id number] vit D 400 U 2 tab PO DAILY 08/11/21 06/26/24 multivitamin with iron-mineral 2 tab PO DAILY 08/11/21 06/26/24 albuterol sulfate 90 mcg/actuation 1 - 2 puff inhalation Q4H PRN 10/16/22 06/26/24 aerosol inhaler shortness of breath or wheezing #8.5 grams arm brace (Wrist Brace) #1 ea 10/16/22 06/26/24 ascorbic acid (vitamin C) 125 mg 125 mg PO DAILY vitamin C 01/21/23 06/26/24 chewable tablet deficiency #90 tabs blood sugar diagnostic (OneTouch #100 ea 04/13/23 06/26/24 Ultra Test strips) loratadine 10 mg tablet 10 mg PO DAILY #90 tab-caps 04/13/23 06/26/24 metformin 500 mg tablet 1,000 mg (2 x 500 mg) PO BID #120 05/01/24 06/26/24 tabs Previous Rx's ?Medication ?Instructions ?Recorded lancets #100 ea 12/22/18 albuterol sulfate 90 mcg/actuation 1 - 2 puff inhalation Q4H PRN 10/16/22 aerosol inhaler shortness of breath or wheezing #8.5 grams arm brace (Wrist Brace) #1 ea 10/16/22 ascorbic acid (vitamin C) 125 mg 125 mg PO DAILY vitamin C 01/21/23 chewable tablet deficiency #90 tabs blood sugar diagnostic (OneTouch #100 ea 04/13/23 Ultra Test strips) loratadine 10 mg tablet 10 mg PO DAILY #90 tab-caps 04/13/23 metformin 500 mg tablet 1,000 mg (2 x 500 mg) PO BID #120 05/01/24 tabs Allergies Allergy/AdvReac Type Severity Reaction Status Date / Time niacin (From Niaspan Allergy Unknown Severe Verified 01/18/25 09:43 Extended-Release) Skin Rash ibuprofen AdvReac Intermediate Upset Verified 01/18/25 09:43 stomach lisinopril AdvReac Intermediate Cough Verified 01/18/25 09:43 General Stated Complaint: Orthopedic MELANIE: 4 Review of Systems All systems reviewed & are unremarkable except as noted in HPI and below Exam Narrative Exam Narrative: GENERAL APPEARANCE: Well-nourished, non-toxic, awake and alert, atraumatic, no acute distress. SKIN: Warm, pink, dry, intact, without rashes/lesions/ulcerations. HEAD: Normocephalic, atraumatic, normal hair distribution for gender/age. EYES: Normal conjunctiva, no exudates on lids/lashes. ENT: Nares patent, no circumoral cyanosis, no facial swelling NECK: Supple, trachea midline, painless cervical ROM. LUNGS/CHEST: Non-labored respirations, normal A/P diameter, symmetrical expansion, no chest wall deformity HEART (CV/PV): Regular rate, no peripheral edema, no JVD. ABDOMEN: Soft, non-distended, no guarding. MSK: Normal ROM, no swelling/deformity to bilateral UEs or LEs, moving all extremities without weakness, no cyanosis, spine midline without tenderness, normal curvature L ANKLE: tenderness at the left lateral malleolus without significant swelling or deformity, mild bruising, left dorsalis pedis pulse 2+, no fibular head tenderness NEURO: Mental Status AAOx4 - alert to person, place, time, events No facial droop, no forehead involvement. Motor: No focal weakness - strength 5/5 in bilateral UEs and LEs, proximal and distal, symmetric. Sensory: sensation intact to light touch globally. Gait antalgic. PSYCH: euthymic, cooperative, pleasant, appropriate speech Course Vital Signs Vital signs: Vital Signs Temperature 36.8 C 01/18/25 09:39 Pulse 85 01/18/25 09:39 Respiratory Rate 14 01/18/25 09:39 Blood Pressure 138/97 H 01/18/25 09:39 Pulse Oximetry 98 01/18/25 09:39 Temperature 36.8 C 01/18/25 09:39 Temperature Source Oral 01/18/25 09:39 Pulse 85 01/18/25 09:39 Respiratory Rate 14 01/18/25 09:39 Blood Pressure 138/97 H 01/18/25 09:39 Blood Pressure Position Sitting 01/18/25 09:39 Pulse Oximetry 98 01/18/25 09:39 Oxygen Delivery Method Room Air 01/18/25 09:39 Oxygen Flow Rate 0 01/18/25 09:39 Pain Level 10 01/18/25 09:39 Medical Decision Making This dictation utilizes [id number] dictation software and may contain unedited grammatical errors. 39 year-old female presents to ED today by POV/ambulating with a chief complaint of rolled her L ankle last night on wet ground. Quality described as pain at lateral malleolus. Patient is R-foot dominant. NO radiation to numbness/tingling, inability to bear weight, gross deformity, proximal calf/knee pain, headstrike or LOC. Severity is described as moderate. Palliating factors include elevated last night, but no ice or meds. Provoking factors include nothing specific. Patients' medical history: noncontributory. Family and social history: noncontributory. Pertinent exam findings / vital signs include tenderness at the left lateral malleolus without significant swelling or deformity, mild bruising, left dorsalis pedis pulse 2+, no fibular head tenderness. Differential / pathologies of concern include ankle sprain, fracture. Diagnostic studies of: -XR L ankle shows a possibly acute fracture of distal end of left fibula, treating as fracture until she can obtain repeat imaging. Interventions of: -Walking boot. ED Course/Assessment/Plan: 39-year-old female rolled her ankle last night and has significant pain but has taken no pain meds did not ice, and has mild bruising possibly old versus acute fracture at the distal left malleolus, treating as fracture with a walking boot recommend repeat imaging in an outpatient basis in 7 to 10 days, therapeutic dosing of Tylenol and ibuprofen and RICE therapy, weightbearing as tolerated. Findings not consistent with neurovascular compromise. Disposition of closed fracture of distal end of left fibula. Patient verbalized understanding of the plan and return to ED criteria and engaged in shared decision making. Medical Records Medical records reviewed: Yes I reviewed the patient's medical records. Imaging Data Radiologic Study: Attestation: I personally reviewed and interpreted this imaging study as follows: Imaging: X-Ray Radiologist's impression: EXAM: XR ANKLE LT COMPLETE CLINICAL HISTORY: L ankle pain TECHNIQUE: 2D digital imaging was performed. Three views. COMPARISON: CR LEFT ANKLE COMPLETE from 11/17/2009 CR LEFT ANKLE COMPLETE from 02/26/2017 CR,XR XR ANKLE RT COMPLETE from 03/06/2023 FINDINGS: BONES: Lucency through the tip of the lateral malleolus could represent acute or old fracture. No bony destructive lesion is seen. JOINTS:The ankle mortise is normally aligned. No joint space narrowing. SOFT TISSUE: Soft tissue swelling around the malleoli. IMPRESSION: Question of old versus acute fracture at the tip of the lateral malleolus. PFSH All Active Problems (Updated 01/18/25 @ 11:39 by OCTAVIANO Petty) Closed fracture of distal end of left fibula (Acute) Pannus, abdominal (Acute) Right ankle sprain (Acute) Vitamin C deficiency (Acute) History of bariatric surgery (Acute) Hemorrhagic cyst of right ovary (Acute) Left wrist sprain (Acute) Ovarian cyst (Acute) Right; 05/2021 US: stable; repeat 6 months & if still stable at that point, surveillance is completed Thoracic outlet syndrome (Acute) Obesity (Chronic) Knowledge deficit about therapeutic diet (Acute) History of abnormal cervical Pap smear (Acute) Tendinitis of long head of biceps brachii of left shoulder (Acute ~09/2018) s/p biceps tenotomy 05/12/2019 Instability of left shoulder joint (Acute ~09/2018) Bursitis of left shoulder (Acute ~09/2018) Impingement syndrome of left shoulder (Acute ~09/2018) Anxiety and depression (Chronic) Type 2 diabetes mellitus (Chronic) Dx ~21 y/o Irritable bowel syndrome with diarrhea (Chronic) 02/28/2018 colonoscopy with random biopsies: normal (metformin contributing to sx?); 03/07/2018: neg Celiac serology Severe obstructive sleep apnea (Chronic 04/27/17) C-Pap Learning disability (Chronic) On disability Gastroesophageal reflux disease without esophagitis (Chronic 09/04/16) Fatty liver (Chronic 09/08/16) 10/2022 labs: FIB4 score = 0.48 (cirrhosis less likely) Essential hypertension (Chronic 09/04/16) Dyslipidemia (Chronic 09/04/16) Unspecified chronic bronchitis (Chronic 09/04/16) Medical History Insomnia Left rotator cuff tear (~09/2018) LGSIL on Pap smear of cervix (09/04/16) LSIL 2014, neg colpo. LSIL 11/2015, 07/2016; no HR HPV available. 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 Daniel Left Knee Surgery (10/05/06) Right Knee Surgery (03/07/08) Family History Mother Diabetes Type II Essential hypertension Mental disorder Bipolar d/o COPD (chronic obstructive pulmonary disease) Maternal Grandmother Diabetes Neoplasm Breast Brother No problems noted. Brother No problems noted. Maternal Uncle Mental disorder Bipolar d/o Social History Smoking/Tobacco Use Status: Never Smoking risk assessment performed?: Yes Alcohol Intake: never Drug use: Never Substance use type: does not use Counseling given: No Adopted: No Caregiver/Support person: No Foster care: No Household members: significant other Housing: apartment Number of Children: 0 Communication Needs: Corrective Lenses current occupation: [employer] Pets and animals: Yes Pets and animals: cat(s) and other Details: rabbits Sexually active: Yes Current gender identity: female What type of physical activity do you participate in: walking Duration: 60-90 minutes/day Frequency: daily Seatbelt use: always Helmet use: No (n/a) Drive intox or ride 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
--- NOTE | 2025-01-20 12:52 | NUR.NOTE ---
Access chart to get the discharge diagnosis for [facility] billing requisition. Nursing Note:
--- NOTE | 2025-02-06 06:45 | NUR.NOTE ---
Accessed Pt chart to print off visit notes for [facility]
== END 2025-01-18 11:49 | disposition home or self-care (01) ==
PROVIDERS: Emergency Provider Physician Assistant; PCP Nurse Practitioner Family
DX: S82.832A Other fracture of upper and lower end of left fibula, initial encounter for closed fracture (principal); X58.XXXA Exposure to other specified factors, initial encounter
CPT/HCPCS: 99283 ×2; 27786; 73610

== ENCOUNTER 2025-02-26 07:23 | Outpatient (CLI) | payer OTHER, SELFPAY ==
--- NOTE | 2025-02-26 07:00 | DI.RAD_ITS ---
Exam(s) XR ANKLE LT COMPLETE EXAM: XR ANKLE LT COMPLETE CLINICAL HISTORY: Repeat imaging, ? old vs new frx,ankle fx,[id number] TECHNIQUE: 2D digital imaging was performed. Three views. COMPARISON: CR LEFT ANKLE COMPLETE from 02/26/2017 CR XR ANKLE LT COMPLETE from 01/18/2025 FINDINGS: Bones: Stable fracture at the tip of the lateral malleolus, likely old. No other abnormalities are identified. No bony destructive lesion is seen. JOINTS:The ankle mortise is normally aligned. SOFT TISSUE: Normal. IMPRESSION: Stable appearance of fracture at the tip of the lateral malleolus, likely old. DATA REPOSITORY: RADIATION DOSE DELIVERED:
== END 2025-02-26 07:43 ==
LOC: DI 07:23
PROVIDERS: PCP Nurse Practitioner Family; Visit Provider Family Medicine
DX: S82.62XA Displaced fracture of lateral malleolus of left fibula, initial encounter for closed fracture (principal); X58.XXXA Exposure to other specified factors, initial encounter
CPT/HCPCS: 73610

== ENCOUNTER 2025-03-19 15:36 | Outpatient (REF) | payer OTHER, SELFPAY ==
--- NOTE | 2025-03-19 15:10 | PAPFT_PTH ---
PATIENT: Helene Carpenter LOC: [facility] U#:[id number] AGE/SX: 39/F ROOM: RE03/19/[address]: Nelli Agudelo NP : 1985 BED: DIS: 03/19/2025 SPEC #: [id number] RECD: 03/19/25 17:04 STATUS: HAMILTON SCANLON #: [id number] MARIPOSA: 03/19/25 15:[address]: Nelli Agudelo NP DEPT: [facility] Cytology RECD BY: Bethany Washburn ENTERED: 03/19/25 17:04 SP TYPE: PAPFT OTHR DR: Kodi Schultz Tissues: 1 - CX/ENDOCX FOR PAP SMEARS Procedures: PAP THIN PREP/[facility] Screening HPV DNA PROBE Comments: [id number] (HPV 16 & 18/45)
== END 2025-03-19 15:37 | disposition home or self-care (01) ==
LOC: LBN 15:36
PROVIDERS: Visit Provider Nurse Practitioner Women's Health
DX: Z12.4 Encounter for screening for malignant neoplasm of cervix (principal)
CPT/HCPCS: 88142; 87624

== ENCOUNTER → 2025-04-05 03:48 | Outpatient (CLI) | payer OTHER, SELFPAY ==
--- NOTE | 2025-04-05 07:15 | DI.DEXA_ITS ---
Exam(s) XR DEXA BONE DENSITY W/WO CARMENZA EXAM: XR DEXA BONE DENSITY W/WO CARMENZA CLINICAL HISTORY: Q2 year study, s/p bariatric surgery,Z98.84 TECHNIQUE: Routine DEXA evaluation of the lumbar spine, hip, or forearm. COMPARISON: No exams were available for comparison FINDINGS: Performed on a Hologic unit. Lateral image: No compression fracture evident. Lumbar Spine total T-score: 1.2 which is in normal range. Hip total T-score:0.6 which is normal range. Independent reading at the level of the femoral neck yields T-score of 0.0 which is normal range. Forearm total T-score: 0.2 which is normal range. IMPRESSION: Bone mineral density measures in the normal range. Fracture risk is low. Note: Any spine fracture indicates 5x risk for subsequent spine fracture and 2x risk for subsequent hip fracture. World Health Organization criteria for BMD interpretation classify patients: Normal...... T- Score at or above -1.0 Osteopenic... T- Score between -1.0 and -2.5 Osteoporosis... T-Score at or below -2.5
== END ==
LOC: DI 03:48
DX: Z98.84 Bariatric surgery status (principal); E11.65 Type 2 diabetes mellitus with hyperglycemia
CPT/HCPCS: 77080